=== PATIENT | female | born 1940 | race Caucasian/White ===

== ENCOUNTER 2016-12-15 11:20 | Emergency (ER) | payer OTHER, BC ==
[~2016-12-15] VITALS: Ht 167.6 cm; Wt 54.0 kg
[~2016-12-15 11:20] MED LIST: ASCO10003 PO; BACL10TA PO; BTLAI; CHOLTAB3 PO; MIRA1TAB3 PO; MULT-188 PO; MULT-513 PO; PLV75 PO
[2016-12-15 11:25] VITALS: TEMP 36.3; Ht 167.6 cm; Wt 54.0 kg
[2016-12-15 12:08] LABS: URINE APPEARANCE CLOUDY (CLEAR); URINE BILIRUBIN NEG (NEG); URINE NITRITE POS (NEG); URINE PH 6.5 (4.5-7.5); URINE SPECIFIC GRAVITY 1.012 (1.000-1.030); UROBILINOGEN NEG (NEG)
[2016-12-15] MEDS ORDERED: AMOX875T PO ×2 (12:25)
--- NOTE | 2016-12-15 12:25 | EMERGENCY ROOM VISIT NOTE ---
ED Visit Note First contact with patient: 11:29 CHIEF COMPLAINT: Frequent urination and dysuria since this morning HISTORY OF PRESENT ILLNESS: Patient is a wheelchair-bound 76-year-old white female with past medical history significant for MS with associated paraplegia, urinary incontinence and frequent urinary tract infections who presents the emergency department for evaluation of urinary frequency and burning with urination. Her symptoms started this morning. She is chronically incontinent of urine and wears Depends. She states that she last voided about 2 hours ago. She denies any abdominal, back or flank pain. No nausea or vomiting. She denies fever or chills. She does note a slight headache, and states that she took ibuprofen earlier this morning. She has a history of urinary tract infections, however has not been on antibiotics for UTI for some time. REVIEW OF SYSTEMS: Review of systems as per HPI. All other systems reviewed were negative. At least 6 systems reviewed. PMH: Electronic medical records are reviewed and summarized as above/below. See Problem List. SOCIAL HISTORY: Patient lives at home with her . PHYSICAL EXAM: Vital Signs: Reviewed Nurse's notes. CONSTITUTIONAL: Patient is a thin 76-year-old white female who is awake and alert and seated in her motorized wheelchair in no acute distress. CARDIOVASCULAR: Regular rate and rhythm, with murmur noted. Peripheral pulses easily palpable. RESPIRATORY: Breath sounds equal and clear to auscultation without wheezes, rales, or rhonchi heard. Full and equal chest expansion without accessory muscle use or retractions. ABDOMEN: Well-healed surgical scars. Bowel sounds are present. Abdomen is soft , scaphoid, nontender and nondistended. No CVA tenderness. INTEGUMENTARY: No lesions or rash, normal skin turgor. LYMPH: No lymphadenopathy. EMERGENCY DEPARTMENT COURSE: The patient was seen and examined as above. Her old records are reviewed. She presents with urinary burning and frequency, and a setting of chronic urinary incontinence. She was straight cathed for a urine sample. Urine microscopy was suspicious for infection, 3+ occult blood, positive nitrates, large amount of leukocyte esterase, greater than 30 WBCs and RBCs and 3+ bacteria. Urine culture is ordered and is pending. Her old records were reviewed and prior urine cultures did not grow any pathologic bacteria. She'll be empirically placed on Augmentin pending the culture results. Certainly should she and her are well versed on the worrisome signs or symptoms for which they should return to the emergency department including but not limited to abdominal or flank pain, fevers, vomiting, passing out or seizures, altered mental status, among others. The patient was given her first dose of Augmentin in the emergency department and discharged to home. Differential diagnoses entertained included UTI, cystitis, pyelonephritis, renal colic, among others. Her vital signs are stable and she does not have any evidence for sepsis at this time. Problem List Medical Problems: (1) Altered mental status Status: Resolved (2) Elevated lactic acid level Status: Resolved (3) MULTIPLE SCLEROSIS Status: Chronic (4) Paraplegia, Unspecified Status: Chronic (5) Personal History, Pneumonia (Recurrent) Status: Chronic (6) PNEUMONIA, ORGANISM NOS Status: Resolved (7) Sepsis Status: Resolved (8) SIRS (systemic inflammatory response syndrome) Status: Resolved (9) Unresponsive episode Status: Resolved (10) UTI (urinary tract infection) Status: Resolved (11) Wheelchair Dependence Status: Chronic Current/Historical Medications Scheduled Amoxicillin & Pot Clavulanate (Augmentin 875-125 mg), 1 TAB PO BID Ascorbic Acid (Vitamin C), 1,000 MG PO DAILY Baclofen (Lioresal), 10 MG PO 4x daily Clopidogrel Bisulfate (Clopidogrel), 75 MG PO DAILY Ergocalciferol (Vitamin D 35624 Unit), 400 INTER.UNIT PO DAILY Mirabegron (Myrbetriq Er), 50 MG PO DAILY Multiple Vitamins W/ Minerals (Ocuvite), 1 TABLET PO BID Multivitamins/Minerals (Mvi With Minerals), 1 TAB PO DAILY Miscellaneous Medications Botulinum Toxin Type A (Botox) Allergies Coded Allergies: No Known Allergies (Unverified , 12/15/16) Vital Signs Date Time Temp Pulse Resp B/P Pulse Ox O2 Delivery O2 Flow Rate FiO2 12/15/16 12:41 72 18 190/72 96 Room Air 12/15/16 11:25 36.3 96 18 169/80 93 Room Air Laboratory Results Test 12/15/16 11:55 Urine Color JESSICA Urine Appearance CLOUDY (CLEAR) Urine pH 6.5 (4.5-7.5) Urine Specific [place] 1.012 (1.000-1.030) Urine Protein NEG (NEG) Urine Glucose (UA) NEG (NEG) Urine Ketones NEG (NEG) Urine Occult Blood 3+ (NEG) Urine Nitrite POS (NEG) Urine Bilirubin NEG (NEG) Urine Urobilinogen NEG (NEG) Urine Leukocyte Esterase LARGE (NEG) Urine WBC (Auto) >30 /hpf (0-5) Urine RBC (Auto) >30 /hpf (0-4) Urine Hyaline Casts (Auto) 1-5 /lpf (0-5) Urine Epithelial Cells (Auto) 5-10 /lpf (0-5) Urine Bacteria (Auto) 3+ (NEG) Medications Administered Medications (Trade) Dose Ordered Sig/Rafael Route Start Time Stop Time Status Last Admin Dose Admin Amoxicillin/ Clavulanate Potassium (Augmentin Tab) 875 mg ONE ONCE PO 12/15/16 12:30 12/15/16 12:31 DC 12/15/16 12:30 875 MG Departure Information Impression Primary Impression: Urinary tract infection Prescriptions Amoxicillin & Pot Clavulanate (Augmentin 875-125 mg) 1 Tab Tab 1 TAB PO BID, #14 TAB Prov: Hazel Amaral PA 12/15/16 Referrals Mike Valdivia M.D. (PCP) Patient Instructions My [facility] Additional Instructions Amoxicillin Clavulanate (Augmentin) 875mg: Take one pill twice daily for 7 days for your urine infection. All antibiotics can cause diarrhea. If this occurs and you feel worse or it does not resolve in 1-2 days follow up with your doctor or return to the Emergency Department as this could be signs of serious underlying problems. Any medication can cause an allergic reaction, stop the pills immediately and return to the ER for rash, hives, breathing difficulties, or swelling. Ibuprofen(Motrin, Advil): may be used for fever or pain. Use 600mg every six hours as needed. Take with food. Avoid using more than 2400mg in a 24 hour period. Do not use 2400mg per day for more than three consecutive days without physician direction. Prolonged inappropriate use can lead to stomach upset or ulcers. This is available over the counter and typically comes in 200mg tablets. (AND/OR) Acetaminophen(Tylenol): may be used for fever or pain. Use 1000mg every eight hours as needed. Avoid using more than 3000mg in a 24 hour period. This is available over the counter. Read all the package inserts or medication information paperwork provided. If you have any questions or concerns call your primary provider, pharmacist or the ER for assistance. Rest and drink plenty of fluids. Continue current medications. Return to the ER immediately for worsening or persistent abdominal pain, vomiting, fevers, back or flank pain, worsening of your condition, or as needed. Follow up with your primary physician within 2-3 days for a recheck of the current condition
[2016-12-15 12:26] LABS: MANUAL MICROSCOPIC REQUIRED? NO; REVIEW REQ? NO; URINE COLOR AMBER
[2016-12-15] MEDS ORDERED: AMOXICILLIN/CLAVULANATE TAB 875 MG TAB PO ONE (12:30)
--- NOTE | 2016-12-15 12:36 | EMERGENCY ROOM VISIT NOTE ---
ED Visit Note First contact with patient: 11:29 Patient was seen by our PA/COST RECOVERY TECHNICIAN. I was involved in the patient's care and did evaluate the patient myself. I was involved in the care throughout the ER stay. The patient presents with urinary symptoms. She does have a history of MS and has had frequent UTIs. Urinalysis does show infection, urine culture is pending. The patient is not febrile or toxic. She is being discharged on oral antibiotics.
[2016-12-15] MEDS ORDERED: ERGO500037 PO (12:37)
[2016-12-15 12:41] VITALS: BP 190/72; PULSE 72; O2SAT 96
[2016-12-15] MEDS ORDERED: CHOL400C7 PO ×2 (21:29)
[2016-12-15] MEDS ORDERED: CHOL400C10 (21:29)
== END 2016-12-15 12:44 | disposition home or self-care (01) ==
LOC: C.EDB 11:21 → C.EDC 12:44
DX: N39.0 Urinary tract infection, site not specified (principal); G35 Multiple sclerosis; G82.20 Paraplegia, unspecified; Z99.3 Dependence on wheelchair; Z79.899 Other long term (current) drug therapy

== ENCOUNTER 2016-12-15 19:16 | Inpatient (IN) | payer OTHER, BC ==
[~2016-12-15] VITALS: Ht 167.6 cm; Wt 52.6 kg
[~2016-12-15 19:16] MED LIST changes: +AMOX875T PO; +ERGO500037 PO
[2016-12-15] MEDS ORDERED: SODIUM CHLORIDE 0.9% 1000ML 1,000 ML IV STA (19:36)
[2016-12-15] MEDS ORDERED: PIPERACILLIN/TAZOBACTAM 4.5 GM/100ML D5W IV STA (19:49)
[2016-12-15] MEDS ORDERED: SODIUM CHLORIDE 0.9% 500ML 500 ML IV STA (19:49)
[2016-12-15] MEDS ORDERED: VANCOMYCIN 1GM/270ML NSS IV STA (19:49)
--- NOTE | 2016-12-15 19:49 | DIAGNOSTIC IMAGING REPORT ---
CHEST ONE VIEW PORTABLE CLINICAL HISTORY: EVALUATE WEAKNESS mental status change COMPARISON STUDY: 08/19/2016 FINDINGS: Small fixed lateral hernia. Stable postoperative change of the low thoracic spine. Lungs appear clear. Considerable degenerative change left shoulder. IMPRESSION: Chronic and post procedural change. No acute process. Electronically signed by: Ronal Viera M.D. 12/15/2016 7:48 PM Dictated Date/Time: 12/15/2016 7:47 PM
[2016-12-15] MEDS ORDERED: IBUPROFEN 200 MG TAB PO STA (19:51)
[2016-12-15 20:33] LABS: BASO % 0.2 %; BASO ABS # 0.03 K/uL (0-0.2); COMPLETE YES; EOS % 1.8 %; HEMATOCRIT 40.6 % (37-47); IG% 0.2 %; LYMPH % 7.3 %; LYMPH ABS # 0.93 K/uL (1.2-3.4); MEAN CELL VOLUME 89.4 fL (80-100); MEAN CORPUSCULAR HGB CONC 33.5 g/dl (32-36); MEAN PLATELET VOLUME 9.4 fL (7.4-10.4); MONO % 3.1 %; NEUT % 87.4 %; PLATELET COUNT 324 K/uL (130-400); RED BLOOD COUNT 4.54 M/uL (4.2-5.4); WHITE BLOOD COUNT 12.68 K/uL (4.8-10.8)
[2016-12-15 20:42] LABS: PROTHROMBIN TIME (PATIENT) 10.8 SECONDS (9.0-12.0)
--- NOTE | 2016-12-15 20:45 | DIAGNOSTIC IMAGING REPORT ---
HEAD CT NONCONTRAST CT DOSE: 687.98 mGy.cm HISTORY: Mental status change headache TECHNIQUE: Multiaxial CT images of the head were performed without the use of intravenous contrast. Comparison: 08/19/2016 Findings: The paranasal sinuses and mastoid air cells are clear. Findings of rather significant frontal atrophy. Moderate rather significant chronic small vessel change of the periventricular deep white matter regions. Mild compensatory prominence of ventricular system. No evidence for acute intracranial hemorrhage. No midline shift. No change from the prior exam. Impression: Age-related change. No acute intracranial abnormality. No change from the prior study. Electronically signed by: Ronal Viera M.D. 12/15/2016 8:44 PM Dictated Date/Time: 12/15/2016 8:43 PM
[2016-12-15 20:53] LABS: ALT/SGPT 19 U/L (12-78); AST/SGOT 11 U/L (15-37); BLOOD UREA NITROGEN 20 mg/dl (7-18); BUN/CREATININE RATIO 33.2 (10-20); CARBON DIOXIDE 26 mmol/L (21-32); CHLORIDE 101 mmol/L (98-107); CREATININE 0.61 mg/dl (0.60-1.20); GLUCOSE 120 mg/dl (70-99); MAGNESIUM 2.1 mg/dl (1.8-2.4); POTASSIUM 3.9 mmol/L (3.5-5.1); SODIUM 136 mmol/L (136-145)
[2016-12-15 21:01] LABS: ALKALINE PHOSPHATASE 61 U/L (45-117); CKMB/CK RATIO 7.4 (0-3.0)
[2016-12-15] MEDS ORDERED: CHOL400C10 (21:29)
[2016-12-15] MEDS ORDERED: CHOL400C7 PO ×2 (21:29)
[2016-12-15] MEDS ORDERED: VANCOMYCIN 1GM/270ML NSS ONE (21:53)
[2016-12-16] VITALS (9 sets, daily range): BP systolic 148–194; BP diastolic 77–85; PULSE 75–89; TEMP 36.6–37; O2SAT 93–98; Ht 167.6 cm; Wt 52.6 kg
[2016-12-16] MEDS ORDERED: MAGNESIUM HYDROXIDE SUSP 30 ML UDC PO PRN (00:45)
[2016-12-16] MEDS ORDERED: ERTAPENEM IV 1 GM in SODIUM CHLOR 0.9% AD-VAN 50ML 50 ML IV SCH (00:45)
[2016-12-16] MEDS ORDERED: ALUMINUM/MAGNESIUM/SIMETH (MAALOX MAX) 30 ML UDC PO PRN (00:45)
[2016-12-16] MEDS ORDERED: ONDANSETRON INJ 2 MG/ML 2 ML VIAL IV PRN (00:45)
[2016-12-16] MEDS ORDERED: ACETAMINOPHEN 325 MG TAB PO PRN (00:45)
[2016-12-16] MEDS ORDERED: POLYETHYLENE (MIRALAX) 17 GM PACK PO PRN (00:45)
--- NOTE | 2016-12-16 01:12 | History and Physical ---
History & Physical Date & Time of Service: Dec 16, 2016 at 00:54 Chief Complaint: Hypotension Primary Care Physician: Mike Valdivia M.D. History of Present Illness Source: patient 76 y/o F with advanced MS. Pt was in the ER earlier on the day due to fatigue and dysuria. She was diagnosed with a UTI, provided with IVF and D/Cd with a course of Augmentin. The pt was then eating dinner when she slumped over and nearly lost consciousness. She was brought back to the ER where it was noted that she was hypotensive with a systolic pressure in the 60s. She responded well to an IVF bolus and is normotensive at the time of admission. The pt had a similar near-syncopal episode a few moths prior which was also associated with a low BP. She states that it is not unusual for her to have low blood pressure possibly owning to her MS and autonomic dysfunction. She has been afebrile and her lactic acid is not elevated so that her low BP is not likely related to sepsis. She denies a COKER, visual changes, acute worsening muscle weakness. Denies fevers or rigors at home, denies flank or back pain. She has had some burning with urination. Past Medical/Surgical History Medical Problems: (1) Altered mental status Status: Resolved (2) Elevated lactic acid level Status: Resolved (3) MULTIPLE SCLEROSIS Status: Chronic (4) Paraplegia, Unspecified Status: Chronic (5) Personal History, Pneumonia (Recurrent) Status: Chronic (6) PNEUMONIA, ORGANISM NOS Status: Resolved (7) Sepsis Status: Resolved (8) SIRS (systemic inflammatory response syndrome) Status: Resolved (9) Unresponsive episode Status: Resolved (10) UTI (urinary tract infection) Status: Resolved (11) Wheelchair Dependence Status: Chronic Family History FH: heart disease Social History Pt is care-dependent and wheelchair bound Smoking Status: Former Smoker Drug Use: none Marital Status: Housing status: lives with family Occupational Status: retired Immunizations History of Influenza Vaccine: Yes History of Tetanus Vaccine?: Unknown History of Pneumococcal: No History of Hepatitis B Vaccine: Unknown Multi-Drug Resistant Organisms History of MDRO: No Allergies Coded Allergies: No Known Allergies (Unverified , 12/15/16) Home Medications Scheduled Amoxicillin & Pot Clavulanate (Augmentin 875-125 mg), 1 TAB PO BID Ascorbic Acid (Vitamin C), 1,000 MG PO DAILY Baclofen (Lioresal), 10 MG PO 4x daily Cholecalciferol (Vitamin D 400 Iu), 400 INTER.UNIT PO DAILY Clopidogrel Bisulfate (Clopidogrel), 75 MG PO DAILY Mirabegron (Myrbetriq Er), 50 MG PO DAILY Multiple Vitamins W/ Minerals (Ocuvite), 1 TABLET PO BID Multivitamins/Minerals (Mvi With Minerals), 1 TAB PO DAILY Miscellaneous Medications Botulinum Toxin Type A (Botox) Review of Systems Constitutional: No chills, No fever, No sweats Eyes: No eye pain, No worsening of vision ENT: No hearing loss, No nasal symptoms, No unusual epistaxis Respiratory: No cough, No sputum, No wheezing Cardiovascular: No PND, No chest pain, No orthopnea Abdomen: No nausea, No pain, No vomiting Musculoskeletal: No joint pain, No muscle pain Genitourinary - Female: + dysuria, No urinary frequency, No urinary urgency Neurologic: + balance problems, + problem reported (Near syncope as above), + weakness, No memory loss, No paralysis Psychiatric: No depression symptoms Endocrine: No fatigue Physical Exam Vital Signs Date Time Temp Pulse Resp B/P Pulse Ox O2 Delivery O2 Flow Rate FiO2 12/15/16 23:42 92 20 162/87 95 Room Air 12/15/16 23:36 87 12/15/16 21:59 84 18 150/77 95 12/15/16 20:28 85 16 118/69 93 Room Air 12/15/16 19:30 88 12/15/16 19:29 36.4 87 15 135/65 96 Room Air 12/15/16 19:29 96 Room Air General Appearance: WD/WN, no apparent distress Head: normocephalic, atraumatic Eyes: normal inspection, PERRL, EOMI ENT: normal ENT inspection, pharynx normal Neck: supple, no JVD Respiratory/Chest: chest non-tender, lungs clear, normal breath sounds, no respiratory distress, no accessory muscle use Cardiovascular: regular rate, rhythm, no edema, no gallop, no JVD, no murmur, normal peripheral pulses Abdomen/GI: normal bowel sounds, non tender, soft Back: normal inspection, no CVA tenderness Extremities/Musculoskelatal: + pertinent finding (Muscle wasting is apparent - contractures forming in lowe extremities) Neurologic/Psych: leasing coordinator II-XII nml as tested, oriented x 3, + motor weakness Skin: normal color, warm/dry, no rash Diagnostics Laboratory Results Results Past 24 Hours Test 12/15/16 20:09 12/15/16 20:19 Range/Units White Blood Count 12.68 4.8-10.8 K/uL Red Blood Count 4.54 4.2-5.4 M/uL Hemoglobin 13.6 12.0-16.0 g/dL Hematocrit 40.6 37-47 % Mean Corpuscular Volume 89.4 80-100 fL Mean Corpuscular Hemoglobin 30.0 25-34 pg Mean Corpuscular Hemoglobin Concent 33.5 32-36 g/dl Platelet Count 324 130-400 K/uL Mean Platelet Volume 9.4 7.4-10.4 fL Neutrophils (%) (Auto) 87.4 % Lymphocytes (%) (Auto) 7.3 % Monocytes (%) (Auto) 3.1 % Eosinophils (%) (Auto) 1.8 % Basophils (%) (Auto) 0.2 % Neutrophils # (Auto) 11.07 1.4-6.5 K/uL Lymphocytes # (Auto) 0.93 1.2-3.4 K/uL Monocytes # (Auto) 0.39 0.11-0.59 K/uL Eosinophils # (Auto) 0.23 0-0.5 K/uL Basophils # (Auto) 0.03 0-0.2 K/uL RDW Standard Deviation 46.9 36.4-46.3 fL RDW Coefficient of Variation 14.3 11.5-14.5 % Immature Granulocyte % (Auto) 0.2 % Immature Granulocyte # (Auto) 0.03 0.00-0.02 K/uL Prothrombin Time 10.8 9.0-12.0 SECONDS Prothromb Time International Ratio 1.0 0.9-1.1 Activated Partial Thromboplast Time 25.5 21.0-31.0 SECONDS Partial Thromboplastin Ratio 1.0 Sodium Level 136 136-145 mmol/L Potassium Level 3.9 3.5-5.1 mmol/L Chloride Level 101 98-107 mmol/L Carbon Dioxide Level 26 21-32 mmol/L Anion Gap 9.0 3-11 mmol/L Blood Urea Nitrogen 20 7-18 mg/dl Creatinine 0.61 0.60-1.20 mg/dl Est Creatinine Clear Calc Drug Dose 66.2 ml/min Estimated GFR () 100.6 Estimated GFR (Non- 86.8 BUN/Creatinine Ratio 33.2 10-20 Random Glucose 120 70-99 mg/dl Calcium Level 9.0 8.5-10.1 mg/dl Magnesium Level 2.1 1.8-2.4 mg/dl Total Bilirubin 0.4 0.2-1 mg/dl Direct Bilirubin < 0.1 0-0.2 mg/dl Aspartate Amino Transf (AST/SGOT) 11 15-37 U/L Alanine Aminotransferase (ALT/SGPT) 19 12-78 U/L Alkaline Phosphatase 61 45-117 U/L Total Creatine Kinase 34 26-192 U/L Creatine Kinase MB 2.5 0.5-3.6 ng/ml Creatine Kinase MB Ratio 7.4 0-3.0 Troponin I < 0.015 0-0.045 ng/ml Total Protein 6.5 6.4-8.2 gm/dl Albumin 3.5 3.4-5.0 gm/dl Lipase 249 73-393 U/L Thyroid Stimulating Hormone (TSH) 3.210 0.300-4.500 uIu/ml Bedside Lactic Acid Venous 1.50 0.90-1.70 mmol/L Microbiology Results 12/15/16 Blood Culture, Received Pending 12/15/16 Blood Culture, Received Pending Impression Assessment and Plan 76 y/o F with advanced MS. Pt was in the ER earlier on the day due to fatigue and dysuria. She was diagnosed with a UTI, provided with IVF and D/Cd with a course of Augmentin. The pt was then eating dinner when she slumped over and nearly lost consciousness. She was brought back to the ER where it was noted that she was hypotensive with a systolic pressure in the 60s. She responded well to an IVF bolus and is normotensive at the time of admission. 1) Near syncope - this has occurred in the past and is not likely related to her UTI - MS-related autonomic dysfunction is a consideration. She was evaluated and worked up by neurology when admitted for similar complaints . There is no evidence of cardio etiology however ambulatory monitoring should be considered as her workup was previously negative. She has informed me that she is anxious to be discharged from the hospital so that if sepsis is ruled out an her BP remains stable an effort should be made to expedite discharge. 2) UTI - she had a single dose of Augmentin prior to returning to the hospital - she was provided with Vanc and Zosyn in the ER. We will continue Zosyn pending culture results. 3) Advanced MS - Pt does not currently follow-up with a neurologist - Symptoms are not consistent with an acute flare - she should be referred to neurology on D/C to evaluate her near syncope Full code - Heparin prophylaxis Total time for this admit including review of records, labs, imaging, EKG - discussion with pt and ER MD - 33 min Level of Care Telemetry Resuscitation Status FULL RESUSCITATION VTE Prophylaxis VTE Risk Assessment Done? Y/N: Yes Risk Level: Moderate Given or contraindicated: Unfractionated heparin SQ
--- NOTE | 2016-12-16 02:11 | EMERGENCY ROOM VISIT NOTE ---
History Report prepared by Ivette: Phyllis Kim Under the Supervision of: Dr. Sergo Ny M.D. First contact with patient: 19:36 Chief Complaint: HYPOTENSION Stated Complaint: HYPOTENSION History of Present Illness The patient is a 76 year old female who presents to the Emergency Room with complaints of an episode of hypotension beginning just prior to arrival. Per the patient's , the patient was eating dinner when she slumped over. He states the she did not LOC and was not very responsive. The patient did eat well. She has had this occur once before last year where she did experience LOC. The patient has been experiencing weakness and a headache since this episode. She was seen in the ED this morning and diagnosed with a bladder infection. The patient took one dosage of Augmentin today. Pt denies LOC, fevers , chills, diaphoresis, visual changes, neck pain, chest pain, breathing difficulties, nausea, vomiting, abdominal pain, back pain, melena, hematochezia , numbness, lymphadenopathy, rash, or other complaints. The patient does have MS. Source of History: spouse/significant other Onset: just [employer] Position: other (global) Quality: other (hypotension) Timing: other (episode) Associated Symptoms: + headache, + weakness, No LOC Review of Systems See HPI for pertinent positives and negatives. A total of ten systems were reviewed and were otherwise negative. 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 Family History FH: heart disease Social History Smoking Status: Former Smoker Alcohol Use: none Drug Use: none Marital Status: Housing Status: lives with family Occupation Status: retired Current/Historical Medications Scheduled Amoxicillin & Pot Clavulanate (Augmentin 875-125 mg), 1 TAB PO BID Ascorbic Acid (Vitamin C), 1,000 MG PO DAILY Baclofen (Lioresal), 10 MG PO 4x daily Cholecalciferol (Vitamin D 400 Iu), 400 INTER.UNIT PO DAILY Clopidogrel Bisulfate (Clopidogrel), 75 MG PO DAILY Mirabegron (Myrbetriq Er), 50 MG PO DAILY Multiple Vitamins W/ Minerals (Ocuvite), 1 TABLET PO BID Multivitamins/Minerals (Mvi With Minerals), 1 TAB PO DAILY Miscellaneous Medications Botulinum Toxin Type A (Botox) Allergies Coded Allergies: No Known Allergies (Unverified , 12/15/16) Physical Exam Vital Signs Date Time Temp Pulse Resp B/P Pulse Ox O2 Delivery O2 Flow Rate FiO2 12/15/16 23:42 92 20 162/87 95 Room Air 12/15/16 23:36 87 12/15/16 21:59 84 18 150/77 95 12/15/16 20:28 85 16 118/69 93 Room Air 12/15/16 19:30 88 12/15/16 19:29 36.4 87 15 135/65 96 Room Air 12/15/16 19:29 96 Room Air Physical Exam GENERAL: Awake, alert, well-appearing, in no distress HENT: Normocephalic, atraumatic. Oropharynx unremarkable. EYES: Normal conjunctiva. Sclera non-icteric. NECK: Supple. No nuchal rigidity. FROM. No JVD. RESPIRATORY: Clear to auscultation. CARDIAC: Borderline tachycardia with systolic ejection murmur. Extremities warm and well perfused. Pulses equal. ABDOMEN: Soft, non-distended. No tenderness to palpation. No rebound or guarding. No masses. RECTAL: Deferred. MUSCULOSKELETAL: Chest examination reveals no tenderness. The back is symmetrical on inspection without obvious abnormality. There is no CVA tenderness to palpation. No joint edema. LOWER EXTREMITIES: Paralysis. 1+ edema. Calves are equal size bilaterally and non-tender. No discoloration. NEURO: Normal sensorium. No sensory deficits noted. SKIN: No rash or jaundice noted. Medical Decision & Procedures ER Provider Diagnostic Interpretation: X ray results as stated below per my interpretation and radiologist interpretation. Other radiology results as stated below per my review and radiologist interpretation CHEST ONE VIEW PORTABLE CLINICAL HISTORY: EVALUATE WEAKNESS mental status change COMPARISON STUDY: 08/19/2016 FINDINGS: Small fixed lateral hernia. Stable postoperative change of the low thoracic spine. Lungs appear clear. Considerable degenerative change left shoulder. IMPRESSION: Chronic and post procedural change. No acute process. Electronically signed by: Ronal Viera M.D. 12/15/2016 7:48 PM Dictated Date/Time: 12/15/2016 7:[address] CT DOSE: 687.98 mGy.cm HISTORY: Mental status change headache TECHNIQUE: Multiaxial CT images of the head were performed without the use of intravenous contrast. Comparison: 08/19/2016 Findings: The paranasal sinuses and mastoid air cells are clear. Findings of rather significant frontal atrophy. Moderate rather significant chronic small vessel change of the periventricular deep white matter regions. Mild compensatory prominence of ventricular system. No evidence for acute intracranial hemorrhage. No midline shift. No change from the prior exam. Impression: Age-related change. No acute intracranial abnormality. No change from the prior study. Electronically signed by: Ronal Viera M.D. 12/15/2016 8:44 PM Dictated Date/Time: 12/15/2016 8:43 PM Laboratory Results 12/15/16 20:09 Red Blood Count 4.54, Mean Corpuscular Volume 89.4, Mean Corpuscular Hemoglobin 30.0, Mean Corpuscular Hemoglobin Concent 33.5, Mean Platelet Volume 9.4, Neutrophils (%) (Auto) 87.4, Lymphocytes (%) (Auto) 7.3, Monocytes (%) (Auto) 3.1, Eosinophils (%) (Auto) 1.8, Basophils (%) (Auto) 0.2, Neutrophils # (Auto) 11.07, Lymphocytes # (Auto) 0.93, Monocytes # (Auto) 0.39, Eosinophils # (Auto) 0.23, Basophils # (Auto) 0.03 12/15/16 20:09 Test 12/15/16 20:09 12/15/16 20:19 White Blood Count 12.68 K/uL (4.8-10.8) Red Blood Count 4.54 M/uL (4.2-5.4) Hemoglobin 13.6 g/dL (12.0-16.0) Hematocrit 40.6 % (37-47) Mean Corpuscular Volume 89.4 fL (80-100) Mean Corpuscular Hemoglobin 30.0 pg (25-34) Mean Corpuscular Hemoglobin Concent 33.5 g/dl (32-36) Platelet Count 324 K/uL (130-400) Mean Platelet Volume 9.4 fL (7.4-10.4) Neutrophils (%) (Auto) 87.4 % Lymphocytes (%) (Auto) 7.3 % Monocytes (%) (Auto) 3.1 % Eosinophils (%) (Auto) 1.8 % Basophils (%) (Auto) 0.2 % Neutrophils # (Auto) 11.07 K/uL (1.4-6.5) Lymphocytes # (Auto) 0.93 K/uL (1.2-3.4) Monocytes # (Auto) 0.39 K/uL (0.11-0.59) Eosinophils # (Auto) 0.23 K/uL (0-0.5) Basophils # (Auto) 0.03 K/uL (0-0.2) RDW Standard Deviation 46.9 fL (36.4-46.3) RDW Coefficient of Variation 14.3 % (11.5-14.5) Immature Granulocyte % (Auto) 0.2 % Immature Granulocyte # (Auto) 0.03 K/uL (0.00-0.02) Prothrombin Time 10.8 SECONDS (9.0-12.0) Prothromb Time International Ratio 1.0 (0.9-1.1) Activated Partial Thromboplast Time 25.5 SECONDS (21.0-31.0) Partial Thromboplastin Ratio 1.0 Anion Gap 9.0 mmol/L (3-11) Est Creatinine Clear Calc Drug Dose 66.2 ml/min Estimated GFR () 100.6 Estimated GFR (Non- 86.8 BUN/Creatinine Ratio 33.2 (10-20) Calcium Level 9.0 mg/dl (8.5-10.1) Magnesium Level 2.1 mg/dl (1.8-2.4) Total Bilirubin 0.4 mg/dl (0.2-1) Direct Bilirubin < 0.1 mg/dl (0-0.2) Aspartate Amino Transf (AST/SGOT) 11 U/L (15-37) Alanine Aminotransferase (ALT/SGPT) 19 U/L (12-78) Alkaline Phosphatase 61 U/L (45-117) Total Creatine Kinase 34 U/L (26-192) Creatine Kinase MB 2.5 ng/ml (0.5-3.6) Creatine Kinase MB Ratio 7.4 (0-3.0) Troponin I < 0.015 ng/ml (0-0.045) Total Protein 6.5 gm/dl (6.4-8.2) Albumin 3.5 gm/dl (3.4-5.0) Lipase 249 U/L (73-393) Thyroid Stimulating Hormone (TSH) 3.210 uIu/ml (0.300-4.500) Bedside Lactic Acid Venous 1.50 mmol/L (0.90-1.70) Laboratory results reviewed by me Medications Administered Medications (Trade) Dose Ordered Sig/Rafael Route Start Time Stop Time Status Last Admin Dose Admin Sodium Chloride 1,000 ml @ 125 mls/hr Q8H STAT IV 12/15/16 19:36 12/16/16 03:35 12/15/16 20:50 125 MLS/HR Sodium Chloride (Nss 500ml) 500 ml @ 999 mls/hr Q31M STAT IV 12/15/16 19:49 12/15/16 20:19 DC 12/15/16 19:49 999 MLS/HR Piperacillin Sod/ Tazobactam Sod (Zosyn Iv) 4.5 gm NOW STAT IV 12/15/16 19:49 12/15/16 19:51 DC 12/15/16 20:49 4.5 GM Vancomycin HCl (Vancomycin 1gm/ 270ml Nss) 1 gm NOW STAT IV 12/15/16 19:49 12/15/16 19:51 DC 12/15/16 21:57 1 GM Ibuprofen (Advil Tab) 400 mg NOW STAT PO 12/15/16 19:51 12/15/16 19:52 DC 12/15/16 20:50 400 MG ECG Indication: other (hypotension) Rate (beats per minute): 85 Findings: RBBB (incomplete), no acute ischemic change, no ectopy ED Course 1935: Sodium Chloride 1,000 ml @ 125 mls/hr IV. 1941: The patient was evaluated in room C7. A complete history and physical exam was performed. 1948: Vancomycin 1gm/ 270 ml Nss 1 gm IV, Zosyn IV 4.5 gm IV, Sodium Chloride 500 ml @ 999 mls/hr IV, Advil Tab 400 mg PO. 2203: Discussed the patient's case with Dr. Simona MEANS. The patient will be evaluated for further treatment and disposition. 2213: I discussed the plan for hospitalization with the patient and her . Medical Decision Triage Nursing notes reviewed. The patient's presentation and history were concerning for near syncope and recent UTI. Etiologies such as metabolic, infection, hypo/hyperglycemia, electrolyte abnormalities, cardiac sources, intracerebral event, toxicologic, neurologic, as well as others were entertained. The patient was evaluated. She was doing better after receiving fluids prehospital. Blood work was obtained. The patient was given saline hydration as well as IV Zosyn and vancomycin. She has a leukocytosis on CBC. Coags unremarkable. Chemistry panel reveals dehydration. Troponin and TSH are negative. The patient's urinalysis from earlier today was very concerning for infection. Her culture is pending. Since she had this episode with hypotension and known infection further evaluation and management in the hospital is felt the most appropriate. The patient and were in agreement. Consultation was made with internal medicine. The patient was evaluated in the Emergency Room for further management. The chart was completed utilizing [employer] Speech voice recognition software. Grammatical errors, random word insertions, pronoun errors, and incomplete sentences are an occasional consequence of this system due to software limitations, ambient noise, and hardware issues. Any formal questions or concerns about the content, text, or information contained within the body of this dictation should be directly addressed to the physician for clarification. Consults Time Called: 2201 Consulting Physician: Dr. Simona Mejia [facility] [place] Returned Call: 2203 Discussed the patient's case. The patient will be evaluated for further treatment and disposition. Impression Primary Impression: Near syncope Additional Impressions: Hypotension UTI (urinary tract infection) Scribe Attestation The scribe's documentation has been prepared under my direction and personally reviewed by me in its entirety. I confirm that the note above accurately reflects all work, treatment, procedures, and medical decision making performed by me. Departure Information Dispostion Being Evaluated By Hospitalist Referrals Mike Valdivia M.D. (PCP) Problem Qualifiers
[2016-12-16] MEDS ORDERED: PIPERACILL/TAZOBAC CONSULT ACTIVE PRN (02:30)
[2016-12-16] MEDS ORDERED: NSS + 20MEQ KCL 1000ML 1,000 ML IV SCH (02:30)
[2016-12-16] MEDS ORDERED: MIRABEGRON ER 25 MG TAB PO SCH (02:30)
[2016-12-16] MEDS: PIPERACILL/TAZOBAC IV 3.375 GM in DEXTROSE 5% 100ML 100 ML IV SCH ×2 (02:36→10:31)
[2016-12-16] MEDS ORDERED: HEPARIN SOD 5000 UNIT/0.5 ML CARP SQ SCH (07:00)
[2016-12-16] MEDS: BACLOFEN 10 MG TAB PO SCH ×2 (07:28→13:00)
[2016-12-16] MEDS ORDERED: ASCORBIC ACID 500 MG TAB PO SCH (09:00)
[2016-12-16] MEDS ORDERED: CEROVITE ADV FORMULA TAB PO SCH (09:00)
[2016-12-16] MEDS ORDERED: CLOPIDOGREL BISULFATE 75 MG TAB PO SCH (09:00)
[2016-12-16] MEDS ORDERED: CHOLECALCIFEROL 400 INTER.UNIT TAB PO SCH (09:00)
--- NOTE | 2016-12-16 14:16 | Discharge Instructions ---
Discharge Instructions Admission Reason for Admission: Hypotension, Near Syncope Discharge Discharge Diagnosis / Problem: Hypotension, near syncope Discharge Goals Goal(s): Improve disease control, Therapeutic intervention Activity Recommendations Activity Limitations: resume your previous activity . Instructions / Follow-Up Instructions / Follow-Up You were admitted for nearly passing out (near syncope) and low blood pressure. 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 No further evaluation was done during this admission as you had an extensive workup on a recent hospital admission for the same issue. After admission, you were given IV fluids and your blood pressure actually got too high. The IV fluids were stopped and your blood pressure came down to the 140s-150s systolic. You did not have any abnormal heart rhythms on your cardiac monitoring. Your ECHO (ultrasound of the heart) from your last admission in August did show a leaky aortic valve. Because of your recurrent syncope and near syncope issues, it is recommended that you be seen by a Tax Services Intern as an outpatient. You may need watermaster heart monitoring to see if you are having any other cardiac arrhythmias. Your near syncope episode may have been triggered by your urinary tract infection. You should finish out the prescribed course of antibiotics for your UTI. You should drink plenty of fluids and add on an extra can of Boost in the afternoon as you stated you had lost 5 lbs since a few months ago. Continue to wear your leg compression stockings daily. Please follow up with Dr. Valdivia within 1-2 days. Please follow up with Dr. Jeff Zhao, Cardiology, in 1-2 weeks. Current Hospital Diet Patient's current hospital diet: Regular Diet Discharge Diet Recommended Diet: Regular Diet (with Boost drinks twice daily) Procedures Procedures Performed: None Pending Studies Studies pending at discharge: no Medical Emergencies . Who to Call and When: Medical Emergencies: If at any time you feel your situation is an emergency, please call 911 immediately. . Non-Emergent Contact Non-Emergency issues call your: Primary Care Provider Call Non-Emergent contact if: temperature is above 101, you have any medication questions . . "Provider Documentation" section prepared by Kerry Arzola. VTE Core Measure Inpt VTE Proph given/why not?: Unfractionated heparin SQ
--- NOTE | 2016-12-16 18:56 | Discharge Summary ---
Discharge Summary Admission Date: Dec 16, 2016 at 00:42 Discharge Date: Dec 16, 2016 Discharge Disposition: Home Principal Diagnosis: Near syncope,hypotension Problems/Secondary Diagnoses: Progressive Multiple sclerosis Paraplegia, Unspecified Wheelchair Dependence UTI Elevated blood pressure without diagnosis of HTN Urinary incontinence Moderate aortic regurgitation Chronic diastolic dysfunction/CHF Immunizations: Have You Had Influenza Vaccine: Yes History of Tetanus Vaccine?: Unknown History of Pneumococcal: No History of Hepatitis B Vaccine: Unknown Procedures: HEAD CT NONCONTRAST CT DOSE: 687.98 mGy.cm HISTORY: Mental status change headache TECHNIQUE: Multiaxial CT images of the head were performed without the use of intravenous contrast. Comparison: 08/19/2016 Findings: The paranasal sinuses and mastoid air cells are clear. Findings of rather significant frontal atrophy. Moderate rather significant chronic small vessel change of the periventricular deep white matter regions. Mild compensatory prominence of ventricular system. No evidence for acute intracranial hemorrhage. No midline shift. No change from the prior exam. Impression: Age-related change. No acute intracranial abnormality. No change from the prior study. CHEST ONE VIEW PORTABLE CLINICAL HISTORY: EVALUATE WEAKNESS mental status change COMPARISON STUDY: 08/19/2016 FINDINGS: Small fixed lateral hernia. Stable postoperative change of the low thoracic spine. Lungs appear clear. Considerable degenerative change left shoulder. IMPRESSION: Chronic and post procedural change. No acute process. Consultations: None Medication Reconciliation Continued Medications: Amoxicillin & Pot Clavulanate (Augmentin 875-125 mg) 1 Tab Tab 1 TAB PO BID, #14 TAB Ascorbic Acid (Vitamin C) 1,000 Mg Tab 1000 MG PO DAILY Baclofen (Lioresal) 10 Mg Tab 10 MG PO 4x daily, TAB Botulinum Toxin Type A (Botox) 100 Units Inj TAKE EVERY 3 MONTHS Cholecalciferol (Vitamin D 400 Iu) 400 Unit Cap 400 INTER.UNIT PO DAILY, CAP Clopidogrel Bisulfate (Clopidogrel) 75 Mg Tab 75 MG PO DAILY, #30 Mirabegron (Myrbetriq Er) 50 Mg Tab 50 MG PO DAILY Multiple Vitamins W/ Minerals (Ocuvite) 1 Tab Tab 1 TABLET PO BID Multivitamins/Minerals (Mvi With Minerals) Tab 1 TAB PO DAILY, TAB Referrals At Discharge Follow up Referrals: Master Plumber Referral - Within 1-2 Weeks with Jeff Zaho M.D. Physician Referral - Within 1 Week with Koberna, Mkie,M.D. Discharge Exam Pt was doing very well on day of discharge. She was afebrile, no signs of systemic infection from her UTI. Her BPs were elevated after receiving IVFs and these were stopped. She was making good urine amount and was able to void spontaneously. Her blood pressure then decreased to the 140s-150s systolic. Orthostatic vitals with lying and sitting were obtained and were normal. Telemetry was unrevealing for any significant cardiac arrhythmias. ECG with new incomplete RBBB only. Pt anxious to go home. No more lightheadedness. Review of Systems: Constitutional: + weight loss (5 lbs since last hospitalization), No chills , No fever, No sweats Eyes: No problem reported ENT: No sore throat, No trouble swallowing Respiratory: No cough, No shortness of breath Cardiovascular: No chest pain, No palpitations Abdomen: No constipation, No diarrhea, No nausea, No pain, No vomiting Musculoskeletal: No problem reported Genitourinary - Female: No problem reported Neurologic: + paralysis Psychiatric: No problem reported Endocrine: No problem reported Hematologic / Lymphatic: No problem reported Integumentary: No problem reported Physical Exam: General Appearance: no apparent distress, + thin Eyes: normal inspection, EOMI, sclerae normal ENT: hearing grossly normal, pharynx normal Neck: trachea midline Respiratory/Chest: lungs clear, normal breath sounds, no respiratory distress, no accessory muscle use Cardiovascular: regular rate, rhythm, no edema, no gallop, normal peripheral pulses, + systolic murmur (1/6 STACY at RUSB) Abdomen / GI: normal bowel sounds, non tender, soft, no organomegaly Extremities: + pertinent finding (LEs with significant spasticity and atrophy of muscles, contractures in LEs and some milder contractures in hands and arms) Neurologic/Psychiatric: alert, normal mood/affect, oriented x 3, + motor weakness (in legs and less so in UEs) Skin: normal color, warm/dry, no rash Hospital Course 76 y/o F with advanced MS. Pt was in the ER earlier on the day in this ER due to fatigue and dysuria. She was diagnosed with a UTI, provided with IVF and D/ Cd with a course of Augmentin. The pt was then eating dinner when she slumped over and nearly lost consciousness. She was brought back to the ER where it was noted that she was hypotensive with a systolic pressure in the 60s. She responded well to an IVF bolus and is normotensive at the time of admission. 1) Near syncope - this has occurred in the past and is not likely related to her UTI - MS-related autonomic dysfunction is a consideration. She was evaluated and worked up by neurology when admitted for similar complaints . Also at that time she had a normal carotid doppler study, ECHO with moderate aortic regurgitation. There is no evidence of cardio etiology on this admission with normal telemetry monitoring. ECG with new incomplete RBBB but otherwise normal. Troponin was negative. I recommend ambulatory monitoring with event monitor as her events of syncope or near syncope are few and far between. Discussed [facility] pt and her . Gave referral to Dr. Zhao to be seen within 1-2 weeks. 2) UTI - she had a single dose of Augmentin prior to returning to the hospital - she was provided with Vanc and Zosyn in the ER. We continued Zosyn here and she will be discharged back to home on po Augmentin. Blood cultures obtained and no growth in first 24 hrs but again, lactate normal, no clinical signs of sepsis. WBC count mildly elevated but could be from stress response from near syncope. Urine culture from day prior ER visit is growing E. coli but sensitivities not back yet. This will need to be followed up by her PCP. 3) Advanced MS - -follow-up with neurologist for routine follow up Full code - Heparin prophylaxis Total Time Spent: Greater than 30 minutes This includes examination of the patient, discharge planning, medication reconciliation, and communication with other providers. Discharge Instructions Please refer to the electronic Patient Visit Report (Discharge Instructions) for additional information. Follow-Up With PCP within 1-2 days With Cardiology within 1-2 weeks Additional Copies To Mike Valdivia M.D.
== END 2016-12-16 14:40 | disposition home or self-care (01) | DRG 312 ==
LOC: ENRESERVTM → ENRESERVDT → EDBD 19:16 → C.EDC 19:17 → C.2T 12-16 00:42
PROVIDERS: ADMIT Internal Medicine; ATTEND Family Medicine
DX: R55 Syncope and collapse (principal); N39.0 Urinary tract infection, site not specified; G82.20 Paraplegia, unspecified; I50.32 Chronic diastolic (congestive) heart failure; G35 Multiple sclerosis; I95.9 Hypotension, unspecified; B96.20 Unspecified Escherichia coli [E. coli] as the cause of diseases classified elsewhere; I35.1 Nonrheumatic aortic (valve) insufficiency; I45.10 Unspecified right bundle-branch block; R03.0 Elevated blood-pressure reading, without diagnosis of hypertension; R32 Unspecified urinary incontinence; Z87.891 Personal history of nicotine dependence; Z87.01 Personal history of pneumonia (recurrent); Z99.3 Dependence on wheelchair; Z79.899 Other long term (current) drug therapy; Z79.02 Long term (current) use of antithrombotics/antiplatelets

== ENCOUNTER 2016-12-26 10:23 | Emergency (ER) | payer OTHER, BC ==
[~2016-12-26] VITALS: Ht 167.6 cm; Wt 52.5 kg
[~2016-12-26 10:23] MED LIST changes: +CHOL400C7 PO; -CHOLTAB3 PO; -ERGO500037 PO
[2016-12-26 10:37] VITALS: TEMP 37; Ht 167.6 cm; Wt 52.5 kg
--- NOTE | 2016-12-26 11:40 | EMERGENCY ROOM VISIT NOTE ---
History Report prepared by Ivette: Jama Flores Under the Supervision of: Dr. Theo Maza M.D. First contact with patient: 10:49 Chief Complaint: URINARY SYMPTOMS Stated Complaint: BLADDER INFECTION Nursing Triage Summary: Pt c/o urgency, concerned about UTI. UTI last week. Took medications. History of Present Illness The patient is a 76 year old female who presents to the Emergency Room with complaints of constant urinary symptoms for the past ten days. The patient states that she was here 10 days ago for similar symptoms, and she was diagnosed with a UTI, and she was given Augmentin. The patient was then admitted to the hospital due to weakness. The patient denies any current weakness and abdominal pain. Per the patient's , she was awake a lot last night. Source of History: patient, spouse/significant other Onset: 10 days ago Position: other (urinary tract) Quality: other (urinary symptoms) Timing: constant Associated Symptoms: No abdominal pain Review of Systems See HPI for pertinent positives & negatives. A total of 10 systems reviewed and were otherwise negative. 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 Family History FH: heart disease Social History Smoking Status: Former Smoker Alcohol Use: none Drug Use: none Marital Status: Housing Status: lives with family Occupation Status: retired Current/Historical Medications Scheduled Ascorbic Acid (Vitamin C), 1,000 MG PO DAILY Baclofen (Lioresal), 10 MG PO 4x daily Cholecalciferol (Vitamin D 400 Iu), 400 INTER.UNIT PO DAILY Clopidogrel Bisulfate (Clopidogrel), 75 MG PO DAILY Mirabegron (Myrbetriq Er), 50 MG PO DAILY Multiple Vitamins W/ Minerals (Ocuvite), 1 TABLET PO BID Multivitamins/Minerals (Mvi With Minerals), 1 TAB PO DAILY Sulfa/Trimethoprim (Bactrim Ds 800MG/160MG), 1 TAB PO BID Miscellaneous Medications Botulinum Toxin Type A (Botox) Allergies Coded Allergies: No Known Allergies (Unverified , 12/26/16) Physical Exam Vital Signs Date Time Temp Pulse Resp B/P Pulse Ox O2 Delivery O2 Flow Rate FiO2 12/26/16 12:32 87 18 175/89 96 Room Air 12/26/16 10:37 37.0 92 17 114/64 94 Room Air Physical Exam GENERAL: Patient is a healthy-appearing well-nourished HEAD: Normocephalic atraumatic EYES: Ocular movements intact pupils equal and react to light OROPHARYNX mucous membranes are moist no exudates present no erythema or edema present NECK: Supple no nuchal rigidity CHEST: Good equal expansion LUNGS: Clear and equal to auscultation CARDIAC: Normal S1 and S2 ABDOMEN: Soft nontender no guarding BACK: No CVA tenderness EXTREMITIES: No pain upon palpation normal muscle strength in all groups no clubbing cyanosis or edema NEURO: Patient is following commands is answering questions appropriately. Alert and oriented x3 Cranial Nerves 2-12 grossly intact Medical Decision & Procedures Laboratory Results Test 12/26/16 11:55 Urine Color DK YELLOW Urine Appearance TURBID (CLEAR) Urine pH 6.5 (4.5-7.5) Urine Specific [place] 1.012 (1.000-1.030) Urine Protein 1+ (NEG) Urine Glucose (UA) NEG (NEG) Urine Ketones TRACE (NEG) Urine Occult Blood 3+ (NEG) Urine Nitrite POS (NEG) Urine Bilirubin NEG (NEG) Urine Urobilinogen NEG (NEG) Urine Leukocyte Esterase LARGE (NEG) Urine WBC (Auto) >30 /hpf (0-5) Urine RBC (Auto) >30 /hpf (0-4) Urine Hyaline Casts (Auto) 5-10 /lpf (0-5) Urine Epithelial Cells (Auto) 10-20 /lpf (0-5) Urine Bacteria (Auto) 4+ (NEG) Urine Pathogenic Casts /lpf (0) Labs reviewed by ED physician. Medications Administered Medications (Trade) Dose Ordered Sig/Rafael Route Start Time Stop Time Status Last Admin Dose Admin Trimethoprim/ Sulfamethoxazole (Septra Ds 800/ 160MG Tab) 1 tab NOW STAT PO 12/26/16 12:14 12/26/16 12:16 DC 12/26/16 12:31 1 TAB ED Course 1206: Past medical records reviewed. The patient was evaluated in room A2. A complete history and physical examination was performed. 1214: Septra Ds 800/ 160mg Tab 1 tab PO 1221: Upon reexamination the patient is resting. I discussed results and treatment plan with the patient. She verbalizes agreement and understanding. The patient is ready for discharge. Medical Decision This is a 76-year-old female who presents emergency department complaining of urinary symptoms. The patient was given Bactrim in the emergency department and will follow-up with her primary care physician pending urine culture results. Patient and were in agreement with the treatment plan. Impression Primary Impression: Symptoms of urinary tract infection Scribe Attestation The scribe's documentation has been prepared under my direction and personally reviewed by me in its entirety. I confirm that the note above accurately reflects all work, treatment, procedures, and medical decision making performed by me. Departure Information Dispostion Home / Self-Care Prescriptions Sulfa/Trimethoprim (Bactrim Ds 800MG/160MG) Tab 1 TAB PO BID for 7 Days, #14 TAB Prov: Theo Maza MD 12/26/16 Referrals Mike Valdivia M.D. (PCP) Forms HOME CARE DOCUMENTATION FORM, IMPORTANT VISIT INFORMATION, School Instructions, Work Instructions Patient Instructions My [facility], Urinary Tract Infecs Women Additional Instructions Culture results are usually available in approx 48 hours You have been examined and treated today on an emergency basis only. This is not a substitute for, or an effort to provide, complete comprehensive medical care. It is impossible to recognize and treat all injuries or illnesses in a single emergency department visit. It is therefore important that you follow up closely with Dr Valdivia. Call as soon as possible for an appointment. Thank you for your time and consideration. I look forward to speaking with you again soon. Please don't hesitate to call us if you have any questions.
[2016-12-26 12:10] LABS: URINE APPEARANCE TURBID (CLEAR); URINE BILIRUBIN NEG (NEG); URINE COLOR DK YELLOW; URINE NITRITE POS (NEG); URINE PH 6.5 (4.5-7.5); URINE SPECIFIC GRAVITY 1.012 (1.000-1.030); UROBILINOGEN NEG (NEG); ZZUR CULT IF INDIC CLEAN CATCH YES
[2016-12-26] MEDS ORDERED: SULFAMETHOXAZOLE/TRIMETHOPRIM DS 800/160MG TAB PO STA (12:14)
[2016-12-26 12:15] LABS: MANUAL MICROSCOPIC REQUIRED? NO; REVIEW REQ? YES
[2016-12-26] MEDS ORDERED: SULF800T23 PO (12:16)
[2016-12-26 12:32] VITALS: BP 175/89; PULSE 87; O2SAT 96
--- NOTE | 2016-12-28 11:38 | Pharmacy Progress Note ---
ED Pharmacist Culture FollowUp Date of Service: Dec 28, 2016. Patient was sent home with a prescription for Bactrim DS 1 PO BID x 7 days, which should cover the Klebsiella pneumoniae and E coli growing from the patient 's URINE culture.
== END 2016-12-26 13:03 | disposition home or self-care (01) ==
LOC: C.EDB 10:25 → C.EDA 13:03
DX: R39.9 Unspecified symptoms and signs involving the genitourinary system (principal); G82.20 Paraplegia, unspecified; I35.1 Nonrheumatic aortic (valve) insufficiency; Z79.899 Other long term (current) drug therapy; Z86.19 Personal history of other infectious and parasitic diseases; Z87.01 Personal history of pneumonia (recurrent); Z87.891 Personal history of nicotine dependence; Z99.3 Dependence on wheelchair

== ENCOUNTER → 2017-01-05 | Outpatient (CLI) | payer OTHER, BC ==
[~2017-01-05] MED LIST changes: -AMOX875T PO; +IBUP1TAB55 PO; +SULF800T23 PO
[2017-01-05 09:08] LABS: URINE APPEARANCE CLOUDY (CLEAR); URINE BILIRUBIN NEG (NEG); URINE COLOR YELLOW; URINE EPITHELIAL CELL AUTO >30 /lpf (0-5); URINE NITRITE NEG (NEG); URINE SPECIFIC GRAVITY 1.023 (1.000-1.030); UROBILINOGEN NEG (NEG); ZZUR CULT IF INDIC CLEAN CATCH YES
[2017-01-05 09:10] LABS: MANUAL MICROSCOPIC REQUIRED? NO; REVIEW REQ? YES
[2017-01-05 09:42] LABS: URINE MUCUS PRESENT (NONE PRSENT)
== END | disposition home or self-care (01) ==
LOC: C.LABVPSUA 11:08
PROVIDERS: ATTEND Internal Medicine Critical Care Medicine
DX: R30.0 Dysuria (principal)

== ENCOUNTER 2017-05-18 10:39 | Emergency (ER) | payer OTHER, BC ==
[~2017-05-18] VITALS: Ht 170.2 cm; Wt 53.0 kg
[~2017-05-18 10:39] MED LIST changes: -IBUP1TAB55 PO; -SULF800T23 PO
[2017-05-18 10:49] VITALS: TEMP 36.7; Ht 170.2 cm; Wt 53.0 kg
[2017-05-18] MEDS ORDERED: SODIUM CHLORIDE 0.9% 1000ML 1,000 ML IV STA (10:59)
--- NOTE | 2017-05-18 11:02 | EMERGENCY ROOM VISIT NOTE ---
History Report prepared by Ivette: Dlela Mariscal Under the Supervision of: Adelia GarciaO. First contact with patient: 10:47 Chief Complaint: ILLNESS Stated Complaint: DIZZY/WEAKNESS History of Present Illness The patient is a 76 year old female who presents to the Emergency Room with complaints of constant weakness beginning this morning. The patient states that she woke up this morning and ate breakfast and felt very weak. She reports that the staff at [facility] were concerned that the patient did not look well. She notes that she has had episodes of syncope before after feeling weak and the staff was concerned that this may happen again. The patient's states that previously she had a UTI when she had similar symptoms. The patient complains of clamminess. She denies any pain, headaches, nausea, vomiting, urinary symptoms, back pain, recent falls, and fever. She notes that she has an appointment in June with her doctor. Source of History: patient Onset: this morning Position: other Quality: other (weakness) Timing: constant Associated Symptoms: No fevers, No headache, No nausea, No vomiting, No back pain, No urinary symptoms Note: The patient complains of clamminess. She denies any pain, recent falls. Review of Systems See HPI for pertinent positives & negatives. A total of 10 systems reviewed and were otherwise negative. 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 Family History FH: heart disease Social History Smoking Status: Former Smoker Alcohol Use: none Drug Use: none Marital Status: Housing Status: [employer] ([facility]) Occupation Status: retired Current/Historical Medications Scheduled Ascorbic Acid (Vitamin C), 1,000 MG PO DAILY Baclofen (Lioresal), 10 MG PO QID Cholecalciferol (Vitamin D 400 Iu), 400 INTER.UNIT PO DAILY Clopidogrel Bisulfate (Clopidogrel), 75 MG PO DAILY Ibuprofen-Diphenhydramine Citr (Ibuprofen Pm), 1 TAB PO HS Mirabegron (Myrbetriq Er), 50 MG PO DAILY Multiple Vitamins W/ Minerals (Ocuvite), 1 TABLET PO BID Multivitamins/Minerals (Mvi With Minerals), 1 TAB PO DAILY Sulfa/Trimethoprim (Bactrim Ds 800MG/160MG), 1 TAB PO BID Allergies Coded Allergies: No Known Allergies (Unverified , 12/26/16) Physical Exam Vital Signs Date Time Temp Pulse Resp B/P (MAP) Pulse Ox O2 Delivery O2 Flow Rate FiO2 05/18/17 12:20 72 18 144/82 97 Room Air 05/18/17 11:33 74 18 124/76 96 Room Air 05/18/17 10:49 74 05/18/17 10:49 36.7 77 20 129/61 95 Room Air Physical Exam GENERAL: Patient is awake, alert, and very frail appearing EYES: The conjunctivae are clear. The pupils are round and reactive. EARS, NOSE, MOUTH AND THROAT: The nose is without any evidence of any deformity. Mucous membranes are dry, tongue is midline NECK: The neck is nontender and supple. RESPIRATORY: Normal respiratory effort is noted there is no evidence of wheezing rhonchi or rales CARDIOVASCULAR: Regular rate and rhythm noted there no murmurs rubs or gallops normal S1 normal S2 GASTROINTESTINAL: The abdomen is soft. Bowel sounds are present in all quadrants. Abdomen is nontender MUSCULOSKELETAL/EXTREMITIES: There is no evidence of gross deformity full range of motion is noted in the hips and shoulders SKIN: There is no obvious evidence of any rash. There are no petechiae, pallor or cyanosis noted. Skin was cool and dry, no edema was appreciated NEUROLOGIC: Patient is awake alert and oriented x3 Medical Decision & Procedures ER Provider Diagnostic Interpretation: X-ray results as stated below per interpretation by me and the radiologist. CHEST ONE VIEW PORTABLE FINDINGS: The heart is borderline enlarged. There is aortic tortuosity. There is left lower lobe atelectasis/consolidation. There is a suspected small left pleural effusion. No free intraperitoneal air is visualized. There is evidence of prior vertebroplasties[ IMPRESSION: 1. Interval development of left lower lobe atelectasis/consolidation. Small left pleural effusion 2. No evidence of free intraperitoneal air Electronically signed by: Sean Reich M.D. 05/18/2017 11:17 AM Dictated Date/Time: 05/18/2017 11:15 AM Laboratory Results 05/18/17 11:25 Red Blood Count 4.37, Mean Corpuscular Volume 93.8, Mean Corpuscular Hemoglobin 31.6, Mean Corpuscular Hemoglobin Concent 33.7, Mean Platelet Volume 9.8, Neutrophils (%) (Auto) 76.3, Lymphocytes (%) (Auto) 9.1, Monocytes (%) (Auto) 9.6, Eosinophils (%) (Auto) 4.5, Basophils (%) (Auto) 0.4, Neutrophils # (Auto) 6.04, Lymphocytes # (Auto) 0.72, Monocytes # (Auto) 0.76, Eosinophils # (Auto) 0.36, Basophils # (Auto) 0.03 05/18/17 11:25 Test 05/18/17 11:25 05/18/17 13:10 White Blood Count 7.92 K/uL (4.8-10.8) Red Blood Count 4.37 M/uL (4.2-5.4) Hemoglobin 13.8 g/dL (12.0-16.0) Hematocrit 41.0 % (37-47) Mean Corpuscular Volume 93.8 fL (80-100) Mean Corpuscular Hemoglobin 31.6 pg (25-34) Mean Corpuscular Hemoglobin Concent 33.7 g/dl (32-36) Platelet Count 290 K/uL (130-400) Mean Platelet Volume 9.8 fL (7.4-10.4) Neutrophils (%) (Auto) 76.3 % Lymphocytes (%) (Auto) 9.1 % Monocytes (%) (Auto) 9.6 % Eosinophils (%) (Auto) 4.5 % Basophils (%) (Auto) 0.4 % Neutrophils # (Auto) 6.04 K/uL (1.4-6.5) Lymphocytes # (Auto) 0.72 K/uL (1.2-3.4) Monocytes # (Auto) 0.76 K/uL (0.11-0.59) Eosinophils # (Auto) 0.36 K/uL (0-0.5) Basophils # (Auto) 0.03 K/uL (0-0.2) RDW Standard Deviation 47.2 fL (36.4-46.3) RDW Coefficient of Variation 13.6 % (11.5-14.5) Immature Granulocyte % (Auto) 0.1 % Immature Granulocyte # (Auto) 0.01 K/uL (0.00-0.02) Prothrombin Time 10.7 SECONDS (9.0-12.0) Prothromb Time International Ratio 1.0 (0.9-1.1) Activated Partial Thromboplast Time 25.4 SECONDS (21.0-31.0) Partial Thromboplastin Ratio 1.0 Anion Gap 5.0 mmol/L (3-11) Est Creatinine Clear Calc Drug Dose 74.6 ml/min Estimated GFR () 106.1 Estimated GFR (Non- 91.5 BUN/Creatinine Ratio 52.1 (10-20) Calcium Level 9.3 mg/dl (8.5-10.1) Total Bilirubin 0.5 mg/dl (0.2-1) Direct Bilirubin 0.1 mg/dl (0-0.2) Aspartate Amino Transf (AST/SGOT) 14 U/L (15-37) Alanine Aminotransferase (ALT/SGPT) 20 U/L (12-78) Alkaline Phosphatase 52 U/L (45-117) Total Creatine Kinase 457 U/L (26-192) Creatine Kinase MB 2.7 ng/ml (0.5-3.6) Creatine Kinase MB Ratio 0.6 (0-3.0) Troponin I < 0.015 ng/ml (0-0.045) Total Protein 6.7 gm/dl (6.4-8.2) Albumin 3.5 gm/dl (3.4-5.0) Lipase 263 U/L (73-393) Urine Color YELLOW Urine Appearance CLEAR (CLEAR) Urine pH 7.0 (4.5-7.5) Urine Specific [place] 1.014 (1.000-1.030) Urine Protein NEG (NEG) Urine Glucose (UA) NEG (NEG) Urine Ketones NEG (NEG) Urine Occult Blood NEG (NEG) Urine Nitrite POS (NEG) Urine Bilirubin NEG (NEG) Urine Urobilinogen NEG (NEG) Urine Leukocyte Esterase MODERATE (NEG) Urine WBC (Auto) 10-30 /hpf (0-5) Urine RBC (Auto) 0-4 /hpf (0-4) Urine Hyaline Casts (Auto) 5-10 /lpf (0-5) Urine Epithelial Cells (Auto) 5-10 /lpf (0-5) Urine Bacteria (Auto) 4+ (NEG) Laboratory results per my review. Medications Administered Medications (Trade) Dose Ordered Sig/Rafael Route Start Time Stop Time Status Last Admin Dose Admin Sodium Chloride 1,000 ml @ 999 mls/hr Q1H1M STAT IV 05/18/17 10:59 05/18/17 11:59 DC 05/18/17 10:59 999 MLS/HR Fluconazole (Diflucan Tab) 150 mg NOW ONCE PO 05/18/17 13:45 05/18/17 13:46 DC 05/18/17 13:45 150 MG Trimethoprim/ Sulfamethoxazole (Septra Ds 800/ 160MG Tab) 1 tab NOW ONCE PO 05/18/17 13:45 05/18/17 13:46 DC 05/18/17 13:45 1 TAB ECG Indication: weakness Rate (beats per minute): 79 Rhythm: normal sinus Findings: no ectopy, other (No acute ST segment abnormalities) Comparison ECG Date: 11/14/16 Change: no significant change ED Course 1047: The patient was evaluated in room C10. A complete history and physical examination were performed. 1059: NSS 1,000 ml @ 999 mls/hr IV. 1255: I reevaluated and updated the patient. 1345: Trimethoprim/Sulfamethoxazole 1 tab PO, Diflucan Tab 150mg PO. 1412: Upon reevaluation, the patient is doing well. I discussed the results and treatment plan with the patient. She verbalized agreement of the treatment plan. The patient was discharged home. Medical Decision Differential diagnosis: Etiologies such as metabolic, infection, hypo/hyperglycemia, electrolyte abnormalities, cardiac sources, intracerebral event, toxicologic, neurologic, as well as others were entertained. Medication Reconciliation: I attest that I have personally reviewed the patient' s current medications list. Blood pressure screening: Patient was found to have normal blood pressure on screening and does not require follow-up. The patient is a 76-year-old female who presented to the emergency department for an evaluation of generalized weakness. The patient has a history of multiple sclerosis and is had episodes similar in the past with urinary tract infections. I discussed patient's laboratory and radiographic studies with her and her significant other. She was started on antibiotic in the emergency department. She also asked to be started on Diflucan for recurrent yeast infections when her she takes antibiotic. I did review the patient's most recent urinary culture from December of this year. She was started on Bactrim. She was encouraged to follow-up with her primary care physician this week for reevaluation but return to the emergency department immediately symptoms change worsen or the need arises. Impression Primary Impression: Weakness Additional Impression: UTI (urinary tract infection) Scribe Attestation The scribe's documentation has been prepared under my direction and personally reviewed by me in its entirety. I confirm that the note above accurately reflects all work, treatment, procedures, and medical decision making performed by me. Departure Information Dispostion Home / Self-Care Prescriptions Sulfa/Trimethoprim (Bactrim Ds 800MG/160MG) Tab 1 TAB PO BID, #14 TAB Prov: Alan Peña, DO 05/18/17 Referrals [facility] (PCP) Forms HOME CARE DOCUMENTATION FORM, IMPORTANT VISIT INFORMATION, WORK / SCHOOL INSTRUCTIONS Patient Instructions ED Weakness PRIYA, My [facility], Urinary Tract Infecs Women Additional Instructions Continue all medications as prescribed. Drink plenty clear liquids. Follow-up with your family doctor in a few days for reevaluation. Problem Qualifiers Additional Impression: UTI (urinary tract infection) Urinary tract infection type: acute cystitis Hematuria presence: without hematuria Qualified Codes: N30.00 - Acute cystitis without hematuria
[2017-05-18] MEDS ORDERED: IBUP1TAB55 PO (11:03)
--- NOTE | 2017-05-18 11:18 | DIAGNOSTIC IMAGING REPORT ---
CHEST ONE VIEW PORTABLE CLINICAL HISTORY: Pain, radiating to the abdomen. COMPARISON STUDY: 12/15/2016 FINDINGS: The heart is borderline enlarged. There is aortic tortuosity. There is left lower lobe atelectasis/consolidation. There is a suspected small left pleural effusion. No free intraperitoneal air is visualized. There is evidence of prior vertebroplasties[ IMPRESSION: 1. Interval development of left lower lobe atelectasis/consolidation. Small left pleural effusion 2. No evidence of free intraperitoneal air Electronically signed by: Sean Reich M.D. 05/18/2017 11:17 AM Dictated Date/Time: 05/18/2017 11:15 AM
[2017-05-18 11:46] LABS: BASO % 0.4 %; BASO ABS # 0.03 K/uL (0-0.2); COMPLETE YES; EOS % 4.5 %; IG% 0.1 %; LYMPH % 9.1 %; LYMPH ABS # 0.72 K/uL (1.2-3.4); MEAN CELL VOLUME 93.8 fL (80-100); MEAN CORPUSCULAR HEMOGLOBIN 31.6 pg (25-34); MEAN CORPUSCULAR HGB CONC 33.7 g/dl (32-36); MEAN PLATELET VOLUME 9.8 fL (7.4-10.4); MONO % 9.6 %; NEUT % 76.3 %; PLATELET COUNT 290 K/uL (130-400); RED BLOOD COUNT 4.37 M/uL (4.2-5.4); WHITE BLOOD COUNT 7.92 K/uL (4.8-10.8)
[2017-05-18 11:53] LABS: ALT/SGPT 20 U/L (12-78); BLOOD UREA NITROGEN 27 mg/dl (7-18); BUN/CREATININE RATIO 52.1 (10-20); CALCIUM 9.3 mg/dl (8.5-10.1); CARBON DIOXIDE 27 mmol/L (21-32); CHLORIDE 102 mmol/L (98-107); CREATININE 0.52 mg/dl (0.60-1.20); GLUCOSE 99 mg/dl (70-99); POTASSIUM 4.1 mmol/L (3.5-5.1); SODIUM 134 mmol/L (136-145)
[2017-05-18 11:54] LABS: PROTHROMBIN TIME (PATIENT) 10.7 SECONDS (9.0-12.0)
[2017-05-18 11:58] LABS: ALKALINE PHOSPHATASE 52 U/L (45-117); AST/SGOT 14 U/L (15-37); CKMB/CK RATIO 0.6 (0-3.0)
[2017-05-18 13:24] LABS: URINE APPEARANCE CLEAR (CLEAR); URINE BILIRUBIN NEG (NEG); URINE COLOR YELLOW; URINE NITRITE POS (NEG); URINE SPECIFIC GRAVITY 1.014 (1.000-1.030); UROBILINOGEN NEG (NEG); ZZURINE CULT IF INDIC CATH YES
[2017-05-18 13:25] LABS: MANUAL MICROSCOPIC REQUIRED? NO; REVIEW REQ? NO
[2017-05-18] MEDS ORDERED: SULFAMETHOXAZOLE/TRIMETHOPRIM DS 800/160MG TAB PO ONE (13:45)
[2017-05-18] MEDS ORDERED: FLUCONAZOLE 50 MG TAB PO ONE (13:45)
[2017-05-18] MEDS ORDERED: SULF800T23 PO (14:00)
[2017-05-18 14:38] VITALS: BP 140/107; PULSE 82; O2SAT 95
--- NOTE | 2017-05-20 11:34 | Pharmacy Progress Note ---
ED Pharmacist Culture FollowUp Date of Service: May 20, 2017. Patient was sent home with a prescription for Bactrim DS 1 PO BID x 7 days for UTI, which should cover the e coli growing from the patient's URINE culture. No action required.
== END 2017-05-18 14:39 | disposition home or self-care (01) ==
LOC: EDBD 10:39 → C.EDC 10:40
DX: R53.1 Weakness (principal); N30.00 Acute cystitis without hematuria; G35 Multiple sclerosis; Z79.899 Other long term (current) drug therapy; Z87.01 Personal history of pneumonia (recurrent); Z86.19 Personal history of other infectious and parasitic diseases; Z87.440 Personal history of urinary (tract) infections; Z87.898 Personal history of other specified conditions; Z82.49 Family history of ischemic heart disease and other diseases of the circulatory system

== ENCOUNTER → 2017-08-01 | Outpatient (CLI) | payer OTHER, BC ==
[~2017-08-01] MED LIST changes: -BTLAI; +IBUP1TAB55 PO; +SULF800T23 PO
== END | disposition home or self-care (01) ==
LOC: C.PATHSPEC 10:44
PROVIDERS: ATTEND Urology
DX: R31.0 Gross hematuria (principal); N39.0 Urinary tract infection, site not specified; N39.41 Urge incontinence

== ENCOUNTER → 2017-08-06 | Outpatient (CLI) | payer OTHER, BC ==
[2017-08-06 09:33] LABS: BLOOD UREA NITROGEN 23 mg/dl (7-18); BUN/CREATININE RATIO 55.9 (10-20); CREATININE 0.41 mg/dl (0.60-1.20)
== END | disposition home or self-care (01) ==
LOC: C.LABVPSUA 09:02
PROVIDERS: ATTEND Urology
DX: R31.0 Gross hematuria (principal)

== ENCOUNTER → 2017-08-12 | Outpatient (CLI) | payer OTHER, BC ==
[~2017-08-12] MED LIST changes: +OPTIRAY 320 IV PRN
--- NOTE | 2017-08-12 14:17 | DIAGNOSTIC IMAGING REPORT ---
ABD/PELVIS COMBO CLINICAL HISTORY: 76 years-old Female presenting with GROSS HEMATURIA,UTI. TECHNIQUE: Multidetector CT of the abdomen and pelvis was performed before and after the administration of intravenous contrast. IV contrast: 119 mL of Optiray 320. A dose lowering technique was used consistent with the principles of ALARA (as low as reasonably achievable). COMPARISON: None. CT DOSE (mGy.cm): The estimated cumulative dose is 842.07 mGycm. FINDINGS: Image quality is degraded by the presence of the patient's arms besides resulting in extensive Colleen artifact. Custom Tailor Apprentice topogram: Evidence of prior vertebroplasty in several of the mid to lower thoracic levels. Lung bases: Dependent changes at the lung bases likely atelectasis. Elevation of the left hemidiaphragm. Mild ectasia of the ascending aorta, which measures 4 cm in transverse dimension. Normal heart size. Aortic valve and coronary artery calcification. No pericardial or pleural effusion. Liver: Normal morphology. No liver lesion. Patent hepatic vasculature. Biliary: No intrahepatic or extrahepatic biliary ductal dilatation. Normal gallbladder. Pancreas: Moderate parenchymal atrophy. Spleen: Normal. Adrenal glands: Nodular thickening of the adrenal glands, nonspecific. Kidneys and ureters: Multiple nonobstructing renal calculi in the right kidney, the largest at the lower pole measuring 5 mm. No left renal calculi. Bilateral extrarenal pelvises. No hydronephrosis. Small hypodensity in the left kidney, indeterminate but possibly cyst. Measurement of density/enhancement is unreliable in the setting of extensive streak artifact. Poor visualization of the mid to distal ureters secondary to paucity of intra-abdominal fat. Bladder: Multiple bladder calculi. Mild circumference of bladder wall thickening. Pelvic organs: Uterus and ovaries normal. Bowel: Marked wall thickening of the rectum most prominently along the left lateral aspect, which is hypodense suggesting some mucosal edema. Fluid noted in the rectum consistent with a diarrheal state or recent enema. Diverticulosis. No bowel obstruction. Evaluation of the bowel is limited without oral contrast. Peritoneal cavity: No free fluid or intraperitoneal gas. Vasculature: Atherosclerosis of the normal caliber abdominal aorta. IVC patent. Extensive calcified plaque results in approximately 50% narrowing of the infrarenal abdominal aorta. Dense calcified atherosclerotic plaque extends into the bilateral iliac arteries. Lymph nodes: No gross lymphadenopathy allowing for possibly of intra-abdominal fat. Numerous subcentimeter retroperitoneal lymph nodes suggested. Abdominal wall: Normal. Musculoskeletal: Osteopenia. Degenerative change of the spine. Vertebroplasty changes in the thoracic spine. IMPRESSION: 1. Bilateral nephrolithiasis. No hydronephrosis. 2. Mild circumferential bladder wall thickening in the setting of bladder calculi, likely chronic inflammation or correlate with urinalysis to exclude acute cystitis. 3. No evidence of solid renal neoplasm or abnormality of the proximal urinary collecting system. Evaluation of the mid to distal ureters limited secondary to possibility of intra-abdominal fat. 4. Osteopenia with vertebroplasty changes. 5. Marked thickening of the rectum suggesting proctitis. Consideration for direct visualization to exclude underlying neoplasm. Electronically signed by: Mike Colmenares M.D. 08/12/2017 2:15 PM Dictated Date/Time: 08/12/2017 2:04 PM
== END | disposition home or self-care (01) ==
LOC: C.CTS 13:15
PROVIDERS: ATTEND Urology
DX: N39.0 Urinary tract infection, site not specified (principal); R31.0 Gross hematuria; N20.0 Calculus of kidney; N21.0 Calculus in bladder; M85.88 Other specified disorders of bone density and structure, other site; Z98.1 Arthrodesis status; K62.9 Disease of anus and rectum, unspecified

== ENCOUNTER → 2017-10-22 | Outpatient (CLI) | payer OTHER, BC ==
[~2017-10-22] MED LIST changes: -OPTIRAY 320 IV PRN
--- NOTE | 2017-10-22 14:42 | DIAGNOSTIC IMAGING REPORT ---
KUB CLINICAL HISTORY: 77 years-old Female presenting with N39.41 Urge incontinence of urine. TECHNIQUE: Single supine view of the abdomen was obtained. COMPARISON: 08/30/[address] from 08/12/2017. FINDINGS: Mild stool burden in the right colon. No gross pneumoperitoneum. Multiple right renal calculi noted better appreciated on most recent CT. Atherosclerosis. Bladder calculi again evident. Osteopenia. Degenerative change of the spine. Deformity of the left ilium may be posttraumatic. Evidence of prior thoracic kyphoplasty. Left basilar opacity and possible small left pleural effusion. IMPRESSION: 1. Right renal and bladder calculi better appreciated on prior CT. 2. Left basilar opacity likely extensive left lower lobe atelectasis. Electronically signed by: Mike Colmenares M.D. 10/22/2017 2:41 PM Dictated Date/Time: 10/22/2017 2:38 PM
== END | disposition home or self-care (01) ==
LOC: C.RAD 13:51
PROVIDERS: ATTEND Urology
DX: N39.41 Urge incontinence (principal); N20.0 Calculus of kidney; R91.8 Other nonspecific abnormal finding of lung field

== ENCOUNTER → 2017-10-23 | Outpatient (CLI) | payer OTHER, BC | END | disposition home or self-care (01) | LOC: C.LABSPEC 17:11 | PROVIDERS: ATTEND Urology | DX: N39.0 Urinary tract infection, site not specified (principal) ==

== ENCOUNTER → 2018-01-28 | Outpatient (CLI) | payer OTHER, BC ==
[~2018-01-28] MED LIST changes: -SULF800T23 PO
== END | disposition home or self-care (01) ==
LOC: C.LABSPEC 17:27
PROVIDERS: ATTEND Urology
DX: N39.0 Urinary tract infection, site not specified (principal)

== ENCOUNTER → 2018-03-28 | Outpatient (CLI) | payer OTHER, BC | END | disposition home or self-care (01) | LOC: C.LABSPEC 14:42 | PROVIDERS: ATTEND Nurse Practitioner Adult Health | DX: R39.15 Urgency of urination (principal); N39.0 Urinary tract infection, site not specified ==

== ENCOUNTER → 2018-06-09 | Outpatient (CLI) | payer OTHER, BC ==
[~2018-06-09] MED LIST changes: -IBUP1TAB55 PO
== END | disposition home or self-care (01) ==
LOC: C.LABSPEC 16:51
PROVIDERS: ATTEND Nurse Practitioner Family
DX: R31.0 Gross hematuria (principal)

== ENCOUNTER → 2018-06-11 | Outpatient (CLI) | payer OTHER, BC | END | disposition home or self-care (01) | LOC: C.LAB 11:11 | PROVIDERS: ATTEND Nurse Practitioner Adult Health | DX: R31.0 Gross hematuria (principal) ==

== ENCOUNTER → 2018-06-12 | Outpatient (CLI) | payer OTHER, BC ==
--- NOTE | 2018-06-12 11:18 | DIAGNOSTIC IMAGING REPORT ---
KUB HISTORY: Acute hematuria R31.0 Gross [id number] COMPARISON: [facility] 10/22/2017, CT abdomen and pelvis 08/12/2017 FINDINGS: The bowel gas pattern is non-obstructive. There is no organomegaly. Renal shadows are mostly obscured by bowel gas. 3 mm radiodensity of the right upper abdomen suggests calculus of the right kidney, unchanged. No definite left nephrolithiasis or ureteral calculi identified. No pneumoperitoneum or pneumatosis. Demineralized appearance of the bones with multilevel degenerative changes of the spine. Multiple remote compression deformities with vertebroplasty changes of the thoracic spine. Left lung base opacity with chronic costophrenic angle blunting, unchanged. No fracture. Moderate colonic stool volume suggests constipation. IMPRESSION: 1. Right nephrolithiasis without ureteral calculi. 2. Nonobstructive bowel gas pattern. Electronically signed by: Raudel Rodriguez M.D. 06/12/2018 11:17 AM Dictated Date/Time: 06/12/2018 11:15 AM
== END | disposition home or self-care (01) ==
LOC: C.RAD 10:51
PROVIDERS: ATTEND Urology
DX: R31.0 Gross hematuria (principal)

== ENCOUNTER → 2018-07-01 | Outpatient (CLI) | payer OTHER, BC | END | disposition home or self-care (01) | LOC: C.LABSPEC 17:03 | PROVIDERS: ATTEND Urology | DX: N39.0 Urinary tract infection, site not specified (principal); R39.15 Urgency of urination ==

== ENCOUNTER 2019-08-15 05:45 | Observation (INO) ==
[2019-08-15 06:27] LABS: Basophils # (auto) 0.02 K/uL (0-0.2); Basophils % (auto) 0.2 %; Eosinophils # (auto) 0.63 K/uL (0-0.5); Eosinophils % (auto) 5.7 %; Hematocrit (blood only) 44.4 % (37-47); Hemoglobin 14.3 g/dL (12.0-16.0); Immature Granulocytes # (auto) 0.03 K/uL (0.00-0.02); Immature Granulocytes % (auto) 0.3 %; Lymphocytes # (auto) 1.07 K/uL (1.2-3.4); Lymphocytes % (auto) 9.7 %; Mean Corpuscular Hemoglobin 30.8 pg (25-34); Mean Corpuscular Hgb Conc 32.2 g/dL (32-36); Mean Corpuscular Volume 95.5 fL (80-100); Mean Platelet Volume 10.9 fL (7.4-10.4); Monocytes # (auto) 0.94 K/uL (0.11-0.59); Monocytes % (auto) 8.5 %; Neutrophils # (auto) 8.37 K/uL (1.4-6.5); Neutrophils % (auto) 75.6 %; Platelet Count 256 K/uL (130-400); RDW Coefficient of Variation 15.1 % (11.5-14.5); RDW Standard Deviation 53.1 fL (36.4-46.3); Red Blood Count 4.65 M/uL (4.2-5.4); White Blood Count 11.06 K/uL (4.8-10.8)
[2019-08-15 06:43] LABS: Alanine Aminotransferase 20 U/L (12-78); Albumin Level 3.6 gm/dl (3.4-5.0); Aspartate Aminotransferase 14 U/L (15-37); BUN Creatinine Ratio 68.1 (10-20); Blood Urea Nitrogen 35 mg/dl (7-18); Carbon Dioxide 26 mmol/L (21-32); Chloride 110 mmol/L (98-107); Creatinine Clr Calc Pharmacy 74.6 ml/min; Est GFR (African American) 105.3; Est GFR (Non-African American) 90.8; Glucose 91 mg/dl (70-99); Lipase 256 U/L (73-393); Potassium 4.1 mmol/L (3.5-5.1); Sodium 144 mmol/L (136-145)
[2019-08-15 06:48] LABS: Albumin Globulin Ratio 1.1 (0.9-2); Alkaline Phosphatase 67 U/L (45-117); Bilirubin,Total 0.5 mg/dl (0.2-1); Globulin 3.4 gm/dl (2.5-4.0); Troponin I < 0.015 ng/ml (0-0.045)
--- NOTE | 2019-08-15 06:57 | XRay Report ---
XR chest 1V portable CLINICAL HISTORY: Atypical chest pain COMPARISON STUDY: 06/12/2019 FINDINGS: The heart is enlarged. There is ill-definition left hemidiaphragm. This could indicate left basilar atelectasis/consolidation or small left pleural effusion. The right lung is generally clear. Arthritic changes are present within the shoulders. There is evidence for multiple prior vertebropla sties.[There is no overt failure. There is a vague right upper lung zone density of questionable sign ificance. IMPRESSION: 1. Ill-definition left hemidiaphragm. This raises the possibility of left basilar atelectasis/consoli dation or small left pleural effusion. Electronically signed by: Sean Reich M.D. 08/15/2019 6:56 AM
[2019-08-15] MEDS ORDERED: NITROGLYCERIN SL 0.4 MG/TAB TAB SL STA (07:05)
[2019-08-15] MEDS: SODIUM CHLORIDE 0.9% 500 ML IV SCH ×2 (07:21→12:12)
[2019-08-15] MEDS ORDERED: NITROGLYCERIN SL 0.4 MG/TAB TAB SL PRN (09:21)
[2019-08-15] MEDS ORDERED: ACETAMINOPHEN 325 MG TAB PO PRN (09:21)
[2019-08-15] MEDS ORDERED: MoRPHine SULFATE 2 MG/ML CARP IV PRN (09:21)
[2019-08-15] MEDS ORDERED: ONDANSETRON INJ 2 MG/ML 2 ML VIAL IV PRN (09:21)
[2019-08-15] MEDS ORDERED: MIRABEGRON ER 25 MG TAB PO SCH (10:00)
[2019-08-15] MEDS: BACLOFEN 10 MG TAB PO SCH ×5 (10:39→21:03)
[2019-08-15] MEDS: ENOXAPARIN INJ 30 MG/0.3 ML SYR SQ SCH (10:41)
[2019-08-15] MEDS: ASCORBIC ACID 500 MG TAB PO SCH (10:41)
[2019-08-15] MEDS: CLOPIDOGREL BISULFATE 75 MG TAB PO SCH (10:43)
[2019-08-15] MEDS: CEROVITE ADV FORMULA TAB PO SCH (10:43)
[2019-08-15] MEDS: METHENAMINE HIPPURATE 1 GM TAB PO SCH ×3 (10:43→21:03)
[2019-08-15] MEDS: CHOLECALCIFEROL (VITAMIN D) 400 UNITS TABLET PO SCH (10:43)
--- NOTE | 2019-08-15 11:30 | History & Physical Report ---
Date of Service August 15, 2019 Assessment & Plan (1) Chest pain: at rest, did not resolve with Nitro, not reproducible atypical symptoms no current pain initial troponin negative, repeat at 1200 and 1800 if she has recurrent pain may consider CTA chest, will monitor as symptoms went away, no dyspnea repeat EKG in the AM and as needed for chest pain likely home tomorrow AM if troponin is negative and no further chest pain (2) Multiple sclerosis: continue supportive care Baclofen, Mirabegron multivitamins and supplements History of Present Illness Chief Complaint: I woke up with chest pain Primary Care Provider: Mike Valdivia MD 78 female with history of progressive MS, she is in bed or motorized chair during the day, presented to the ED this AM with c/o dull chest pain. She said that the pain woke her up from sleep, was dull, constant. She never had pain like this before. Not able to exert herself so no history of exertional chest pain. The pain did not respond to Nitro SL. The pain was not reproducible. It radiated up to her right neck and shoulder. Not associated with any diaphoresis, nausea, dyspnea, light headed sensation. The pain was a little worse with deep breath. In the ED vitals were stable. No hypoxia. EKG while she had the pain showed sinus rhythm in the 80's, LA enlargement, LAFB, no changes compared to prior EKG. CXR showed left raised diaphragm as before, no acute pathology. CBC showed a WBC of 11k, BUN/Cr of 35 / 0.5. Troponin negative. Asked for observation for chest pain. Allergies Allergy/AdvReac Type Severity Reaction Status Date / Time No Known Allergies Allergy Verified 08/15/19 06:09 Home Medications Home Medications Medication Instructions Recorded Confirmed Type ascorbic acid (vitamin C) [Vitamin 1 g PO DAILY 09/16/18 08/15/19 History C] baclofen 10 mg PO QID 09/16/18 08/15/19 History cholecalciferol (vitamin D3) 400 unit PO DAILY 09/16/18 08/15/19 History [Vitamin D3] clopidogrel 75 mg PO DAILY 09/16/18 08/15/19 History methenamine hippurate 1 g PO BID 09/16/18 08/15/19 History mirabegron 50 mg PO DAILY 09/16/18 08/15/19 History multivitamin 1 tab PO DAILY 09/16/18 08/15/19 History ibuprofen 200 mg PO HS 08/15/19 08/15/19 History vit A,C and S-amvrqn-fpumfsks 1 tab PO DAILY 08/15/19 08/15/19 History [Ocuvite with Lutein] Past Med/Surg History Medical History Atelectasis (Acute) Cough (Acute) Gross hematuria (Acute) History of pneumonia (Acute) Incomplete emptying of bladder (Acute) Nephrolithiasis (Acute) Nocturia (Acute) UTI (urinary tract infection) (Acute) Urge incontinence of urine (Acute) Urinary urgency (Acute) Chronic diastolic CHF (congestive heart failure) Neurogenic bladder Chronic constipation Multiple sclerosis Aspiration pneumonia (Acute) atelectasis LLL Aortic regurgitation Multiple sclerosis Family History Other Hypertension Social History Preferred Language: Romansh Communication Ability: Effective Business Continuity Specialist Required: No Beliefs That Will Affect Care: Congregational Congregational Beliefs: religion marital status: Current Living Situation: Spouse Current Living Situation Comment: [facility] Other Information That Helps Us Care for You: No Feels Safe at Home: Yes Safety Concerns: Feels Safe At This Time Smoking Status: Former smoker Second Hand Exposure: No ; Hx Alcohol Use: No Hx Substance Use: No Review of Systems Review of Systems: All systems reviewed & are unremarkable except as noted in HPI & below Constitutional: no fever, no chills, no sweats, no fatigue and no weakness Respiratory: + pain on inspiration; no cough, no dyspnea, no dyspnea on exertion, no sputum production and no wheezing Cardiovascular: + chest pain (dull, lasted a few hours, radiated right shoulder/neck) and + radiating jaw, neck or arm pain; no dyspnea, no palpitations, no syncope and no edema Gastrointestinal: no abdominal pain, no nausea, no vomiting, no constipation and no diarrhea/loose stools Genitourinary: no dysuria, no difficulty urinating and no urinary frequency Musculoskeletal: no back pain and no joint pain Neurologic: + generalized weakness (due to MS) and + problem reported (contractures of hands/arms) Physical Exam Constitutional: WD/WN, vitals as above + thin Eyes: PERRL, conjunctivae normal, anicteric sclerae ENMT: external ear and nose normal, oropharynx normal Neck: trachea midline, no thyromegaly Respiratory: normal respiratory effort, lungs clear to auscultation Cardiovascular: RRR, no murmur, no edema Gastrointestinal (Abdomen): normal bowel sounds, soft, nontender, no hepatosplenomegaly Musculoskeletal: Head/Neck/Chest: normocephalic and head atraumatic Extremities: + limited ROM of extremities, + abnormal strength (weakness in legs bilaterally) and + muscle atrophy; no cyanosis and no clubbing Skin: no rashes, warm and dry Neurologic: PERRL, EOMI, accommodation nl, no face palsy, no dysarthria normal touch/pain/proprioception Psychiatric: A+Ox3, euthymic affect Lymphatic: no cervical or axillary lymphadenopathy Results & Data Vital Signs (Past 12 Hours) Vital Signs Temp Pulse Pulse Resp BP BP BP 08/15/19 09:05 36.5 C 78 106/66 08/15/19 08:47 80 16 104/52 L 08/15/19 07:01 79 79 16 102/72 08/15/19 05:40 36.6 C 93 H 16 159/88 H Pulse Ox 08/15/19 09:05 97 08/15/19 08:47 97 08/15/19 07:01 97 08/15/19 05:40 94 Laboratory Results Laboratory Results - last 24 hr 08/15/19 08/15/19 06:06 06:06 WBC 11.06 H RBC 4.65 Hgb 14.3 Hct 44.4 MCV 95.5 MCH 30.8 MCHC 32.2 RDW Std Deviation 53.1 H RDW Coeff of Rosales 15.1 H Plt Count 256 MPV 10.9 H Immature Gran % (Auto) 0.3 Neut % (Auto) 75.6 Lymph % (Auto) 9.7 [place] % (Auto) 8.5 Eos % (Auto) 5.7 Baso % (Auto) 0.2 Immature Gran # (Auto) 0.03 H Neut # (Auto) 8.37 H Lymph # (Auto) 1.07 L [place] # (Auto) 0.94 H Eos # (Auto) 0.63 H Baso # (Auto) 0.02 Sodium 144 Potassium 4.1 Chloride 110 H Carbon Dioxide 26 Anion Gap 8.0 BUN 35 H Creatinine 0.51 L Est Cr Clr Drug Dosing 74.6 Est GFR ( Amer) 105.3 Est GFR (Non-Af Amer) 90.8 BUN/Creatinine Ratio 68.1 H Glucose 91 Calcium 9.0 Total Bilirubin 0.5 AST 14 L ALT 20 Alkaline Phosphatase 67 Troponin I < 0.015 Total Protein 7.0 Albumin 3.6 Globulin 3.4 Albumin/Globulin Ratio 1.1 Lipase 256 Diagnostic Findings XR chest 1V portable CLINICAL HISTORY: Atypical chest pain COMPARISON STUDY: 06/12/2019 FINDINGS: The heart is enlarged. There is ill-definition left hemidiaphragm. This could indicate left basilar atelectasis/consolidation or small left pleural effusion. The right lung is generally clear. Arthritic changes are present within the shoulders. There is evidence for multiple prior vertebroplasties.[There is no overt failure. There is a vague right upper lung zone density of questionable significance. IMPRESSION: 1. Ill-definition left hemidiaphragm. This raises the possibility of left basilar atelectasis/consolidation or small left pleural effusion. ECG Indication: chest pain Rhythm: normal sinus Findings: + LAFB and + nonspecific-ST abn Change: no significant change Code Status & VTE Plan Code Status DNR VTE Prophylaxis Plan VTE Prophylaxis will be ordered: Yes PG Care Time/CCT Total # of Minutes Spent Total Time Spent with Patient: Total time spent is greater than 50% in coordination of care (as documented) at patient's floor/unit and/or counseling patient:
[2019-08-15] MEDS ORDERED: OPTIRAY 320 125ml IV PRN (15:45)
--- NOTE | 2019-08-15 15:59 | CT Scan Report ---
CT ANGIOGRAM OF THE CHEST CLINICAL HISTORY: Right-sided chest pain. Possible pulmonary embolism. ABNORMAL CHEST X-RAY COMPARISON STUDY: Noncontrast CT scan dated 03/13/2019, chest x-ray dated 08/15/2019 TECHNIQUE: Following the IV administration of 113 mL of Optiray-320, CT angiogram of the thorax was p erformed from the thoracic inlet to the lung bases utilizing the pulmonary embolus protocol. Images a re reviewed in the axial, sagittal, and coronal planes. IV contrast was administered without complica tion. MIP imaging was performed. A dose lowering technique was utilized adhering to the principles o f ALARA. CT DOSE: 307.38 mGy.cm FINDINGS: There is a 9 mm left lobe thyroid nodule. No further follow-up is indicated. No pathologically enlarged axillary mediastinal or hilar lymph nodes were visualized. There is mild dilatation of the ascending thoracic aorta which measures 4 cm the level of aortic root . This remain similar to the prior study. There were no pulmonary artery filling defects to indicate acute pulmonary embolism. There are small bilateral pleural effusions left greater than right. There are bilateral dependent pulmonary airspace opacities likely atelectatic. There is mild emphysem a. IMPRESSION: 1. No evidence of acute pulmonary embolism 2. Stable mild dilatation of the ascending thoracic aorta. No evidence of dissection 3. Small bilateral pleural effusions left greater than right. Dependent airspace opacities likely ate lectatic. Electronically signed by: Sean Reich M.D. 08/15/2019 3:58 PM
[2019-08-15] MEDS ORDERED: KETOROLAC TROMETHAMINE 15 MG/ML VIAL IV ONE (16:00)
[2019-08-15] MEDS ORDERED: MoRPHine SULFATE 2 MG/ML CARP IV STA (16:00)
[2019-08-15] MEDS ORDERED: NURSING DECISION MEDICATION ONE (18:07)
--- NOTE | 2019-08-15 22:49 | Emergency Department Note ---
Entered by Beatriz Mittal acting as a scribe for History of Present Illness General Chief complaint: Chest Pain Stated complaint: CHEST PAIN Time Seen by Provider: 08/15/19 05:47 Source: patient and EMS Mode of arrival: EMS History of Present Illness Onset (ago): hour(s) 1 Location: chest Radiation: back Pain Consistency: + other (Sudden) Current Pain Intensity: 4 Quality: + other (Chest pain) Relieved By: not by medication (Aspirin, Nitro) Exacerbated By: + other (Deep breathing) Associated symptoms: + chest pain; no cough, no diaphoresis, no nausea/vomiting, no shortness of breath and no other (Diarrhea) Treatments prior to arrival: aspirin and other (Nitroglycerin) The patient is a 78 year old female presenting to the Emergency Department via EMS complaining of sudden chest pain starting less than 1 hour ago. EMS reports that the patient woke up from her sleep with chest pain. They states that the patients chest pain is concentrated to the center of her chest and radiates to her back. They explains that the patient was given 2 Aspirin and Nitroglycerin PROJECT CONSTRUCTION ASSISTANT MANAGER that did not help to relieve her chest pain. They add that the patient is a resident at the [facility] with her . The patient reports that she currently has chest pain. She currently rates this pain 4/10. She states that deep breathing worsens her pain. She notes that she has never experienced these symptoms before. She adds that she sees Dr. Valdivia PCP but doesnt have a brand sales manager as she has never had a cardiac event before. She denies shortness of breath, nausea, vomiting, diarrhea, diaphoresis and cough. Home Medications Home Medications Medication Instructions Recorded Confirmed Type ascorbic acid (vitamin C) [Vitamin 1 g PO DAILY 09/16/18 08/15/19 History C] baclofen 10 mg PO QID 09/16/18 08/15/19 History cholecalciferol (vitamin D3) 400 unit PO DAILY 09/16/18 08/15/19 History [Vitamin D3] clopidogrel 75 mg PO DAILY 09/16/18 08/15/19 History methenamine hippurate 1 g PO BID 09/16/18 08/15/19 History mirabegron 50 mg PO DAILY 09/16/18 08/15/19 History multivitamin 1 tab PO DAILY 09/16/18 08/15/19 History ibuprofen 200 mg PO HS 08/15/19 08/15/19 History vit A,C and J-eaqdls-bzqtvael 1 tab PO DAILY 08/15/19 08/15/19 History [Ocuvite with Lutein] Allergies Allergy/AdvReac Type Severity Reaction Status Date / Time No Known Allergies Allergy Verified 08/15/19 06:09 Past Med/Surg History Medical History Atelectasis (Acute) Cough (Acute) Gross hematuria (Acute) History of pneumonia (Acute) Incomplete emptying of bladder (Acute) Nephrolithiasis (Acute) Nocturia (Acute) UTI (urinary tract infection) (Acute) Urge incontinence of urine (Acute) Urinary urgency (Acute) Chronic diastolic CHF (congestive heart failure) Neurogenic bladder Chronic constipation Multiple sclerosis Aspiration pneumonia (Acute) atelectasis LLL Aortic regurgitation Multiple sclerosis Family History Other Hypertension Social History Preferred Language: Thai Communication Ability: Effective Customer Pricing Manager Required: No Beliefs That Will Affect Care: Yazidi Yazidi Beliefs: protestant marital status: Current Living Situation: Spouse Current Living Situation Comment: [facility] Other Information That Helps Us Care for You: No Feels Safe at Home: Yes Safety Concerns: Feels Safe At This Time Smoking Status: Former smoker Second Hand Exposure: No ; Hx Alcohol Use: No Hx Substance Use: No Review of Systems See HPI for pertinent positives & negatives. and A total of 10 systems reviewed and were otherwise negative Physical Exam Vital Signs Vital Signs - 24 hr 08/15/19 05:40 08/15/19 07:01 Temperature 36.6 C Temperature Source Oral Sepsis Recent Fever Within 48 Hours No Sepsis New/Unexplained Change in Mental Status No Sepsis Action Taken by Nursing No Action Required Pulse Rate 93 H 79 Pulse Rate [Right Finger] 79 Pulse Rhythm Regular Pulse Rhythm [Right Finger] Regular Pulse Strength Normal Pulse Strength [Right Finger] Normal Respiratory Rate 16 16 Respiratory Effort / Characteristics Non-Labored Non-Labored Respiratory Depth Normal Normal Respiratory Pattern Regular Regular Blood Pressure 159/88 H Blood Pressure [Right Arm] 102/72 Blood Pressure Mean 111 Blood Pressure Mean [Right Arm] 82 Blood Pressure Position Lying Blood Pressure Position [Right Arm] Lying Pulse Oximetry 94 97 Oxygen Delivery Method Room Air Room Air HEENT: Head - normocephalic and atraumatic Pupils are equal, round, and reactive to light. Extraocular eye muscles are intact, and sclera are anicteric. Nose - m oist nasal mucosa without discharge. Mouth - moist buccal mucosa. Oropharynx is nonerythematous and there is no tonsillar exudate or edema noted. Neck: Supple; no JVD, nuchal rigidity, cervical lymphadenopathy, or auscultated bruits. Heart: Regular rate and rhythm. There is a normal S1 and S2 with no murmurs, clicks, or gallops appreciated. Lungs: Clear to auscultation bilaterally with no wheezes, rales, or rhonchi. Abdomen: Soft, completely nontender, nondistended, with good bowel sounds. There are no palpable pulsatile masses or hepatosplenomegaly. There is no guarding, rigidity, or rebound noted. Extremities: The patient does have severe MS and limited movement of her lower extremities. There is edema to both feet. There are easily palpable peripheral pulses. Skin: warm and dry with good turgor and no rashes. Course 0549: Past medical records reviewed. The patient was evaluated in room B6. A complete history and physical exam was performed. Previous electronic medical records were reviewed. An IV lock was initiated and labs were drawn as above. The patient was observed on the prior authorization nurse and pulse oximeter. She remains in a normal sinus rhythm. A twelve-lead EKG was obtained. She will have a chest x-ray. 0658: I reevaluated the patient at this time who reports that her chest is radiating from her chest to the right side of her neck. She will be given a dose of sublingual nitro. She had been given a dose of nitro by prehospital personnel with no relief of the chest discomfort. 0708: I discussed the patients case with Dr. Freeman MEANS hospitalist. He will evaluate the patient for further management. 0721: Sodium Chloride 500 ml @ 125 mls/hr IV. Consultations Consultation #1: I discussed the patients case with Dr. Freeman MEANS hospitalist. He will evaluate the patient for further management. Time: 07:08 Administered Medications Ascorbic Acid (Vitamin C) 500 mg PO DAILY [facility] Stop: 09/14/19 09:59 Last Admin: 08/15/19 10:41 Dose: 500 mg Documented by: [id number] Baclofen (Lioresal) 10 mg PO QID [facility] Stop: 09/14/19 09:59 Last Admin: 08/15/19 21:03 Dose: Not Given Documented by: [id number] Admin: 08/15/19 17:19 Dose: 10 mg Documented by: [id number] Admin: 08/15/19 13:53 Dose: 10 mg Documented by: [id number] Admin: 08/15/19 10:39 Dose: 10 mg Documented by: [id number] Clopidogrel Bisulfate (Plavix) 75 mg PO DAILY [facility] Stop: 09/14/19 09:59 Last Admin: 08/15/19 10:43 Dose: 75 mg Documented by: [id number] Enoxaparin Sodium (Lovenox) 30 mg SQ Q24H [facility] Stop: 09/14/19 09:59 Last Admin: 08/15/19 10:41 Dose: 30 mg Documented by: [id number] Ioversol (Optiray 320 125ml) 113 ml IV ONCE PRN PRN Reason: Interaction Checking Stop: 08/19/19 15:44 Last Admin: 08/15/19 15:45 Dose: 113 ml Documented by: [id number] Methenamine Hippurate (Urex) 1 gm PO BID [facility] Stop: 08/25/19 09:59 Last Admin: 08/15/19 21:03 Dose: Not Given Documented by: [id number] Admin: 08/15/19 10:43 Dose: 1 gm Documented by: [id number] Morphine Sulfate (Morphine Sulfate) 2 mg IV Q30M PRN PRN Reason: Chest Pain Stop: 08/29/19 09:20 Last Admin: 08/15/19 15:08 Dose: 2 mg Documented by: [id number] Multivitamins/Minerals (Multivitamin W/ Minerals Tab) 1 tab PO DAILY [facility] Stop: 09/14/19 09:59 Last Admin: 08/15/19 10:43 Dose: 1 tab Documented by: [id number] Nitroglycerin (Nitrostat) 0.4 mg SL UD PRN PRN Reason: Chest Pain Stop: 09/14/19 09:20 Last Admin: 08/15/19 15:01 Dose: 0.4 mg Documented by: [id number] Vitamin D (Vitamin D3) 400 units PO DAILY [facility] Stop: 09/14/19 09:59 Last Admin: 08/15/19 10:43 Dose: 400 units Documented by: [id number] Discontinued Medications Sodium Chloride (Nss) 500 mls @ 125 mls/hr IV .Q4H [facility] Stop: 09/14/19 07:14 Last Admin: 08/15/19 12:12 Dose: Not Given Documented by: [id number] Infusion: 08/15/19 11:38 Dose: 0 mls/hr Documented by: [id number] Admin: 08/15/19 07:21 Dose: 125 mls/hr Documented by: [id number] Ketorolac Tromethamine (Toradol) 15 mg IV NOW ONE Stop: 08/15/19 16:01 Last Admin: 08/15/19 16:10 Dose: 15 mg Documented by: [id number] Mirabegron (Myrbetriq Er) 50 mg PO DAILY [facility] Stop: 09/14/19 09:59 Last Admin: 08/15/19 10:39 Dose: 50 mg Documented by: [id number] Morphine Sulfate (Morphine Sulfate) 2 mg IV NOW STA Stop: 08/15/19 16:01 Last Admin: 08/15/19 16:11 Dose: 2 mg Documented by: [id number] Nitroglycerin (Nitrostat) 0.4 mg SL NOW STA Stop: 08/15/19 07:06 Last Admin: 08/15/19 09:29 Dose: Not Given Documented by: [id number] Medical Decision Making Differential Diagnosis Differential diagnoses include pneumonia, pleurisy and cardiac ischemia amongst others. Medical Records Attestation: I reviewed the patient's medical records. Home Medications Current Medication List: was personally reviewed by me Laboratory Data Attestation: I reviewed the patient's lab results. Result diagrams: 08/15/19 06:06 08/15/19 06:06 Lab Results 08/15/19 08/15/19 Range/Units 06:06 06:06 WBC 11.06 H (4.8-10.8) K/uL RBC 4.65 (4.2-5.4) M/uL Hgb 14.3 (12.0-16.0) g/dL Hct 44.4 (37-47) % MCV 95.5 (80-100) fL MCH 30.8 (25-34) pg MCHC 32.2 (32-36) g/dL RDW Std Deviation 53.1 H (36.4-46.3) fL RDW Coeff of Rosales 15.1 H (11.5-14.5) % Plt Count 256 (130-400) K/uL MPV 10.9 H (7.4-10.4) fL Immature Gran % (Auto) 0.3 % Neut % (Auto) 75.6 % Lymph % (Auto) 9.7 % [place] % (Auto) 8.5 % Eos % (Auto) 5.7 % Baso % (Auto) 0.2 % Immature Gran # (Auto) 0.03 H (0.00-0.02) K/uL Neut # (Auto) 8.37 H (1.4-6.5) K/uL Lymph # (Auto) 1.07 L (1.2-3.4) K/uL [place] # (Auto) 0.94 H (0.11-0.59) K/uL Eos # (Auto) 0.63 H (0-0.5) K/uL Baso # (Auto) 0.02 (0-0.2) K/uL Sodium 144 (136-145) mmol/L Potassium 4.1 (3.5-5.1) mmol/L Chloride 110 H (98-107) mmol/L Carbon Dioxide 26 (21-32) mmol/L Anion Gap 8.0 (3-11) BUN 35 H (7-18) mg/dl Creatinine 0.51 L (0.6-1.2) mg/dl Est Cr Clr Drug Dosing 74.6 ml/min Est GFR ( Amer) 105.3 Est GFR (Non-Af Amer) 90.8 BUN/Creatinine Ratio 68.1 H (10-20) Glucose 91 (70-99) mg/dl Calcium 9.0 (8.5-10.1) mg/dl Total Bilirubin 0.5 (0.2-1) mg/dl AST 14 L (15-37) U/L ALT 20 (12-78) U/L Alkaline Phosphatase 67 (45-117) U/L Troponin I < 0.015 (0-0.045) ng/ml Total Protein 7.0 (6.4-8.2) gm/dl Albumin 3.6 (3.4-5.0) gm/dl Globulin 3.4 (2.5-4.0) gm/dl Albumin/Globulin Ratio 1.1 (0.9-2) Lipase 256 (73-393) U/L Imaging Data Radiologist's Impression: Radiology results as stated below per my review and the radiologist's interpretation: XR chest 1V portable CLINICAL HISTORY: Atypical chest pain COMPARISON STUDY: 06/12/2019 FINDINGS: The heart is enlarged. There is ill-definition left hemidiaphragm. Thi s could indicate left basilar atelectasis/consolidation or small left pleural effusion. The right lung is generally clear. Arthritic changes are present within the shoulders. There is evidence for multiple prior vertebroplasties.[There is no overt failure. There is a vague right upper lung zone density of questionable significance. IMPRESSION: 1. Ill-definition left hemidiaphragm. This raises the possibility of left basilar atelectasis/consolidation or small left pleural effusion. Electronically signed by: Sean Reich M.D. 08/15/2019 6:56 AM ECG Data Attestation: I personally reviewed and interpreted this ECG as follows: Indication: chest pain Rate (beats per minute): 89 Rhythm: normal sinus Findings: no acute ischemic change and no ectopy Blood Pressure Blood Pressure Findings: Elevated blood pressure Blood Pressure Disposition: further management by hospitalist [facility] Narrative The patient is a 78 year old female presenting to the Emergency Department via EMS complaining of sudden chest pain starting less than 1 hour ago. Differential diagnoses include pneumonia, pleurisy, PE, aortic dissection, and cardiac ischemia amongst others. The patient has never had an episode of chest pain like this before. She does suffer from MS and is debilitated by this. She was awoken from sleep with this substernal and left-sided chest discomfort. It is now radiating into her neck. She was offered IV analgesia for the pain but declined. She was given sublin gual nitroglycerin which did not seem to improve her pain. She has a normal- appearing EKG and negative troponin. However, I remain concerned about the patient's chest pain and believe she will require additional work-up. I discussed the case with the [facility] Hospitalist and they will evaluate for further management. Impression & Plan Left-sided chest pain Discharge Plan Visit Data *Final* Discharge Date/Time: 08/15/19 08:47 Chief Complaint: Chest Pain Stated Complaint: CHEST PAIN ED Provider: Ama Balderas Discharge Problem: Left-sided chest pain Patient Disposition: Admitted As Inpatient Discharge Instructions Interventions: ED Discharge Assessment Last Done: 08/15/19 08:47 The scribe's documentation has been prepared under my direction and personally reviewed by me in its entirety. I confirm that the note above accurately reflects all work, treatment, procedures, and medical decision making performed by me.
[2019-08-16 07:19] LABS: Hematocrit (blood only) 37.2 % (37-47); Hemoglobin 12.3 g/dL (12.0-16.0); Mean Corpuscular Hemoglobin 31.1 pg (25-34); Mean Corpuscular Hgb Conc 33.1 g/dL (32-36); Mean Corpuscular Volume 94.2 fL (80-100); Mean Platelet Volume 10.6 fL (7.4-10.4); Platelet Count 240 K/uL (130-400); RDW Standard Deviation 51.6 fL (36.4-46.3); Red Blood Count 3.95 M/uL (4.2-5.4); White Blood Count 10.84 K/uL (4.8-10.8)
[2019-08-16 07:57] LABS: BUN Creatinine Ratio 113.6 (10-20); Calcium 9.5 mg/dl (8.5-10.1); Creatinine Clr Calc Pharmacy 123.5 ml/min; Est GFR (African American) 125.3; Est GFR (Non-African American) 108.1; Potassium 3.7 mmol/L (3.5-5.1)
[2019-08-16] MEDS: BACLOFEN 10 MG TAB PO SCH (08:19)
[2019-08-16] MEDS ORDERED: IBUPROFEN 600 MG TAB PO STA (09:26)
[2019-08-16] MEDS ORDERED: LIDOCAINE 5% 1 PATCH TD SCH (09:30)
[2019-08-16] MEDS ORDERED: BACLOFEN 10 MG TAB PO ONE (09:30)
[2019-08-16] MEDS: CLOPIDOGREL BISULFATE 75 MG TAB PO SCH (10:14)
[2019-08-16] MEDS: CEROVITE ADV FORMULA TAB PO SCH (10:14)
[2019-08-16] MEDS: ASCORBIC ACID 500 MG TAB PO SCH (10:14)
[2019-08-16] MEDS: METHENAMINE HIPPURATE 1 GM TAB PO SCH (10:14)
[2019-08-16] MEDS: CHOLECALCIFEROL (VITAMIN D) 400 UNITS TABLET PO SCH (10:15)
[2019-08-16] MEDS: ENOXAPARIN INJ 30 MG/0.3 ML SYR SQ SCH (10:15)
[2019-08-16] MEDS ORDERED: BACLOFEN 10 MG TAB PO SCH (13:00)
--- NOTE | 2019-08-16 13:32 | Discharge Summary ---
Date of Service August 16, 2019 Admission HPI Per Admitting Provider 78 female with history of progressive MS, she is in bed or motorized chair during the day, presented to the ED this AM with c/o dull chest pain. She said that the pain woke her up from sleep, was dull, constant. She never had pain like this before. Not able to exert herself so no history of exertional chest pain. The pain did not respond to Nitro SL. The pain was not reproducible. It radiated up to her right neck and shoulder. Not associated with any diaphoresis, nausea, dyspnea, light headed sensation. The pain was a little worse with deep breath. In the ED vitals were stable. No hypoxia. EKG while she had the pain showed sinus rhythm in the 80's, LA enlargement, LAFB, no changes compared to prior EKG. CXR showed left raised diaphragm as before, no acute pathology. CBC showed a WBC of 11k, BUN/Cr of 35 / 0.5. Troponin negative. Asked for observation for chest pain. Principal Diagnosis Atypical chest pain Discharge Exam Constitutional WD/WN, vitals as above + thin Eyes PERRL, conjunctivae normal, anicteric sclerae ENMT external ear and nose normal, oropharynx normal Neck trachea midline, no thyromegaly Respiratory normal respiratory effort, lungs clear to auscultation Cardiovascular RRR, no murmur, no edema Gastrointestinal (Abdomen) normal bowel sounds, soft, nontender, no hepatosplenomegaly Musculoskeletal Head/Neck/Chest: normocephalic and head atraumatic Extremities: + limited ROM of extremities, + abnormal strength (weakness in legs bilaterally) and + muscle atrophy; no cyanosis and no clubbing Skin no rashes, warm and dry Neurologic PERRL, EOMI, accommodation nl, no face palsy, no dysarthria normal touch/pain/proprioception Psychiatric A+Ox3, euthymic affect Lymphatic no cervical or axillary lymphadenopathy Discharge Data Allergies Allergy/AdvReac Type Severity Reaction Status Date / Time No Known Allergies Allergy Verified 08/15/19 06:09 Consultations 08/15/19 07:09 ED Decision to Admit Stat Ordered Studies 08/15/19 15:10 CT angio chest PE protocol Stat Hospital Course (1) Chest pain: at rest, did not resolve with Nitro, not reproducible atypical symptoms initial troponin negative, repeat values also < 0.015 EKG while have chest pain was without any ischemic changes on 08/15 CTA chest due to repeated pleuritic type pain was NEGATIVE for pulmonary embolism, also did not show any other lung pathology thus pain is most likely muscular, treat with ibuprofen 600mg TID with food follow up with Dr. Valdivia discussed with patient's at the bedside, he agrees with plan (2) Multiple sclerosis: continue supportive care Baclofen, Mirabegron multivitamins and supplements Total Time Total Time Spent Total Time Spent (In Minutes): 20 minutes Total Time Includes: Examination of the Patient, Discharge Planning, Medication Reconciliation and Other (discussed with ) Discharge Plan Discharge Items Patient Disposition: Home - Self-Care Reason For Visit: CHEST PAIN Discharge Diagnosis: Atypical chest pain, likely musculoskeletal Multiple Sclerosis Condition on Discharge: Good Activity: Resume your previous activity Non-emergency contact: Primary Care Provider Call non-emergency contact if: you have any medication questions, your symptoms worsen and you have a fever Follow-up/Referrals: Mike Valdivia MD [Primary Care Provider] - Diet: Regular Addtl Attending Provider Instructions: Medications: no changes Chest pain, neck pain thorough work up shows that the pain is not due to your heart, EKG normal x 3 and troponin (heart enzyme) negative for three sets CT of the chest negative for blood clot, no rib fractures, no lung pathology likely musculoskeletal pain could increase your ibuprofen to 600mg three times a day as needed for the pain for the next few days recommend that you take this with food follow up with Dr. Valdivia this week Pending Studies at Discharge: No Stand-Alone Forms: Call Back Authorization, [facility] Medications and DC Order Prescriptions: Continued ibuprofen 200 mg Tablet 200 mg PO HS RF: 0 Ocuvite with Lutein 1,000 unit-200 mg-60 unit-2 mg Tablet 1 tab PO DAILY RF: 0 multivitamin Tablet 1 tab PO DAILY RF: 0 ascorbic acid (vitamin C) [Vitamin C] 1,000 mg Tablet 1 g PO DAILY RF: 0 clopidogrel 75 mg tablet 75 mg PO DAILY RF: 0 methenamine hippurate 1 gram tablet 1 g PO BID RF: 0 baclofen 10 mg tablet 10 mg PO QID RF: 0 cholecalciferol (vitamin D3) [Vitamin D3] 400 unit Tablet 400 unit PO DAILY RF: 0 mirabegron 50 mg tablet extended release 24 hr 50 mg PO DAILY RF: 0 Discharge Orders: Discharge Order (Routine); Ordered 08/16/19 Ordered By: Gage Millard Admission Data Admit Date/Time: 08/15/19 07:31 Attending Provider: Gage Millard Admit Provider: Gage Millard Primary Care Provider: Mike Valdivia Other Providers: Gage Millard Other Interventions: Discharge Summary Assessment (RN) Last Done: 08/16/19 10:57 DC Date/Time DO NOT enter until pt leaves facility: 08/16/19 11:35
[2019-08-16] MEDS ORDERED: MIRABEGRON ER 25 MG TAB PO SCH (21:00)
== END 2019-08-16 11:35 | disposition home or self-care (01) ==
LOC: ED 05:45 → 2W 05:45

== ENCOUNTER 2022-03-20 11:57 | Observation (INO) ==
--- NOTE | 2022-03-16 16:35 | Anesthesiology Consultation ---
Date of Service March 16, 2022 Assessment & Plan (1) Encounter for pre-operative examination: Chart Review Chart Review: Acceptable Risk for Surgery (pending anesthesia evaluation DOS ) and Patient NOT seen in Pre Admission Testing Needs manolo lift for transfer -Discussed aortic regurgitation and [address] Galarza- follows routinely with PCP "rate and volume status compensated" per last appt. Due to nature of procedure- pt can proceed as scheduled Per nursing assessment 03/16/22, pt resides in [facility]. Resides at [place] [facility]. Wears mask only when required. Traveled to [facility] 03/10/22 for dinner. No known Covid positive exposures or Covid related symptoms. No known Covid infection in the past 90 days. Pt is fully vaccinated for Covid. Preop Covid testing 03/16/22=negative Pt last seen by PCP 02/13/22= Patient seen for reevaluation. Mild bruising to flexion area of toesprobable trauma related injury. No new cardiopulmonary or GI/ complaints. No new neurological complaints. In regards to toe painsuspect this is result of injuryelevation/antibiotic ointment and dressing/protection with foam boots. Patient will follow-up if symptoms continue. Last seen by pulm 09/14/20= seen for follow up. Hx of MS and likely neuromuscular respiratory weakness. Offered CoughAssist device for weak cough but pt declined. Has incentive spirometer. Offered albuterol neublizer but pt defers at this time. Pulm felt spirometry would not significant alter management and did not recommend. 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 Would recommend aspiration precautions when eating and possibly a modified diet. Speech therapy consultation may be warranted. Will defer to her primary care. Pt can follow up with pulm PRN History Surgery Operation Date: 03/20/22 15:40 Proposed Procedures p Cystoscopy, Ureteronephroscopy, Retrograde Pyelogram with Possible Ureteral Dilation, Laser Destruction or Extraction of the Stone, Insertion of Exchange of Stent Catheter Right - Ramses Presley MD Height/Weight Height: 5 ft 4 in Weight: 56.245 kg Allergies Allergy/AdvReac Type Severity Reaction Status Date / Time No Known Allergies Allergy Verified 02/26/22 16:01 Medications Home Medications Medication Instructions Recorded Confirmed Last Taken ascorbic acid (vitamin C) 1,000 mg 1 g PO QAM 09/16/18 03/16/22 07/14/20 tablet (Vitamin C) baclofen 10 mg tablet 10 mg PO QID 09/16/18 03/16/22 07/14/20 cholecalciferol (vitamin D3) 10 400 unit PO QAM 09/16/18 03/16/22 07/14/20 mcg (400 unit) tablet (Vitamin D3) multivitamin 1 tab PO QAM 09/16/18 03/16/22 07/14/20 vit A 300 mcg-C 200 mg-E 27 1 tab PO QAM 08/15/19 03/16/22 07/14/20 mg-lutein 2 mg and minerals tablet (Ocuvite with Lutein) methenamine hippurate 1 gram tablet 1 g PO BID 90 Days #180 tab 12/04/21 03/16/22 Unknown amoxicillin 875 mg-potassium 1 tab PO BID 7 Days #14 tab 03/08/22 03/16/22 Unknown clavulanate 125 mg tablet aspirin 81 mg tablet,delayed 81 mg PO M 03/16/22 03/16/22 Unknown release ibuprofen 200 mg-diphenhydramine 1 cap PO HS 03/16/22 03/16/22 Unknown HCl 25 mg capsule (Ibuprofen PM) levofloxacin 250 mg tablet 250 mg PO QAM 03/16/22 03/16/22 Unknown mirabegron 50 mg tablet,extended 50 mg PO HS 03/16/22 03/16/22 Unknown release 24 hr tolterodine 2 mg capsule,extended 2 mg PO M 03/16/22 03/16/22 Unknown release 24 hr Past Medical History Medical History (Updated 03/19/22 @ 09:00 by Tricia Urrutia PAJackieC) Aortic regurgitation Per 2016 ECHO - Moderate to severe AR. Wide based eccentric jet of at least moderate AR. Aspiration, chronic pulmonary Cerebrovascular insufficiency Per PCP records- 2016- suspect left hemispheric event Chronic constipation Chronic diastolic CHF (congestive heart failure) Cough Since 2018 per PCP records- RLL atelectasis and mucous plugging History of pneumonia Incomplete emptying of bladder Multiple sclerosis Requires power wheelchair per records Has new patient appt with neuro 07/2022 Nephrolithiasis Neurogenic bladder Nocturia Quadriplegia Per records- uses power wheelchair Urge incontinence of urine Urinary urgency Past Family History Family History Sister Amyotrophic lateral sclerosis Father Cancer Mother Cancer Other Hypertension Past Surgical History Surgical History H/O knee surgery History of back surgery X 2 History of open reduction and internal fixation (ORIF) procedure RIGHT LEG/HARDWARE REMOVED LATER Hx of appendectomy Social History Smoking Status: Former smoker Do You Dip or Chew Tobacco: No Smoking End Date: QUIT 30 YRS AGO Hx Alcohol Use: Yes Alcohol type: wine and hard liquor alcohol intake frequency: 0-2 drinks per day Hx Substance Use: No substance use type: does not use Lab Results Anesthesia Preop Results Results Anesthesia Widget: WBC 9.05 K/uL (4.8-10.8) 03/05/22 Hgb 13.3 g/dL (12.0-16.0) 03/05/22 Hct 41.8 % (37-47) 03/05/22 Plt 339 K/uL (130-400) 03/05/22 Na 141 mmol/L (136-145) 03/05/22 K 4.2 mmol/L (3.5-5.1) 03/05/22 Cl 108 mmol/L (98-107) H 03/05/22 CO2 26 mmol/L (21-32) 03/05/22 BUN 39 mg/dl (6-23) H 03/05/22 Creat 0.35 mg/dl (0.6-1.2) L 03/05/22 Glucose Level 98 mg/dl (70-99(Fasting)) 03/05/22 Urine Color Dark Yellow 03/06/22 Urine Appearance Turbid (Clear) A 03/06/22 Urine pH 6.5 (4.5-7.5) 03/06/22 Urine Specific [place] 1.024 (1.000-1.030) 03/06/22 Urine Protein 2+ (Negative) H 03/06/22 Urine Glucose (UA) Negative (Negative) 03/06/22 Urine Ketones 1+ (Negative) H 03/06/22 Urine Blood 3+ (Negative) H 03/06/22 Urine Nitrite Negative (Negative) 03/06/22 Urine Bilirubin Negative (Negative) 03/06/22 Urine Urobilinogen Negative (Negative) 03/06/22 Urine Leukocyte Esterase 2+ (Negative) H 03/06/22 Urine WBC (Auto) >30 /hpf (0-5) H 03/06/22 Urine RBC (Auto) 5-10 /hpf (0-4) H 03/06/22 Urine Hyaline Casts (Auto) 0 /lpf (0-5) 03/06/22 Urine Epithelial Cells (Auto) >30 /lpf (0-5) H 03/06/22 Urine Bacteria (Auto) 1+ (Negative) H 03/06/22 Urine Yeast Not Reportable 03/06/22 Testing Laboratory Results 03/16/22= URINE CULTURE: Corynebacterium urealyticum, 60,000 CFU/ml Electrocardiogram Date: 09/25/21 Poor data quality NSR at 95bpm. Left atrial enlargement. Left axis deviation. LVH. When compared to EKG from Jul 14, 2020- no significant change was found Chest X-Ray Date: 09/25/21 FINDINGS: No pneumothorax. Chronic elevation of the left hemidiaphragm and left basilar density/effusion persists. The heart remains enlarged. No evidence for pulmonary edema. Old, healed left humeral neck fracture is again noted. There is mild chronic interstitial thickening. No new focal lung consolidations identified. Multiple vertebral plasties within the lower thoracic spine again noted. IMPRESSION: No significant change compared to the prior study. No acute process. Echocardiogram Date: 08/21/16 EF: 55-60% LV Function: normal RWMA: + none Other Findings: + LVH (mild/concentric ) and + diastolic dysfunction (Grade I ) Moderate mitral annular calcification. No MV stenosis or significant MR. Mild TR. Aortic stenosis is absent. Moderate to severe AR. Wide based eccentric jet of at least moderate AR. Other Testing Abdomen/Pelvis CT 01/22/22= Significantly streak and motion compromised examination. Bilateral nephrolithiasis. There is no ureteral stone or hydronephrosis. The bladder is decompressed and grossly unremarkable. Advanced colonic diverticulosis without CT evidence of acute diverticulitis. The rectal wall appears thickened and hyperemic. Clinical correlation will be required. This could be further assessed with colonoscopy if clinically warranted. There is an indeterminant 4.4 cm ovoid structure seen posterior to the rectosigmoid. This is pathologically indeterminant but has been present dating back to 2016 suggesting a nonaggressive lesion. This could also potentially be assessed by c olonoscopy. The endometrium appears thickened for age measuring up to 10 mm. This is not well assessed by CT and nonemergent follow-up with gynecology and pelvic ultrasound is recommended for further assessment. Trace left pleural effusion. 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 Right LE Venous Doppler 09/25/21= No DVT within the right lower extremity. 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 Arterial Right LE duplex 07/14/20= right superficial femoral artery occlusion
[~2022-03-20 11:57] MED LIST changes: -ASCO10003 PO; -BACL10TA PO; -CHOL400C7 PO; +LR 15ML/HR IV SCH; -MIRA1TAB3 PO; -MULT-188 PO; -MULT-513 PO; -PLV75 PO; +cefTRIAXone SODIUM 1,000 MG in DEXTROSE 5% 50 ML IV SCH
[2022-03-20] MEDS ORDERED: ATROPINE SULFATE 0.1 MG/ML 10ML SYR IV PRN (13:23)
[2022-03-20] MEDS ORDERED: ONDANSETRON INJ 2 MG/ML 2 ML VIAL IV PRN (13:23)
[2022-03-20] MEDS ORDERED: fentaNYL citrate 100 MCG/2 ML VIAL IV PRN (13:23)
--- NOTE | 2022-03-20 13:34 | History & Physical Bridge Note ---
Date of Service March 20, 2022 History & Physical Bridge Note I have examined the patient, reviewed the History & Physical and in the interval since the performance of the History & Physical I have noted the following changes of clinical significance: no changes noted
[2022-03-20] MEDS ORDERED: fentaNYL citrate 100 MCG/2 ML VIAL ONE (13:35)
[2022-03-20] MEDS ORDERED: DEXAMETHASONE SOD INJ 4 MG/ML VIAL ONE (14:12)
[2022-03-20] MEDS ORDERED: ONDANSETRON INJ 2 MG/ML 2 ML VIAL ONE (14:12)
[2022-03-20] MEDS ORDERED: LIDOCAINE 2% 2 ML VIAL/AMP(20MG/ML) INFIL ONE (14:12)
[2022-03-20] MEDS ORDERED: PROPOFOL IV EMULSION 10 MG/ML 20 ML VIAL IV ONE (14:12)
[2022-03-20] MEDS ORDERED: PHENYLEPHRINE 100MCG/ML 5ML SYR ONE (14:14)
[2022-03-20] MEDS ORDERED: ACETAMINOPHEN 325 MG TAB PO PRN (15:06)
[2022-03-20] MEDS ORDERED: traMADol HCL 50 MG TABLET PO PRN (15:06)
[2022-03-20] MEDS ORDERED: DIATRIZOATE MEGLUMINE 30% 100ML VIAL INSTIL ONE (15:07)
[2022-03-20] MEDS ORDERED: LACTATED RINGER'S 1,000 ML IV SCH (15:15)
--- NOTE | 2022-03-20 15:16 | Operative Report ---
PG Post Operative Report Pre & Post Diagnosis Operation Date: 03/20/22 13:30 Pre-Op Diagnosis: Right Renal Stone Post-Op Diagnosis: Right Renal Stone; right ureteral stone I identified the patient and participated in the time-out.: Yes Procedure Operation Date: 03/20/22 13:30 Actual Procedures p Cystoscopy, Ureteronephroscopy, Retrograde Pyelogram with Possible Ureteral Dilation, Laser Destruction or Extraction of the Stone, Insertion of Exchange of Stent Catheter Right(Right) - Ramses Presley MD Surgeon Ramses Presley MD Outboard Motor Mechanic none Estimated Blood Loss 0 Findings Consistent with Post-Op Diagnosis Specimens none Description of Procedure The patient was identified in the preoperative holding area, appropriate informed consents were reviewed and completed and the patient was transferred to the operative suite. Upon arrival, appropriate antibiotics and anesthesia were administered and the patient was placed in dorsal lithotomy position and prepped and draped in sterile fashion. Unfortunately was quite challenging to position her because of her contracted state. But we were able to get her into an adequate position record pass a scope per urethra. Inspection of the bladder revealed healthy-appearing mucosa. Her UO was in orthotopic position but was quite challenging to reach. With ma nipulation I was able to advance a sensor wire into the UO. I met resistance approximately 1 cm up the UO. I could not readily visualize a stone on fluoroscopy but I could not advance the wire. I tried numerous efforts and I also tried a Glidewire. I then advanced a flexible ureteroscope with the hope that I could visualize the source of obstruction if I could successfully advance this into the distal ureter. I did in fact visualize a stone impacted into the ureter with a minute opening into the true lumen adjacent to the stone. I was able to intubate this with a sensor wire and advanced that wire to the kidney. Utilizing this wire was able to advance a 10 [place] double-lumen catheter remove the stone somewhat retrograde which allowed dilation of the area of impaction. I was able to then visualize the pieces of stone. I still could not readily get to them to treat them I did attempt to basket them out but they were still not quite ready for this option. Instead I passed a second wire into the kidney and advanced a flexible ureteroscope into the kidney. I did position a flexible access sheath just before it and I was extremely cautious in the distal ureter I could feel the stone moving retrograde up the ureter as I advanced this access sheath. I then advanced a flexible ureteroscope through the access sheath and noted a large stone in the lower pole of the kidney as well as a smaller stone in the renal pelviswhich I suspect was the stone that had been in the distal ureter. I fragmented both of these into pieces I thought were safer spontaneous passage. A repeat renoscopy was conducted revealing no large fragments. I then performed a careful exit ureteroscopy which showed that the ureter had been cleared. There was one small piece I did laser again in this area and then flushed out of the ureter but otherwise the ureter was clear. There was no significant trauma to the ureter. A 6 x 24 stent was placed with a good curl in the kidney as well as the bladder. The case was concluded and she was reversed of anesthesia and taken to the recovery room in stable condition. There were no complications. I attest to the content of the Intraoperative Record and any orders documented therein. Any exceptions are noted below.
--- NOTE | 2022-03-20 15:45 | Anesthesiology Progress Note ---
Date of Service March 20, 2022 Anesthesia Post Procedure Vital Signs Vital Signs: Temp Pulse Pulse Resp BP Pulse Ox 03/20/22 15:35 68 15 150/92 H 100 03/20/22 15:30 64 14 170/69 H 100 03/20/22 15:20 66 12 162/68 H 100 03/20/22 15:12 36.3 C L 68 18 170/86 H 98 03/20/22 12:37 36.4 C L 80 18 151/83 H 97 Transfer of Care Handoff Completed per policy Notes Mental Status: alert / awake / arousable Patient Amnestic to Procedure: Yes Nausea / Vomiting: adequately controlled Pain: adequately controlled Airway Patency, RR, SpO2: stable & adequate BP & HR: stable & adequate Hydration State: stable & adequate Anesthetic Complications: no major complications apparent
--- NOTE | 2022-03-20 17:33 | Fluoroscopy Report ---
FL retrograde includes kub HISTORY: 81 years-old Female RT LASER right-sided cystourethrogram COMPARISON: CT abdomen and pelvis 01/22/2022 TECHNIQUE: 4 spot fluoroscopic images of the abdomen were obtained utilizing 40.1 seconds fluoroscopy time FINDINGS: A right-sided ureteroscope is noted with retrograde injection of contrast into the right ureter. A gu idewire is noted with subsequent images demonstrating deployment of a right ureteral stent which appe ars to be in satisfactory positioning. Thoracic kyphoplasty changes are noted. IMPRESSION: Fluoroscopic assistance as above. ACT 112: Negative or not required by law. The above report was generated using voice recognition software. It may contain grammatical, syntax o r spelling errors. Electronically signed by: Raffy Rodriguez M.D. 03/20/2022 5:32 PM
[2022-03-20] MEDS: BACLOFEN 10 MG TAB PO SCH ×2 (17:50→20:44)
[2022-03-20] MEDS: METHENAMINE HIPPURATE 1 GM TAB PO SCH (20:44)
[2022-03-20] MEDS ORDERED: diphenhydrAMINE Capsule 25 MG CAP PO SCH (21:00)
[2022-03-20] MEDS ORDERED: IBUPROFEN 200 MG TAB PO SCH (21:00)
--- NOTE | 2022-03-21 08:22 | Urology Progress Note ---
Date of Service March 21, 2022 Assessment & Plan (1) Calcium nephrolithiasis: Plan: s/p URS/LL for a right distal ureteral stone and large renal stones - recovery on pace - kept overnight as a precaution given significant comorbidities, but seems safe for d/c home now - has been on ceftriaxone during the hospitalization - will cover with 3 additional days of augment on dc home Admission and Anticipated Discharge Date Admission Date: March 20, 2022 Subjective no major issues overnight reports that she is very comfortable no pain no UTI like symptoms tolerating her stent very well thus far Physical Exam Constitutional: well developed and well nourished Respiratory: no respiratory distress Cardiovascular: Extremities: no pedal edema Gastrointestinal (Abdomen): Inspection/Auscultation: abdomen normal to inspection Results & Data ([facility]) Vital Signs (Past 12 Hours) Vital Signs Temp Pulse Pulse Resp BP BP Pulse Ox 03/21/22 08:13 36.8 C 74 18 136/54 L 94 03/21/22 02:47 36.5 C 85 18 124/76 97 03/20/22 22:08 36.5 C 96 H 19 105/61 94 PG Care Time/CCT Total # of Minutes Spent Total Time Spent with Patient: Total time spent is greater than 50% in coordination of care (as documented) at patient's floor/unit and/or counseling patient: Coding Level of Care Code 51494 Subseq Hosp Care Lvl 2 Diagnoses Calcium nephrolithiasis N20.0
[2022-03-21] MEDS: METHENAMINE HIPPURATE 1 GM TAB PO SCH (08:59)
[2022-03-21] MEDS: BACLOFEN 10 MG TAB PO SCH (08:59)
[2022-03-21] MEDS ORDERED: CEROVITE ADV FORMULA TAB PO SCH (09:00)
[2022-03-21] MEDS ORDERED: TOLTERODINE TARTRATE LA 2 MG CAPCR PO SCH (09:00)
[2022-03-21] MEDS ORDERED: ASPIRIN 81 MG ECTAB PO SCH (09:00)
[2022-03-21] MEDS ORDERED: cefTRIAXone SODIUM 1,000 MG in DEXTROSE 5% 50 ML IV SCH (14:00)
== END 2022-03-21 12:26 | disposition home or self-care (01) ==
LOC: 3W 11:57 → ASU 11:57

== ENCOUNTER 2022-06-12 17:51 | Inpatient (IN) ==
[2022-06-12] MEDS ORDERED: CEFEPIME 2,000 MG/20 ML VIAL IV STA (18:27)
[2022-06-12] MEDS ORDERED: SODIUM CHLORIDE 0.9% 500 ML IV SCH (18:30)
--- NOTE | 2022-06-12 18:50 | Emergency Department Note ---
Impression & Plan Weakness, Altered mental status, COVID-19 ED Provider Note NAME: CALLIE SEYMOUR AGE: 81 SEX: F : 1940 ARRIVES VIA: Ambulance INFORMANT: [Patient][, nursing] ED PROVIDER(S): [Marek Mckee MD] CHIEF COMPLAINT: Urinary symptoms HISTORY OF PRESENT ILLNESS: The patient is an 81-year-old female who had a kidney stone removed by urology about a month ago. She has a history of UTIs. In the last 3 days, she has been more confused. Her states she has been talking less, she is leaning to the left and she has a hard time holding a glass. She has a decreased urinary output. There has been no fever, no increased cough, no shortness of breath. She has not complained of any abdominal pain. The patient has severe MS. She is currently in a wheelchair. She has wasting of her lower extremity musculature and some contracture to the left upper ext remity. REVIEW OF SYSTEMS: See HPI for pertinent positives and negatives. A total of ten systems were reviewed and were otherwise negative. PMHx/PSHx: See Below SOCIAL HISTORY: See Below. PHYSICAL EXAM: GENERAL: Patient is in no acute distress. HEENT: No acute trauma, normocephalic atraumatic, mucous membranes moist, no nasal congestion, no scleral icterus. NECK: No stridor, no adenopathy, no meningismus, trachea is midline. LUNGS: Clear to auscultation bilaterally but diminished bilaterally. No wheezing, no respiratory distress. HEART: 2/6 systolic murmur, regular rate and rhythm. ABDOMEN: Soft, nontender, bowel sounds positive, no peritonitis. EXTREMITIES: No cyanosis or edema. There is wasting of the lower extremity musculature. She has a left upper extremity contracture. NEUROLOGIC: Awake and alert. Wasting of the lower extremities with minimal to no movement. She has contractures to the left upper extremity. SKIN: No rash, no jaundice, no diaphoresis. DIFFERENTIAL DIAGNOSIS: COVID-19, influenza, generalized viral illness, hydronephrosis, UTI, pyelonephritis, dehydration, electrolyte imbalance, anemia, sepsis, stroke, among others EMERGENCY DEPARTMENT COURSE/PROCEDURES: ECG: Indication was weakness. The ECG shows a normal sinus rhythm with a rate of 94. LVH is present. There is some nonspecific ST change diffusely. There is some baseline artifact. There is no ST elevation, no PVCs. The QTc is 490. Continuous Cardiac Monitoring: An order was placed for continuous cardiac monitoring. The monitor shows a rate of 94 with normal sinus rhythm. MEDICAL DECISION MAKING: There is no leukocytosis or worrisome anemia. There is a normal platelet count. No renal failure, no significant electrolyte abnormality. Lactic acid level is not elevated making sepsis less likely. No worrisome liver enzyme elevation. The patient appears to be in a euthyroid state. ECG shows a normal sinus rhythm, no ST elevation. Cardiac enzyme testing x1 is not consistent with acute cardiac injury. Urinalysis suggest some dehydration, no infection. COVID test returned positive. Influenza and RSV test were negative. Brain CT shows no acute bleed or mass-effect. Abdominal and pelvis CT showed some chronic findings, no hydronephrosis, no acute surgical process by CT imaging. A small area of colitis was suggested. Chest x-ray did not show pneumonia or CHF. The patient presents with weakness and confusion. She did receive IV saline, 1 L. She was given IV cefepime as empiric antibiotic coverage. Patient appears to have COVID-19 as the cause for her complaints and presentation. She is in no condition to be discharged. Hospitalization is warranted. I spoke with the patient and pillowcase turner. I spoke with her . The on-ca hospitalist was consulted. Past Med/Surg History Medical History Aortic regurgitation Per 2016 ECHO - Moderate to severe AR. Wide based eccentric jet of at least moderate AR. Aspiration, chronic pulmonary Cerebrovascular insufficiency Per PCP records- 2016- suspect left hemispheric event Chronic constipation Chronic diastolic CHF (congestive heart failure) Cough Since 2018 per PCP records- RLL atelectasis and mucous plugging History of pneumonia Incomplete emptying of bladder Multiple sclerosis Requires power wheelchair per records Has new patient appt with neuro 07/2022 Nephrolithiasis Neurogenic bladder Nocturia Quadriplegia Per records- uses power wheelchair Urge incontinence of urine Urinary urgency Surgical History H/O knee surgery History of back surgery X 2 History of open reduction and internal fixation (ORIF) procedure RIGHT LEG/HARDWARE REMOVED LATER Hx of appendectomy Family History Sister Amyotrophic lateral sclerosis Father Cancer Mother Cancer Other Hypertension Social History Smoking Status: Former smoker Tobacco Type: Cigarettes Second Hand Exposure: No; Hx Alcohol Use: Yes Alcohol type: wine and hard liquor Alcohol Intake Frequency: 4 or More x per/Week Hx Substance Use: No Preferred Language: Tristanian Communication Ability: Effective Director Radio News Required: No Beliefs That Will Affect Care: Roman Catholic Roman Catholic Beliefs: anglican marital status: Current Living Situation: Other Current Living Situation Comment: [facility] current occupational status: retired How many Children do You have: 2 Feels Safe at Home: Yes Assistive Devices: Mechanical Lift and Wheelchair Allergies Allergies Allergy/AdvReac Type Severity Reaction Status Date / Time No Known Allergies Allergy Verified 06/12/22 21:05 Home Meds Home Medications Medication Instructions Recorded Confirmed ascorbic acid (vitamin C) 1,000 mg 1 g PO QAM 09/16/18 06/12/22 tablet (Vitamin C) baclofen 10 mg tablet 10 mg PO QID 09/16/18 06/12/22 cholecalciferol (vitamin D3) 10 400 unit PO QAM 09/16/18 06/12/22 mcg (400 unit) tablet (Vitamin D3) multivitamin 1 tab PO QAM 09/16/18 06/12/22 aspirin 81 mg tablet,delayed 81 mg PO QAM 03/16/22 06/12/22 release ibuprofen 200 mg-diphenhydramine 1 cap PO HS 03/16/22 06/12/22 HCl 25 mg capsule (Ibuprofen PM) mirabegron 50 mg tablet,extended 50 mg PO HS 03/16/22 06/12/22 release 24 hr tolterodine 2 mg capsule,extended 2 mg PO QAM 03/16/22 06/12/22 release 24 hr Previous Rx's Medication Instructions Recorded methenamine hippurate 1 gram tablet 1 g PO BID 90 days #180 tabs 12/04/21 Results & Data (ED) Vital Signs Vital Signs - 24 hr 06/12/22 18:08 06/12/22 18:00 06/12/22 18:30 Temperature 37.0 C Temperature Source Oral Pulse Rate 94 H Pulse Rate from SpO2 Sensor 95 H 92 H Respiratory Rate 21 Respiratory Effort / Characteristics Non-Labored Spontaneous Respiratory Depth Normal Respiratory Pattern Regular Blood Pressure 123/56 L 118/62 107/66 Blood Pressure Mean 78 80 79 Blood Pressure Position Lying Pulse Oximetry 94 94 96 Oxygen Delivery Method Room Air Sepsis Recent Fever Within 48 Hours No Sepsis New/Unexplained Change in Mental Status No Sepsis Action Taken by Nursing No Action Required 06/12/22 19:11 06/12/22 18:28 06/12/22 20:00 Temperature Temperature Source Pulse Rate 94 H 94 H Pulse Rate from SpO2 Sensor Respiratory Rate 24 23 Respiratory Effort / Characteristics Respiratory Depth Respiratory Pattern Blood Pressure 147/68 H Blood Pressure Mean 94 Blood Pressure Position Pulse Oximetry 96 97 Oxygen Delivery Method Room Air Sepsis Recent Fever Within 48 Hours Sepsis New/Unexplained Change in Mental Status Sepsis Action Taken by Nursing 06/12/22 20:26 06/12/22 20:26 06/12/22 20:30 Temperature Temperature Source Pulse Rate 93 H Pulse Rate from SpO2 Sensor Respiratory Rate 21 Respiratory Effort / Characteristics Respiratory Depth Respiratory Pattern Blood Pressure 137/73 116/83 Blood Pressure Mean 94 94 Blood Pressure Position Pulse Oximetry Oxygen Delivery Method Sepsis Recent Fever Within 48 Hours Sepsis New/Unexplained Change in Mental Status Sepsis Action Taken by Nursing 06/12/22 20:30 06/12/22 21:00 06/12/22 21:00 Temperature Temperature Source Pulse Rate 94 H 90 Pulse Rate from SpO2 Sensor Respiratory Rate 24 27 H Respiratory Effort / Characteristics Respiratory Depth Respiratory Pattern Blood Pressure 146/74 H Blood Pressure Mean 98 Blood Pressure Position Pulse Oximetry Oxygen Delivery Method Sepsis Recent Fever Within 48 Hours Sepsis New/Unexplained Change in Mental Status Sepsis Action Taken by Nursing 06/12/22 21:30 06/12/22 21:30 06/12/22 22:00 Temperature Temperature Source Pulse Rate 93 H Pulse Rate from SpO2 Sensor Respiratory Rate 23 Respiratory Effort / Characteristics Respiratory Depth Respiratory Pattern Blood Pressure 114/87 141/59 H Blood Pressure Mean 96 86 Blood Pressure Position Pulse Oximetry Oxygen Delivery Method Sepsis Recent Fever Within 48 Hours Sepsis New/Unexplained Change in Mental Status Sepsis Action Taken by Nursing 06/12/22 22:00 Temperature Temperature Source Pulse Rate 93 H Pulse Rate from SpO2 Sensor Respiratory Rate 22 Respiratory Effort / Characteristics Respiratory Depth Respiratory Pattern Blood Pressure Blood Pressure Mean Blood Pressure Position Pulse Oximetry Oxygen Delivery Method Sepsis Recent Fever Within 48 Hours Sepsis New/Unexplained Change in Mental Status Sepsis Action Taken by Custodial Medications Current Medication List: was personally reviewed by me Laboratory Data Attestation: I reviewed the patient's lab results. Result diagrams: 06/12/22 18:05 06/12/22 18:05 Lab Results 06/12/22 06/12/22 06/12/22 Range/Units 18:05 18:05 18:05 WBC 8.34 (4.8-10.8) K/ul RBC 4.25 (3.93-5.22) M/uL Hgb 13.1 (12.0-16.0) g/dl Hct 40.8 (34.1-44.9) % MCV 96.0 (80.0-100.0) fL MCH 30.8 (25.0-34.0) pg MCHC 32.1 (32.0-36.0) g/dL RDW Std Deviation 51.3 H (36.4-46.3) fL RDW Coeff of [place] 14.6 H (11.5-14.5) % Plt Count 209 (130-400) K/uL MPV 11.3 (9.4-12.3) fL Immature Gran % (Auto) 0.2 % Neut % (Auto) 82.2 % Lymph % (Auto) 2.2 % [place] % (Auto) 12.4 % Eos % (Auto) 2.4 % Baso % (Auto) 0.6 % Neut # (Auto) 6.86 H (1.4-6.5) K/uL Lymph # (Auto) 0.18 L (1.2-3.4) K/uL [place] # (Auto) 1.03 H (0.24-0.82) K/uL Eos # (Auto) 0.20 (0-0.50) K/uL Baso # (Auto) 0.05 (0-0.2) K/uL Immature Gran # (Auto) 0.02 (0.00-0.02) K/uL RBC Morphology Unremarkable Sodium 138 (136-145) mmol/L Potassium 4.3 (3.5-5.1) mmol/L Chloride 106 (98-107) mmol/L Carbon Dioxide 23 (21-32) mmol/L Anion Gap 9 (3-11) BUN 27 H (6-23) mg/dl Creatinine 0.32 L (0.6-1.2) mg/dl Est Cr Clr Drug Dosing 104.7 ml/min Est GFR ( Amer) 120.1 ml/min Est GFR (Non-Af Amer) 103.7 ml/min BUN/Creatinine Ratio 84.4 H (10-20) Glucose 103 H (70-99(Fasting)) mg/dl Lactate (0.4-2.0) mmol/L Calcium 9.3 (8.5-10.1) mg/dl Magnesium 1.9 (1.7-2.4) mg/dl Total Bilirubin 0.7 (0.2-1.0) mg/dl AST 32 (13-39) U/L ALT 22 (7-52) U/L Alkaline Phosphatase 69 (34-104) U/L Troponin I High Sens 5.8 (0-14) pg/ml Total Protein 6.4 (6.0-8.3) gm/dl Albumin 3.9 (3.4-5.0) gm/dl Globulin 2.5 (2.5-4.0) gm/dl Albumin/Globulin Ratio 1.6 (0.9-2) TSH 1.146 (0.300-4.500) uIu/ml Urine Color Urine Appearance (Clear) Urine pH (4.5-7.5) Ur Specific [place] (1.000-1.030) Urine Protein (Negative) Urine Glucose (UA) (Negative) Urine Ketones (Negative) Urine Blood (Negative) Urine Nitrite (Negative) Urine Bilirubin (Negative) Urine Urobilinogen (Negative) Ur Leukocyte Esterase (Negative) Urine WBC (Auto) (0-5) /hpf Urine RBC (Auto) (0-4) /hpf U Hyaline Cast (Auto) (0-5) /lpf U Epithel Cells (Auto) (0-5) /lpf Urine Bacteria (Auto) (Negative) SARS-CoV-2 (PCR) (Negative) Influenza Type A (PCR) (Neg) Influenza Type B (PCR) (Neg) RSV (RT-PCR) (Neg) 06/12/22 06/12/22 06/12/22 Range/Units 19:10 19:22 19:54 WBC (4.8-10.8) K/ul RBC (3.93-5.22) M/uL Hgb (12.0-16.0) g/dl Hct (34.1-44.9) % MCV (80.0-100.0) fL MCH (25.0-34.0) pg MCHC (32.0-36.0) g/dL RDW Std Deviation (36.4-46.3) fL RDW Coeff of [place] (11.5-14.5) % Plt Count (130-400) K/uL MPV (9.4-12.3) fL Immature Gran % (Auto) % Neut % (Auto) % Lymph % (Auto) % [place] % (Auto) % Eos % (Auto) % Baso % (Auto) % Neut # (Auto) (1.4-6.5) K/uL Lymph # (Auto) (1.2-3.4) K/uL [place] # (Auto) (0.24-0.82) K/uL Eos # (Auto) (0-0.50) K/uL Baso # (Auto) (0-0.2) K/uL Immature Gran # (Auto) (0.00-0.02) K/uL RBC Morphology Sodium (136-145) mmol/L Potassium (3.5-5.1) mmol/L Chloride (98-107) mmol/L Carbon Dioxide (21-32) mmol/L Anion Gap (3-11) BUN (6-23) mg/dl Creatinine (0.6-1.2) mg/dl Est Cr Clr Drug Dosing ml/min Est GFR ( Amer) ml/min Est GFR (Non-Af Amer) ml/min BUN/Creatinine Ratio (10-20) Glucose (70-99(Fasting)) mg/dl Lactate 1.1 (0.4-2.0) mmol/L Calcium (8.5-10.1) mg/dl Magnesium (1.7-2.4) mg/dl Total Bilirubin (0.2-1.0) mg/dl AST (13-39) U/L ALT (7-52) U/L Alkaline Phosphatase (34-104) U/L Troponin I High Sens (0-14) pg/ml Total Protein (6.0-8.3) gm/dl Albumin (3.4-5.0) gm/dl Globulin (2.5-4.0) gm/dl Albumin/Globulin Ratio (0.9-2) TSH (0.300-4.500) uIu/ml Urine Color Dark Yellow Urine Appearance Clear (Clear) Urine pH 6.0 (4.5-7.5) Ur Specific [place] 1.020 (1.000-1.030) Urine Protein Negative (Negative) Urine Glucose (UA) Negative (Negative) Urine Ketones 2+ H (Negative) Urine Blood Trace H (Negative) Urine Nitrite Negative (Negative) Urine Bilirubin Negative (Negative) Urine Urobilinogen Negative (Negative) Ur Leukocyte Esterase Trace H (Negative) Urine WBC (Auto) 1-5 (0-5) /hpf Urine RBC (Auto) 10-30 H (0-4) /hpf U Hyaline Cast (Auto) 0 (0-5) /lpf U Epithel Cells (Auto) 5-10 H (0-5) /lpf Urine Bacteria (Auto) Negative (Negative) SARS-CoV-2 (PCR) POSITIVE A* (Negative) Influenza Type A (PCR) Negative (Neg) Influenza Type B (PCR) Negative (Neg) RSV (RT-PCR) Negative (Neg) Administered Medications Discontinued Medications Sodium Chloride (Nss) 500 mls @ 999 mls/hr IV .Q31M KAMRAN Stop: 06/12/22 19:00 Last Infusion: 06/12/22 22:54 Dose: 0 mls/hr Documented By: Admin: 06/12/22 20:27 Dose: 999 mls/hr Documented By: SURESH Cefepime HCl (Maxipime) 2,000 mg in 20 mls @ 5 mls/min IV NOW STA; Protocol Stop: 06/12/22 18:30 Last Admin: 06/12/22 20:27 Dose: 5 mls/min Documented By: SURESH Sodium Chloride (Nss 1000ml) 500 mls @ 999 mls/hr IV .Q31M ONE Stop: 06/12/22 20:33 Last Infusion: 06/12/22 22:54 Dose: 0 mls/hr Documented By: Admin: 06/12/22 22:06 Dose: 999 mls/hr Documented By: SURESH Imaging Data Radiologist's Impression: Abdomen/Pelvis CT 06/12/22 18:27 CT SCAN OF THE ABDOMEN AND PELVIS WITHOUT IV CONTRAST CLINICAL HISTORY: Generalized abdominal pain. COMPARISON STUDY: Abdominal CT dated 01/22/2022 and 08/12/2017. TECHNIQUE: CT scan of the abdomen and pelvis is performed from the lung bases to the proximal femora. Images are reviewed in the axial, sagittal, and coronal planes. IV contrast was not administered for this examination. A dose lowering technique was utilized adhering to the principles of ALARA. The examination is severely degraded by motion artifact, and by streak artifact from the arms which could not be elevated above the abdomen. CT DOSE: 875.04 mGy.cm FINDINGS: Lung bases: The heart is mildly enlarged and without pericardial effusion. The coronary arteries are densely calcified. There are trace pleural effusions with dependent consolidation. A fat-containing Bochdalek hernia is noted on the right. Liver: The unenhanced liver is normal in size, contour, and attenuation. There is no intrahepatic biliary ductal dilatation. Gallbladder: Unremarkable. Spleen: Normal in size and attenuation. Pancreas: The unenhanced pancreas is moderately atrophic and grossly unremar kable. Adrenal glands: Nodular thickening of the adrenal glands is similar to previous. Kidneys: The unenhanced kidneys demonstrate mild cortical atrophy and are without hydronephrosis. There are numerous nonobstructing right renal calculi which measure up to 5 mm. These are difficult to assess due to significant motion artifact. No left renal calculi are clearly seen. There is no evidence of ureteral stone. There is no evidence of contour deforming renal mass lesion. Abdominal vasculature: The abdominal aorta is normal in course and caliber noting advanced atherosclerotic calcification. Bowel: There is rectosigmoid fecal retention and moderate constipation. No bowel obstruction is seen. There is colonic diverticulosis without CT evidence of acute diverticulitis. There is wall thickening of the sigmoid colon with mild surrounding infiltration. The appendix is not visualized. Peritoneum: There is no intraperitoneal free air or abdominal ascites. Lymphadenopathy: None. Pelvic viscera: There are small bladder calculi. Foci of gas are noted in the bladder lumen. The bladder is otherwise normal as imaged. The uterus is normal as visualized. An indeterminant 4.6 cm ovoid soft tissue structures again seen in the posterior pelvis adjacent to the rectosigmoid. Skeletal structures: The skeletal structures are osteopenic. There is mild to moderate lumbosacral spondylosis. There is chronic compression deformities with evidence of previous vertebroplasty noted in the lower thoracic spine. No lytic or blastic lesions are seen. IMPRESSION: 1. Severely streak and motion compromised examination. 2. Right-sided nephrolithiasis. 3. There is no hydronephrosis or evidence of ureteral stone. 4. Colonic diverticulosis without CT evidence of acute diverticulitis. 5. Small bladder calculi are noted. 6. Foci of gas are present within the bladder lumen and may be related to instrumentation. Correlate with clinical findings and urinalysis. 7. There is wall thickening of the sigmoid colon with mild surrounding infiltration. Clinical correlation will be required. 8. Trace pleural effusions with dependent consolidation. This likely represents atelectasis and clinical correlation required. 9. A 4.6 cm ovoid soft tissue structure in the posterior pelvis is pathologically indeterminant and not significantly changed from prior studies. 10. Additional findings as above. ACT 112: Negative or not required by law. Electronically signed by: Marek Tran M.D. 06/12/2022 9:[address] 06/12/22 18:27 CT SCAN OF THE BRAIN WITHOUT IV CONTRAST CLINICAL HISTORY: Change in mental status. COMPARISON STUDY: CT of the brain dated 12/15/2016. TECHNIQUE: Unenhanced axial CT scan of the brain is performed from the vertex to the skull base. A dose lowering technique was utilized adhering to the principles of ALARA. FINDINGS: Brain parenchyma: There is age-related involutional change noting moderate subcortical and periventricular microangiopathic disease. There is no hemorrhage, mass effect, or evidence of acute territorial ischemia by CT criteria. Christianson-white matter differentiation is preserved. No extra-axial fluid collection is seen. Ventricles, sulci, cisterns: Prominent secondary to involutional change. Intracranial vasculature: There is atherosclerotic calcification of the cavernous carotid and vertebral arteries. Calvarium: Unremarkable. Sinuses and mastoids: The visualized paranasal sinuses are clear. The mastoid air cells are well pneumatized. Orbits: The bony orbits are grossly intact. There are bilateral ocular lens implants. IMPRESSION: There is no hemorrhage, mass effect, or evidence of acute territorial ischemia by CT criteria. ACT 112: Negative or not required by law. Electronically signed by: Marek Tran M.D. 06/12/2022 7:49 PM Chest X-Ray 06/12/22 18:28 SINGLE VIEW CHEST CLINICAL HISTORY: Generalized weakness. FINDINGS: An AP, portable, upright chest radiograph is compared to study dated 09/25/2021 and correlated with chest CT dated 08/15/2019. The patient's head partially obscures left apex. The examination is degraded by portable technique and patient rotation. The heart is enlarged noting atherosclerotic calcification of the thoracic and. Emphysema and chronic interstitial thickening is similar to previous. There is chronic elevation of the left hemidiaphragm with associated atelectasis. There is no evidence of superimposed airspace consolidation or large pleural effusion. No pneumothorax is seen. The skeletal structures are osteopenic. Compression deformities with evidence of previous vertebroplasty are noted in the lower thoracic region. IMPRESSION: Mild cardiomegaly and emphysema with no acute cardiopulmonary abnormality. ACT 112: Negative or not required by law. Electronically signed by: Marek Tran M.D. 06/12/2022 7:59 PM Discharge Plan Visit Data Chief Complaint: Urinary Symptoms Stated Complaint: confusion ED Provider: Marek Mckee Discharge Problem: Weakness, Altered mental status, COVID-19 Patient Disposition: Admitted As Inpatient Condition: Fair
[2022-06-12 19:09] LABS: Hematocrit (blood only) 40.8 % (34.1-44.9); Hemoglobin 13.1 g/dl (12.0-16.0); Mean Corpuscular Hemoglobin 30.8 pg (25.0-34.0); Mean Corpuscular Hgb Conc 32.1 g/dL (32.0-36.0); Mean Platelet Volume 11.3 fL (9.4-12.3); Platelet Count 209 K/uL (130-400); RDW Coefficient of Variation 14.6 % (11.5-14.5); RDW Standard Deviation 51.3 fL (36.4-46.3); Red Blood Count 4.25 M/uL (3.93-5.22); White Blood Count 8.34 K/ul (4.8-10.8)
[2022-06-12 19:10] LABS: Albumin Globulin Ratio 1.6 (0.9-2); Albumin Level 3.9 gm/dl (3.4-5.0); BUN Creatinine Ratio 84.4 (10-20); Bilirubin,Total 0.7 mg/dl (0.2-1.0); Calcium 9.3 mg/dl (8.5-10.1); Creatinine Clr Calc Pharmacy 104.7 ml/min; Est GFR (African American) 120.1 ml/min; Est GFR (Non-African American) 103.7 ml/min; Globulin 2.5 gm/dl (2.5-4.0); Magnesium 1.9 mg/dl (1.7-2.4); Potassium 4.3 mmol/L (3.5-5.1); Total Protein 6.4 gm/dl (6.0-8.3)
[2022-06-12 19:14] LABS: Basophils # (auto) 0.05 K/uL (0-0.2); Basophils % (auto) 0.6 %; Eosinophils % (auto) 2.4 %; Immature Granulocytes # (auto) 0.02 K/uL (0.00-0.02); Immature Granulocytes % (auto) 0.2 %; Lymphocytes # (auto) 0.18 K/uL (1.2-3.4); Lymphocytes % (auto) 2.2 %; Monocytes # (auto) 1.03 K/uL (0.24-0.82); Monocytes % (auto) 12.4 %; Neutrophils # (auto) 6.86 K/uL (1.4-6.5); Neutrophils % (auto) 82.2 %; RBC Morphology Unremarkable; Troponin I High Sensitivity 5.8 pg/ml (0-14)
[2022-06-12 19:33] LABS: Appearance Urine Clear (Clear); Bacteria Urine Automated Negative (Negative); Bilirubin Urine Negative (Negative); Blood Urine Trace (Negative); Cast Urine Automated 0 /lpf (0-5); Color Urine Dark Yellow; Glucose Urine UA Negative (Negative); Ketones Urine 2+ (Negative); Leukocyte Esterase Urine Trace (Negative); Nitrite Urine Negative (Negative); Protein Urine Negative (Negative); Urobilinogen Urine Negative (Negative)
--- NOTE | 2022-06-12 19:50 | CT Scan Report ---
CT SCAN OF THE BRAIN WITHOUT IV CONTRAST CLINICAL HISTORY: Change in mental status. COMPARISON STUDY: CT of the brain dated 12/15/2016. TECHNIQUE: Unenhanced axial CT scan of the brain is performed from the vertex to the skull base. A do se lowering technique was utilized adhering to the principles of ALARA. FINDINGS: Brain parenchyma: There is age-related involutional change noting moderate subcortical and periventri cular microangiopathic disease. There is no hemorrhage, mass effect, or evidence of acute territorial ischemia by CT criteria. Christianson-white matter differentiation is preserved. No extra-axial fluid collec tion is seen. Ventricles, sulci, cisterns: Prominent secondary to involutional change. Intracranial vasculature: There is atherosclerotic calcification of the cavernous carotid and vertebr al arteries. Calvarium: Unremarkable. Sinuses and mastoids: The visualized paranasal sinuses are clear. The mastoid air cells are well pneu matized. Orbits: The bony orbits are grossly intact. There are bilateral ocular lens implants. IMPRESSION: There is no hemorrhage, mass effect, or evidence of acute territorial ischemia by CT mary valladares. ACT 112: Negative or not required by law. Electronically signed by: Marek Tran M.D. 06/12/2022 7:49 PM
--- NOTE | 2022-06-12 20:00 | XRay Report ---
SINGLE VIEW CHEST CLINICAL HISTORY: Generalized weakness. FINDINGS: An AP, portable, upright chest radiograph is compared to study dated 09/25/2021 and correla hugh with chest CT dated 08/15/2019. The patient's head partially obscures left apex. The examination i s degraded by portable technique and patient rotation. The heart is enlarged noting atherosclerotic calcification of the thoracic and. Emphysema and chronic interstitial thickening is similar to previo us. There is chronic elevation of the left hemidiaphragm with associated atelectasis. There is no emmett dence of superimposed airspace consolidation or large pleural effusion. No pneumothorax is seen. The skeletal structures are osteopenic. Compression deformities with evidence of previous vertebroplasty are noted in the lower thoracic region. IMPRESSION: Mild cardiomegaly and emphysema with no acute cardiopulmonary abnormality. ACT 112: Negative or not required by law. Electronically signed by: Marek Tran M.D. 06/12/2022 7:59 PM
[2022-06-12] MEDS ORDERED: SODIUM CHLORIDE 0.9% 1000ML 500 ML IV ONE (20:03)
[2022-06-12 20:43] LABS: Influenza A virus by PCR Negative (Neg); Influenza B virus by PCR Negative (Neg); RSV by PCR Negative (Neg)
[2022-06-12 20:45] LABS: SARS CoV2 RNA(COVID-19) InHosp POSITIVE (Negative)
--- NOTE | 2022-06-12 21:09 | CT Scan Report ---
CT SCAN OF THE ABDOMEN AND PELVIS WITHOUT IV CONTRAST CLINICAL HISTORY: Generalized abdominal pain. COMPARISON STUDY: Abdominal CT dated 01/22/2022 and 08/12/2017. TECHNIQUE: CT scan of the abdomen and pelvis is performed from the lung bases to the proximal femora. Images are reviewed in the axial, sagittal, and coronal planes. IV contrast was not administered for this examination. A dose lowering technique was utilized adhering to the principles of ALARA. The ex amination is severely degraded by motion artifact, and by streak artifact from the arms which could n ot be elevated above the abdomen. CT DOSE: 875.04 mGy.cm FINDINGS: Lung bases: The heart is mildly enlarged and without pericardial effusion. The coronary arteries are densely calcified. There are trace pleural effusions with dependent consolidation. A fat-containing B ochdalek hernia is noted on the right. Liver: The unenhanced liver is normal in size, contour, and attenuation. There is no intrahepatic paty iary ductal dilatation. Gallbladder: Unremarkable. Spleen: Normal in size and attenuation. Pancreas: The unenhanced pancreas is moderately atrophic and grossly unremarkable. Adrenal glands: Nodular thickening of the adrenal glands is similar to previous. Kidneys: The unenhanced kidneys demonstrate mild cortical atrophy and are without hydronephrosis. The re are numerous nonobstructing right renal calculi which measure up to 5 mm. These are difficult to a ssess due to significant motion artifact. No left renal calculi are clearly seen. There is no evidenc e of ureteral stone. There is no evidence of contour deforming renal mass lesion. Abdominal vasculature: The abdominal aorta is normal in course and caliber noting advanced atheroscle rotic calcification. Bowel: There is rectosigmoid fecal retention and moderate constipation. No bowel obstruction is seen. There is colonic diverticulosis without CT evidence of acute diverticulitis. There is wall thickenin g of the sigmoid colon with mild surrounding infiltration. The appendix is not visualized. Peritoneum: There is no intraperitoneal free air or abdominal ascites. Lymphadenopathy: None. Pelvic viscera: There are small bladder calculi. Foci of gas are noted in the bladder lumen. The blad joy is otherwise normal as imaged. The uterus is normal as visualized. An indeterminant 4.6 cm ovoid soft tissue structures again seen in the posterior pelvis adjacent to the rectosigmoid. Skeletal structures: The skeletal structures are osteopenic. There is mild to moderate lumbosacral sp ondylosis. There is chronic compression deformities with evidence of previous vertebroplasty noted in the lower thoracic spine. No lytic or blastic lesions are seen. IMPRESSION: 1. Severely streak and motion compromised examination. 2. Right-sided nephrolithiasis. 3. There is no hydronephrosis or evidence of ureteral stone. 4. Colonic diverticulosis without CT evidence of acute diverticulitis. 5. Small bladder calculi are noted. 6. Foci of gas are present within the bladder lumen and may be related to instrumentation. Correlate with clinical findings and urinalysis. 7. There is wall thickening of the sigmoid colon with mild surrounding infiltration. Clinical correla tion will be required. 8. Trace pleural effusions with dependent consolidation. This likely represents atelectasis and clini mitchell correlation required. 9. A 4.6 cm ovoid soft tissue structure in the posterior pelvis is pathologically indeterminant and n ot significantly changed from prior studies. 10. Additional findings as above. ACT 112: Negative or not required by law. Electronically signed by: Marek Tran M.D. 06/12/2022 9:07 PM
--- NOTE | 2022-06-12 23:27 | History & Physical Report ---
Date of Service June 12, 2022 Assessment & Plan (1) Altered mental status: Plan: Altered mental status- multifactorial: Multiple sclerosis, COVID-19 infection, secondary bacterial pneumonia/aspiration, progressive decline Lactated Ringer's at 80 mils per hour (2) COVID-19: Plan: Decadron 6 mg IV every morning, with first dose now (3) Weakness: Plan: Secondary to above (4) Bilateral pneumonia: Plan: Secondary bacterial pneumonia versus aspiration pneumonia- Cefepime 2 g IV every 12 hours Duonebs every 4 hours while awake and every 2 hours when necessary. Nasal cannula oxygen, titrate to keep pulse ox around 94% (5) Multiple sclerosis: Plan: Unclear how much an exacerbation may be contributing to symptoms If contributing, add IV Decadron should be of help History of Present Illness Chief Complaint: The patient's reports that she has been more confused over the past 3 days, talking less, eating and drinking less, leaning to the left, has a hard time holding a glass, and has had decreased urinary output. Primary Care Provider: [facility] The patient is an 81-year-old female with a past medical history including multiple sclerosis, syncope, pressure ulcers, chronic aspiration, incomplete bladder emptying, recurrent urinary tract infections, chronic diastolic CHF, neurogenic bladder, aspiration pneumonia and aortic regurgitation. The patient herself is unable to contribute to her HPI or review of systems due to altered mental state. None Allergies Allergy/AdvReac Type Severity Reaction Status Date / Time No Known Allergies Allergy Verified 06/12/22 21:05 Home Medications Medication Instructions Recorded Confirmed Type ascorbic acid (vitamin C) 1,000 mg 1 g PO QAM 09/16/18 06/12/22 History tablet (Vitamin C) baclofen 10 mg tablet 10 mg PO QID 09/16/18 06/12/22 History cholecalciferol (vitamin D3) 10 400 unit PO QAM 09/16/18 06/12/22 History mcg (400 unit) tablet (Vitamin D3) multivitamin 1 tab PO QAM 09/16/18 06/12/22 History methenamine hippurate 1 gram tablet 1 g PO BID 90 days #180 tabs 12/04/21 06/12/22 Rx aspirin 81 mg tablet,delayed 81 mg PO QAM 03/16/22 06/12/22 History release ibuprofen 200 mg-diphenhydramine 1 cap PO HS 03/16/22 06/12/22 History HCl 25 mg capsule (Ibuprofen PM) mirabegron 50 mg tablet,extended 50 mg PO HS 03/16/22 06/12/22 History release 24 hr tolterodine 2 mg capsule,extended 2 mg PO QAM 03/16/22 06/12/22 History release 24 hr Past Med/Surg History Medical History Aortic regurgitation Per 2016 ECHO - Moderate to severe AR. Wide based eccentric jet of at least moderate AR. Aspiration, chronic pulmonary Cerebrovascular insufficiency Per PCP records- 2016- suspect left hemispheric event Chronic constipation Chronic diastolic CHF (congestive heart failure) Cough Since 2018 per PCP records- RLL atelectasis and mucous plugging History of pneumonia Incomplete emptying of bladder Multiple sclerosis Requires power wheelchair per records Has new patient appt with neuro 07/2022 Nephrolithiasis Neurogenic bladder Nocturia Quadriplegia Per records- uses power wheelchair Urge incontinence of urine Urinary urgency Surgical History H/O knee surgery History of back surgery X 2 History of open reduction and internal fixation (ORIF) procedure RIGHT LEG/HARDWARE REMOVED LATER Hx of appendectomy Family History Sister Amyotrophic lateral sclerosis Father Cancer Mother Cancer Other Hypertension Social History Smoking Status: Former smoker Tobacco Type: Cigarettes Second Hand Exposure: No; Hx Alcohol Use: Yes Alcohol type: wine and hard liquor Alcohol Intake Frequency: 4 or More x per/Week Hx Substance Use: No Preferred Language: Indonesian Communication Ability: Effective Liability Analyst Required: No Beliefs That Will Affect Care: Yazdanism Yazdanism Beliefs: evangelical marital status: Current Living Situation: Other Current Living Situation Comment: [facility] current occupational status: retired How many Children do You have: 2 Feels Safe at Home: Yes Assistive Devices: Mechanical Lift and Wheelchair Review of Systems Review of Systems: Unobtainable due to cognitive status Physical Exam Physical Exam: The patient is lethargic, well developed and well nourished, normocephalic and atraumatic, lying in bed and in no acute distress. HEENT--PERRL, EOMI, mucous membranes and oropharynx dry. Neck--supple. No JVD. No bruits. Thyroid normal, trachea midline, no adenopathy. Heart--normal S1 and S2. No murmurs, rubs or gallops. Lungs--clear bilaterally, no respiratory distress, no accessory muscle use. Abdomen--normal bowel sounds and soft. Nontender. Nondistended Extremities--no cyanosis or clubbing. No edema. Dermatologic--normal skin turgor, normal color, no abnormal lymph nodes, no rash. Neurologic--cranial nerves II through XII grossly intact. Rheumatologic--limited exam due to mental state Psychiatric--lethargic and nonresponsive Results & Data Results & Data ([facility]) Vital Signs (Past 12 Hours) Vital Signs Temp Pulse Resp BP Pulse Ox O2 Del Method 06/12/22 22:00 93 H 22 06/12/22 22:00 141/59 H 06/12/22 21:30 93 H 23 06/12/22 21:30 114/87 06/12/22 21:00 90 27 H 06/12/22 21:00 146/74 H 06/12/22 20:30 94 H 24 06/12/22 20:30 116/83 06/12/22 20:26 93 H 21 06/12/22 20:26 137/73 06/12/22 20:00 94 H 23 06/12/22 18:28 97 Room Air 06/12/22 19:11 94 H 24 147/68 H 96 06/12/22 18:30 107/66 96 06/12/22 18:00 118/62 94 06/12/22 18:08 37.0 C 94 H 21 123/56 L 94 Room Air Laboratory Results Laboratory Results WBC 8.34 K/ul (4.8-10.8) 06/12/22 18:05 RBC 4.25 M/uL (3.93-5.22) 06/12/22 18:05 Hgb 13.1 g/dl (12.0-16.0) 06/12/22 18:05 Hct 40.8 % (34.1-44.9) 06/12/22 18:05 MCV 96.0 fL (80.0-100.0) 06/12/22 18:05 MCH 30.8 pg (25.0-34.0) 06/12/22 18:05 MCHC 32.1 g/dL (32.0-36.0) 06/12/22 18:05 RDW Std Deviation 51.3 fL (36.4-46.3) H 06/12/22 18:05 RDW Coeff of Rosales 14.6 % (11.5-14.5) H 06/12/22 18:05 Plt Count 209 K/uL (130-400) 06/12/22 18:05 MPV 11.3 fL (9.4-12.3) 06/12/22 18:05 Immature Gran % (Auto) 0.2 % 06/12/22 18:05 Neut % (Auto) 82.2 % 06/12/22 18:05 Lymph % (Auto) 2.2 % 06/12/22 18:05 [place] % (Auto) 12.4 % 06/12/22 18:05 Eos % (Auto) 2.4 % 06/12/22 18:05 Baso % (Auto) 0.6 % 06/12/22 18:05 Neut # (Auto) 6.86 K/uL (1.4-6.5) H 06/12/22 18:05 Lymph # (Auto) 0.18 K/uL (1.2-3.4) L 06/12/22 18:05 [place] # (Auto) 1.03 K/uL (0.24-0.82) H 06/12/22 18:05 Eos # (Auto) 0.20 K/uL (0-0.50) 06/12/22 18:05 Baso # (Auto) 0.05 K/uL (0-0.2) 06/12/22 18:05 Immature Gran # (Auto) 0.02 K/uL (0.00-0.02) 06/12/22 18:05 RBC Morphology Unremarkable 06/12/22 18:05 Sodium 138 mmol/L (136-145) 06/12/22 18:05 Potassium 4.3 mmol/L (3.5-5.1) 06/12/22 18:05 Chloride 106 mmol/L (98-107) 06/12/22 18:05 Carbon Dioxide 23 mmol/L (21-32) 06/12/22 18:05 Anion Gap 9 (3-11) 06/12/22 18:05 BUN 27 mg/dl (6-23) H 06/12/22 18:05 Creatinine 0.32 mg/dl (0.6-1.2) L 06/12/22 18:05 Est Cr Clr Drug Dosing 104.7 ml/min 06/12/22 18:05 Est GFR ( Amer) 120.1 ml/min 06/12/22 18:05 Est GFR (Non-Af Amer) 103.7 ml/min 06/12/22 18:05 BUN/Creatinine Ratio 84.4 (10-20) H 06/12/22 18:05 Glucose 103 mg/dl (70-99(Fasting)) H 06/12/22 18:05 Lactate 1.1 mmol/L (0.4-2.0) 06/12/22 19:22 Calcium 9.3 mg/dl (8.5-10.1) 06/12/22 18:05 Magnesium 1.9 mg/dl (1.7-2.4) 06/12/22 18:05 Total Bilirubin 0.7 mg/dl (0.2-1.0) 06/12/22 18:05 AST 32 U/L (13-39) 06/12/22 18:05 ALT 22 U/L (7-52) 06/12/22 18:05 Alkaline Phosphatase 69 U/L (34-104) 06/12/22 18:05 Troponin I High Sens 5.8 pg/ml (0-14) 06/12/22 18:05 Total Protein 6.4 gm/dl (6.0-8.3) 06/12/22 18:05 Albumin 3.9 gm/dl (3.4-5.0) 06/12/22 18:05 Globulin 2.5 gm/dl (2.5-4.0) 06/12/22 18:05 Albumin/Globulin Ratio 1.6 (0.9-2) 06/12/22 18:05 TSH 1.146 uIu/ml (0.300-4.500) 06/12/22 18:05 Urine Color Dark Yellow 06/12/22 19:10 Urine Appearance Clear (Clear) 06/12/22 19:10 Urine pH 6.0 (4.5-7.5) 06/12/22 19:10 Ur Specific Rosenberg 1.020 (1.000-1.030) 06/12/22 19:10 Urine Protein Negative (Negative) 06/12/22 19:10 Urine Glucose (UA) Negative (Negative) 06/12/22 19:10 Urine Ketones 2+ (Negative) H 06/12/22 19:10 Urine Blood Trace (Negative) H 06/12/22 19:10 Urine Nitrite Negative (Negative) 06/12/22 19:10 Urine Bilirubin Negative (Negative) 06/12/22 19:10 Urine Urobilinogen Negative (Negative) 06/12/22 19:10 Ur Leukocyte Esterase Trace (Negative) H 06/12/22 19:10 Urine WBC (Auto) 1-5 /hpf (0-5) 06/12/22 19:10 Urine RBC (Auto) 10-30 /hpf (0-4) H 06/12/22 19:10 U Hyaline Cast (Auto) 0 /lpf (0-5) 06/12/22 19:10 U Epithel Cells (Auto) 5-10 /lpf (0-5) H 06/12/22 19:10 Urine Bacteria (Auto) Negative (Negative) 06/12/22 19:10 SARS-CoV-2 (PCR) POSITIVE (Negative) A* 06/12/22 19:54 Influenza Type A (PCR) Negative (Neg) 06/12/22 19:54 Influenza Type B (PCR) Negative (Neg) 06/12/22 19:54 RSV (RT-PCR) Negative (Neg) 06/12/22 19:54 Impressions Abdomen/Pelvis CT 06/12/22 18:27 CT SCAN OF THE ABDOMEN AND PELVIS WITHOUT IV CONTRAST CLINICAL HISTORY: Generalized abdominal pain. COMPARISON STUDY: Abdominal CT dated 01/22/2022 and 08/12/2017. TECHNIQUE: CT scan of the abdomen and pelvis is performed from the lung bases to the proximal femora. Images are reviewed in the axial, sagittal, and coronal planes. IV contrast was not administered for this examination. A dose lowering technique was utilized adhering to the principles of ALARA. The examination is severely degraded by motion artifact, and by streak artifact from the arms which could not be elevated above the abdomen. CT DOSE: 875.04 mGy.cm FINDINGS: Lung bases: The heart is mildly enlarged and without pericardial effusion. The coronary arteries are densely calcified. There are trace pleural effusions with dependent consolidation. A fat-containing Bochdalek hernia is noted on the right. Liver: The unenhanced liver is normal in size, contour, and attenuation. There is no intrahepatic biliary ductal dilatation. Gallbladder: Unremarkable. Spleen: Normal in size and attenuation. Pancreas: The unenhanced pancreas is moderately atrophic and grossly unremarkable. Adrenal glands: Nodular thickening of the adrenal glands is similar to previous. Kidneys: The unenhanced kidneys demonstrate mild cortical atrophy and are without hydronephrosis. There are numerous nonobstructing right renal calculi which measure up to 5 mm. These are difficult to assess due to significant motion artifact. No left renal calculi are clearly seen. There is no evidence of ureteral stone. There is no evidence of contour deforming renal mass lesion. Abdominal vasculature: The abdominal aorta is normal in course and caliber noting advanced atherosclerotic calcification. Bowel: There is rectosigmoid fecal retention and moderate constipation. No bowel obstruction is seen. There is colonic diverticulosis without CT evidence of acute diverticulitis. There is wall thickening of the sigmoid colon with mild surrounding infiltration. The appendix is not visualized. Peritoneum: There is no intraperitoneal free air or abdominal ascites. Lymphadenopathy: None. Pelvic viscera: There are small bladder calculi. Foci of gas are noted in the bladder lumen. The bladder is otherwise normal as imaged. The uterus is normal as visualized. An indeterminant 4.6 cm ovoid soft tissue structures again seen in the posterior pelvis adjacent to the rectosigmoid. Skeletal structures: The skeletal structures are osteopenic. There is mild to moderate lumbosacral spondylosis. There is chronic compression deformities with evidence of previous vertebroplasty noted in the lower thoracic spine. No lytic or blastic lesions are seen. IMPRESSION: 1. Severely streak and motion compromised examination. 2. Right-sided nephrolithiasis. 3. There is no hydronephrosis or evidence of ureteral stone. 4. Colonic diverticulosis without CT evidence of acute diverticulitis. 5. Small bladder calculi are noted. 6. Foci of gas are present within the bladder lumen and may be related to instrumentation. Correlate with clinical findings and urinalysis. 7. There is wall thickening of the sigmoid colon with mild surrounding infiltration. Clinical correlation will be required. 8. Trace pleural effusions with dependent consolidation. This likely represents atelectasis and clinical correlation required. 9. A 4.6 cm ovoid soft tissue structure in the posterior pelvis is pathologically indeterminant and not significantly changed from prior studies. 10. Additional findings as above. ACT 112: Negative or not required by law. Electronically signed by: Marek Tran M.D. 06/12/2022 9:[address] 06/12/22 18:27 CT SCAN OF THE BRAIN WITHOUT IV CONTRAST CLINICAL HISTORY: Change in mental status. COMPARISON STUDY: CT of the brain dated 12/15/2016. TECHNIQUE: Unenhanced axial CT scan of the brain is performed from the vertex to the skull base. A dose lowering technique was utilized adhering to the princip les of ALA. FINDINGS: Brain parenchyma: There is age-related involutional change noting moderate subcortical and periventricular microangiopathic disease. There is no hemorrhage, mass effect, or evidence of acute territorial ischemia by CT criteria. Christianson-white matter differentiation is preserved. No extra-axial fluid collection is seen. Ventricles, sulci, cisterns: Prominent secondary to involutional change. Intracranial vasculature: There is atherosclerotic calcification of the cavernous carotid and vertebral arteries. Calvarium: Unremarkable. Sinuses and mastoids: The visualized paranasal sinuses are clear. The mastoid air cells are well pneumatized. Orbits: The bony orbits are grossly intact. There are bilateral ocular lens implants. IMPRESSION: There is no hemorrhage, mass effect, or evidence of acute territorial ischemia by CT criteria. ACT 112: Negative or not required by law. Electronically signed by: Marek Tran M.D. 06/12/2022 7:49 PM Chest X-Ray 06/12/22 18:28 SINGLE VIEW CHEST CLINICAL HISTORY: Generalized weakness. FINDINGS: An AP, portable, upright chest radiograph is compared to study dated 09/25/2021 and correlated with chest CT dated 08/15/2019. The patient's head partially obscures left apex. The examination is degraded by portable technique and patient rotation. The heart is enlarged noting atherosclerotic calcification of the thoracic and. Emphysema and chronic interstitial thickening is similar to previous. There is chronic elevation of the left hemidiaphragm with associated atelectasis. There is no evidence of superimposed airspace consolidation or large pleural effusion. No pneumothorax is seen. The skeletal structures are osteopenic. Compression deformities with evidence of previous vertebroplasty are noted in the lower thoracic region. IMPRESSION: Mild cardiomegaly and emphysema with no acute cardiopulmonary abnormality. ACT 112: Negative or not required by law. Electronically signed by: Marek Tran M.D. 06/12/2022 7:59 PM Code Status & VTE Plan Code Status Full code. Should be discussed with her again in the morning VTE Prophylaxis Plan VTE Prophylaxis will be ordered: Yes PG Care Time/CCT Total # of Minutes Spent Total Time Spent with Patient: Total time spent is greater than 50% in coordination of care (as documented) at patient's floor/unit and/or counseling patient: Coding Level of Care Code 94188 Initial Inpt Care Lvl 3 Diagnoses Altered mental status R41.0 Altered mental status type: disorientation COVID-19 U07.1 Weakness R53.1 Bilateral pneumonia J18.9 Multiple sclerosis G35 (1) Altered mental status Altered mental status type: disorientation Qualified Code(s): R41.0 - Disorientation, unspecified
[2022-06-13] MEDS ORDERED: ALBUT/IPRATROP 3MG/0.5MG NEB 3 ML VIAL NEB PRN (00:41)
[2022-06-13] MEDS ORDERED: ONDANSETRON INJ 2 MG/ML 2 ML VIAL IV PRN (00:41)
[2022-06-13] MEDS ORDERED: dexAMETHasone 6 MG in SYRINGE 0 ML IV ONE (01:30)
[2022-06-13] MEDS: ACETAMINOPHEN 325 MG TAB PO PRN (01:42)
[2022-06-13] MEDS: CEFEPIME 2,000 MG in SYRINGE 0 ML IV SCH ×2 (07:10→20:43)
[2022-06-13] MEDS: ASPIRIN 81 MG ECTAB PO SCH (08:23)
[2022-06-13] MEDS: dexAMETHasone 6 MG in SYRINGE 0 ML IV SCH (08:23)
[2022-06-13] MEDS: CHOLECALCIFEROL 400 UNITS 10 MCG TAB PO SCH (08:23)
[2022-06-13] MEDS: TOLTERODINE TARTRATE LA 2 MG CAPCR PO SCH (08:23)
[2022-06-13] MEDS: ENOXAPARIN INJ 30 MG/0.3 ML SYR SQ SCH (08:23)
[2022-06-13] MEDS: BACLOFEN 10 MG TAB PO SCH ×4 (08:23→20:40)
--- NOTE | 2022-06-13 09:53 | Hospitalist Progress Note ---
Date of Service June 13, 2022 Assessment & Plan (1) COVID-19: Plan: Attending: Dr. Monahan Patient presents with altered mental status and generalized weakness. Probably multifactorial to multiple comorbidities. Patient was started dexamethasone daily. No hypoxia. No indication for further antiviral medications at this time patient also with COVID. Unclear as to timeline of onset of symptoms. Unclear as to policy for return to assisted living with positive COVID Continue supportive care Attempt to keep cumulative I's and O's negative Continue enoxaparin for DVT prophylaxis Check a CRP with a.m. labs for prognostication (2) Bilateral pneumonia: Plan: Chest x-ray with left-sided opacification Patient with chronic aspiration secondary to MS Empirically started on antibiotics for pneumonia Check procalcitonin with a.m. labs Oxygenating well on room air No significant sputum production (3) Altered mental status: Plan: Metabolic Encephalopathy Most likely multifactorial to MS with dementia, COVID-19, acute illness Significant improved as the day went on Reevaluate in the morning PT/OT consults (4) Multiple sclerosis: Plan: Chronic and progressive MS Patient uses electric wheelchair at home and has daily aides in the home continue with outpatient follow-up with neurology Continue usual outpatient meds PT/OT eval and treatment ordered (5) Chronic diastolic CHF (congestive heart failure): Plan: Patient with aortic regurgitation Is not chronically on furosemide Does not present with clinical findings at this time Follow supportively (6) Neurogenic bladder: Plan: Quadriplegia Secondary to MS Continue Samano catheter Strict ins and outs (7) Aspiration pneumonia: Plan: Chronic Cachexia with BMI=17 Treat empirically with IV antibiotics at this time Check procalcitonin with a.m. labs Most recent evaluation by speech-language pathology appears to be 10/07/2018. At that time a videofluoroscopic swallow study was completed. At that time there was no penetration or aspiration. There was residue in the vallecula that cleared with a second swallow. Patient had weak tongue base retraction. Pharyngeal swallow was safe. Reconsult speech-language pathology at this time for update as the patient has not been seen for 3-1/2 years\ In the meantime, continue with aspiration precautions. Encourage second swallow to clear pharynx fully (8) DVT prophylaxis: Plan: Continue enoxaparin for DVT prophylaxis Admission and Anticipated Discharge Date Admission Date: June 12, 2022 Subjective Attending: Dr. Monahan This is an 81-year-old female that was admitted for altered mental status. She has a past medical history including multiple sclerosis, chronic weakness, ambulatory dysfunction requiring electric wheelchair, chronic aspiration, neurogenic bladder, chronic constipation, aortic regurgitation, and history of aspiration pneumonia. Patient was admitted for altered mental status. It was thought that this may be secondary to COVID-19 infection versus pneumonia/aspiration. Patient does have chronic decline. At the time of my examination patient was alert and oriented x3. She was able to give me a full history and a full review of systems. She was also able to correctly on hercules points of her past medical history. She reports that she lives at home with her and has electric wheelchair that she ambulates in. She is right-hand dominant and has decent management of that hand. Patient is advised that she has COVID-19 infection. She states that she suspected that and her also has COVID-19. They live in assisted living and have aides that come in daily. She is unsure if any of the other staff have COVID infection. Patient denies any shortness of breath at this time. She is oxygenating well on room air. She has no significant wheezes, rales, rhonchi on examination. She denies cough or significant sputum production. She denies any hemoptysis. Patient was started on dexamethasone for her COVID-19. She states that she is tolerating this well. Patient has has no other acute complaints. Review of Systems Review of Systems: A total of 10 systems was reviewed and is negative other than as listed in the HPI Physical Exam Physical Exam: GENERAL : No acute distress EYES: No icterus, gaze conjugate NOSE: No evidence of epistaxis MOUTH: No lesions or candidiasis NECK: Supple LUNGS: Faint expiratory wheezes. No rales or rhonchi appreciated on examination. HEART: Regular, rate controlled ABDOMEN: Soft, NT, ND, BS Present EXTREMITIES: No LE edema, pedal pulses intact. There is chronic contracture of the left foot and ankle. Weakness to the left upper extremity more so than the right. Patient is able to wiggle her toes and move her feet on her right foot. She reports chronic contracture secondary to multiple sclerosis NEURO: A&OX3 Results & Data Results & Data ([facility]) Vital Signs (Past 12 Hours) Vital Signs Temp Pulse Resp BP BP Pulse Ox O2 Del Method 06/13/22 09:37 37.0 C 84 20 134/76 98 Room Air 06/13/22 09:00 87 17 98 06/13/22 09:00 155/64 H 06/13/22 08:30 146/75 H 06/13/22 08:30 89 19 96 06/13/22 08:00 83 18 97 06/13/22 08:00 150/57 H 06/13/22 07:30 88 17 96 06/13/22 07:30 131/68 06/13/22 07:00 82 14 95 06/13/22 07:00 119/65 06/13/22 06:31 82 15 96 06/13/22 06:31 133/62 06/13/22 06:00 81 18 124/62 95 06/13/22 05:30 77 18 138/55 L 97 06/13/22 05:00 79 18 134/64 97 06/13/22 04:30 80 18 149/60 H 97 06/13/22 04:00 37.7 C H 80 20 142/67 H 97 06/13/22 03:00 36.9 C 18 133/64 95 Room Air 06/12/22 22:00 93 H 22 06/12/22 22:00 141/59 H Critical Care Results & Data Vital Signs (Past 12 Hours) Vital Signs Temp Pulse Resp BP BP Pulse Ox O2 Del Method 06/13/22 09:37 37.0 C 84 20 134/76 98 Room Air 06/13/22 09:00 87 17 98 06/13/22 09:00 155/64 H 06/13/22 08:30 146/75 H 06/13/22 08:30 89 19 96 06/13/22 08:00 83 18 97 06/13/22 08:00 150/57 H 06/13/22 07:30 88 17 96 06/13/22 07:30 131/68 06/13/22 07:00 82 14 95 06/13/22 07:00 119/65 06/13/22 06:31 82 15 96 06/13/22 06:31 133/62 06/13/22 06:00 81 18 124/62 95 06/13/22 05:30 77 18 138/55 L 97 06/13/22 05:00 79 18 134/64 97 08/03/22 04:30 80 18 149/60 H 97 06/13/22 04:00 37.7 C H 80 20 142/67 H 97 06/13/22 03:00 36.9 C 18 133/64 95 Room Air 06/12/22 22:00 93 H 22 06/12/22 22:00 141/59 H Lab & Micro Results (Past 24 Hours) RBC 3.95 M/uL (3.93-5.22) 06/14/22 WBC 6.66 K/ul (4.8-10.8) 06/14/22 Hgb 12.3 g/dl (12.0-16.0) 06/14/22 Hct 37.8 % (34.1-44.9) 06/14/22 MCV 95.7 fL (80.0-100.0) 06/14/22 MCH 31.1 pg (25.0-34.0) 06/14/22 MCHC 32.5 g/dL (32.0-36.0) 06/14/22 RDW Standard Deviation 51.0 fL (36.4-46.3) H 06/14/22 RDW Coefficient of Variation 14.6 % (11.5-14.5) H 06/14/22 Plt Count 234 K/uL (130-400) 06/14/22 MPV 11.0 fL (9.4-12.3) 06/14/22 Neutrophils (%) (Auto) 73.0 % 06/14/22 Lymphocytes (%) (Auto) 10.2 % 06/14/22 Monocytes # (Auto) 1.07 K/uL (0.24-0.82) H 06/14/22 Eosinophils # (Auto) 0.01 K/uL (0-0.50) 06/14/22 Immature Granulocyte % (Auto) 0.2 % 06/14/22 Neutrophils # (Auto) 4.87 K/uL (1.4-6.5) 06/14/22 Lymphocytes # (Auto) 0.68 K/uL (1.2-3.4) L 06/14/22 Monocytes # (Auto) 1.07 K/uL (0.24-0.82) H 06/14/22 Eosinophils # (Auto) 0.01 K/uL (0-0.50) 06/14/22 Basophils # (Auto) 0.02 K/uL (0-0.2) 06/14/22 Immature Granulocyte # (Auto) 0.01 K/uL (0.00-0.02) 2 No Data to Display No Data to Display Diagnostic Findings (Past 24 Hours) Abdomen/Pelvis CT 06/12/22 18:27 CT SCAN OF THE ABDOMEN AND PELVIS WITHOUT IV CONTRAST CLINICAL HISTORY: Generalized abdominal pain. COMPARISON STUDY: Abdominal CT dated 01/22/2022 and 08/12/2017. TECHNIQUE: CT scan of the abdomen and pelvis is performed from the lung bases to the proximal femora. Images are reviewed in the axial, sagittal, and coronal planes. IV contrast was not administered for this examination. A dose lowering technique was utilized adhering to the principles of ALARA. The examination is severely degraded by motion artifact, and by streak artifact from the arms which could not be elevated above the abdomen. CT DOSE: 875.04 mGy.cm FINDINGS: Lung bases: The heart is mildly enlarged and without pericardial effusion. The coronary arteries are densely calcified. There are trace pleural effusions with dependent consolidation. A fat-containing Bochdalek hernia is noted on the right. Liver: The unenhanced liver is normal in size, contour, and attenuation. There is no intrahepatic biliary ductal dilatation. Gallbladder: Unremarkable. Spleen: Normal in size and attenuation. Pancreas: The unenhanced pancreas is moderately atrophic and grossly unremarkable. Adrenal glands: Nodular thickening of the adrenal glands is similar to previous. Kidneys: The unenhanced kidneys demonstrate mild cortical atrophy and are without hydronephrosis. There are numerous nonobstructing right renal calculi which measure up to 5 mm. These are difficult to assess due to significant motion artifact. No left renal calculi are clearly seen. There is no evidence of ureteral stone. There is no evidence of contour deforming renal mass lesion. Abdominal vasculature: The abdominal aorta is normal in course and caliber noting advanced atherosclerotic calcification. Bowel: There is rectosigmoid fecal retention and moderate constipation. No bowel obstruction is seen. There is colonic diverticulosis without CT evidence of acute diverticulitis. There is wall thickening of the sigmoid colon with mild surrounding infiltration. The appendix is not visualized. Peritoneum: There is no intraperitoneal free air or abdominal ascites. Lymphadenopathy: None. Pelvic viscera: There are small bladder calculi. Foci of gas are noted in the bladder lumen. The bladder is otherwise normal as imaged. The uterus is normal as visualized. An indeterminant 4.6 cm ovoid soft tissue structures again seen in the posterior pelvis adjacent to the rectosigmoid. Skeletal structures: The skeletal structures are osteopenic. There is mild to moderate lumbosacral spondylosis. There is chronic compression deformities with evidence of previous vertebroplasty noted in the lower thoracic spine. No lytic or blastic lesions are seen. IMPRESSION: 1. Severely streak and motion compromised examination. 2. Right-sided nephrolithiasis. 3. There is no hydronephrosis or evidence of ureteral stone. 4. Colonic diverticulosis without CT evidence of acute diverticulitis. 5. Small bladder calculi are noted. 6. Foci of gas are present within the bladder lumen and may be related to instrumentation. Correlate with clinical findings and urinalysis. 7. There is wall thickening of the sigmoid colon with mild surrounding infiltration. Clinical correlation will be required. 8. Trace pleural effusions with dependent consolidation. This likely represents atelectasis and clinical correlation required. 9. A 4.6 cm ovoid soft tissue structure in the posterior pelvis is pathologically indeterminant and not significantly changed from prior studies. 10. Additional findings as above. ACT 112: Negative or not required by law. Electronically signed by: Marek Tran M.D. 06/12/2022 9:[address] 06/12/22 18:27 CT SCAN OF THE BRAIN WITHOUT IV CONTRAST CLINICAL HISTORY: Change in mental status. COMPARISON STUDY: CT of the brain dated 12/15/2016. TECHNIQUE: Unenhanced axial CT scan of the brain is performed from the vertex to the skull base. A dose lowering technique was utilized adhering to the principles of ALARA. FINDINGS: Brain parenchyma: There is age-related involutional change noting moderate subcortical and periventricular microangiopathic disease. There is no hemorrhage, mass effect, or evidence of acute territorial ischemia by CT criteria. Christianson-white matter differentiation is preserved. No extra-axial fluid collection is seen. Ventricles, sulci, cisterns: Prominent secondary to involutional change. Intracranial vasculature: There is atherosclerotic calcification of the cavernous carotid and vertebral arteries. Calvarium: Unremarkable. Sinuses and mastoids: The visualized paranasal sinuses are clear. The mastoid air cells are well pneumatized. Orbits: The bony orbits are grossly intact. There are bilateral ocular lens implants. IMPRESSION: There is no hemorrhage, mass effect, or evidence of acute territorial ischemia by CT criteria. ACT 112: Negative or not required by law. Electronically signed by: Marek Tran M.D. 06/12/2022 7:49 PM Chest X-Ray 06/12/22 18:28 SINGLE VIEW CHEST CLINICAL HISTORY: Generalized weakness. FINDINGS: An AP, portable, upright chest radiograph is compared to study dated 09/25/2021 and correlated with chest CT dated 08/15/2019. The patient's head partially obscures left apex. The examination is degraded by portable technique and patient rotation. The heart is enlarged noting atherosclerotic calcification of the thoracic and. Emphysema and chronic interstitial thickening is similar to previous. There is chronic elevation of the left hemidiaphragm with associated atelectasis. There is no evidence of superimposed airspace consolidation or large pleural effusion. No pneumothorax is seen. The skeletal structures are osteopenic. Compression deformities with evidence of previous vertebroplasty are noted in the lower thoracic region. IMPRESSION: Mild cardiomegaly and emphysema with no acute cardiopulmonary abnormality. ACT 112: Negative or not required by law. Electronically signed by: Marek Tran M.D. 06/12/2022 7:59 PM I & O Totals 24 Hours 06/12/22 06/13/22 06/14/22 06:59 06:59 06:59 Intake Total 1000 / 1000 Balance 1000 / 1000 Cumulative 06/12/22 17:47 thru 06/12/22 22:54 Intake Total 1000 Balance 1000 RT Ventilator Mngmt (Last Documented) Ventilator Ordered Settings Respiratory Rate 20 06/13/22 09:37 Ventilator - PT Measurements Respiratory Rate 20 PG Care Time/CCT Total # of Minutes Spent Total Time Spent with Patient: Total time spent is greater than 50% in coordination of care (as documented) at patient's floor/unit and/or counseling patient: Coding Level of Care Code 93520 Subseq Hosp Care Lvl 2 Diagnoses COVID-19 U07.1 Bilateral pneumonia J18.9 Altered mental status R41.0 Altered mental status type: disorientation Multiple sclerosis G35 Chronic diastolic CHF (congestive heart failure) I50.32 Neurogenic bladder N31.9 Aspiration pneumonia J69.0 Aspiration pneumonia type: unspecified Laterality: left Lung location: unspecified part of lung DVT prophylaxis Z29.9 (1) Aspiration pneumonia Aspiration pneumonia type: unspecified Laterality: left Lung location: unspecified part of lung Qualified Code(s): J69.0 - Pneumonitis due to inhalation of food and vomit (2) Altered mental status Altered mental status type: disorientation Qualified Code(s): R41.0 - Disorientation, unspecified
--- NOTE | 2022-06-13 10:20 | Electrocardiogram Report ---
Test Reason : Blood Pressure : / mmHG Vent. Rate : 094 BPM Atrial Rate : 094 BPM P-R Int : 160 ms QRS Dur : 084 ms QT Int : 392 ms P-R-T Axes : 086 -38 021 degrees QTc Int : 490 ms Poor data quality, interpretation may be adversely affected Normal sinus rhythm Left axis deviation Poor R wave progression, consider anterior IA vs. lead placement vs. LVH Minimal voltage criteria for LVH, may be normal variant Nonspecific ST and T wave abnormality Abnormal ECG When compared with ECG of 25-SEP-2021 03:28, Nonspecific T wave abnormality has replaced inverted T waves in Inferior leads T wave inversion now evident in Anterior leads Confirmed by Ramses Farrell ([id number]) on 06/13/2022 10:19:28 AM Referred By: REFERRED SELF Confirmed By:Chidi Farrell
[2022-06-13] MEDS: MIRABEGRON ER 25 MG TAB PO SCH (20:28)
[2022-06-14] MEDS: TOLTERODINE TARTRATE LA 2 MG CAPCR PO SCH (07:36)
[2022-06-14] MEDS: ASPIRIN 81 MG ECTAB PO SCH (07:37)
[2022-06-14] MEDS: CHOLECALCIFEROL 400 UNITS 10 MCG TAB PO SCH (07:37)
[2022-06-14] MEDS: CEFEPIME 2,000 MG in SYRINGE 0 ML IV SCH ×2 (07:38→20:54)
[2022-06-14] MEDS: dexAMETHasone 6 MG in SYRINGE 0 ML IV SCH (07:38)
[2022-06-14] MEDS: ENOXAPARIN INJ 30 MG/0.3 ML SYR SQ SCH (07:38)
[2022-06-14 07:55] LABS: Basophils # (auto) 0.02 K/uL (0-0.2); Basophils % (auto) 0.3 %; Eosinophils # (auto) 0.01 K/uL (0-0.50); Eosinophils % (auto) 0.2 %; Hematocrit (blood only) 37.8 % (34.1-44.9); Hemoglobin 12.3 g/dl (12.0-16.0); Immature Granulocytes # (auto) 0.01 K/uL (0.00-0.02); Immature Granulocytes % (auto) 0.2 %; Lymphocytes # (auto) 0.68 K/uL (1.2-3.4); Lymphocytes % (auto) 10.2 %; Mean Corpuscular Hemoglobin 31.1 pg (25.0-34.0); Mean Corpuscular Hgb Conc 32.5 g/dL (32.0-36.0); Mean Corpuscular Volume 95.7 fL (80.0-100.0); Monocytes # (auto) 1.07 K/uL (0.24-0.82); Monocytes % (auto) 16.1 %; Neutrophils # (auto) 4.87 K/uL (1.4-6.5); Platelet Count 234 K/uL (130-400); RDW Coefficient of Variation 14.6 % (11.5-14.5); Red Blood Count 3.95 M/uL (3.93-5.22); White Blood Count 6.66 K/ul (4.8-10.8)
[2022-06-14] MEDS: BACLOFEN 10 MG TAB PO SCH ×4 (09:02→21:05)
[2022-06-14 09:14] LABS: Albumin Globulin Ratio 1.6 (0.9-2); Albumin Level 3.6 gm/dl (3.4-5.0); Bilirubin,Total 0.5 mg/dl (0.2-1.0); C Reactive Protein 4.19 mg/dl (0-0.5); Calcium 8.9 mg/dl (8.5-10.1); Creatinine Clr Calc Pharmacy 114.2 ml/min; Est GFR (African American) 122.7 ml/min; Est GFR (Non-African American) 105.9 ml/min; Globulin 2.3 gm/dl (2.5-4.0); Potassium 3.6 mmol/L (3.5-5.1); Total Protein 5.9 gm/dl (6.0-8.3)
[2022-06-14] MEDS: LIDOCAINE 5% 1 PATCH TD SCH (17:00)
--- NOTE | 2022-06-14 17:51 | Hospitalist Progress Note ---
Date of Service June 14, 2022 Assessment & Plan (1) COVID-19: Plan: Attending: Dr. De Souza Patient presented for admission with altered mental status and generalized weakness. Mental status is now completely resolved. Difficult to assess weakness as patient has MS. Probably multifactorial to multiple comorbidities. Patient was started dexamethasone daily. No hypoxia. No indication for further antiviral medications at this time. Would discontinue steroids at time of discharge patient also with COVID. Unclear as to timeline of onset of symptoms. [facility] to [facility] when medically stable Continue supportive care Attempt to keep cumulative I's and O's negative Continue enoxaparin for DVT prophylaxis CRP ordered but not resulted for prognostication (2) Bilateral pneumonia: Plan: Chest x-ray with left-sided opacification Patient with chronic aspiration secondary to MS Empirically started on antibiotics for pneumonia Procalcitonin is negative Oxygenating well on room air No significant sputum production (3) Altered mental status: Plan: Resolved Most likely multifactorial to MS with dementia, COVID-19, acute illness PT/OT consults (4) Multiple sclerosis: Plan: Chronic and progressive MS Patient uses electric wheelchair at home and has daily aides in the home continue with outpatient follow-up with neurology Continue usual outpatient meds PT/OT eval and treatment ordered Patient cleared for [facility] to the [facility] when medically stable (5) Chronic diastolic CHF (congestive heart failure): Plan: Patient with aortic regurgitation Is not chronically on furosemide Does not present with clinical findings at this time Follow supportively (6) Neurogenic bladder: Plan: Secondary to MS Continue Samano catheter Strict ins and outs (7) Aspiration pneumonia: Plan: Chronic Treat empirically with IV antibiotics at this time Procalcitonin is negative Most recent evaluation by speech-language pathology appears to be 10/07/2018. At that time a videofluoroscopic swallow study was completed. At that time there was no penetration or aspiration. There was residue in the vallecula that cleared with a second swallow. Patient had weak tongue base retraction. Pharyngeal swallow was safe. Reconsult speech-language pathology at this time for update as the patient has not been seen for 3-1/2 years\ In the meantime, continue with aspiration precautions. Encourage second swallow to clear pharynx fully (8) DVT prophylaxis: Plan: Continue enoxaparin for DVT prophylaxis Admission and Anticipated Discharge Date Admission Date: June 12, 2022 Supervising Physician Co-Signing Physician Notes Attending Attestation - Chart reviewed, care plan d/w HILARY Hernandez. I agree with the hercules components of his documentation. Bob De Souza MD Subjective Attending: Dr. De Souza Patient alert and oriented x3. Feeling better than admission. She is complaining of left shoulder pain. Examination reveals muscle spasm above the left scapula. No fever or chills. No cough. No shortness of breath. Patient questioning discharge plan home. She has no other acute complaints. Review of Systems Review of Systems: A total of 10 systems was reviewed and is negative other than as listed in the HPI Physical Exam Physical Exam: GENERAL : No acute distress EYES: No icterus, gaze conjugate NOSE: No evidence of epistaxis MOUTH: No lesions or candidiasis NECK: Supple LUNGS: CTA B/L, no wheezes, rales or rhonchi HEART: Regular, rate controlled ABDOMEN: Soft, NT, ND, BS Present EXTREMITIES: No LE edema, pedal pulses intact. Muscle spasm above the left scapula. NEURO: A&OX3 Results & Data Results & Data ([facility]) Vital Signs (Past 12 Hours) Vital Signs Temp Pulse Pulse Resp BP Pulse Ox O2 Del Method 06/14/22 16:23 36.5 C 77 20 130/77 94 Room Air 06/14/22 15:57 77 06/14/22 09:20 77 06/14/22 09:10 Room Air 06/14/22 08:10 36.9 C 76 18 137/55 L 92 Room Air Critical Care Results & Data Vital Signs (Past 12 Hours) Vital Signs Temp Pulse Pulse Resp BP Pulse Ox O2 Del Method 06/14/22 16:23 36.5 C 77 20 130/77 94 Room Air 06/14/22 15:57 77 06/14/22 09:20 77 06/14/22 09:10 Room Air 06/14/22 08:10 36.9 C 76 18 137/55 L 92 Room Air Lab & Micro Results (Past 24 Hours) RBC 4.13 M/uL (3.93-5.22) 06/15/22 WBC 6.45 K/ul (4.8-10.8) 06/15/22 Hgb 12.6 g/dl (12.0-16.0) 06/15/22 Hct 39.2 % (34.1-44.9) 06/15/22 MCV 94.9 fL (80.0-100.0) 06/15/22 MCH 30.5 pg (25.0-34.0) 06/15/22 MCHC 32.1 g/dL (32.0-36.0) 06/15/22 RDW Standard Deviation 50.2 fL (36.4-46.3) H 06/15/22 RDW Coefficient of Variation 14.5 % (11.5-14.5) 06/15/22 Plt Count 222 K/uL (130-400) 06/15/22 MPV 10.9 fL (9.4-12.3) 06/15/22 Neutrophils (%) (Auto) 67.4 % 06/15/22 Lymphocytes (%) (Auto) 12.6 % 06/15/22 Monocytes # (Auto) 1.25 K/uL (0.24-0.82) H 06/15/22 Eosinophils # (Auto) 0.01 K/uL (0-0.50) 06/15/22 Immature Granulocyte % (Auto) 0.2 % 06/15/22 Neutrophils # (Auto) 4.36 K/uL (1.4-6.5) 06/15/22 Lymphocytes # (Auto) 0.81 K/uL (1.2-3.4) L 06/15/22 Monocytes # (Auto) 1.25 K/uL (0.24-0.82) H 06/15/22 Eosinophils # (Auto) 0.01 K/uL (0-0.50) 06/15/22 Basophils # (Auto) 0.01 K/uL (0-0.2) 06/15/22 Immature Granulocyte # (Auto) 0.01 K/uL (0.00-0.02) 2 Na 138 mmol/L (136-145) 06/15/22 K 3.6 mmol/L (3.5-5.1) 06/15/22 Cl 107 mmol/L (98-107) 06/15/22 CO2 27 mmol/L (21-32) 06/15/22 Anion Gap 4 (3-11) 06/15/22 BUN 27 mg/dl (6-23) H 06/15/22 Creatinine 0.30 mg/dl (0.6-1.2) L 06/15/22 Estimated GFR ( Amer) 122.7 ml/min 06/15/22 Estimated GFR (Non-Af Amer) 105.9 ml/min 06/15/22 BUN/Creatinine Ratio 90.0 (10-20) H 06/15/22 Glu 90 mg/dl (70-99(Fasting)) 06/15/22 Ca 8.8 mg/dl (8.5-10.1) 06/15/22 Total Bilirubin 0.4 mg/dl (0.2-1.0) 06/15/22 AST 33 U/L (13-39) 06/15/22 ALT 30 U/L (7-52) 06/15/22 Alkaline Phosphatase 58 U/L (34-104) 06/15/22 TP 5.6 gm/dl (6.0-8.3) L 06/15/22 Albumin 3.3 gm/dl (3.4-5.0) L 06/15/22 Globulin 2.3 gm/dl (2.5-4.0) L 06/15/22 Albumin/Globulin Ratio 1.4 (0.9-2) 06/15/22 Calcium Level 8.8 mg/dl (8.5-10.1) 06/15/22 07:24 Microbiology 06/12/22 19:22 Aerobic Blood Culture - Preliminary Blood No growth in Aerobic bottle after 24 hours. Anaerobic Blood Culture - Final 06/12/22 19:15 Aerobic Blood Culture - Preliminary Blood No growth in Aerobic bottle after 24 hours. Anaerobic Blood Culture - Final I & O Totals 24 Hours 06/13/22 06/14/22 06/15/22 06:59 06:59 06:59 Intake Total 1000 / 1000 150 / 150 600 / 600 Output Total 950 / 950 225 / 225 Balance 1000 / 1000 -800 / -800 375 / 375 Cumulative 06/12/22 17:47 thru 06/14/22 14:00 Intake Total 1750 Output Total 1175 Balance 575 RT Ventilator Mngmt (Last Documented) Ventilator Ordered Settings Respiratory Rate 20 06/14/22 16:23 Ventilator - PT Measurements Respiratory Rate 20 PG Care Time/CCT Total # of Minutes Spent Total Time Spent with Patient: Total time spent is greater than 50% in coordination of care (as documented) at patient's floor/unit and/or counseling patient: Coding Level of Care Code 47578 Subseq Hosp Care Lvl 2 Diagnoses COVID-19 U07.1 Bilateral pneumonia J18.9 Altered mental status R41.0 Altered mental status type: disorientation Multiple sclerosis G35 Chronic diastolic CHF (congestive heart failure) I50.32 Neurogenic bladder N31.9 Aspiration pneumonia J69.0 Aspiration pneumonia type: unspecified Laterality: left Lung location: unspecified part of lung DVT prophylaxis Z29.9 (1) Aspiration pneumonia Aspiration pneumonia type: unspecified Laterality: left Lung location: unspecified part of lung Qualified Code(s): J69.0 - Pneumonitis due to inhalation of food and vomit (2) Altered mental status Altered mental status type: disorientation Qualified Code(s): R41.0 - Disorientation, unspecified
[2022-06-14] MEDS: MIRABEGRON ER 25 MG TAB PO SCH (20:54)
[2022-06-15] MEDS: ACETAMINOPHEN 325 MG TAB PO PRN (04:14)
[2022-06-15 07:47] LABS: Basophils # (auto) 0.01 K/uL (0-0.2); Basophils % (auto) 0.2 %; Eosinophils # (auto) 0.01 K/uL (0-0.50); Eosinophils % (auto) 0.2 %; Hematocrit (blood only) 39.2 % (34.1-44.9); Hemoglobin 12.6 g/dl (12.0-16.0); Immature Granulocytes # (auto) 0.01 K/uL (0.00-0.02); Immature Granulocytes % (auto) 0.2 %; Lymphocytes # (auto) 0.81 K/uL (1.2-3.4); Lymphocytes % (auto) 12.6 %; Mean Corpuscular Hemoglobin 30.5 pg (25.0-34.0); Mean Corpuscular Hgb Conc 32.1 g/dL (32.0-36.0); Mean Corpuscular Volume 94.9 fL (80.0-100.0); Mean Platelet Volume 10.9 fL (9.4-12.3); Monocytes # (auto) 1.25 K/uL (0.24-0.82); Monocytes % (auto) 19.4 %; Neutrophils # (auto) 4.36 K/uL (1.4-6.5); Neutrophils % (auto) 67.4 %; Platelet Count 222 K/uL (130-400); RDW Coefficient of Variation 14.5 % (11.5-14.5); RDW Standard Deviation 50.2 fL (36.4-46.3); Red Blood Count 4.13 M/uL (3.93-5.22); White Blood Count 6.45 K/ul (4.8-10.8)
[2022-06-15] MEDS: dexAMETHasone 6 MG in SYRINGE 0 ML IV SCH (08:20)
[2022-06-15] MEDS: CEFEPIME 2,000 MG in SYRINGE 0 ML IV SCH (08:20)
[2022-06-15] MEDS: ASPIRIN 81 MG ECTAB PO SCH (08:21)
[2022-06-15] MEDS: CHOLECALCIFEROL 400 UNITS 10 MCG TAB PO SCH (08:21)
[2022-06-15] MEDS: ENOXAPARIN INJ 30 MG/0.3 ML SYR SQ SCH (08:21)
[2022-06-15] MEDS: LIDOCAINE 5% 1 PATCH TD SCH (08:21)
[2022-06-15 08:22] LABS: Albumin Globulin Ratio 1.4 (0.9-2); Albumin Level 3.3 gm/dl (3.4-5.0); Bilirubin,Total 0.4 mg/dl (0.2-1.0); Calcium 8.8 mg/dl (8.5-10.1); Creatinine Clr Calc Pharmacy 114.4 ml/min; Est GFR (African American) 122.7 ml/min; Est GFR (Non-African American) 105.9 ml/min; Globulin 2.3 gm/dl (2.5-4.0); Potassium 3.6 mmol/L (3.5-5.1); Total Protein 5.6 gm/dl (6.0-8.3)
[2022-06-15] MEDS: BACLOFEN 10 MG TAB PO SCH ×4 (08:29→20:05)
[2022-06-15] MEDS: TOLTERODINE TARTRATE LA 2 MG CAPCR PO SCH (10:17)
--- NOTE | 2022-06-15 10:37 | XRay Report ---
SINGLE VIEW CHEST CLINICAL HISTORY: Covid. FINDINGS: An AP, portable, upright chest radiograph is compared to study dated 06/12/2022 and correlate d with chest CT dated 08/15/2019. The examination is degraded by portable technique and patient rotat ion. The heart is enlarged noting atherosclerotic calcification of the thoracic aorta. There are low lung volumes. Emphysema and chronic interstitial thickening is similar to previous. There is chronic elevation of the left hemidiaphragm with associated atelectasis. There is no evidence of superimpose d airspace consolidation or large pleural effusion. No pneumothorax is seen. The skeletal structures are osteopenic. Compression deformities with evidence of previous vertebroplasty are noted in the low er thoracic region. IMPRESSION: 1. Mild cardiomegaly and emphysema with no acute cardiopulmonary abnormality identified. 2. Question a nodular density in the right upper lobe. Although this may be artifactual, correlation with a chest CT is recommended for further assessment and to exclude underlying pulmonary lesion. ACT 112: Negative or not required by law. Electronically signed by: Marek Tran M.D. 06/15/2022 10:36 AM
--- NOTE | 2022-06-15 12:47 | CT Scan Report ---
CT SCAN OF THE CERVICAL SPINE CLINICAL HISTORY: Cervicalgia. COMPARISON STUDY: Cervical spine radiographs dated 09/20/2018. TECHNIQUE: CT scan of the cervical spine is performed from the skull base to the upper thoracic spine . Images are reviewed in the axial, sagittal, and coronal planes. IV contrast was not administered fo r this examination. A dose lowering technique was utilized adhering to the principles of ALARA. CT DOSE: 146.78 mGy.cm FINDINGS: Skeletal structures: The skeletal structures are osteopenic. There is no evidence of fracture or subl uxation involving the cervical spine. Vertebral body height and alignment are maintained. There is h yperlordosis. Small anterior osteophytes are seen throughout. The odontoid process and lateral masses are intact. The atlantoaxial articulation is preserved noting productive degenerative change. The sp inous processes appear intact. There is moderate multilevel cervical spondylosis. Uncovertebral and f acet arthropathy contribute to neural foraminal narrowing at several levels. This is severe on the le ft at C5-C6. Intervertebral discs: There is moderate disc space narrowing at C5-C6. Mild narrowing is seen at the remaining cervical levels. Central canal: Posterior disc osteophyte complexes at C5-C6 and C6-C7 likely contribute to acquired c ompromise of the central canal. Soft tissues: The prevertebral and paraspinous soft tissues are within normal limits. There is athero sclerotic calcification of the carotid bulbs. Calvarium: The visualized calvarium at the skull base appears intact. Brain parenchyma: Partially visualized brain parenchyma at the skull base is within normal limits not ing age-related involutional change. Sinuses and mastoids: The visualized paranasal sinuses are clear. The mastoid air cells are well pneu matized. Lung apices: Mild emphysematous change is noted at the apices. Apical lung parenchyma is otherwise cl ear as visualized. IMPRESSION: 1. There is no evidence of fracture or subluxation involving the cervical spine. 2. Osteopenia and spondylotic change as above. ACT 112: Negative or not required by law. Electronically signed by: Marek Tran M.D. 06/15/2022 12:45 PM
[2022-06-15] MEDS: guaiFENesin 600 MG TABCR PO SCH ×2 (13:08→20:06)
[2022-06-15] MEDS: DICLOFENAC SOD 1% GEL 100 GM TUBE EXT SCH ×3 (13:09→20:06)
[2022-06-15] MEDS: ACETAMINOPHEN 500 MG TAB PO SCH ×2 (13:09→20:05)
[2022-06-15] MEDS: MIRABEGRON ER 25 MG TAB PO SCH (20:05)
--- NOTE | 2022-06-15 20:18 | Hospitalist Progress Note ---
Date of Service June 15, 2022 Assessment & Plan (1) COVID-19: Plan: CXR without discrete infiltrates today. Will stop IV cefepime. Will continue dexamethasone, however, due to low-normal O2 sats at times. The dexamethasone will also help her neck pain. Otherwise stable from COVID standpoint. She is about 7 days into the illness; hopefully she starts to improve consistently soon. (2) Bilateral pneumonia: Plan: ruled out cxr without pneumonia today stop cefepime (3) Altered mental status: Plan: Resolved acute metabolic encephalopathy 2nd to COVID-19 infection - resolved, back to baseline (4) Multiple sclerosis: Plan: Chronic and progressive MS Patient uses electric wheelchair at home and has daily aides in the home continue with outpatient follow-up with neurology Continue usual outpatient meds PT/OT chikis [facility] Will need to clarify if mercedes is chronic and, if so, when it was last exchanged (5) Chronic diastolic CHF (congestive heart failure): Plan: compensated (6) Neurogenic bladder: Plan: Secondary to MS Continue Mercedes catheter Check date of insertion, etc (7) DVT prophylaxis: Plan: Continue enoxaparin for DVT prophylaxis At discharge, because of immobile status from MS, strongly consider Xarelto 10mg daily x 30 days due to heightened DVT risk while recovering from COVID (8) Cervicalgia: Plan: muscle spasm in setting of COVID baseline DJD of c-spine (I ordered c-spine CT and this showed considerable DJD; no fractures) all of the above likely to blame lidoderm not helpful thus d/c change to voltaren gel 4gm QID oxycodone 2.5mg prn tylenol 1gm TID cont normal baclofen qid (9) Quadriplegia: Plan: acquired 2nd MS power wheelchair dependent Plan updated pt's extensively by phone this evening hopefully d/c to [facility] tomorrow Admission and Anticipated Discharge Date Admission Date: June 12, 2022 Subjective main complaint is that of pain at the base of the neck on the left states the lidoderm patches "don't help" present since the time she got sick with COVID she confirms sick at home with COVID she is coughing, but it is nonproductive, and she denies dyspnea no frontal headache energy fair at best appetite fair at best tele overnight wnl Review of Systems 2 Review of Systems: gen - denies fever cv - no chest pain pulm - no dyspnea GI - no nausea or emesis Physical Exam Physical Exam: gen - looks chronically sick/ill, thin, but NAD neck - hyperextended, left posterior neck at the base and near left scapular blade tender to palpation; passive rotation of neck is poor/restricted mouth - MMM, no thrush heart - RRR, s1 s2, no murmur lungs - occasional crackle b/l, otherwise CTA b/l, no increased work of breathing; bronchial cough present abd - soft NT ND BS+ ext - trace edema, pulses 2+ b/l neuro - increased tone x 4 extremities; neuropathic deformities of feet b/l Results & Data Results & Data ([facility]) Vital Signs (Past 12 Hours) Vital Signs Temp Pulse Resp BP Pulse Ox O2 Del Method 06/15/22 20:01 37.0 C 75 18 156/76 H 94 Room Air 06/15/22 15:41 36.7 C 70 18 146/78 H 98 Room Air Laboratory Results Laboratory Results - last 24 hr 06/15/22 06/15/22 07:24 07:24 WBC 6.45 RBC 4.13 Hgb 12.6 Hct 39.2 MCV 94.9 MCH 30.5 MCHC 32.1 RDW Std Deviation 50.2 H RDW Coeff of Rosales 14.5 Plt Count 222 MPV 10.9 Immature Gran % (Auto) 0.2 Neut % (Auto) 67.4 Lymph % (Auto) 12.6 Emanuel % (Auto) 19.4 Eos % (Auto) 0.2 Baso % (Auto) 0.2 Neut # (Auto) 4.36 Lymph # (Auto) 0.81 L Emanuel # (Auto) 1.25 H Eos # (Auto) 0.01 Baso # (Auto) 0.01 Immature Gran # (Auto) 0.01 Sodium 138 Potassium 3.6 Chloride 107 Carbon Dioxide 27 Anion Gap 4 BUN 27 H Creatinine 0.30 L Est Cr Clr Drug Dosing 114.4 Est GFR ( Amer) 122.7 Est GFR (Non-Af Amer) 105.9 BUN/Creatinine Ratio 90.0 H Glucose 90 Calcium 8.8 Total Bilirubin 0.4 AST 33 ALT 30 Alkaline Phosphatase 58 Total Protein 5.6 L Albumin 3.3 L Globulin 2.3 L Albumin/Globulin Ratio 1.4 PG Care Time/CCT Total # of Minutes Spent Total Time Spent with Patient: Total time spent is greater than 50% in coordination of care (as documented) at patient's floor/unit and/or counseling patient: Coding Level of Care Code 60652 Subseq Hosp Care Lvl 3 Diagnoses COVID-19 U07.1 Bilateral pneumonia J18.9 Altered mental status R41.0 Altered mental status type: disorientation Multiple sclerosis G35 Chronic diastolic CHF (congestive heart failure) I50.32 Neurogenic bladder N31.9 DVT prophylaxis Z29.9 Cervicalgia M54.2 Quadriplegia G82.50 (1) Altered mental status Altered mental status type: disorientation Qualified Code(s): R41.0 - Disorientation, unspecified
[2022-06-16 08:06] LABS: Creatinine Clr Calc Pharmacy 141.9 ml/min; Est GFR (African American) 130.3 ml/min; Est GFR (Non-African American) 112.4 ml/min
[2022-06-16] MEDS: ACETAMINOPHEN 500 MG TAB PO SCH ×3 (08:38→21:24)
[2022-06-16] MEDS: guaiFENesin 600 MG TABCR PO SCH ×2 (08:38→21:26)
[2022-06-16] MEDS: TOLTERODINE TARTRATE LA 2 MG CAPCR PO SCH (08:38)
[2022-06-16] MEDS: CHOLECALCIFEROL 400 UNITS 10 MCG TAB PO SCH (08:38)
[2022-06-16] MEDS: ASPIRIN 81 MG ECTAB PO SCH (08:38)
[2022-06-16] MEDS: DICLOFENAC SOD 1% GEL 100 GM TUBE EXT SCH (08:38)
[2022-06-16] MEDS: ENOXAPARIN INJ 30 MG/0.3 ML SYR SQ SCH (08:39)
[2022-06-16] MEDS: dexAMETHasone 6 MG in SYRINGE 0 ML IV SCH (08:51)
[2022-06-16] MEDS: BACLOFEN 10 MG TAB PO SCH ×4 (08:51→21:23)
[2022-06-16] MEDS ORDERED: bisacodyL 5 MG TABEC PO ONE (11:45)
[2022-06-16] MEDS: oxyCODONE HCL IR 5 MG TAB (IMMEDIATE RELEASE) PO PRN (12:19)
[2022-06-16] MEDS: POLYETHYLENE (MIRALAX) 17 GM PACK PO SCH (12:20)
[2022-06-16] MEDS: CELECOXIB 100 MG CAP PO SCH (12:20)
[2022-06-16] MEDS ORDERED: IPRATROPIUM BROMIDE/ALBUTEROL respimat INH INH SCH (13:00)
[2022-06-16] MEDS: ALBUTEROL HFA 8 GM INHALER INH SCH ×2 (14:44→19:11)
[2022-06-16] MEDS: IPRATROPIUM BROMIDE HFA INHALER INH SCH ×2 (14:44→19:11)
--- NOTE | 2022-06-16 19:49 | Hospitalist Progress Note ---
Date of Service June 16, 2022 Assessment & Plan (1) COVID-19: Plan: Most recent CXR without discrete infiltrates. Abx d/c. Cont dexamethasone, however, due to low-normal O2 sats at times as well as bronchial cough. Steroids may help neck pain as well. Otherwise stable from COVID standpoint. She is about 8 days into the illness. Repeat labs am. (2) Bilateral pneumonia: Plan: ruled out cxr without pneumonia yesterday abx stopped (3) Altered mental status: Plan: Resolved acute metabolic encephalopathy 2nd to COVID-19 infection - resolved, back to baseline (4) Multiple sclerosis: Plan: Chronic and progressive MS Patient uses electric wheelchair at home and has daily aides in the home continue with outpatient follow-up with neurology Continue usual outpatient meds PT/OT chikis [facility] Patient does NOT use chronci merecdes at home (5) Chronic diastolic CHF (congestive heart failure): Plan: compensated (6) Neurogenic bladder: Plan: Secondary to MS Has purewick does not use chronic mercedes at home (7) DVT prophylaxis: Plan: Continue enoxaparin for DVT prophylaxis At discharge, because of immobile status from MS, strongly consider Xarelto 10mg daily x 30 days due to heightened DVT risk while recovering from COVID (8) Cervicalgia: Plan: muscle spasm in setting of COVID baseline DJD of c-spine (I ordered c-spine CT and this showed considerable DJD; no fractures) all of the above likely to blame lidoderm not helpful thus d/c voltaren gel 4gm QID not helpful - thus, d/c start celebrex 100mg daily cont oxycodone 2.5mg prn cont tylenol 1gm TID cont normal baclofen 10mg qid steroids for COVID may help as well try heating pad (9) Quadriplegia: Plan: incomplete has some motor function of arms acquired 2nd MS power wheelchair dependent (10) Chronic constipation: Plan: add senna daily cont miralax daily dulcolax suppos x 1 and then daily or every other day Plan updated pt's extensively by phone again this evening hopefully d/c to [facility] tomorrow if neck pain better, she moves her bowels, eating ok Admission and Anticipated Discharge Date Admission Date: June 12, 2022 Subjective patient feels the same as yesterday left posterior neck/left shoulder scapular pain unchanged voltaren gel also ineffective c/o left foot pain no BM eating fair at best cough continues tele overnight wnl Review of Systems Review of Systems: gen - no fevers or chills; weak, fatigued cv - no cp pulm - no dyspnea at rest GI - no pain; +constipation (pt's reports she uses a daily suppository) Physical Exam Physical Exam: gen - looks chronically sick/ill, thin, bronchial cough presen t; NAD; looks same as yesterday neck - hyperextended, left posterior neck at the base and near left scapular blade tender to palpation - same as yesterday; passive rotation of neck is poor/restricted mouth - MMM, no thrush heart - RRR, s1 s2, no murmur lungs - occasional crackle b/l, decreased BS bases; otherwise CTA b/l, no increased work of breathing abd - soft NT ND BS+ ext - trace edema, pulses 2+ b/l neuro - increased tone x 4 extremities; neuropathic deformities of feet b/l (contractures) Results & Data Results & Data ([facility]) Vital Signs (Past 12 Hours) Vital Signs Temp Pulse Pulse Resp BP Pulse Ox O2 Del Method 06/16/22 15:05 36.8 C 72 18 128/70 95 Room Air 06/16/22 12:00 36.8 C 68 18 112/68 95 Room Air 06/16/22 16:00 76 06/16/22 14:45 74 18 97 Room Air 06/16/22 13:09 Room Air 06/16/22 08:37 36.8 C 68 18 130/69 98 Room Air Laboratory Results Laboratory Results - last 24 hr 06/16/22 07:17 Creatinine 0.25 L Est Cr Clr Drug Dosing 141.9 Est GFR ( Amer) 130.3 Est GFR (Non-Af Amer) 112.4 PG Care Time/CCT Total # of Minutes Spent Total Time Spent with Patient: Total time spent is greater than 50% in coordination of care (as documented) at patient's floor/unit and/or counseling patient: Coding Level of Care Code 13737 Subseq Hosp Care Lvl 2 Diagnoses COVID-19 U07.1 Bilateral pneumonia J18.9 Altered mental status R41.0 Altered mental status type: disorientation Multiple sclerosis G35 Chronic diastolic CHF (congestive heart failure) I50.32 Neurogenic bladder N31.9 DVT prophylaxis Z29.9 Cervicalgia M54.2 Quadriplegia G82.50 Chronic constipation K59.09 (1) Altered mental status Altered mental status type: disorientation Qualified Code(s): R41.0 - Disorientation, unspecified
[2022-06-16] MEDS ORDERED: bisacodyL 10 MG SUPP PR STA (19:56)
[2022-06-16] MEDS: SENNA 8.6 MG TAB PO SCH (21:24)
[2022-06-16] MEDS: MIRABEGRON ER 25 MG TAB PO SCH (21:25)
[2022-06-17] MEDS: oxyCODONE HCL IR 5 MG TAB (IMMEDIATE RELEASE) PO PRN (06:11)
[2022-06-17 06:15] LABS: BUN Creatinine Ratio 133.3 (10-20); Calcium 9.1 mg/dl (8.5-10.1); Creatinine Clr Calc Pharmacy 147.8 ml/min; Est GFR (African American) 132.1 ml/min; Potassium 4.3 mmol/L (3.5-5.1)
[2022-06-17] MEDS: IPRATROPIUM BROMIDE HFA INHALER INH SCH ×2 (07:44→11:50)
[2022-06-17] MEDS: ALBUTEROL HFA 8 GM INHALER INH SCH ×2 (07:45→11:50)
[2022-06-17] MEDS ORDERED: SOD PHOSPHATE/SOD BIPHOSPHATE ENEMA 132 ML BTL PR STA (07:47)
[2022-06-17] MEDS: ACETAMINOPHEN 500 MG TAB PO SCH ×3 (09:05→21:25)
[2022-06-17] MEDS: ENOXAPARIN INJ 30 MG/0.3 ML SYR SQ SCH (09:05)
[2022-06-17] MEDS: CELECOXIB 100 MG CAP PO SCH (09:05)
[2022-06-17] MEDS: ASPIRIN 81 MG ECTAB PO SCH (09:05)
[2022-06-17] MEDS: TOLTERODINE TARTRATE LA 2 MG CAPCR PO SCH (09:05)
[2022-06-17] MEDS: CHOLECALCIFEROL 400 UNITS 10 MCG TAB PO SCH (09:05)
[2022-06-17] MEDS: POLYETHYLENE (MIRALAX) 17 GM PACK PO SCH (09:06)
[2022-06-17] MEDS: dexAMETHasone 6 MG in SYRINGE 0 ML IV SCH (09:08)
[2022-06-17] MEDS: guaiFENesin 600 MG TABCR PO SCH ×2 (09:08→21:27)
[2022-06-17] MEDS: BACLOFEN 10 MG TAB PO SCH ×4 (11:02→21:27)
[2022-06-17] MEDS ORDERED: IPRATROPIUM BROMIDE HFA INHALER INH PRN (11:32)
[2022-06-17] MEDS ORDERED: ALBUTEROL HFA 8 GM INHALER INH PRN (11:32)
--- NOTE | 2022-06-17 14:11 | XRay Report ---
XR chest 1V portable HISTORY: 81 years-old Female covid, coughing, eval for pneumonia acute cough COMPARISON: Chest radiograph 06/15/2022 TECHNIQUE: AP view of the chest FINDINGS: Cardiac silhouette is enlarged. Mild left hemidiaphragmatic elevation. The previously questioned nodu lar density of the right upper lung is not visualized. The chin partially obscured left lung apex. Bl unting of the costophrenic angles. Emphysema with chronic interstitial coarsening. Mild left basilar densities. Degenerative changes of the shoulders and spine with mid thoracic kyphoplasty changes. IMPRESSION: 1. Emphysema without acute process. 2. Left hemidiaphragm elevation with left basilar atelectasis redemonstrated. ACT 112: Negative or not required by law. The above report was generated using voice recognition software. It may contain grammatical, syntax o r spelling errors. Electronically signed by: Raffy Rodriguez M.D. 06/17/2022 2:09 PM
--- NOTE | 2022-06-17 20:14 | Hospitalist Progress Note ---
Date of Service June 17, 2022 Assessment & Plan (1) COVID-19: Plan: Most recent CXR without discrete infiltrates. Abx d/c. Cont dexamethasone, however, due to low-normal O2 sats at times as well as bronchial cough. I am concerned about the right-sided crackles and her very poor cough. Has little respiratory effort likely due to severity of her MS. Concerned about bacterial superinfection developing if she can't have airway mucous clearance.. Needs better pulmonary toilet. Try cough assist device. Try flutter valve. Avoid anti-tussives. Cont mucinex. Cont combivent prn. She is about 9 days into the illness at this point. Repeat labs am. Repeat a cxr today. (2) Altered mental status: Plan: Resolved acute metabolic encephalopathy 2nd to COVID-19 infection - resolved, back to baseline (3) Multiple sclerosis: Plan: Chronic and progressive MS Patient uses electric wheelchair at home and has daily aides in the home continue with outpatient follow-up with neurology Continue usual outpatient meds PT/OT [facility]is [facility] Patient does NOT use chronci mercedes at home (4) Chronic diastolic CHF (congestive heart failure): Plan: compensated (5) Neurogenic bladder: Plan: Secondary to MS Has purewick does not use chronic mercedes at home (6) DVT prophylaxis: Plan: Continue enoxaparin for DVT prophylaxis At discharge, because of immobile status from MS, strongly consider Xarelto 10mg daily x 30 days due to heightened DVT risk while recovering from COVID (7) Cervicalgia: Plan: muscle spasm in setting of COVID baseline DJD of c-spine (I ordered c-spine CT and this showed considerable DJD; no fractures) all of the above likely to blame cont celebrex 100mg daily cont oxycodone 2.5mg prn cont tylenol 1gm TID cont normal baclofen 10mg qid steroids for COVID may help as well heating pad (8) Quadriplegia: Plan: incomplete has some motor function of arms acquired 2nd MS power wheelchair dependent (9) Chronic constipation: Plan: cont senna daily cont miralax daily finally had large BM today Plan updated pt's extensively by phone again this evening d/c to [facility] tomorrow if pulmonary toilet is more effective and respiratory status is stable Admission and Anticipated Discharge Date Admission Date: June 12, 2022 Subjective tele overnight wnl patient continues to cough the cough is very weak can't expectorate anything denies dyspnea her neck pain/shoulder pain is improved she ate a little more today finally had large bowel movement this am Review of Systems Review of Systems: gen - tired cv - no cp, no pleurisy pulm - unable to expectorate sputum GI - no abd pain, no nausea musculo - various pains in legs, feet (chronic) Physical Exam Physical Exam: gen - looks chronically sick/ill, thin, bronchial cough present; maybe looks a bit better today neck - hyperextended but improved today;, left posterior neck pain improved, not as tender mouth - MMM, no thrush heart - RRR, s1 s2, no murmur lungs - crackles throughout right lung, don't really clear with coughing, poor respiratory airflow/effort; decreased BS b/l abd - soft NT ND BS+ ext - trace edema, pulses 2+ b/l neuro - increased tone x 4 extremities; neuropathic deformities of feet b/l (contractures); paraplegia Results & Data Results & Data ([facility]) Vital Signs (Past 12 Hours) Vital Signs Temp Pulse Pulse Pulse Resp BP Pulse Ox 06/17/22 19:30 91 H 18 89 L 06/17/22 18:54 36.6 C 77 73 16 125/66 95 06/17/22 17:19 36.6 C 73 16 125/66 95 06/17/22 15:10 76 06/17/22 11:55 36.4 C L 77 67 16 123/67 99 06/17/22 12:17 36.6 C 73 18 110/74 95 06/17/22 08:36 36.4 C L 67 16 123/67 99 O2 Del Method 06/17/22 19:30 Room Air 06/17/22 18:54 06/17/22 17:19 Room Air 06/17/22 15:10 06/17/22 11:55 06/17/22 12:17 Room Air 06/17/22 08:36 Room Air Laboratory Results Laboratory Results - last 24 hr 06/17/22 05:35 Sodium 135 L Potassium 4.3 Chloride 104 Carbon Dioxide 24 Anion Gap 7 BUN 32 H Creatinine 0.24 L Est Cr Clr Drug Dosing 147.8 Est GFR ( Amer) 132.1 Est GFR (Non-Af Amer) 114.0 BUN/Creatinine Ratio 133.3 H Glucose 90 Calcium 9.1 Total Creatine Kinase 163 PG Care Time/CCT Total # of Minutes Spent Total Time Spent with Patient: Total time spent is greater than 50% in coordination of care (as documented) at patient's floor/unit and/or counseling patient: Coding Level of Care Code 68889 Subseq Hosp Care Lvl 2 Diagnoses COVID-19 U07.1 Altered mental status R41.0 Altered mental status type: disorientation Multiple sclerosis G35 Chronic diastolic CHF (congestive heart failure) I50.32 Neurogenic bladder N31.9 DVT prophylaxis Z29.9 Cervicalgia M54.2 Quadriplegia G82.50 Chronic constipation K59.09 (1) Altered mental status Altered mental status type: disorientation Qualified Code(s): R41.0 - Disorientation, unspecified
[2022-06-17] MEDS: MIRABEGRON ER 25 MG TAB PO SCH (21:25)
[2022-06-17] MEDS: SENNA 8.6 MG TAB PO SCH (21:25)
[2022-06-18] MEDS: oxyCODONE HCL IR 5 MG TAB (IMMEDIATE RELEASE) PO PRN (03:22)
[2022-06-18 06:12] LABS: Hemoglobin 13.5 g/dl (12.0-16.0); Mean Corpuscular Hemoglobin 30.3 pg (25.0-34.0); Mean Corpuscular Hgb Conc 32.1 g/dL (32.0-36.0); Mean Corpuscular Volume 94.2 fL (80.0-100.0); Mean Platelet Volume 10.8 fL (9.4-12.3); Platelet Count 253 K/uL (130-400); RDW Coefficient of Variation 14.1 % (11.5-14.5); Red Blood Count 4.46 M/uL (3.93-5.22); White Blood Count 12.38 K/ul (4.8-10.8)
[2022-06-18 06:30] LABS: BUN Creatinine Ratio 73.7 (10-20); C Reactive Protein 5.6 mg/dl (0-0.5); Calcium 9.7 mg/dl (8.5-10.1); Creatinine Clr Calc Pharmacy 95.8 ml/min; Est GFR (African American) 113.5 ml/min; Potassium 4.5 mmol/L (3.5-5.1)
[2022-06-18 06:32] LABS: Basophils # (auto) 0.01 K/uL (0-0.2); Basophils % (auto) 0.1 %; Immature Granulocytes # (auto) 0.03 K/uL (0.00-0.02); Immature Granulocytes % (auto) 0.2 %; Lymphocytes % (auto) 7.3 %; Monocytes # (auto) 0.52 K/uL (0.24-0.82); Monocytes % (auto) 4.2 %; Neutrophils # (auto) 10.92 K/uL (1.4-6.5); Neutrophils % (auto) 88.2 %
[2022-06-18] MEDS: dexAMETHasone 6 MG in SYRINGE 0 ML IV SCH (08:03)
[2022-06-18] MEDS: CHOLECALCIFEROL 400 UNITS 10 MCG TAB PO SCH (08:04)
[2022-06-18] MEDS: POLYETHYLENE (MIRALAX) 17 GM PACK PO SCH (08:04)
[2022-06-18] MEDS: TOLTERODINE TARTRATE LA 2 MG CAPCR PO SCH (08:04)
[2022-06-18] MEDS: guaiFENesin 600 MG TABCR PO SCH ×2 (08:04→20:38)
[2022-06-18] MEDS: ASPIRIN 81 MG ECTAB PO SCH (08:04)
[2022-06-18] MEDS: CELECOXIB 100 MG CAP PO SCH (08:04)
[2022-06-18] MEDS: ACETAMINOPHEN 500 MG TAB PO SCH ×3 (08:04→20:37)
[2022-06-18] MEDS: ENOXAPARIN INJ 30 MG/0.3 ML SYR SQ SCH (08:05)
[2022-06-18] MEDS: BACLOFEN 10 MG TAB PO SCH ×4 (08:12→20:38)
--- NOTE | 2022-06-18 08:36 | XRay Report ---
XR chest 1V portable HISTORY: 81 years-old Female COVID19, hypoxia acute cough. COVID Positive. COMPARISON: Chest radiograph 06/17/2022 TECHNIQUE: AP view of the chest FINDINGS: Cardiac silhouette is enlarged. No pneumothorax. Blunting of the costophrenic angles may represent tr josiah effusions. Reticular interstitial opacities with persistent left greater than right bibasilar den sities. Interval development of ill-defined nodular opacities throughout the right lung prominently m easuring up to approximately 1.3 cm. Degenerative changes of the shoulders and spine. Thoracic kyphop lasty changes. IMPRESSION: 1. Reticular interstitial densities are noted with interval development of new subtle nodular right l paula opacities. Findings are suggestive of an infectious or inflammatory pneumonitis. 2. Persistent left basilar predominant airspace opacities. ACT 112: Negative or not required by law. The above report was generated using voice recognition software. It may contain grammatical, syntax o r spelling errors. Electronically signed by: Raffy Rodriguez M.D. 06/18/2022 8:35 AM
[2022-06-18] MEDS: AMPICILLIN/SULBACTAM SOD 3,000 MG in 0.9 % SODIUM CHLORIDE 100 ML IV SCH ×3 (11:50→22:14)
[2022-06-18] MEDS: MIRABEGRON ER 25 MG TAB PO SCH (20:39)
[2022-06-18] MEDS: SENNA 8.6 MG TAB PO SCH (20:40)
--- NOTE | 2022-06-18 21:38 | Hospitalist Progress Note ---
Date of Service June 18, 2022 Assessment & Plan (1) COVID-19: Plan: Day #6 of IV dexamethasone. Overnight started to require NC O2. CXR this am with discrete right basilar infiltrates. Pneumonia either 2nd to COVID-19. Can't exclude bacterial superinfection. Can't exclude aspiration given her severely impaired inspiratory effort due to MS. Cont cough assist device. Cont flutter valve. Avoid anti-tussives. Cont mucinex. Cont combivent prn. Had been on cefepime early in the stay but d/c as earlier CXRs were not showing pneumonia. Given O2 requirement and cxr findings today will start back abx in the form of Unasyn 3gm IV Q6h. At this time she is about 10 days into the illness; Remdesivir likely to be of little benefit at this point in her COVID illness. (2) Altered mental status: Plan: acute metabolic encephalopathy 2nd to COVID-19 infection - resolved, back to baseline (3) Multiple sclerosis: Plan: Chronic and progressive MS Patient uses electric wheelchair at home and has daily aides in the home continue with outpatient follow-up with neurology Continue usual outpatient meds PT/OT chikis varghese [facility] Patient does NOT use chronic mercedes at home despite h/o neurogenic bladder I spoke with pt's - he is going to try and bring her power chair Once here we can use a lift to get her into the power chair from the bed for mobilization (4) Chronic diastolic CHF (congestive heart failure): Plan: compensated (5) Neurogenic bladder: Plan: Secondary to MS Has purewick does not use chronic mercedes at home (6) DVT prophylaxis: Plan: Continue enoxaparin for DVT prophylaxis At discharge, because of immobile status from MS, strongly consider Xarelto 10mg daily x 30 days due to heightened DVT risk while recovering from COVID (7) Cervicalgia: Plan: muscle spasm in setting of COVID baseline DJD of c-spine (I ordered c-spine CT and this showed considerable DJD; no fractures) all of the above likely to blame cont celebrex 100mg daily cont oxycodone 2.5mg prn cont tylenol 1gm TID cont normal baclofen 10mg qid steroids for COVID may help as well heating pad (use of lidoderm & voltaren gel were NOT helpful) (8) Quadriplegia: Plan: 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 (9) Chronic constipation: Plan: cont senna daily cont miralax daily finally had large BM yesterday by report uses dulcolax suppositories fairly regularly per Plan updated pt's extensively by phone again this evening he himself is recovering from COVID but is improving dispo - [facility] at discharge no discharge until pulmonary status improves Admission and Anticipated Discharge Date Admission Date: June 12, 2022 Subjective patient began to require NC O2 yesterday afternoon this am during rounds the oxygen was off (slipped below her chin) o2 sats in RA were 88% required 3 L to rise >90% she states the cough assist device is helping - she has coughed up mucous twice since starting it she denies dyspnea left shoulder / left posterior neck pain improved no new issues tele wnl overnight Review of Systems Review of Systems: gen - no fevers; fatigue cv - no chest pain pulm - coughing; no dyspnea GI - no abd pain Physical Exam Physical Exam: gen - looks chronically sick/ill, thin, continues to look better than previous visits neck - hyperextended mildly (baseline); nontender to palpation over left lower posterior neck/left scapular region mouth - MMM, no thrush heart - RRR, s1 s2, no murmur lungs - crackles right base; poor respiratory airflow/inspiratory effort; decreased BS b/l; no increased work of breathing abd - soft NT ND BS+ ext - trace edema, pulses 2+ b/l neuro - increased tone x 4 extremities; neuropathic deformities of feet b/l (contractures); paraplegia; moves arms mildly Results & Data Results & Data ([facility]) Vital Signs (Past 12 Hours) Vital Signs Temp Pulse Pulse Resp BP Pulse Ox O2 Del Method 06/18/22 19:48 36.7 C 93 H 20 104/62 90 Room Air 06/18/22 17:00 36.6 C 88 18 114/64 92 Nasal Cannula 06/18/22 15:54 76 06/18/22 11:04 Nasal Cannula O2 Flow Rate 06/18/22 19:48 06/18/22 17:00 3 06/18/22 15:54 06/18/22 11:04 2 Laboratory Results Laboratory Results - last 24 hr 06/18/22 06/18/22 05:47 05:47 WBC 12.38 H RBC 4.46 Hgb 13.5 Hct 42.0 MCV 94.2 MCH 30.3 MCHC 32.1 RDW Std Deviation 49.0 H RDW Coeff of Rosales 14.1 Plt Count 253 MPV 10.8 Immature Gran % (Auto) 0.2 Neut % (Auto) 88.2 Lymph % (Auto) 7.3 [place] % (Auto) 4.2 Eos % (Auto) 0.0 Baso % (Auto) 0.1 Neut # (Auto) 10.92 H Lymph # (Auto) 0.90 L [place] # (Auto) 0.52 Eos # (Auto) 0.00 Baso # (Auto) 0.01 Immature Gran # (Auto) 0.03 H Sodium 135 L Potassium 4.5 Chloride 102 Carbon Dioxide 29 Anion Gap 4 BUN 28 H Creatinine 0.38 L Est Cr Clr Drug Dosing 95.8 Est GFR ( Amer) 113.5 Est GFR (Non-Af Amer) 98.0 BUN/Creatinine Ratio 73.7 H Glucose 88 Calcium 9.7 C-Reactive Protein 5.60 H Diagnostic Findings Chest X-Ray 06/18/22 07:00 XR chest 1V portable HISTORY: 81 years-old Female COVID19, hypoxia acute cough. COVID Positive. COMPARISON: Chest radiograph 06/17/2022 TECHNIQUE: AP view of the chest FINDINGS: Cardiac silhouette is enlarged. No pneumothorax. Blunting of the costophrenic a ngles may represent trace effusions. Reticular interstitial opacities with persistent left greater than right bibasilar densities. Interval development of ill-defined nodular opacities throughout the right lung prominently measuring up to approximately 1.3 cm. Degenerative changes of the shoulders and spine. Thoracic kyphoplasty changes. IMPRESSION: 1. Reticular interstitial densities are noted with interval development of new subtle nodular right lung opacities. Findings are suggestive of an infectious or inflammatory pneumonitis. 2. Persistent left basilar predominant airspace opacities. ACT 112: Negative or not required by law. The above report was generated using voice recognition software. It may contain grammatical, syntax or spelling errors. Electronically signed by: Raffy Rodriguez M.D. 06/18/2022 8:35 AM PG Care Time/CCT Total # of Minutes Spent Total Time Spent with Patient: Total time spent is greater than 50% in coordination of care (as documented) at patient's floor/unit and/or counseling patient: Coding Level of Care Code 69561 Subseq Hosp Care Lvl 3 Diagnoses COVID-19 U07.1 Altered mental status R41.0 Altered mental status type: disorientation Multiple sclerosis G35 Chronic diastolic CHF (congestive heart failure) I50.32 Neurogenic bladder N31.9 DVT prophylaxis Z29.9 Cervicalgia M54.2 Quadriplegia G82.50 Chronic constipation K59.09 (1) Altered mental status Altered mental status type: disorientation Qualified Code(s): R41.0 - Disorientation, unspecified
[2022-06-19] MEDS: AMPICILLIN/SULBACTAM SOD 3,000 MG in 0.9 % SODIUM CHLORIDE 100 ML IV SCH ×4 (04:14→22:14)
[2022-06-19 08:07] LABS: Creatinine Clr Calc Pharmacy 98.1 ml/min; Est GFR (African American) 116.6 ml/min; Est GFR (Non-African American) 100.6 ml/min
[2022-06-19] MEDS: CHOLECALCIFEROL 400 UNITS 10 MCG TAB PO SCH (08:38)
[2022-06-19] MEDS: dexAMETHasone 6 MG in SYRINGE 0 ML IV SCH (08:38)
[2022-06-19] MEDS: ASPIRIN 81 MG ECTAB PO SCH (08:38)
[2022-06-19] MEDS: CELECOXIB 100 MG CAP PO SCH (08:38)
[2022-06-19] MEDS: guaiFENesin 600 MG TABCR PO SCH ×2 (08:39→20:22)
[2022-06-19] MEDS: ACETAMINOPHEN 500 MG TAB PO SCH ×3 (08:39→20:20)
[2022-06-19] MEDS: ENOXAPARIN INJ 30 MG/0.3 ML SYR SQ SCH (08:39)
[2022-06-19] MEDS: TOLTERODINE TARTRATE LA 2 MG CAPCR PO SCH (08:39)
[2022-06-19] MEDS: BACLOFEN 10 MG TAB PO SCH ×4 (08:39→20:21)
[2022-06-19] MEDS: POLYETHYLENE (MIRALAX) 17 GM PACK PO SCH (08:40)
[2022-06-19] MEDS: MIRABEGRON ER 25 MG TAB PO SCH (20:22)
[2022-06-19] MEDS: SENNA 8.6 MG TAB PO SCH (20:23)
--- NOTE | 2022-06-19 20:35 | Hospitalist Progress Note ---
Date of Service June 19, 2022 Assessment & Plan (1) COVID-19: Plan: Overnight / started to require NC O2. Now on 3LNC CXR with discrete right basilar infiltrates. Pneumonia either 2nd to COVID-19. Can't exclude bacterial superinfection. Can't exclude aspiration given her severely impaired inspiratory effort due to MS. Cont cough assist device. Cont flutter valve. Avoid anti-tussives. Cont mucinex. Cont combivent prn. Had been on cefepime early in the stay but d/cd as earlier CXRs were not showing pneumonia. Given O2 requirement and worsneing cxr findings, was started back on abx in the form of Unasyn 3gm IV Q6h. At this time she is about 10 days into the illness; Remdesivir likely to be of little benefit at this point in her COVID illness. -continue decadron x 10 day course-last day will be 06/22 (2) Altered mental status: Plan: acute metabolic encephalopathy 2nd to COVID-19 infection - resolved, back to baseline (3) Multiple sclerosis: Plan: Chronic and progressive MS Patient uses electric wheelchair at home and has daily aides in the home continue with outpatient follow-up with neurology Continue usual outpatient meds PT/OT chikis [facility] Patient does NOT use chronic mercedes at home despite h/o neurogenic bladder I spoke with pt's - he is going to try and bring her power chair Once here we can use a lift to get her into the power chair from the bed for mobilization Now with spasms in left leg fromMS--> giving tylenol and routine baclofen, re positioning, but does have oxycodone if needed (4) Chronic diastolic CHF (congestive heart failure): Plan: compensated (5) Neurogenic bladder: Plan: Secondary to MS Has purewick does not use chronic mercedes at home (6) Cervicalgia: Plan: muscle spasm in setting of COVID baseline DJD of c-spine, ordered c-spine CT and this showed considerable DJD; no fractures all of the above likely to blame cont celebrex 100mg daily cont oxycodone 2.5mg prn cont tylenol 1gm TID cont normal baclofen 10mg qid steroids for COVID may help as well heating pad (use of lidoderm & voltaren gel were NOT helpful) (7) Quadriplegia: Plan: 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 (8) Chronic constipation: Plan: cont senna daily cont miralax daily finally had large BM on 06/17 by report uses dulcolax suppositories fairly regularly per (9) DVT prophylaxis: Plan: Continue enoxaparin for DVT prophylaxis At discharge, because of immobile status from MS, strongly consider Xarelto 10mg daily x 30 days due to heightened DVT risk while recovering from COVID Plan dispo - [facility] at discharge no discharge until pulmonary status improves Admission and Anticipated Discharge Date Admission Date: June 12, 2022 Subjective Pt calling out for help when I walked into the room; her O2 was off and she had her gown half off. She was c/o severe muscle spasm in her left leg. I asked the RN to help me reposition her which did help with some of the pain. SHe also is due fo rher baclofen and tylenol. Denies SOB or cough. Tele with NSR, rates 70-80s Review of Systems Review of Systems: All systems reviewed & are unremarkable except as noted in HPI & below Physical Exam Constitutional: + underweight Eyes: + anicteric sclerae Neck: trachea midline, no thyromegaly Respiratory: normal respiratory effort, lungs clear to auscultation Cardiovascular: RRR, no murmur, no edema Chest (Breasts): Chest: normal inspection of chest Gastrointestinal (Abdomen): normal bowel sounds, soft, nontender, no hepatosplenomegaly Musculoskeletal: Extremities: + extremities abnormal to inspection (diffuse sarcopenia,contractures of right arm and feet), no cyanosis and no clubbing Skin: no rashes, warm and dry Neurologic: + focal motor deficit (weakness in all four extremities except RUE 4/5) and awake Psychiatric: Orientation: alert, oriented to person, oriented to place and cooperative Lymphatic: no lymphedema Results & Data Results & Data ([facility]) Vital Signs (Past 12 Hours) Vital Signs Pulse O2 Del Method O2 Flow Rate 06/19/22 19:37 Nasal Cannula 3 06/19/22 15:02 83 06/19/22 10:35 Nasal Cannula 3 Laboratory Results 06/19/22 Range/Units 06:54 Creatinine 0.35 L (0.6-1.2) mg/dl Est Cr Clr Drug Dosing 98.1 ml/min Est GFR ( Amer) 116.6 ml/min Est GFR (Non-Af Amer) 100.6 ml/min PG Care Time/CCT Total # of Minutes Spent Total Time Spent with Patient: Total time spent is greater than 50% in coordination of care (as documented) at patient's floor/unit and/or counseling patient: Coding Level of Care Code 66879 Subseq Hosp Care Lvl 2 Diagnoses COVID-19 U07.1 Altered mental status R41.0 Altered mental status type: disorientation Multiple sclerosis G35 Chronic diastolic CHF (congestive heart failure) I50.32 Neurogenic bladder N31.9 Cervicalgia M54.2 Quadriplegia G82.50 Chronic constipation K59.09 DVT prophylaxis Z29.9 (1) Altered mental status Altered mental status type: disorientation Qualified Code(s): R41.0 - Disorientation, unspecified
[2022-06-20] MEDS: AMPICILLIN/SULBACTAM SOD 3,000 MG in 0.9 % SODIUM CHLORIDE 100 ML IV SCH ×4 (04:18→22:36)
[2022-06-20 06:45] LABS: Hematocrit (blood only) 35.2 % (34.1-44.9); Hemoglobin 11.7 g/dl (12.0-16.0); Mean Corpuscular Hemoglobin 30.5 pg (25.0-34.0); Mean Corpuscular Hgb Conc 33.2 g/dL (32.0-36.0); Mean Corpuscular Volume 91.9 fL (80.0-100.0); Mean Platelet Volume 10.8 fL (9.4-12.3); Platelet Count 252 K/uL (130-400); RDW Coefficient of Variation 14.1 % (11.5-14.5); RDW Standard Deviation 47.9 fL (36.4-46.3); Red Blood Count 3.83 M/uL (3.93-5.22); White Blood Count 12.07 K/ul (4.8-10.8)
[2022-06-20 07:06] LABS: Albumin Globulin Ratio 1.2 (0.9-2); BUN Creatinine Ratio 76.9 (10-20); Bilirubin,Total 0.4 mg/dl (0.2-1.0); Creatinine Clr Calc Pharmacy 136.4 ml/min; Est GFR (African American) 128.6 ml/min; Globulin 2.6 gm/dl (2.5-4.0); Magnesium 1.7 mg/dl (1.7-2.4); Potassium 3.8 mmol/L (3.5-5.1); Total Protein 5.6 gm/dl (6.0-8.3)
[2022-06-20 07:07] LABS: Basophils # (auto) 0.03 K/uL (0-0.2); Basophils % (auto) 0.2 %; Immature Granulocytes # (auto) 0.16 K/uL (0.00-0.02); Immature Granulocytes % (auto) 1.3 %; Lymphocytes # (auto) 0.48 K/uL (1.2-3.4); Monocytes # (auto) 0.49 K/uL (0.24-0.82); Monocytes % (auto) 4.1 %; Neutrophils # (auto) 10.91 K/uL (1.4-6.5); Neutrophils % (auto) 90.4 %
[2022-06-20] MEDS: ACETAMINOPHEN 500 MG TAB PO SCH ×3 (09:32→20:45)
[2022-06-20] MEDS: CHOLECALCIFEROL 400 UNITS 10 MCG TAB PO SCH (09:33)
[2022-06-20] MEDS: TOLTERODINE TARTRATE LA 2 MG CAPCR PO SCH (09:33)
[2022-06-20] MEDS: CELECOXIB 100 MG CAP PO SCH (09:33)
[2022-06-20] MEDS: ENOXAPARIN INJ 30 MG/0.3 ML SYR SQ SCH (09:33)
[2022-06-20] MEDS: dexAMETHasone 6 MG in SYRINGE 0 ML IV SCH (09:33)
[2022-06-20] MEDS: ASPIRIN 81 MG ECTAB PO SCH (09:33)
[2022-06-20] MEDS: POLYETHYLENE (MIRALAX) 17 GM PACK PO SCH (09:33)
[2022-06-20] MEDS: BACLOFEN 10 MG TAB PO SCH ×4 (09:33→20:47)
[2022-06-20] MEDS: guaiFENesin 600 MG TABCR PO SCH ×2 (09:35→20:46)
--- NOTE | 2022-06-20 18:42 | Hospitalist Progress Note ---
Date of Service June 20, 2022 Assessment & Plan (1) COVID-19: Plan: Overnight / started to require NC O2. Was up to 4LNC but nw weaned back down to 2LNC CXR with discrete right basilar infiltrates. Pneumonia likely 2nd to COVID-19. Can't exclude bacterial superinfection. Can't exclude aspiration given her severely impaired inspiratory effort due to MS. Cont cough assist device. Cont flutter valve. Avoid anti-tussives. Cont mucinex. Cont combivent prn. Had been on cefepime early in the stay but d/cd as earlier CXRs were not showing pneumonia. Given O2 requirement and worsening cxr findings, was started back on abx in the form of Unasyn 3gm IV Q6h. At this time she is about 10 days into the illness; Remdesivir likely to be of little benefit at this point in her COVID illness. -continue decadron x 10 day course-last day will be 06/22 -continue Unasyn and convert to Augmentin on discharge to complete 7 day course (2) Altered mental status: Plan: acute metabolic encephalopathy 2nd to COVID-19 infection - resolved, back to baseline (3) Multiple sclerosis: Plan: Chronic and progressive MS Patient uses electric wheelchair at home and has daily aides in the home continue with outpatient follow-up with neurology Continue [facility] does NOT use chronic mercedes at home despite h/o neurogenic bladder I spoke with pt's - he is going to try and bring her power chair getting into the power chair from the bed for mobilization spasms improved today in leg (4) Chronic diastolic CHF (congestive heart failure): Plan: compensated (5) Neurogenic bladder: Plan: Secondary to MS Has purewick does not use chronic mercedes at home (6) Cervicalgia: Plan: muscle spasm in setting of COVID baseline DJD of c-spine, ordered c-spine CT and this showed considerable DJD; no fractures all of the above likely to blame cont celebrex 100mg daily cont oxycodone 2.5mg prn cont tylenol 1gm TID cont normal baclofen 10mg qid steroids for COVID may help as well heating pad (use of lidoderm & voltaren gel were NOT helpful) (7) Quadriplegia: Plan: 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 (8) Chronic constipation: Plan: cont senna daily cont miralax daily finally had large BM on 06/17 by report uses dulcolax suppositories fairly regularly per (9) DVT prophylaxis: Plan: Continue enoxaparin for DVT prophylaxis At discharge, because of immobile status from MS, strongly consider Xarelto 10mg daily x 30 days due to heightened DVT risk while recovering from COVID Plan dispo - [facility] at discharge -likely tomorrow Discussed care with her on phone Admission and Anticipated Discharge Date Admission Date: June 12, 2022 Anticipated date of discharge: 06/21/22 Subjective Pt much improved today. Was OOB to her motorized wheelchair all day. Feels better. Has a mild cough. No severe pains today, just her "usual pain." Has not moved bowels yet but is eating Now weaned down to 2LNC when I saw her Tele with NR, PACs, PVCs, rate 60-80s Review of Systems Review of Systems: All systems reviewed & are unremarkable except as noted in HPI & below Physical Exam Constitutional: + underweight Eyes: + anicteric sclerae Neck: trachea midline, no thyromegaly Respiratory: normal respiratory effort, lungs clear to auscultation Cardiovascular: RRR, no murmur, no edema Chest (Breasts): Chest: normal inspection of chest Gastrointestinal (Abdomen): normal bowel sounds, soft, nontender, no hepatosplenomegaly Musculoskeletal: Extremities: + extremities abnormal to inspection (diffuse sarcopenia,contractures of right arm and feet), no cyanosis and no clubbing Skin: no rashes, warm and dry Neurologic: + focal motor deficit (weakness in all four extremities except RUE 4/5) and awake Psychiatric: Orientation: alert, oriented to person, oriented to place and cooperative Lymphatic: no lymphedema Results & Data Results & Data ([facility]) Vital Signs (Past 12 Hours) Vital Signs Temp Pulse Pulse Resp BP Pulse Ox O2 Del Method 06/20/22 18:17 73 06/20/22 11:53 78 16 102/57 L 97 Nasal Cannula 06/20/22 09:00 Nasal Cannula 06/20/22 09:40 36.6 C 72 18 132/61 96 Nasal Cannula 06/20/22 07:44 71 O2 Flow Rate 06/20/22 18:17 06/20/22 11:53 4 06/20/22 09:00 2 06/20/22 09:40 2 06/20/22 07:44 Laboratory Results 06/20/22 06/20/22 Range/Units 06:25 06:25 WBC 12.07 H (4.8-10.8) K/ul RBC 3.83 L (3.93-5.22) M/uL Hgb 11.7 L (12.0-16.0) g/dl Hct 35.2 (34.1-44.9) % MCV 91.9 (80.0-100.0) fL MCH 30.5 (25.0-34.0) pg MCHC 33.2 (32.0-36.0) g/dL RDW Std Deviation 47.9 H (36.4-46.3) fL RDW Coeff of Rosales 14.1 (11.5-14.5) % Plt Count 252 (130-400) K/uL MPV 10.8 (9.4-12.3) fL Immature Gran % (Auto) 1.3 % Neut % (Auto) 90.4 % Lymph % (Auto) 4.0 % [place] % (Auto) 4.1 % Eos % (Auto) 0.0 % Baso % (Auto) 0.2 % Neut # (Auto) 10.91 H (1.4-6.5) K/uL Lymph # (Auto) 0.48 L (1.2-3.4) K/uL [place] # (Auto) 0.49 (0.24-0.82) K/uL Eos # (Auto) 0.00 (0-0.50) K/uL Baso # (Auto) 0.03 (0-0.2) K/uL Immature Gran # (Auto) 0.16 H (0.00-0.02) K/uL Sodium 137 (136-145) mmol/L Potassium 3.8 (3.5-5.1) mmol/L Chloride 106 (98-107) mmol/L Carbon Dioxide 26 (21-32) mmol/L Anion Gap 5 (3-11) BUN 20 (6-23) mg/dl Creatinine 0.26 L (0.6-1.2) mg/dl Est Cr Clr Drug Dosing 136.4 ml/min Est GFR ( Amer) 128.6 ml/min Est GFR (Non-Af Amer) 111.0 ml/min BUN/Creatinine Ratio 76.9 H (10-20) Glucose 100 H (70-99(Fasting)) mg/dl Calcium 9.0 (8.5-10.1) mg/dl Magnesium 1.7 (1.7-2.4) mg/dl Total Bilirubin 0.4 (0.2-1.0) mg/dl AST 36 (13-39) U/L ALT 50 (7-52) U/L Alkaline Phosphatase 71 (34-104) U/L Total Protein 5.6 L (6.0-8.3) gm/dl Albumin 3.0 L (3.4-5.0) gm/dl Globulin 2.6 (2.5-4.0) gm/dl Albumin/Globulin Ratio 1.2 (0.9-2) PG Care Time/CCT Total # of Minutes Spent Total Time Spent with Patient: Total time spent is greater than 50% in coordination of care (as documented) at patient's floor/unit and/or counseling patient: Coding Level of Care Code 27758 Subseq Hosp Care Lvl 2 Diagnoses COVID-19 U07.1 Altered mental status R41.0 Altered mental status type: disorientation Multiple sclerosis G35 Chronic diastolic CHF (congestive heart failure) I50.32 Neurogenic bladder N31.9 Cervicalgia M54.2 Quadriplegia G82.50 Chronic constipation K59.09 DVT prophylaxis Z29.9 (1) Altered mental status Altered mental status type: disorientation Qualified Code(s): R41.0 - Disorientation, unspecified
[2022-06-20] MEDS: SENNA 8.6 MG TAB PO SCH (20:46)
[2022-06-20] MEDS: MIRABEGRON ER 25 MG TAB PO SCH (20:46)
[2022-06-21] MEDS: AMPICILLIN/SULBACTAM SOD 3,000 MG in 0.9 % SODIUM CHLORIDE 100 ML IV SCH ×2 (05:01→11:22)
[2022-06-21] MEDS: ACETAMINOPHEN 500 MG TAB PO SCH ×2 (09:35→13:55)
[2022-06-21] MEDS: BACLOFEN 10 MG TAB PO SCH ×2 (09:35→13:55)
[2022-06-21] MEDS: TOLTERODINE TARTRATE LA 2 MG CAPCR PO SCH (09:35)
[2022-06-21] MEDS: ASPIRIN 81 MG ECTAB PO SCH (09:35)
[2022-06-21] MEDS: CELECOXIB 100 MG CAP PO SCH (09:36)
[2022-06-21] MEDS: guaiFENesin 600 MG TABCR PO SCH (09:36)
[2022-06-21] MEDS: CHOLECALCIFEROL 400 UNITS 10 MCG TAB PO SCH (09:36)
[2022-06-21] MEDS: ENOXAPARIN INJ 30 MG/0.3 ML SYR SQ SCH (09:36)
[2022-06-21] MEDS: dexAMETHasone 6 MG in SYRINGE 0 ML IV SCH (09:36)
[2022-06-21] MEDS: POLYETHYLENE (MIRALAX) 17 GM PACK PO SCH (09:37)
--- NOTE | 2022-06-21 12:27 | Discharge Summary ---
Date of Service June 21, 2022 Admission HPI Per Admitting Provider The patient is an 81-year-old female with a past medical history including multiple sclerosis, syncope, pressure ulcers, chronic aspiration, incomplete bladder emptying, recurrent urinary tract infections, chronic diastolic CHF, neurogenic bladder, aspiration pneumonia and aortic regurgitation. The patient herself is unable to contribute to her HPI or review of systems due to altered mental state. None Principal Diagnosis COVID-19 Pneumonia, possible aspiration PNA, acute respiratory failure with hypoxia-resolved Discharge Exam Constitutional + underweight Eyes + anicteric sclerae Neck trachea midline, no thyromegaly Respiratory normal respiratory effort, lungs clear to auscultation Cardiovascular RRR, no murmur, no edema Chest (Breasts) Chest: normal inspection of chest Gastrointestinal (Abdomen) normal bowel sounds, soft, nontender, no hepatosplenomegaly Musculoskeletal Extremities: + extremities abnormal to inspection (diffuse sarcopenia,contractures of right arm and feet), no cyanosis and no clubbing Skin no rashes, warm and dry Neurologic + focal motor deficit (weakness in all four extremities except RUE 4/5) and awake Psychiatric Orientation: alert, oriented to person, oriented to place and cooperative Lymphatic no lymphedema Discharge Data Allergies Allergy/AdvReac Type Severity Reaction Status Date / Time No Known Allergies Allergy Verified 06/12/22 21:05 Consultations 06/12/22 21:24 ED Decision to Admit Stat 06/15/22 10:48 Consult Lung Nodule Program Routine Ordered Studies 06/12/22 18:27 CT abd pelvis wo con Stat CT head/brain wo con Stat 06/15/22 11:20 CT cervical spine wo con Routine Hospital Course (1) COVID-19: With acute respiratory failure with hypoxia-now resolved Overnight 06/17 started to require NC O2. Was up to 4LNC but nw weaned back down to room air by day of discharge CXR with discrete right basilar infiltrates. Pneumonia likely 2nd to COVID-19. Can't exclude bacterial superinfection. Can't exclude aspiration given her severely impaired inspiratory effort due to MS. Cont cough assist device. Cont flutter valve. Avoid anti-tussives. Cont mucinex. Cont duonebs prn. Had been on cefepime early in the stay but d/cd as earlier CXRs were not showing pneumonia. Given O2 requirement and worsening cxr findings, was started back on abx in the form of Unasyn 3gm IV Q6h. At this time she is about 10 days into the illness; Remdesivir likely to be of little benefit at this point in her COVID illness. -continue decadron x 10 day course-last day will be 06/22 -continue Unasyn and convert to Augmentin on discharge to complete 7 day course- needs 3 more days -follow CXR to resolution as outpt in 4-6 weeks (2) Altered mental status: acute metabolic encephalopathy 2nd to COVID-19 infection - resolved, back to baseline (3) Multiple sclerosis: Chronic and progressive MS Patient uses electric wheelchair at home and has daily aides in the home continue with outpatient follow-up with neurology Continue usual outpatient meds PT/OT chikis appreciated [facility] Patient does NOT use chronic mercedes at home despite h/o neurogenic bladder I spoke with pt's - he is going to try and bring her power chair getting into the power chair from the bed for mobilization spasms improved today in leg (4) Chronic diastolic CHF (congestive heart failure): compensated (5) Neurogenic bladder: Secondary to MS Has purewick does not use chronic mercedes at home (6) Cervicalgia: muscle spasm in setting of COVID baseline DJD of c-spine, ordered c-spine CT and this showed considerable DJD; no fractures all of the above likely to blame cont celebrex 100mg daily cont tylenol 1gm TID prn cont normal baclofen 10mg qid steroids for COVID may help as well heating pad (use of lidoderm & voltaren gel were NOT helpful) (7) Quadriplegia: 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 (8) Chronic constipation: cont senna daily cont miralax daily finally had large BM on 06/17 by report uses dulcolax suppositories fairly regularly per (9) DVT prophylaxis: received enoxaparin for DVT prophylaxis while here At discharge, because of immobile status from MS, strongly consider Xarelto 10mg daily x 30 days due to heightened DVT risk while recovering from COVID Plan [facility] at discharge -today Total Time Total Time Spent Total Time Spent (In Minutes): 35 min Discharge Plan Discharge Items Patient Disposition: Transfer Care Home Fac Reason For Visit: BIBASILAR PNEUMONIA, COVID-19 INFECTION, CONFUSION Discharge Diagnosis: COVID-19 Pneumonia Condition on Discharge: Fair Activity: As commented below Bathing: No limitations Exercise/Sports: Gradually increase as tolerated Non-emergency contact: Primary Care Provider Call non-emergency contact if: you have any medication questions, your symptoms worsen and you have a fever Follow-up/Referrals: [facility] [Primary Care Provider] - Diet: Regular Addtl Attending Provider Instructions: Finish out 1 more day of dexamethasone and 3 more days of Augmentin for your pneumonia. Please take Xarelto 10mg daily x 30 days as a low dose blood thinner to prevent DVT/PE. Continue flutter valve, incentive spirometer, and cough assist device if available at the [facility]. Pending Studies at Discharge: Yes Stand-Alone Forms: [facility] Skilled Items Patient informed of condition?: Yes DNR: No Discharge Level of Care: Skilled Communicable Disease: Yes (COVID-19) Discharge Prognosis: Improving Lines: None Urinary Catheter: No Medications and DC Order Prescriptions: New ipratropium-albuterol 0.5 mg-3 mg(2.5 mg base)/3 mL Solution For Nebulization 3 ml NEB Q2H PRN (Reason: shortness of breath or wheezing) Qty: 90 0RF acetaminophen [Tylenol Extra Strength] 500 mg Tablet 1,000 mg PO TID PRN (Reason: fever or pain) Qty: 30 0RF sennosides [Senokot] 8.6 mg Tablet 17.2 mg PO HS Qty: 60 0RF polyethylene glycol 3350 [Miralax] 17 gram Powder In Packet 17 g PO DAILY Qty: 30 0RF celecoxib [Celebrex] 100 mg Capsule 100 mg PO DAILY Qty: 30 0RF guaifenesin [Mucinex] 600 mg Tablet Extended Release 12hr 1,200 mg PO Q12 Qty: 60 0RF amoxicillin-pot clavulanate 875-125 mg tablet 1 tab PO BID Qty: 6 0RF dexamethasone 6 mg tablet 6 mg PO DAILY Qty: 1 0RF Xarelto 10 mg tablet 10 mg PO DAILY 35 Days Qty: 35 0RF Continued methenamine hippurate 1 gram tablet 1 g PO BID 90 Days Qty: 180 3RF multivitamin Tablet 1 tab PO QAM ascorbic acid (vitamin C) [Vitamin C] 1,000 mg Tablet 1 g PO QAM baclofen 10 mg tablet 10 mg PO QID cholecalciferol (vitamin D3) [Vitamin D3] 400 unit Tablet 400 unit PO QAM tolterodine 2 mg capsule,extended release 24hr 2 mg PO QAM aspirin 81 mg Tablet,Delayed Release (Dr/Ec) 81 mg PO QAM mirabegron 50 mg tablet extended release 24 hr 50 mg PO HS Discontinued Ibuprofen PM 200-25 mg Capsule 1 cap PO HS Discharge Orders: Discharge Order (Routine); Ordered 06/21/22 Ordered By: Kerry Arzola Admission Data Admit Date/Time: 06/12/22 23:26 Attending Provider: Kerry Arzola Admit Provider: Walter Avalos Primary Care Provider: [facility] Other Providers: Walter Avalos ; Marek Hernandez ; [facility] Other Interventions: Discharge Summary Assessment (RN) Last Done: 06/17/22 18:54 Coding Level of Care Code D/C DAY MANAGEMENT >30 MINS Diagnoses COVID-19 U07.1 Altered mental status R41.0 Altered mental status type: disorientation Multiple sclerosis G35 Chronic diastolic CHF (congestive heart failure) I50.32 Neurogenic bladder N31.9 Cervicalgia M54.2 Quadriplegia G82.50 Chronic constipation K59.09 DVT prophylaxis Z29.9
== END 2022-06-21 14:15 | DRG 177 ==
LOC: ED 17:51 → EDINP 23:26 → SUATTDRO 23:26 → EDINP 06-13 09:37 → 2N 06-13 10:00

== ENCOUNTER 2022-06-28 14:51 | Inpatient (IN) ==
[2022-06-28] MEDS ORDERED: FAMOTIDINE 20MG IV PUSH 20 MG/5 ML SYR IV STA (15:12)
[2022-06-28] MEDS ORDERED: PANTOprazole 40 MG in SYRINGE 0 ML IV ONE (15:12)
[2022-06-28] MEDS ORDERED: SODIUM CHLORIDE 0.9% 250 ML IV PRN ×2 (15:13→23:18)
--- NOTE | 2022-06-28 15:18 | Emergency Department Note ---
Impression & Plan Acute GI bleeding, Acute upper gastrointestinal bleeding, Anemia ED Provider Note NAME: CALLIE SEYMOUR AGE: 81 SEX: F : 1940 ARRIVES VIA: Ambulance INFORMANT: Patient, EMS ED PROVIDER(S): Alan Peña DO CHIEF COMPLAINT: Weakness HPI: The patient is an 81-year-old female who presented to the emergency department for an evaluation of generalized weakness. The patient was recently admitted to our facility. The patient was diagnosed with COVID-pneumonia. She has been noted to have generalized weakness and bedsores. She had some outpatient laboratory studies which revealed a low hemoglobin. The patient was sent to the emergency department for further evaluation. She was noted to have low blood pressure. The patient herself offers no complaints. She denies having any abdominal pain or chest pain. She denies having any fever. She states that she has had a cough but this has improved significantly. She has had no black or bloody bowels. She denies having any hematemesis. The patient does take oral anticoagulation. ROS: See above HPI for pertinent positives & negatives. A total of 10 systems reviewed and were otherwise negative. PAST MEDICAL HISTORY: See Below PAST SURGICAL HISTORY: See Below FAMILY HISTORY: See Below SOCIAL HISTORY: See Below HOME MEDICATIONS: See Below ALLERGIES: See Below VITALS: See Below PHYSICAL EXAMINATION: GENERAL: Patient is awake and alert. The patient is comfortable appearing. EYES: The conjunctivae are pale. The pupils are round and reactive. EARS, NOSE, MOUTH AND THROAT: The nose is without any evidence of any deformity. Mucous membranes are moist. Tongue is midline. NECK: The neck is nontender and supple. RESPIRATORY: Normal respiratory effort is noted there is no evidence of wheezing rhonchi or rales CARDIOVASCULAR: Regular rate and rhythm was noted auscultation. Systolic murmur was suggested. GASTROINTESTINAL: The abdomen was soft and nondistended. There is no specific tenderness guarding rigidity. Rectal exam revealed dark stool which was strongly heme positive. MUSCULOSKELETAL/EXTREMITIES: There is no evidence of gross deformity full range of motion is noted in the hips and shoulders. SKIN: Skin was cool and dry. There is pedal edema bilaterally. NEUROLOGIC: Patient is awake alert and oriented x3. MEDICAL DECISION MAKING: The patient is an 81-year-old female who presented to the emergency department for an evaluation of anemia. The patient had patient laboratory studies which reveal significant anemia. She was recently in our facility. She was treated with steroids. She also takes oral anticoagulation. The patient did not have an acute surgical abdomen. On physical exam she does appear to have signs of GI bleeding. She was treated with Protonix as well as Pepcid. She was treated with a small fluid bolus as well as antibiotics and blood was sent for type and cross for 2 units. I ordered the blood transfusion. I consented the patient for blood transfusion. I discussed patient's condition with the on-call [facility] they have agreed to evaluate the patient in the emergency department for further management and disposition. Triage Nursing notes reviewed. Prior medical records reviewed Vital Signs: reviewed and remarkable for no significant abnormalities Differential diagnosis: Infection, dehydration, metabolic abnormality, hypo/hyperglycemia, electrolyte disturbance, anemia, hypoxia, cardiac sources, intracerebral event, toxicologic, neurologic, as well as other pathologies. ER treatment provided: See below Diagnostics interpreted by me: ECG: EKG was obtained in the emergency department. My interpretation is normal sinus rhythm 85 bpm. There is no ectopy. Nonspecific ST depressions were noted. This was compared to a tracing from June 12, 2022. No changes were noted. LVH was noted by voltage criteria. Cardiac Monitoring: An order was placed for continuous cardiac monitoring. The monitor shows a rate of 79 bpm with sinus rhythm Laboratory studies: As stated above and show below. Imaging studies: See below Consultation(s): I discussed this case with Dr. Lin who is on-call for the [facility] group. ED COURSE: Procedures: none Critical Care: I have personally spent greater than 45 minutes of critical care time in the direct management of this patient. This includes bedside care, interpretation of diagnostic studies, and testing, discussion with consultants, patient, and family members, and other required patient management activities. This 45 minutes is in excess of all separately billable procedures. Past Med/Surg History Medical History Aortic regurgitation Per 2016 ECHO - Moderate to severe AR. Wide based eccentric jet of at least moderate AR. Aspiration, chronic pulmonary Cerebrovascular insufficiency Per PCP records- 2016- suspect left hemispheric event Chronic constipation Chronic diastolic CHF (congestive heart failure) Cough Since 2018 per PCP records- RLL atelectasis and mucous plugging History of pneumonia Incomplete emptying of bladder Multiple sclerosis Requires power wheelchair per records Has new patient appt with neuro 07/2022 Nephrolithiasis Neurogenic bladder Nocturia Quadriplegia Per records- uses power wheelchair Urge incontinence of urine Urinary urgency Surgical History H/O knee surgery History of back surgery X 2 History of open reduction and internal fixation (ORIF) procedure RIGHT LEG/HARDWARE REMOVED LATER Hx of appendectomy Family History Sister Amyotrophic lateral sclerosis Father Cancer Mother Cancer Other Hypertension Social History Smoking Status: Never smoker Tobacco Type: Cigarettes Second Hand Exposure: No; Hx Alcohol Use: Yes Alcohol type: wine and hard liquor Alcohol Intake Frequency: 4 or More x per/Week Hx Substance Use: No Preferred Language: Marshallese Communication Ability: Effective Riprap Worker Required: No Beliefs That Will Affect Care: None marital status: Current Living Situation: Residential Current Living Situation Comment: [facility] current occupational status: retired How many Children do You have: 2 Feels Safe at Home: Yes Assistive Devices: Wheelchair Allergies Allergies Allergy/AdvReac Type Severity Reaction Status Date / Time No Known Allergies Allergy Verified 06/12/22 21:05 Home Meds Home Medications Medication Instructions Recorded Confirmed ascorbic acid (vitamin C) 1,000 mg 1 g PO QAM 09/16/18 06/28/22 tablet (Vitamin C) baclofen 10 mg tablet 10 mg PO QID 09/16/18 06/28/22 cholecalciferol (vitamin D3) 10 400 unit PO QAM 09/16/18 06/28/22 mcg (400 unit) tablet (Vitamin D3) multivitamin 1 tab PO QAM 09/16/18 06/28/22 aspirin 81 mg tablet,delayed 81 mg PO QAM 03/16/22 06/28/22 release mirabegron 50 mg tablet,extended 50 mg PO HS 03/16/22 06/28/22 release 24 hr tolterodine 2 mg capsule,extended 2 mg PO QAM 03/16/22 06/28/22 release 24 hr Previous Rx's Medication Instructions Recorded methenamine hippurate 1 gram tablet 1 g PO BID 90 days #180 tabs 12/04/21 acetaminophen 500 mg tablet 1,000 mg PO TID PRN fever or pain 06/21/22 (Tylenol Extra Strength) #30 tabs amoxicillin 875 mg-potassium 1 tab PO BID #6 tabs 06/21/22 clavulanate 125 mg tablet celecoxib 100 mg capsule (Celebrex) 100 mg PO DAILY #30 caps 06/21/22 dexamethasone 6 mg tablet 6 mg PO DAILY #1 tab 06/21/22 guaifenesin 600 mg tablet, 1,200 mg PO Q12 #60 tabs 06/21/22 extended release 12 hr (Mucinex) ipratropium 0.5 mg-albuterol 3 mg 3 ml NEB Q2H PRN shortness of 06/21/22 (2.5 mg base)/3 mL nebulization breath or wheezing #90 mL soln polyethylene glycol 3350 17 gram 17 g PO DAILY #30 ea 06/21/22 oral powder packet (Miralax) rivaroxaban 10 mg tablet (Xarelto) 10 mg PO DAILY 35 days #35 tabs 06/21/22 sennosides 8.6 mg tablet (Senokot) 17.2 mg PO HS #60 tabs 06/21/22 Results & Data (ED) Vital Signs Vital Signs - 24 hr 06/28/22 15:25 06/28/22 15:25 Pulse Rate 82 83 Pulse Rhythm Regular Respiratory Rate 16 16 Respiratory Effort / Characteristics Non-Labored Respiratory Depth Normal Oxygen Delivery Method Room Air Room Air Sepsis Recent Fever Within 48 Hours No Sepsis New/Unexplained Change in Mental Status No Sepsis Action Taken by Nursing No Action Required Home Medications Current Medication List: was personally reviewed by me Laboratory Data Attestation: I reviewed the patient's lab results. Result diagrams: 06/28/22 15:29 06/28/22 15:29 Lab Results 06/28/22 06/28/22 06/28/22 Range/Units 15:29 15:29 15:29 WBC 16.57 H (4.8-10.8) K/ul RBC 2.24 L (3.93-5.22) M/uL Hgb 6.9 L* (12.0-16.0) g/dl Hct 22.3 L (34.1-44.9) % MCV 99.6 (80.0-100.0) fL MCH 30.8 (25.0-34.0) pg MCHC 30.9 L (32.0-36.0) g/dL RDW Std Deviation 52.7 H (36.4-46.3) fL RDW Coeff of Rosales 15.2 H (11.5-14.5) % Plt Count 697 H (130-400) K/uL MPV 9.7 (9.4-12.3) fL Immature Gran % (Auto) 1.4 % Neut % (Auto) 87.6 % Lymph % (Auto) 4.5 % Rolette % (Auto) 4.6 % Eos % (Auto) 1.7 % Baso % (Auto) 0.2 % Neut # (Auto) 14.50 H (1.4-6.5) K/uL Lymph # (Auto) 0.75 L (1.2-3.4) K/uL Rolette # (Auto) 0.77 (0.24-0.82) K/uL Eos # (Auto) 0.28 (0-0.50) K/uL Baso # (Auto) 0.04 (0-0.2) K/uL Immature Gran # (Auto) 0.23 H (0.00-0.02) K/uL Absolute Nucleated RBC 0.05 H (0-0) K/uL Nucleated RBC % (auto) 0.3 % Polychromasia 1+ Anisocytosis Present PT 10.9 (9.0-12.0) Seconds INR 1.0 (0.9-1.1) APTT 21.2 (21.0-31.0) Seconds PTT Ratio 0.8 Sodium (136-145) mmol/L Potassium (3.5-5.1) mmol/L Chloride (98-107) mmol/L Carbon Dioxide (21-32) mmol/L Anion Gap (3-11) BUN (6-23) mg/dl Creatinine (0.6-1.2) mg/dl Est Cr Clr Drug Dosing ml/min Est GFR ( Amer) ml/min Est GFR (Non-Af Amer) ml/min BUN/Creatinine Ratio (10-20) Glucose (70-99(Fasting)) mg/dl Lactate (0.4-2.0) mmol/L Calcium (8.5-10.1) mg/dl Total Bilirubin (0.2-1.0) mg/dl AST (13-39) U/L ALT (7-52) U/L Alkaline Phosphatase (34-104) U/L Troponin I High Sens (0-14) pg/ml Total Protein (6.0-8.3) gm/dl Albumin (3.4-5.0) gm/dl Globulin (2.5-4.0) gm/dl Albumin/Globulin Ratio (0.9-2) Lipase (11-82) U/L Blood Type B Positive Antibody Screen NEGATIVE Crossmatch See Detail 06/28/22 06/28/22 Range/Units 15:29 15:29 WBC (4.8-10.8) K/ul RBC (3.93-5.22) M/uL Hgb (12.0-16.0) g/dl Hct (34.1-44.9) % MCV (80.0-100.0) fL MCH (25.0-34.0) pg MCHC (32.0-36.0) g/dL RDW Std Deviation (36.4-46.3) fL RDW Coeff of Rosales (11.5-14.5) % Plt Count (130-400) K/uL MPV (9.4-12.3) fL Immature Gran % (Auto) % Neut % (Auto) % Lymph % (Auto) % Rolette % (Auto) % Eos % (Auto) % Baso % (Auto) % Neut # (Auto) (1.4-6.5) K/uL Lymph # (Auto) (1.2-3.4) K/uL Rolette # (Auto) (0.24-0.82) K/uL Eos # (Auto) (0-0.50) K/uL Baso # (Auto) (0-0.2) K/uL Immature Gran # (Auto) (0.00-0.02) K/uL Absolute Nucleated RBC (0-0) K/uL Nucleated RBC % (auto) % Polychromasia Anisocytosis PT (9.0-12.0) Seconds INR (0.9-1.1) APTT (21.0-31.0) Seconds PTT Ratio Sodium 140 (136-145) mmol/L Potassium 3.9 (3.5-5.1) mmol/L Chloride 107 (98-107) mmol/L Carbon Dioxide 27 (21-32) mmol/L Anion Gap 6 (3-11) BUN 31 H (6-23) mg/dl Creatinine 0.31 L (0.6-1.2) mg/dl Est Cr Clr Drug Dosing 113.7 ml/min Est GFR ( Amer) 121.4 ml/min Est GFR (Non-Af Amer) 104.8 ml/min BUN/Creatinine Ratio 100.0 H (10-20) Glucose 101 H (70-99(Fasting)) mg/dl Lactate 1.1 (0.4-2.0) mmol/L Calcium 9.1 (8.5-10.1) mg/dl Total Bilirubin 0.4 (0.2-1.0) mg/dl AST 18 (13-39) U/L ALT 41 (7-52) U/L Alkaline Phosphatase 75 (34-104) U/L Troponin I High Sens 12.9 D (0-14) pg/ml Total Protein 5.8 L (6.0-8.3) gm/dl Albumin 3.1 L (3.4-5.0) gm/dl Globulin 2.7 (2.5-4.0) gm/dl Albumin/Globulin Ratio 1.1 (0.9-2) Lipase 47 (11-82) U/L Blood Type Antibody Screen Crossmatch Administered Medications Sodium Chloride (Nss) 250 mls @ 15 mls/hr IV .[id number] PRN PRN Reason: For Transfusion Stop: 06/29/22 01:13 Last Admin: 06/28/22 16:48 Dose: 15 mls/hr Documented By: NATASHA Discontinued Medications Pantoprazole Sodium 40 mg/ (Syringe) 10 mls @ 5 mls/min IV NOW ONE Stop: 06/28/22 15:13 Last Admin: 06/28/22 16:49 Dose: 5 mls/min Documented By: NATASHA Famotidine (Pepcid 20mg Iv Push) 20 mg in 5 mls @ 2.5 mls/min IV NOW STA Stop: 06/28/22 15:13 Last Admin: 06/28/22 16:33 Dose: 2.5 mls/min Documented By: NATASHA Pantoprazole Sodium 40 mg/ (Syringe) 10 mls @ 5 mls/min IV NOW STA Stop: 06/28/22 15:59 Last Admin: 06/28/22 16:33 Dose: 5 mls/min Documented By: VAP Sodium Chloride (Nss 1000ml) 500 mls @ 999 mls/hr IV .Q31M ONE Stop: 06/28/22 16:38 Last Admin: 06/28/22 16:48 Dose: 999 mls/hr Documented By: VAP Cefepime HCl (Maxipime) 2,000 mg in 20 mls @ 5 mls/min IV NOW STA; Protocol Stop: 06/28/22 16:11 Last Admin: 06/28/22 16:33 Dose: 5 mls/min Documented By: VAP Imaging Data Radiologist's Impression: Chest X-Ray 06/28/22 15:02 XR chest 1V portable CLINICAL HISTORY: weak TECHNIQUE: Single frontal radiograph of the chest was obtained. Comparison: Comparison is made to chest radiograph 06/18/2022 FINDINGS: No lines and tubes are seen. The cardiomediastinal silhouette is normal. Interval development of multifocal airspace opacities in the right lung. Left retrocardiac opacity is also seen. No evidence of pleural effusion or pneumot horax. IMPRESSION: Multifocal airspace opacities likely represent worsening infectious/inflammatory pneumonitis. ACT 112: Negative or not required by law. Electronically signed by: Gage Colin M.D. 06/28/2022 3:57 PM Discharge Plan Visit Data Chief Complaint: Abnormal Labs/Diagnostic Testing Stated Complaint: ABNORMAL LABS ED Provider: Alan Peña Discharge Problem: Acute GI bleeding, Acute upper gastrointestinal bleeding, Anemia Patient Disposition: Being Evaluated by Hospitalist Forms Stand Alone Forms: My [facility] [place] [employer] Prescriptions Prescriptions: No Action methenamine hippurate 1 gram tablet 1 g PO BID 90 Days Qty: 180 3RF multivitamin Tablet 1 tab PO QAM ascorbic acid (vitamin C) [Vitamin C] 1,000 mg Tablet 1 g PO QAM baclofen 10 mg tablet 10 mg PO QID cholecalciferol (vitamin D3) [Vitamin D3] 400 unit Tablet 400 unit PO QAM ipratropium-albuterol 0.5 mg-3 mg(2.5 mg base)/3 mL Solution For Nebulization 3 ml NEB Q2H PRN (Reason: shortness of breath or wheezing) Qty: 90 0RF acetaminophen [Tylenol Extra Strength] 500 mg Tablet 1,000 mg PO TID PRN (Reason: fever or pain) Qty: 30 0RF sennosides [Senokot] 8.6 mg Tablet 17.2 mg PO HS Qty: 60 0RF polyethylene glycol 3350 [Miralax] 17 gram Powder In Packet 17 g PO DAILY Qty: 30 0RF celecoxib [Celebrex] 100 mg Capsule 100 mg PO DAILY Qty: 30 0RF guaifenesin [Mucinex] 600 mg Tablet Extended Release 12hr 1,200 mg PO Q12 Qty: 60 0RF amoxicillin-pot clavulanate 875-125 mg tablet 1 tab PO BID Qty: 6 0RF dexamethasone 6 mg tablet 6 mg PO DAILY Qty: 1 0RF Xarelto 10 mg tablet 10 mg PO DAILY 35 Days Qty: 35 0RF tolterodine 2 mg capsule,extended release 24hr 2 mg PO QAM aspirin 81 mg Tablet,Delayed Release (Dr/Ec) 81 mg PO QAM mirabegron 50 mg tablet extended release 24 hr 50 mg PO HS Referrals Referrals: [facility] [Primary Care Provider] - : Anemia Qualifiers: Anemia type: unspecified type Qualified Code(s): D64.9 - Anemia, unspecified
--- NOTE | 2022-06-28 15:46 | History & Physical Report ---
Date of Service June 28, 2022 Assessment & Plan (1) Acute GI bleeding: Plan: In setting of Xarelto, Celebrex and dexamethasone use Celebrex is longstanding however dexamethasone used during COVID-19 infection and Xarelto given on discharge for 30 days due to immobile status with increased risk of PE with COVID-19 Start Pantoprazole 40mg IV BID Transfuse 2 units packed RBCs and repeat Hgb 2 hours following this. Aim Hgb > 8 CT A/P due to grimicing with RLQ pain on exam and prior CT with Given poor baseline, recent COVID-19 infection, reversible cause and x2 Hgb stable will defer GI consult unless Hgb dropping. Clear liquid diet (2) Anemia: Plan: Suspected GI bleed as above (3) Quadriplegia: Plan: Incomplete has some movement of upper extremities right > left. No movement of lower extremities. Secondary to MS, will consult PT/OT to determine place of discharge but suspect she will need to return to the [facility] (4) Multiple sclerosis: Plan: As above (5) History of pneumonia: Plan: Recent history of COVID-19 on June 12. Unclear if worsening pneumonitis on CXR just radiographic worsening as clinically she is on room air. Cefepime given in ER given leukocytosis and concern for pneumonia however she has already had a course of augmentin. Procalcitonin added to labs - will defer further typical antibiotic coverage unless this is elevated. CT chest to also help distinguish etiology of CXR changes. Poor cough reflex - aspiration precautions per last SLT note earlier this month. (6) Aortic regurgitation: Plan: Murmur noted on exam (7) Neurogenic bladder: Plan: CT as above should assess for urinary retention although not the primary reason for performing this. Continue tolterodine, Mirabegron and methenamine (chronic prophylaxis) Plan VTE prophylaxis - chemical prophylaxis contraindicated due to GI bleed Diet - clear liquid Disposition - admit to med/tele Admission and Anticipated Discharge Date Admission Date: June 28, 2022 History of Present Illness Chief Complaint: Low hemoglobin on outpatient labs Primary Care Provider: Irlanda [facility] Naina Sher is an 81 year old female who presents to the ER due to low hemoglobin on outpatient labs. The patient is unable to give me any history other than she feels well but someone sent for an ambulance due to abnormal outpatient labs. No chest pain, shortness of breath or dizziness. She denies any diarrhea, constipation, nausea, vomiting, abdominal pain, melena or bright red blood in stool. Per hand over note to emergency room she has had a rapid decline. She reports she is close to her baseline and spends most of her time in bed bound but is able to use a powered wheelchair. Due to her multiple sclerosis she is unable to move her bilateral lower extremities. She was recently admitted to hospital from June 12 - 2021 due to COVID-19 pneumonia causing mostly altered mental state. She was treated with dexamethasone and discharged on Xarelto for VTE prophylaxis. She was discharged to the [facility] for rehabilitation. In the ER hemoglobin was repeated and stable from 6.4 to 6.9. Fecal occult blood was grossly positive. She was consented for blood and ordered 2 units. She was referred to medicine for admission and ongoing management of anemia. Allergies Allergy/AdvReac Type Severity Reaction Status Date / Time No Known Allergies Allergy Verified 06/12/22 21:05 Home Medications Medication Instructions Recorded Confirmed Type ascorbic acid (vitamin C) 1,000 mg 1 g PO QAM 09/16/18 06/28/22 History tablet (Vitamin C) baclofen 10 mg tablet 10 mg PO QID 09/16/18 06/28/22 History cholecalciferol (vitamin D3) 10 400 unit PO QAM 09/16/18 06/28/22 History mcg (400 unit) tablet (Vitamin D3) multivitamin 1 tab PO QAM 09/16/18 06/28/22 History methenamine hippurate 1 gram tablet 1 g PO BID 90 days #180 tabs 12/04/21 06/28/22 Rx aspirin 81 mg tablet,delayed 81 mg PO QAM 03/16/22 06/28/22 History release mirabegron 50 mg tablet,extended 50 mg PO HS 03/16/22 06/28/22 History release 24 hr tolterodine 2 mg capsule,extended 2 mg PO QAM 03/16/22 06/28/22 History release 24 hr acetaminophen 500 mg tablet 1,000 mg PO TID PRN fever or pain 06/21/22 06/28/22 Rx (Tylenol Extra Strength) #30 tabs celecoxib 100 mg capsule (Celebrex) 100 mg PO DAILY #30 caps 06/21/22 06/28/22 Rx guaifenesin 600 mg tablet, 1,200 mg PO Q12 #60 tabs 06/21/22 06/28/22 Rx extended release 12 hr (Mucinex) ipratropium 0.5 mg-albuterol 3 mg 3 ml NEB Q2H PRN shortness of 06/21/22 06/28/22 Rx (2.5 mg base)/3 mL nebulization breath or wheezing #90 mL soln polyethylene glycol 3350 17 gram 17 g PO DAILY #30 ea 06/21/22 06/28/22 Rx oral powder packet (Miralax) rivaroxaban 10 mg tablet (Xarelto) 10 mg PO DAILY 35 days #35 tabs 06/21/22 06/28/22 Rx sennosides 8.6 mg tablet (Senokot) 17.2 mg PO HS #60 tabs 06/21/22 06/28/22 Rx Past Med/Surg History Medical History Aortic regurgitation Per 2016 ECHO - Moderate to severe AR. Wide based eccentric jet of at least moderate AR. Aspiration, chronic pulmonary Cerebrovascular insufficiency Per PCP records- 2016- suspect left hemispheric event Chronic constipation Chronic diastolic CHF (congestive heart failure) Cough Since 2018 per PCP records- RLL atelectasis and mucous plugging History of pneumonia Incomplete emptying of bladder Multiple sclerosis Requires power wheelchair per records Has new patient appt with neuro 07/2022 Nephrolithiasis Neurogenic bladder Nocturia Quadriplegia Per records- uses power wheelchair Urge incontinence of urine Urinary urgency Surgical History H/O knee surgery History of back surgery X 2 History of open reduction and internal fixation (ORIF) procedure RIGHT LEG/HARDWARE REMOVED LATER Hx of appendectomy Family History Sister Amyotrophic lateral sclerosis Father Cancer Mother Cancer Other Hypertension Social History Smoking Status: Never smoker Tobacco Type: Cigarettes Second Hand Exposure: No; Hx Alcohol Use: Yes Alcohol type: wine and hard liquor Alcohol Intake Frequency: 4 or More x per/Week Hx Substance Use: No Preferred Language: Bahraini Communication Ability: Effective Toe Former Stitchdowns Required: No Beliefs That Will Affect Care: None marital status: Current Living Situation: [facility]uation Comment[facility] current occupational status: retired How many Children do You have: 2 Feels Safe at Home: Yes Assistive Devices: Wheelchair Review of Systems Review of Systems: All systems reviewed & are unremarkable except as noted in HPI & below Physical Exam Constitutional: + frail appearing Eyes: + anicteric sclerae; normal pupil size Neck: trachea midline, no thyromegaly Respiratory: + abnormal respiratory effort (reduced), no respiratory distress, no labored breathing and does not use accessory muscles Auscultation: + diminished lung sounds (throughout); no crackles and no wheezes Cardiovascular: Rate/Rhythm: regular rate and regular rhythm Heart Sounds: + murmur (diastolic loudest in apex) Extremities: normal capillary refill; no calf tenderness and no pedal edema Gastrointestinal (Abdomen): Inspection/Auscultation: abdomen normal to inspection and normal bowel sounds; abdomen not distended Percussion/Palpation: abdomen soft; abdomen nontender (denies however grimacing in RLQ), no guarding and abdomen not rigid Skin: + eschar (left dorsal foot, healing ulcer noted during prior hospitalization) Neurologic: awake; + does not move all extremities and not confused Unable to move lower extremities which are chronically contracted, able to mildly extend index finger on left hand and flex/extend left elbow. Stronger movement of right upper extremity but also with some finger contractures. Psychiatric: A+Ox3, euthymic affect Results & Data Results & Data ([facility]) Vital Signs (Past 12 Hours) Vital Signs Pulse Resp O2 Del Method 06/28/22 15:25 83 16 Room Air 06/28/22 15:25 82 16 Room Air Laboratory Results Abnormal lab results 06/28/22 06/28/22 06/28/22 Range/Units 15:29 15:29 15:29 WBC 16.57 H (4.8-10.8) K/ul RBC 2.24 L (3.93-5.22) M/uL Hgb 6.9 L* (12.0-16.0) g/dl Hct 22.3 L (34.1-44.9) % MCHC 30.9 L (32.0-36.0) g/dL RDW Std Deviation 52.7 H (36.4-46.3) fL RDW Coeff of Rosales 15.2 H (11.5-14.5) % Plt Count 697 H (130-400) K/uL Neut # (Auto) 14.50 H (1.4-6.5) K/uL Lymph # (Auto) 0.75 L (1.2-3.4) K/uL Immature Gran # (Auto) 0.23 H (0.00-0.02) K/uL Absolute Nucleated RBC 0.05 H (0-0) K/uL BUN 31 H (6-23) mg/dl Creatinine 0.31 L (0.6-1.2) mg/dl BUN/Creatinine Ratio 100.0 H (10-20) Glucose 101 H (70-99(Fasting)) mg/dl Total Protein 5.8 L (6.0-8.3) gm/dl Albumin 3.1 L (3.4-5.0) gm/dl Urine Appearance (Clear) U Epithel Cells (Auto) (0-5) /lpf SARS-CoV-2, RNA, NAAT (NEGATIVE) Crossmatch See Detail 06/28/22 06/28/22 Range/Units 17:00 17:25 WBC (4.8-10.8) K/ul RBC (3.93-5.22) M/uL Hgb (12.0-16.0) g/dl Hct (34.1-44.9) % MCHC (32.0-36.0) g/dL RDW Std Deviation (36.4-46.3) fL RDW Coeff of Rosales (11.5-14.5) % Plt Count (130-400) K/uL Neut # (Auto) (1.4-6.5) K/uL Lymph # (Auto) (1.2-3.4) K/uL Immature Gran # (Auto) (0.00-0.02) K/uL Absolute Nucleated RBC (0-0) K/uL BUN (6-23) mg/dl Creatinine (0.6-1.2) mg/dl BUN/Creatinine Ratio (10-20) Glucose (70-99(Fasting)) mg/dl Total Protein (6.0-8.3) gm/dl Albumin (3.4-5.0) gm/dl Urine Appearance Cloudy A (Clear) U Epithel Cells (Auto) 20-30 H (0-5) /lpf SARS-CoV-2, RNA, NAAT POSITIVE A* (NEGATIVE) Crossmatch Diagnostic Findings XR chest 1V portable CLINICAL HISTORY: weak TECHNIQUE: Single frontal radiograph of the chest was obtained. Comparison: Comparison is made to chest radiograph 06/18/2022 FINDINGS: No lines and tubes are seen. The cardiomediastinal silhouette is normal. Interval development of multifocal airspace opacities in the right lung. Left retrocardiac opacity is also seen. No evidence of pleural effusion or pneumothorax. IMPRESSION: Multifocal airspace opacities likely represent worsening infectious/inflammatory pneumonitis. Medications Administered ER Medications Given: Pantoprazole 40mg IV Famotidine 20mg IV NSS 500 ml bolus Cefepime 2000mg IV ECG Rate (beats per minute): 85 Rhythm: normal sinus Findings: + other (Left ventricular hypertrophy) and + left axis deviation; no acute ischemic change Comparison ECG Date: from (Jun 12, 2022) Change: no significant change Code Status & VTE Plan Code Status DNR/DNI per POLST VTE Prophylaxis Plan VTE Prophylaxis will be ordered: No Reason for no VTE drug order: Contraindicated Reason for no VTE mechanical prophylaxis: Contraindicated PG Care Time/CCT Total # of Minutes Spent Total Time Spent with Patient: Total time spent is greater than 50% in coordination of care (as documented) at patient's floor/unit and/or counseling patient: Coding Level of Care Code 77514 Initial Inpt Care Lvl 3 Diagnoses Acute GI bleeding K92.2 Anemia D64.9 Anemia type: unspecified type Quadriplegia G82.50 Multiple sclerosis G35 History of pneumonia Z87.01 Aortic regurgitation I35.1 Neurogenic bladder N31.9 (1) Anemia Anemia type: unspecified type Qualified Code(s): D64.9 - Anemia, unspecified
[2022-06-28 15:52] LABS: Hematocrit (blood only) 22.3 % (34.1-44.9); Hemoglobin 6.9 g/dl (12.0-16.0); Mean Corpuscular Hemoglobin 30.8 pg (25.0-34.0); Mean Corpuscular Hgb Conc 30.9 g/dL (32.0-36.0); Mean Corpuscular Volume 99.6 fL (80.0-100.0); Mean Platelet Volume 9.7 fL (9.4-12.3); Nucleated RBC # (auto) 0.05 K/uL (0-0); Nucleated RBC % (auto) 0.3 %; Platelet Count 697 K/uL (130-400); RDW Coefficient of Variation 15.2 % (11.5-14.5); RDW Standard Deviation 52.7 fL (36.4-46.3); Red Blood Count 2.24 M/uL (3.93-5.22); White Blood Count 16.57 K/ul (4.8-10.8)
[2022-06-28] MEDS ORDERED: PANTOprazole 40 MG in SYRINGE 0 ML IV STA (15:58)
--- NOTE | 2022-06-28 15:58 | XRay Report ---
XR chest 1V portable CLINICAL HISTORY: weak TECHNIQUE: Single frontal radiograph of the chest was obtained. Comparison: Comparison is made to chest radiograph 06/18/2022 FINDINGS: No lines and tubes are seen. The cardiomediastinal silhouette is normal. Interval development of mult ifocal airspace opacities in the right lung. Left retrocardiac opacity is also seen. No evidence of p leural effusion or pneumothorax. IMPRESSION: Multifocal airspace opacities likely represent worsening infectious/inflammatory pneumonitis. ACT 112: Negative or not required by law. Electronically signed by: Gage Colin M.D. 06/28/2022 3:57 PM
[2022-06-28 15:59] LABS: Partial Thromboplastin Ratio 0.8; Partial Thromboplastin Time 21.2 Seconds (21.0-31.0); Prothrombin Time 10.9 Seconds (9.0-12.0)
[2022-06-28 16:08] LABS: Albumin Globulin Ratio 1.1 (0.9-2); Albumin Level 3.1 gm/dl (3.4-5.0); Bilirubin,Total 0.4 mg/dl (0.2-1.0); Calcium 9.1 mg/dl (8.5-10.1); Creatinine Clr Calc Pharmacy 113.7 ml/min; Est GFR (African American) 121.4 ml/min; Est GFR (Non-African American) 104.8 ml/min; Globulin 2.7 gm/dl (2.5-4.0); Potassium 3.9 mmol/L (3.5-5.1); Total Protein 5.8 gm/dl (6.0-8.3)
[2022-06-28] MEDS ORDERED: CEFEPIME 2,000 MG/20 ML VIAL IV STA (16:08)
[2022-06-28] MEDS ORDERED: SODIUM CHLORIDE 0.9% 1000ML 500 ML IV ONE (16:08)
[2022-06-28 16:12] LABS: Troponin I High Sensitivity 12.9 pg/ml (0-14)
[2022-06-28 16:47] LABS: Anisocytosis Present; Basophils # (auto) 0.04 K/uL (0-0.2); Basophils % (auto) 0.2 %; Eosinophils # (auto) 0.28 K/uL (0-0.50); Eosinophils % (auto) 1.7 %; Immature Granulocytes # (auto) 0.23 K/uL (0.00-0.02); Immature Granulocytes % (auto) 1.4 %; Lymphocytes # (auto) 0.75 K/uL (1.2-3.4); Lymphocytes % (auto) 4.5 %; Monocytes # (auto) 0.77 K/uL (0.24-0.82); Monocytes % (auto) 4.6 %; Neutrophils % (auto) 87.6 %; Polychromasia 1+
[2022-06-28 17:29] LABS: Appearance Urine Cloudy (Clear); Bacteria Urine Automated Negative (Negative); Bilirubin Urine Negative (Negative); Blood Urine Negative (Negative); Color Urine Dark Yellow; Epithelial Cell Urine Auto 20-30 /lpf (0-5); Glucose Urine UA Negative (Negative); Ketones Urine Negative (Negative); Leukocyte Esterase Urine Negative (Negative); Nitrite Urine Negative (Negative); Protein Urine Negative (Negative); RBC Urine Automated 0-4 /hpf (0-4); Specific Gravity Urine 1.024 (1.000-1.030); Urobilinogen Urine Negative (Negative); pH Urine 6.5 (4.5-7.5)
[2022-06-28] MEDS ORDERED: OPTIRAY 300 100mL IV ONE (17:50)
--- NOTE | 2022-06-28 18:26 | CT Scan Report ---
CT SCAN OF THE ABDOMEN AND PELVIS WITH IV CONTRAST CLINICAL HISTORY: Right lower quadrant abdominal pain. GI bleeding. COMPARISON STUDY: Abdominal CT dated 06/12/2022 and 08/12/2017. TECHNIQUE: Following the IV administration of 81 cc of Optiray 300, CT scan of the abdomen and pelvis is performed from the lung bases to the proximal femora. Images are reviewed in the axial, sagittal, and coronal planes. IV contrast was administered without complication. A dose lowering technique was utilized adhering to the principles of ALARA. The examination is severely degraded by motion artifac t, and by streak artifact from the arms which could not be elevated above the abdomen. FINDINGS: Lung bases: The heart is mildly enlarged and without pericardial effusion. The coronary arteries are densely calcified. There is mild aneurysmal dilatation of the ascending thoracic aorta which measures up to 4.1 cm in diameter. There are trace pleural effusions. Patchy bibasilar consolidation is new f rom 06/12/2022. A fat-containing Bochdalek hernia is noted on the right. Liver: The contrast-enhanced liver is normal in size, contour, and attenuation. There is no intrahepa tic biliary ductal dilatation. Gallbladder: Unremarkable. Spleen: Normal in size and attenuation. Pancreas: The pancreas is moderately atrophic and grossly unremarkable. Adrenal glands: Nodular thickening of the adrenal glands is similar to previous. Kidneys: The contrast-enhanced kidneys demonstrate mild cortical atrophy and are without hydronephros is. There are numerous nonobstructing right renal calculi which measure up to 5 mm. The kidneys enhan ce symmetrically. Scattered subcentimeter cortical hypodensities likely represent cysts but are too s mall for definitive characterization. Abdominal vasculature: The abdominal aorta is normal in course and caliber noting advanced atheroscle rotic calcification. Bilateral thrombosis of the superficial femoral arteries is noted. Bowel: There is rectosigmoid fecal impaction and moderate constipation. There is rectal wall thickeni ng with perirectal inflammation and fluid indicating stercoral proctitis. No bowel obstruction is see n. There is colonic diverticulosis without CT evidence of acute diverticulitis. There is persistent w all thickening of the sigmoid. The appendix is not visualized. Peritoneum: There is no intraperitoneal free air. There is trace free fluid in the pelvis. Lymphadenopathy: None. Pelvic viscera: The bladder is decompressed around a Samano catheter. Foci of intraluminal gas are lik milo related to instrumentation. The uterus is normal as visualized. An indeterminant 4.6 cm ovoid sof t tissue structures again seen in the posterior pelvis adjacent to the rectosigmoid. A right inguinal hernia contains tiny segments of bowel and bladder. Skeletal structures: The skeletal structures are osteopenic. There is mild to moderate lumbosacral sp ondylosis. There is chronic compression deformities with evidence of previous vertebroplasty noted in the lower thoracic spine. No lytic or blastic lesions are seen. IMPRESSION: 1. There is rectosigmoid fecal impaction with evidence of stercoral proctitis. 2. Patchy airspace consolidation at both lung bases is new from previous and typical for pneumonia/as piration pneumonitis. Clinical correlation will be required and radiographic follow-up to resolution is recommended. 3. There is moderate constipation. No bowel obstruction is seen. 4. Right-sided nephrolithiasis. 5. Colonic diverticulosis without CT evidence of acute diverticulitis. 6. Cardiomegaly and small pleural effusions. 7. A 4.6 cm ovoid soft tissue structure in the posterior pelvis is pathologically indeterminant and n ot significantly changed from prior studies. 8. Bilateral superficial femoral artery thrombosis. 9. Additional findings as above. ACT 112: Negative or not required by law. Electronically signed by: Marek Tran M.D. 06/28/2022 6:24 PM
--- NOTE | 2022-06-28 19:55 | CT Scan Report ---
CT SCAN OF THE CHEST WITH IV CONTRAST CLINICAL HISTORY: Pneumonia seen by chest x-ray. COMPARISON STUDY: Chest x-ray dated 06/28/2022. Chest CT dated 08/15/2019. TECHNIQUE: Following the IV administration of 81 cc of Optiray 300, CT scan of the thorax was perform ed from the thoracic inlet to the upper abdomen. Images are reviewed in the axial, sagittal, and nilam nal planes. IV contrast was administered without complication. A dose lowering technique was utilize d adhering to the principles of ALARA. The examination is degraded by motion artifact, as well as by streak artifact from the arms which could not be elevated above the chest. CT DOSE: 462.28 mGy.cm FINDINGS: Thyroid: Imaged portions of the thyroid gland are normal in size and attenuation. Thoracic aorta: There is atherosclerotic calcification of the thoracic aorta. There is aneurysmal dil atation of the ascending thoracic aorta which measures up to 4.1 cm in diameter. The remainder of the thoracic aorta is normal in caliber, and the arch demonstrates bovine variant anatomy. No dissection is seen. Pulmonary vasculature: The pulmonary trunk is normal in caliber. There are no filling defects identif ied in the central pulmonary vessels to indicate pulmonary embolus. Note that this examination was no t protocoled for evaluation of the pulmonary arteries. Heart: The heart is enlarged and without pericardial effusion. The coronary arteries are densely calc ified. Lungs and pleural spaces: Evaluation of the lung parenchyma is degraded by motion artifact. Emphysema tous change is observed. A fat-containing Bochdalek hernia is noted at the right lung base. There are trace pleural effusions, left larger than right with dependent atelectasis. Patchy airspace consolid ation is seen throughout both lungs. The trachea and central airways are clear. A 1.2 cm irregular no dule is seen in the left lower lobe on image #152. Mediastinum: There is no mediastinal lymphadenopathy. Edith: Enlarged right hilar nodes measure up to 14 mm in short axis. No left hilar adenopathy is seen. Axillae: There is no axillary lymphadenopathy. Upper abdomen: A nonobstructing calculus is noted in the upper pole of the right kidney. There are di verticula of the partially imaged left colon. See report of abdominal CT performed concurrently for d etailed intra-abdominal findings. Skeletal structures: The skeletal structures are osteopenic. Degenerative change and hyperkyphosis is noted in the spine. There are chronic compression deformities with evidence of previous vertebroplas ty in the lower thoracic region. No lytic or blastic bony lesions are seen. Arthritic change is noted in the shoulders. IMPRESSION: 1. Cardiomegaly and emphysema. 2. Patchy airspace consolidation is throughout both lungs and typical for an infectious/inflammatory pneumonitis. Clinical correlation will be required and radiographic follow-up to resolution is recomm ended. 3. Trace pleural effusions, left larger than right. 4. A 1.2 cm irregular nodule is seen in the left lower lobe. Although this may be inflammatory, given the morphology 3 month follow-up chest CT is recommended for reassessment. 5. Mildly enlarged right hilar lymph nodes are likely reactive. 6. There is mild aneurysmal dilatation of the ascending thoracic aorta which measures up to 4.1 cm. 7. Additional findings as above. ACT 112: Positive. There are findings on this exam that require communication between the performing entity and the patient following Patient Test Result Information Act ([place] Act 112) guidelines. Electronically signed by: Marek Tran M.D. 06/28/2022 7:52 PM
[2022-06-28] MEDS ORDERED: bisacodyL 10 MG SUPP PR ONE (22:34)
[2022-06-28] MEDS ORDERED: AZITHROMYCIN 500 MG in DEXTROSE 5% 250 ML IV ONE (23:00)
[2022-06-29] MEDS: SENNA 8.6 MG TAB PO SCH ×2 (00:42→21:13)
[2022-06-29] MEDS: POLYETHYLENE (MIRALAX) 17 GM PACK PO SCH ×4 (00:43→21:14)
[2022-06-29] MEDS: METHENAMINE HIPPURATE 1 GM TAB PO SCH ×3 (00:43→21:14)
[2022-06-29] MEDS: BACLOFEN 10 MG TAB PO SCH ×5 (00:43→21:13)
[2022-06-29] MEDS: MIRABEGRON ER 25 MG TAB PO SCH ×2 (00:43→21:14)
[2022-06-29 08:24] LABS: Hematocrit (blood only) 33.3 % (34.1-44.9); Hemoglobin 11.2 g/dl (12.0-16.0); Mean Corpuscular Hemoglobin 30.4 pg (25.0-34.0); Mean Corpuscular Hgb Conc 33.6 g/dL (32.0-36.0); Mean Corpuscular Volume 90.5 fL (80.0-100.0); Mean Platelet Volume 9.5 fL (9.4-12.3); Nucleated RBC # (auto) 0.02 K/uL (0-0); Nucleated RBC % (auto) 0.1 %; Platelet Count 568 K/uL (130-400); RDW Coefficient of Variation 16.4 % (11.5-14.5); RDW Standard Deviation 52.4 fL (36.4-46.3); Red Blood Count 3.68 M/uL (3.93-5.22); White Blood Count 20.85 K/ul (4.8-10.8)
[2022-06-29 08:35] LABS: BUN Creatinine Ratio 78.3 (10-20); Calcium 8.1 mg/dl (8.5-10.1); Creatinine Clr Calc Pharmacy 148.6 ml/min; Est GFR (African American) 133.9 ml/min; Est GFR (Non-African American) 115.6 ml/min; Potassium 3.4 mmol/L (3.5-5.1)
[2022-06-29 08:38] LABS: Hematocrit (blood only) 33.5 % (34.1-44.9); Hemoglobin 11.1 g/dl (12.0-16.0)
[2022-06-29 08:48] LABS: Basophils # (auto) 0.06 K/uL (0-0.2); Basophils % (auto) 0.3 %; Eosinophils % (auto) 1.9 %; Immature Granulocytes # (auto) 0.15 K/uL (0.00-0.02); Immature Granulocytes % (auto) 0.7 %; Lymphocytes # (auto) 0.55 K/uL (1.2-3.4); Lymphocytes % (auto) 2.6 %; Monocytes # (auto) 0.87 K/uL (0.24-0.82); Monocytes % (auto) 4.2 %; Neutrophils # (auto) 18.82 K/uL (1.4-6.5); Neutrophils % (auto) 90.3 %
[2022-06-29] MEDS: TOLTERODINE TARTRATE LA 2 MG CAPCR PO SCH (09:12)
[2022-06-29] MEDS: PANTOprazole 40 MG in SYRINGE 0 ML IV SCH ×2 (09:12→21:14)
[2022-06-29] MEDS: MULTIVITAMIN TAB PO SCH (09:12)
--- NOTE | 2022-06-29 10:17 | Electrocardiogram Report ---
Test Reason : Blood Pressure : / mmHG Vent. Rate : 085 BPM Atrial Rate : 085 BPM P-R Int : 134 ms QRS Dur : 092 ms QT Int : 392 ms P-R-T Axes : 069 -32 022 degrees QTc Int : 466 ms Poor data quality, interpretation may be adversely affected Normal sinus rhythm Left axis deviation Left ventricular hypertrophy with repolarization abnormality RSR' or QR pattern in V1 suggests right ventricular conduction delay Abnormal ECG When compared with ECG of 12-JUN-2022 19:01, Nonspecific T wave abnormality now evident in Lateral leads Confirmed by Alan Burrell ([id number]) on 06/29/2022 10:16:55 AM Referred By: [facility] Confirmed By:Alan Burrell
--- NOTE | 2022-06-29 11:53 | Hospitalist Progress Note ---
Date of Service June 29, 2022 Assessment & Plan (1) Acute GI bleeding: Plan: In setting of aspirin, Xarelto, Celebrex and dexamethasone use Celebrex is longstanding (although she reports no pain and does not feel she needs this) however dexamethasone used during COVID-19 infection and Xarelto given on discharge for 30 days due to immobile status with increased risk of PE with COVID-19 Continue Pantoprazole 40mg IV BID, can switch to PO tomorrow on discharge Aim Hgb > 8, s/p 2 units packed RBCs, Hgb 11.2 Advance diet as tolerated (2) Anemia: Plan: Acute blood loss Suspected GI bleed as above (3) Pneumonia: Plan: Given worsening CT findings - suspect related to COVID during previous hospitalization but only covered for typical infections at that time with Augmentin on discharge. Started on azithromycin and will continue on 5 day course of this. (4) Quadriplegia: Plan: Incomplete has some movement of upper extremities right > left. No movement of lower extremities. Secondary to MS, will consult PT/OT to determine place of discharge but suspect she will need to return to [facility] (5) Multiple sclerosis: Plan: As above (6) History of pneumonia: Plan: Recent history of COVID-19 on June 12. Unclear if worsening pneumonitis on CXR just radiographic worsening as clinically she is on room air. Procalcitonin negative - no need for typical coverage but started on atypical coverage with azithromycin course for 5 days. Poor cough reflex - aspiration precautions per last SLT note earlier this month. (7) Aortic regurgitation: Plan: Murmur noted on exam (8) Neurogenic bladder: Plan: CT as above should assess for urinary retention although not the primary reason for performing this. Continue tolterodine, Mirabegron and methenamine (chronic prophylaxis) Plan VTE prophylaxis - chemical prophylaxis contraindicated due to GI bleed Diet - advanced diet to regular Disposition - stable for downgrade to med/surg. Suspect medically stable for discharge. Admission and Anticipated Discharge Date Admission Date: June 28, 2022 Subjective Patient appears much improved. No nausea, vomiting, shortness of breath, cough, melena, bright red blood in stool. Review of Systems Review of Systems: All systems reviewed & are unremarkable except as noted in Subjective Physical Exam Constitutional: + frail appearing Eyes: + anicteric sclerae; normal pupil size Neck: trachea midline, no thyromegaly Respiratory: + abnormal respiratory effort (reduced), no respiratory distress, no labored breathing and does not use accessory muscles Auscultation: + diminished lung sounds (throughout); no crackles and no wheezes Cardiovascular: Rate/Rhythm: regular rate and regular rhythm Heart Sounds: + murmur (diastolic loudest in apex) Extremities: normal capillary refill; no calf tenderness and no pedal edema Gastrointestinal (Abdomen): Inspection/Auscultation: abdomen normal to inspection and normal bowel sounds; abdomen not distended Percussion/Palpation: abdomen soft; abdomen nontender (denies however grimacing in RLQ), no guarding and abdomen not rigid Skin: + eschar (left dorsal foot, healing ulcer noted during prior hospitalization) Neurologic: awake; + does not move all extremities and not confused Psychiatric: A+Ox3, euthymic affect Results & Data Results & Data ([facility]) Vital Signs (Past 12 Hours) Vital Signs Temp Pulse Pulse Resp BP BP Pulse Ox 06/29/22 08:00 80 06/29/22 08:15 37.2 C 93 H 18 132/71 92 06/29/22 05:22 36.5 C 91 H 16 174/72 H 92 06/29/22 04:45 36.4 C L 92 H 16 167/74 H 90 06/29/22 03:45 36.4 C L 82 16 174/87 H 92 06/29/22 02:45 36.4 C L 86 16 163/69 H 93 06/29/22 02:15 36.2 C L 86 16 159/81 H 95 06/29/22 02:00 36.7 C 83 20 144/79 H 90 06/29/22 01:41 36.4 C L 88 20 165/73 H 93 O2 Del Method 06/29/22 08:00 06/29/22 08:15 Room Air 06/29/22 05:22 06/29/22 04:45 06/29/22 03:45 06/29/22 02:45 06/29/22 02:15 06/29/22 02:00 06/29/22 01:41 PG Care Time/CCT Total # of Minutes Spent Total Time Spent with Patient: Total time spent is greater than 50% in coordination of care (as documented) at patient's floor/unit and/or counseling patient: Coding Level of Care Code 85696 Subseq Hosp Care Lvl 2 Diagnoses Acute GI bleeding K92.2 Anemia D64.9 Anemia type: unspecified type Pneumonia J18.9 Quadriplegia G82.50 Multiple sclerosis G35 History of pneumonia Z87.01 Aortic regurgitation I35.1 Neurogenic bladder N31.9 (1) Anemia Anemia type: unspecified type Qualified Code(s): D64.9 - Anemia, unspecified
[2022-06-29] MEDS ORDERED: AZITHROMYCIN 250 MG in DEXTROSE 5% 250 ML IV SCH (21:00)
[2022-06-29] MEDS: AZITHROMYCIN 250 MG TAB PO SCH (21:13)
[2022-06-29] MEDS: bisacodyL 10 MG SUPP PR SCH (21:13)
[2022-06-29] MEDS: ACETAMINOPHEN 325 MG TAB PO PRN (23:35)
[2022-06-30 08:11] LABS: Hematocrit (blood only) 31.4 % (34.1-44.9); Hemoglobin 10.6 g/dl (12.0-16.0); Mean Corpuscular Hgb Conc 33.8 g/dL (32.0-36.0); Mean Platelet Volume 9.8 fL (9.4-12.3); Platelet Count 564 K/uL (130-400); RDW Coefficient of Variation 16.2 % (11.5-14.5); RDW Standard Deviation 51.7 fL (36.4-46.3); Red Blood Count 3.53 M/uL (3.93-5.22)
[2022-06-30 08:49] LABS: BUN Creatinine Ratio 90.9 (10-20); Calcium 8.2 mg/dl (8.5-10.1); Est GFR (African American) 135.9 ml/min; Est GFR (Non-African American) 117.3 ml/min; Potassium 3.4 mmol/L (3.5-5.1)
[2022-06-30] MEDS: ACETAMINOPHEN 1,000 MG/100 ML VIAL IV PRN ×2 (10:18→19:20)
[2022-06-30] MEDS: PANTOprazole 40 MG in SYRINGE 0 ML IV SCH (10:18)
--- NOTE | 2022-06-30 10:52 | Hospitalist Progress Note ---
Date of Service June 30, 2022 Assessment & Plan (1) Acute GI bleeding: Plan: In setting of aspirin, Xarelto, Celebrex and dexamethasone use Celebrex is longstanding (although she reports no pain and does not feel she needs this) however dexamethasone used during COVID-19 infection and Xarelto given on discharge for 30 days due to immobile status with increased risk of PE with COVID-19 Hemoccult positive in ER Continue Pantoprazole 40mg IV BID, can switch to PO today Aim Hgb > 8, s/p 2 units packed RBCs, Hgb 11.2 -> 10.6 Diet advanced (2) Acute blood loss anemia: (3) Anemia: Plan: Acute blood loss anemia Suspected GI bleed as above (4) Tension headache: Plan: Severe left sided headache pain this morning with associated left trapezius muscle spasm. Not yet had baclofen today. Use heating pad, acetaminophen and baclofen. If not successful can use low dose of benzodiazepines to help relax her muscles. (5) Pneumonia: Plan: Given worsening CT findings - suspect related to COVID during previous hospitalization but only covered for typical infections at that time with Augmentin on discharge. Started on azithromycin and will continue on 5 day course of this. (6) Quadriplegia: Plan: Incomplete has some movement of upper extremities right > left. No movement of lower extremities. Secondary to MS, will consult PT/OT to determine place of discharge but suspect she will need to return to the [facility] (7) Multiple sclerosis: Plan: As above (8) History of pneumonia: Plan: Recent history of COVID-19 on June 12. Unclear if worsening pneumonitis on CXR just radiographic worsening as clinically she is on room air. Procalcitonin negative - no need for typical coverage but started on atypical coverage with azithromycin course for 5 days. Poor cough reflex - aspiration precautions per last SLT note earlier this month. (9) Aortic regurgitation: Plan: Murmur noted on exam (10) Neurogenic bladder: Plan: CT as above should assess for urinary retention although not the primary reason for performing this. Continue tolterodine, Mirabegron and methenamine (chronic prophylaxis) (11) Leucocytosis: Plan VTE prophylaxis - chemical prophylaxis contraindicated due to GI bleed Diet - advanced diet to regular Disposition - continue on med/surg, unable to discharge today given severity of headache Admission and Anticipated Discharge Date Admission Date: June 28, 2022 Subjective In distress this morning when seen. Reportedly had pain all last night but refused Tyelenol. Did not sleep well. No chest or abdominal pain. Had BM on . No nausea or vomiting. Main concern is a headache on the left side, appears to be radiating from her left neck. She refused her usual antispasmodic Baclofen this morning. Physical Exam Constitutional: + frail appearing Eyes: + anicteric sclerae; normal pupil size Neck: trachea midline, no thyromegaly Respiratory: + abnormal respiratory effort (reduced), no respiratory distress, no labored breathing and does not use accessory muscles Auscultation: + diminished lung sounds (throughout); no crackles and no wheezes Cardiovascular: Rate/Rhythm: regular rate and regular rhythm Heart Sounds: + murmur (diastolic loudest in apex) Extremities: normal capillary refill; no calf tenderness and no pedal edema Gastrointestinal (Abdomen): Inspection/Auscultation: abdomen normal to inspection and normal bowel sounds; abdomen not distended Percussion/Palpation: abdomen soft; abdomen nontender, no guarding and abdomen not rigid Musculoskeletal: Left trapezius mucle spasm with associated pain on palpation Skin: + eschar (left dorsal foot, healing ulcer noted during prior hospitalization) Neurologic: awake; + does not move all extremities and not confused Psychiatric: A+Ox3, euthymic affect Results & Data Results & Data ([facility]) Vital Signs (Past 12 Hours) Vital Signs Temp Pulse Resp BP Pulse Ox O2 Del Method 06/30/22 09:43 36.5 C 79 18 144/76 H 92 Room Air PG Care Time/CCT Total # of Minutes Spent Total Time Spent with Patient: Total time spent is greater than 50% in coordination of care (as documented) at patient's floor/unit and/or counseling patient: Coding Level of Care Code 15180 Subseq Hosp Care Lvl 2 Diagnoses Acute GI bleeding K92.2 Acute blood loss anemia D62 Anemia D64.9 Anemia type: unspecified type Tension headache G44.209 Pneumonia J18.9 Quadriplegia G82.50 Multiple sclerosis G35 History of pneumonia Z87.01 Aortic regurgitation I35.1 Neurogenic bladder N31.9 Leucocytosis D72.829 (1) Anemia Anemia type: unspecified type Qualified Code(s): D64.9 - Anemia, unspecified
[2022-06-30] MEDS: BACLOFEN 10 MG TAB PO SCH ×4 (10:54→20:15)
[2022-06-30] MEDS: POLYETHYLENE (MIRALAX) 17 GM PACK PO SCH ×3 (11:06→20:16)
[2022-06-30] MEDS: MULTIVITAMIN TAB PO SCH (11:06)
[2022-06-30] MEDS: TOLTERODINE TARTRATE LA 2 MG CAPCR PO SCH (11:06)
[2022-06-30] MEDS: METHENAMINE HIPPURATE 1 GM TAB PO SCH ×2 (11:06→20:15)
[2022-06-30] MEDS: POTASSIUM CHLORIDE / WTR 10 MEQ/100 ML PLCT IV SCH ×2 (17:51→19:17)
[2022-06-30] MEDS: AZITHROMYCIN 250 MG TAB PO SCH (20:15)
[2022-06-30] MEDS: bisacodyL 10 MG SUPP PR SCH (20:15)
[2022-06-30] MEDS: PANTOprazole 40 MG TAB PO SCH (20:15)
[2022-06-30] MEDS: MIRABEGRON ER 25 MG TAB PO SCH (20:15)
[2022-06-30] MEDS: SENNA 8.6 MG TAB PO SCH (20:16)
[2022-07-01] MEDS: ACETAMINOPHEN 325 MG TAB PO PRN ×2 (01:31→09:51)
[2022-07-01] MEDS: PANTOprazole 40 MG TAB PO SCH ×2 (08:24→20:59)
[2022-07-01] MEDS: BACLOFEN 10 MG TAB PO SCH ×4 (08:24→20:58)
[2022-07-01] MEDS: TOLTERODINE TARTRATE LA 2 MG CAPCR PO SCH (08:24)
[2022-07-01] MEDS: MULTIVITAMIN TAB PO SCH (08:24)
[2022-07-01] MEDS: METHENAMINE HIPPURATE 1 GM TAB PO SCH ×2 (08:24→20:58)
[2022-07-01] MEDS: POLYETHYLENE (MIRALAX) 17 GM PACK PO SCH ×3 (08:25→21:00)
[2022-07-01 09:11] LABS: Basophils # (auto) 0.02 K/uL (0-0.2); Basophils % (auto) 0.1 %; Eosinophils # (auto) 0.44 K/uL (0-0.50); Eosinophils % (auto) 3.3 %; Hematocrit (blood only) 31.4 % (34.1-44.9); Hemoglobin 10.3 g/dl (12.0-16.0); Immature Granulocytes # (auto) 0.07 K/uL (0.00-0.02); Immature Granulocytes % (auto) 0.5 %; Lymphocytes # (auto) 0.45 K/uL (1.2-3.4); Lymphocytes % (auto) 3.4 %; Mean Corpuscular Hemoglobin 29.9 pg (25.0-34.0); Mean Corpuscular Hgb Conc 32.8 g/dL (32.0-36.0); Mean Corpuscular Volume 91.3 fL (80.0-100.0); Mean Platelet Volume 9.2 fL (9.4-12.3); Monocytes % (auto) 6.7 %; Neutrophils # (auto) 11.47 K/uL (1.4-6.5); Platelet Count 586 K/uL (130-400); RDW Coefficient of Variation 15.9 % (11.5-14.5); RDW Standard Deviation 51.7 fL (36.4-46.3); Red Blood Count 3.44 M/uL (3.93-5.22); White Blood Count 13.35 K/ul (4.8-10.8)
[2022-07-01 09:31] LABS: BUN Creatinine Ratio 55.6 (10-20); Calcium 8.3 mg/dl (8.5-10.1); Creatinine Clr Calc Pharmacy 127.1 ml/min; Est GFR (Non-African American) 109.6 ml/min; Potassium 3.8 mmol/L (3.5-5.1)
--- NOTE | 2022-07-01 19:32 | Hospitalist Progress Note ---
Date of Service July 01, 2022 Assessment & Plan (1) Acute GI bleeding: Plan: In setting of aspirin, Xarelto, Celebrex and dexamethasone use Celebrex is longstanding (although she reports no pain and does not feel she needs this) however dexamethasone used during COVID-19 infection and Xarelto given on discharge for 30 days due to immobile status with increased risk of PE with COVID-19 Hemoccult positive in ER Continue Pantoprazole 40mg p.o. twice daily Aim Hgb > 8, s/p 2 units packed RBCs, Hgb 11.2 -> 10.6 ->10.3 Diet advanced Patient is medically stable for discharge at this time. (2) Acute blood loss anemia: (3) Anemia: Plan: Acute blood loss anemia Suspected GI bleed as above (4) Tension headache: Plan: Now resolved Severe left sided headache pain yesterday with associated left trapezius muscle spasm. Not yet had baclofen today. Use heating pad, acetaminophen and baclofen. If not successful can use low dose of benzodiazepines to help relax her muscles. (5) Pneumonia: Plan: Given worsening CT findings - suspect related to COVID during previous hospitalization but only covered for typical infections at that time with Augmentin on discharge. Continue on azithromycin and will continue on 5 day course of this. Oxygen saturations remained stable on room air. (6) Quadriplegia: Plan: Incomplete has some movement of upper extremities right > left. No movement of lower extremities. Secondary to MS, will consult PT/OT to determine place of discharge but suspect she will need to return to the [facility] (7) Multiple sclerosis: Plan: As above (8) History of pneumonia: Plan: Recent history of COVID-19 on June 12. Unclear if worsening pneumonitis on CXR just radiographic worsening as clinically she is on room air. Procalcitonin negative - no need for typical coverage but started on atypical coverage with azithromycin course for 5 days. Poor cough reflex - aspiration precautions per last SLT note earlier this month. (9) Aortic regurgitation: Plan: Murmur noted on exam (10) Neurogenic bladder: Plan: CT as above should assess for urinary retention although not the primary reason for performing this. Continue tolterodine, Mirabegron and methenamine (chronic prophylaxis) (11) Leucocytosis: Plan: Improving. ? Secondary to GI bleed or atypical pneumonia. Plan VTE prophylaxis - chemical prophylaxis contraindicated due to GI bleed Diet - advanced diet to regular Disposition -medically stable for discharge, [facility] unable to [facility] her [facility] today. Admission and Anticipated Discharge Date Admission Date: June 28, 2022 Subjective Headache resolved. No current acute concerns or complaints. She reports she is back to her baseline status. Hemoglobin is stable at 10.3. Review of Systems Review of Systems: All systems reviewed & are unremarkable except as noted in Subjective Physical Exam Constitutional: + frail appearing Eyes: + anicteric sclerae; normal pupil size Neck: trachea midline, no thyromegaly Respiratory: + abnormal respiratory effort (reduced), no respiratory distress, no labored breathing and does not use accessory muscles Auscultation: + diminished lung sounds (throughout); no crackles and no wheezes Cardiovascular: Rate/Rhythm: regular rate and regular rhythm Heart Sounds: + murmur (diastolic loudest in apex) Extremities: normal capillary refill; no calf tenderness and no pedal edema Gastrointestinal (Abdomen): Inspection/Auscultation: abdomen normal to inspection and normal bowel sounds; abdomen not distended Percussion/Palpation: abdomen soft; abdomen nontender, no guarding and abdomen not rigid Skin: + eschar (left dorsal foot, healing ulcer noted during prior hospitalization) Neurologic: awake; + does not move all extremities and not confused Psychiatric: Orientation: alert, oriented to person and oriented to place; + not oriented to time Results & Data Results & Data ([facility]) Vital Signs (Past 12 Hours) Vital Signs Temp Pulse Resp BP Pulse Ox O2 Del Method 07/01/22 18:30 36.7 C 88 16 143/78 H 97 Room Air 07/01/22 14:54 36.3 C L 85 18 102/57 L 92 Room Air 07/01/22 11:04 36.5 C 80 18 126/74 91 Room Air 07/01/22 09:00 Room Air 07/01/22 07:49 37.2 C 16 152/73 H 90 Room Air PG Care Time/CCT Total # of Minutes Spent Total Time Spent with Patient: Total time spent is greater than 50% in coordination of care (as documented) at patient's floor/unit and/or counseling patient: Coding Level of Care Code 68753 Subseq Hosp Care Lvl 1 Diagnoses Acute GI bleeding K92.2 Acute blood loss anemia D62 Anemia D64.9 Anemia type: unspecified type Tension headache G44.209 Pneumonia J18.9 Quadriplegia G82.50 Multiple sclerosis G35 History of pneumonia Z87.01 Aortic regurgitation I35.1 Neurogenic bladder N31.9 Leucocytosis D72.829 (1) Anemia Anemia type: unspecified type Qualified Code(s): D64.9 - Anemia, unspecified
[2022-07-01] MEDS: bisacodyL 10 MG SUPP PR SCH (20:58)
[2022-07-01] MEDS: AZITHROMYCIN 250 MG TAB PO SCH (20:58)
[2022-07-01] MEDS: MIRABEGRON ER 25 MG TAB PO SCH (20:59)
[2022-07-01] MEDS: SENNA 8.6 MG TAB PO SCH (21:00)
[2022-07-01] MEDS: ACETAMINOPHEN 1,000 MG/100 ML VIAL IV PRN (22:22)
[2022-07-02] MEDS: METHENAMINE HIPPURATE 1 GM TAB PO SCH (08:07)
[2022-07-02] MEDS: TOLTERODINE TARTRATE LA 2 MG CAPCR PO SCH (08:08)
[2022-07-02] MEDS: POLYETHYLENE (MIRALAX) 17 GM PACK PO SCH ×2 (08:08→14:18)
[2022-07-02] MEDS: PANTOprazole 40 MG TAB PO SCH (08:08)
[2022-07-02] MEDS: MULTIVITAMIN TAB PO SCH (08:08)
[2022-07-02] MEDS: BACLOFEN 10 MG TAB PO SCH ×2 (08:12→14:17)
--- NOTE | 2022-07-02 15:37 | Discharge Summary ---
Date of Service July 02, 2022 Admission HPI Per Admitting Provider Naina Sher is an 81 year old female who presents to the ER due to low hemoglobin on outpatient labs. The patient is unable to give me any history other than she feels well but someone sent for an ambulance due to abnormal outpatient labs. No chest pain, shortness of breath or dizziness. She denies any diarrhea, constipation, nausea, vomiting, abdominal pain, melena or bright red blood in stool. Per hand over note to emergency room she has had a rapid decline. She reports she is close to her baseline and spends most of her time in bed bound but is able to use a powered wheelchair. Due to her multiple sclerosis she is unable to move her bilateral lower extremities. She was recently admitted to hospital from June 12 - 2021 due to COVID-19 pneumonia causing mostly altered mental state. She was treated with dexamethasone and discharged on Xarelto for VTE prophylaxis. She was discharged to the [facility] for [facility]. In the ER hemoglobin was repeated and stable from 6.4 to 6.9. Fecal occult blood was grossly positive. She was consented for blood and ordered 2 units. She was referred to medicine for admission and ongoing management of anemia. Principal Diagnosis Acute GI bleed Incidental bilateral superficial femoral artery thrombosis Discharge Exam Constitutional + frail appearing Eyes + anicteric sclerae; normal pupil size Neck trachea midline, no thyromegaly Respiratory + abnormal respiratory effort (reduced), no respiratory distress, no labored breathing and does not use accessory muscles Auscultation: + diminished lung sounds (throughout); no crackles and no wheezes Cardiovascular Rate/Rhythm: regular rate and regular rhythm Heart Sounds: + murmur (diastolic loudest in apex) Vessels: posterior tibial pulses present and dorsalis pedis pulses present Extremities: normal capillary refill; no calf tenderness and no pedal edema Gastrointestinal (Abdomen) Inspection/Auscultation: abdomen normal to inspection and normal bowel sounds; abdomen not distended Percussion/Palpation: abdomen soft; abdomen nontender, no guarding and abdomen not rigid Neurologic awake; + does not move all extremities and not confused Psychiatric Orientation: alert, oriented to person and oriented to place; + not oriented to time Discharge Data Allergies Allergy/AdvReac Type Severity Reaction Status Date / Time No Known Allergies Allergy Verified 06/12/22 21:05 Consultations 06/28/22 15:12 ED Decision to Admit Stat Ordered Studies 06/28/22 15:51 CT Abd and Pelvis [CT abd pelvis IV con only] Urgent IMPRESSION: 1. There is rectosigmoid fecal impaction with evidence of stercoral proctitis. 2. Patchy airspace consolidation at both lung bases is new from previous and typical for pneumonia/aspiration pneumonitis. Clinical correlation will be required and radiographic follow-up to resolution is recommended. 3. There is moderate constipation. No bowel obstruction is seen. 4. Right-sided nephrolithiasis. 5. Colonic diverticulosis without CT evidence of acute diverticulitis. 6. Cardiomegaly and small pleural effusions. 7. A 4.6 cm ovoid soft tissue structure in the posterior pelvis is pathol ogically indeterminant and not significantly changed from prior studies. 8. Bilateral superficial femoral artery thrombosis. 9. Additional findings as above. 06/28/22 16:13 CT chest with contrast [CT chest diagnostic w con] Urgent IMPRESSION: 1. Cardiomegaly and emphysema. 2. Patchy airspace consolidation is throughout both lungs and typical for an infectious/inflammatory pneumonitis. Clinical correlation will be required and radiographic follow-up to resolution is recommended. 3. Trace pleural effusions, left larger than right. 4. A 1.2 cm irregular nodule is seen in the left lower lobe. Although this may be inflammatory, given the morphology 3 month follow-up chest CT is recommended for reassessment. 5. Mildly enlarged right hilar lymph nodes are likely reactive. 6. There is mild aneurysmal dilatation of the ascending thoracic aorta which measures up to 4.1 cm. 7. Additional findings as above. Hospital Course (1) Acute GI bleeding: Naina Sher is an 81 year old female admitted to [facility] from June 28 - 2021 due to anemia noted on outpatient labs. She was diagnosed with an acute GI bleed and treated with intravenous pantoprazole. This is likely secondary to recent dexamethasone use in addition to Celebrex, aspirin and Xarelto. These medications have all been discontinued but she may restart on Celebrex if needed for pain given her extensive rheumatoid arthritis, however she have not required this in hospital. Recommend continuing pantoprazo le 40 mg p.o. twice daily for 1 month and then daily. You received 2 units packed red blood cells and her hemoglobin has been stable around 10 to 11 g/dL since. Recommend repeating hemoglobin in approximately 1 week and restarting aspirin at that time due to bilateral superficial femoral artery thrombosis as above. Given advanced age, multiple sclerosis and recent COVID infection endoscopy evaluation was not pursued. She also did not want to pursue invasive imaging regarding the incidental superficial femoral artery thrombosis and given current GI bleeding this was not pursued but recommend following up with vascular surgery on discharge. Peripheral pulses were intact in her feet. She was also treated for an atypical pneumonia given chest x-ray changes however suspect these are most likely post-COVID scarring. Recommend finishing course of azithromycin with 1 further day as prescribed. (2) Acute blood loss anemia: (3) Anemia: (4) Tension headache: (5) Pneumonia: (6) Quadriplegia: (7) Multiple sclerosis: (8) History of pneumonia: (9) Aortic regurgitation: (10) Neurogenic bladder: (11) Leucocytosis: Total Time Total Time Spent Total Time Spent (In Minutes): 40 Discharge Plan Discharge Items Patient Disposition: Transfer [facility] Fac Reason For Visit: ACUTE GI BLEED Discharge Diagnosis: Acute GI bleed Activity: Resume your previous activity Non-emergency contact: Primary Care Provider Call non-emergency contact if: you have any medication questions and your symptoms worsen [facility] - Diet: Regular Diet Texture: Easy to Chew Addtl Attending Provider Instructions: You were admitted to [facility] from June 28 - 2021 due to anemia noted on outpatient labs. He was diagnosed with an acute GI bleed and treated with intravenous pantoprazole. This is likely secondary to recent dexamethasone use in addition to Celebrex, aspirin and Xarelto. These medications have all been discontinued but you may restart on Celebrex if needed for pain, however you have not required this in hospital. Recommend continuing pantoprazole 40 mg p.o. twice daily for 1 month and then daily. You received 2 units packed red blood cells and her hemoglobin has been stable around 10 to 11 g/dL since. Recommend repeating hemoglobin in approximately 1 week. Given advanced age, multiple sclerosis and recent COVID infection endoscopy evaluation was not pursued. You also treated for an atypical pneumonia given chest x-ray changes however suspect these are most likely post-COVID scarring. Recommend finishing course of azithromycin with 1 further day as prescribed. Pending Studies at Discharge: No Stand-Alone Forms: My [facility] Skilled Items Patient informed of condition?: Yes DNR: Yes Discharge Level of Care: Skilled Communicable Disease: No Discharge Prognosis: Stable Lines: None Urinary Catheter: No Medications and DC Order Prescriptions: New pantoprazole 40 mg Tablet,Delayed Release (Dr/Ec) 40 mg PO BID 30 Days Qty: 60 0RF Continued methenamine hippurate 1 gram tablet 1 g PO BID 90 Days Qty: 180 3RF multivitamin Tablet 1 tab PO QAM ascorbic acid (vitamin C) [Vitamin C] 1,000 mg Tablet 1 g PO QAM baclofen 10 mg tablet 10 mg PO QID cholecalciferol (vitamin D3) [Vitamin D3] 400 unit Tablet 400 unit PO QAM ipratropium-albuterol 0.5 mg-3 mg(2.5 mg base)/3 mL Solution For Nebulization 3 ml NEB Q2H PRN (Reason: shortness of breath or wheezing) Qty: 90 0RF acetaminophen [Tylenol Extra Strength] 500 mg Tablet 1,000 mg PO TID PRN (Reason: fever or pain) Qty: 30 0RF sennosides [Senokot] 8.6 mg Tablet 17.2 mg PO HS Qty: 60 0RF polyethylene glycol 3350 [Miralax] 17 gram Powder In Packet 17 g PO DAILY Qty: 30 0RF guaifenesin [Mucinex] 600 mg Tablet Extended Release 12hr 1,200 mg PO Q12 Qty: 60 0RF tolterodine 2 mg capsule,extended release 24hr 2 mg PO QAM mirabegron 50 mg tablet extended release 24 hr 50 mg PO HS Discontinued celecoxib [Celebrex] 100 mg Capsule 100 mg PO DAILY Qty: 30 0RF Xarelto 10 mg tablet 10 mg PO DAILY 35 Days Qty: 35 0RF aspirin 81 mg Tablet,Delayed Release (Dr/Ec) 81 mg PO QAM Discharge Orders: Discharge Order (Routine); Ordered 07/02/22 Ordered By: Bob Lin Admission Data Admit Date/Time: 06/28/22 16:12 Attending Provider: Bob Lin Admit Provider: Bob Lin Primary Care Provider: [facility] Other Providers: Bob Lin Other Interventions: Discharge Summary Assessment (RN) Last Done: 07/02/22 17:18 Coding Level of Care Code D/C DAY MANAGEMENT >30 MINS Diagnoses Acute GI bleeding K92.2 Acute blood loss anemia D62 Anemia D64.9 Anemia type: unspecified type Tension headache G44.209 Pneumonia J18.9 Quadriplegia G82.50 Multiple sclerosis G35 History of pneumonia Z87.01 Aortic regurgitation I35.1 Neurogenic bladder N31.9 Leucocytosis D72.829
== END 2022-07-02 17:21 | DRG 377 ==
LOC: ED 14:51 → 2W 16:12
DX: Z99.3 Dependence on wheelchair; K92.2 Gastrointestinal hemorrhage, unspecified; D62 Acute posthemorrhagic anemia; Z79.82 Long term (current) use of aspirin; J18.9 Pneumonia, unspecified organism; G35 Multiple sclerosis; Z79.01 Long term (current) use of anticoagulants; I35.1 Nonrheumatic aortic (valve) insufficiency; G82.50 Quadriplegia, unspecified; G44.209 Tension-type headache, unspecified, not intractable; Z86.16 Personal history of COVID-19; I50.32 Chronic diastolic (congestive) heart failure; Z68.1 Body mass index [BMI] 19.9 or less, adult; N31.9 Neuromuscular dysfunction of bladder, unspecified

== ENCOUNTER 2024-09-15 16:33 | Observation (INO) ==
--- NOTE | 2024-09-15 16:47 | Emergency Department Note ---
Impression & Plan Brain TIA ED Provider Note HISTORY OF PRESENT ILLNESS: Patient is an 84-year-old female presenting with a transient episode of speech finding difficulties. Patient reportedly was with family when about 45 minutes ago she had difficulties finding words and communicating for about 8 minutes. Patient is amnestic to the event. She reports she is on a blood thinner but is unsure the name. On review of her medication list, there does not seem to be any blood thinner noted. She denies any chest pain or shortness of breath. She does report a previous history of stroke and has left-sided deficits and weakness. She denies any recent falls or head injury. Denies any fevers. Denies any complaints on arrival to the emergency department. ROS: as above PHYSICAL EXAM: Constitutional: Patient appears in no acute distress. HENT: Head: Normocephalic and atraumatic. Eyes: EOMI, PERRL Mouth/Throat: Mucous membranes moist. Neck: Trachea midline. Neck supple. Cardiovascular: RRR, No murmurs, rubs or gallops. Intact distal pulses. Pulmonary/Chest: No respiratory distress. Breath sounds clear and equal bilaterally. No wheezes or rales. Abdominal: Abdomen soft, no tenderness, rebound or guarding. Musculoskeletal: No edema, tenderness or deformity noted. Skin: Warm and dry. No rash, erythema, pallor or cyanosis Psychiatric: Appropriate mood and affect for situation. Neurological: Alert and keenly responsive. Facies symmetric. Able to raise eyebrows, close eyes, smile, puff mouth, stick out tongue, move tongue left and right and raise palate symmetrically. Able to shrug shoulders. PERRLA. SILT to forehead below eye and at jawline. 3/5 strength in LUE. Able to wiggle toes in bilateral lower extremities. Contracture of LLE. MDM: - Vitals signs stable - History obtained via patient and EMS. History as above. - Chronic conditions affecting care: multiple sclerosis; CHF; quadriplegia - Differential diagnoses include, but are not limited to: TIA; CVA; intracranial hemorrhage; ACS; dysrhythmia; electrolyte abnormality - Order placed for continuous cardiac monitoring. At this time, monitor showed rate of 79 bpm with normal sinus rhythm, per my interpretation. - External medical records reviewed. Neurology visit note dated 04/30/2023 reviewed. Patient follows in their clinic for her multiple sclerosis. - EKG interpreted by myself showed normal sinus rhythm. Rate 77 bpm. QT 406. No acute ischemic changes. - Laboratory workup interpreted by myself showed normal WBC; normal PT/INR; stable electrolytes - CT head wo contrast negative for acute pathology - CXR negative for pneumonia, per my interpretation. Radiology notes mild pulmonary vascular congestion - MRI brain ordered. - Discussion was had with assistant case manager about patient's case and need for admission - Hospitalist, Dr. Lin, consulted for admission - [facility]. ASSESSMENT AND PLAN: Diagnosis: TIA Plan: admit Past Med/Surg History Problem List (Updated 09/15/24 @ 19:33 by Katie Ho MD) Brain TIA (Acute) Diaphragmatic hernia Weakness of voice Chronic cough Tongue lesion Facial skin lesion (Acute) Pressure ulcer of thigh, stage 3 (Acute) Tremor Leucocytosis Tension headache Acute blood loss anemia Pneumonia Acute GI bleeding (Acute) Acute upper gastrointestinal bleeding (Acute) Anemia (Acute) Quadriplegia Per records- uses power wheelchair Cervicalgia DVT prophylaxis Altered mental status (Acute) COVID-19 (Acute) Bilateral pneumonia Hypotension Near syncope (Acute) Syncope Atelectasis of left lung Cervicalgia Pressure ulcer of back (Acute) Microscopic hematuria Hematuria Asymptomatic microscopic hematuria Calcium nephrolithiasis Aspiration, chronic pulmonary Multiple sclerosis Atelectasis (Acute) To left lower lobe Cough (Acute) Since 2018 per PCP records- RLL atelectasis and mucous plugging Gross hematuria (Acute) History of pneumonia (Acute) Incomplete emptying of bladder (Acute) Nephrolithiasis (Acute) Nocturia (Acute) UTI (urinary tract infection) (Acute) Urge incontinence of urine (Acute) Urinary urgency (Acute) Chronic diastolic CHF (congestive heart failure) Neurogenic bladder Chronic constipation Multiple sclerosis Requires power wheelchair per records Has new patient appt with neuro 07/2022 Aspiration pneumonia (Acute) atelectasis LLL Aortic regurgitation Per 2016 ECHO - Moderate to severe AR. Wide based eccentric jet of at least moderate AR. Medical History (Updated 09/15/24 @ 19:33 by Katie Ho MD) Cerebrovascular insufficiency Per PCP records- 2016- suspect left hemispheric event Encounter for pre-operative examination Surgical History History of open reduction and internal fixation (ORIF) procedure RIGHT LEG/HARDWARE REMOVED LATER H/O knee surgery History of back surgery X 2 Hx of appendectomy Family History Sister Amyotrophic lateral sclerosis Father Cancer Mother Cancer Other Hypertension Social History Smoking Status: Former smoker Tobacco Type: Cigarettes Second Hand Exposure: No; Do You Dip or Chew Tobacco: No; Hx Alcohol Use: Yes Alcohol type: wine and hard liquor Alcohol Intake Frequency: 4 or More x per/Week Hx Substance Use: No Preferred Language: Greek Communication Ability: Effective Visual Impairment: Limited Hearing Ability: Normal Mechanical Specialist Required: No Beliefs That Will Affect Care: None marital status: Current Living Situation: Spouse and Long Term Current Living Situation Comment: [facility] current occupational status: retired How many Children do You have: 2 Feels Safe at Home: Yes Diet: regular caffeine: No during the past year weight has: remained stable Assistive Devices: Mechanical Lift and Wheelchair Allergies Allergies Allergy/AdvReac Type Severity Reaction Status Date / Time codeine Allergy Unknown Verified 07/24/24 10:53 Home Meds Home Medications Medication Instructions Recorded Confirmed baclofen 10 mg tablet 10 mg PO QID 09/16/18 09/15/24 cholecalciferol (vitamin D3) 10 400 unit PO QAM 09/16/18 09/15/24 mcg (400 unit) tablet (Vitamin D3) bisacodyl 10 mg rectal suppository 10 mg RI HS 02/26/23 09/15/24 methenamine hippurate 1 gram tablet 1 g PO BIDM 02/26/23 09/15/24 mirabegron 50 mg tablet,extended 50 mg PO HS 02/26/23 09/15/24 release 24 hr acetaminophen 500 mg tablet 1,000 mg PO Q8 PRN Pain 09/15/24 09/15/24 dextromethorphan-guaifenesin 5 20 ml PO Q4H PRN cough and 09/15/24 09/15/24 mg-100 mg/5 mL oral liquid congestion (Mucinex Fast-Max DM Max) docusate sodium 100 mg capsule 100 mg PO HS 09/15/24 09/15/24 oxycodone 5 mg tablet 2.5 mg PO Q4 PRN Moderate Pain 09/15/24 09/15/24 (Scale Score 5-6) oxycodone 5 mg tablet 5 mg PO Q4 PRN Severe Pain (Scale 09/15/24 09/15/24 Score 7-10) vit C 250 mg-vit E 90 mg-zinc 40 2 tab PO QAM 09/15/24 09/15/24 mg-copper 1 [id number] capsule (PreserVision AREDS-2) Previous Rx's Medication Instructions Recorded polyethylene glycol 3350 17 gram 17 g PO DAILY #30 ea 06/21/22 oral powder packet (Miralax) tolterodine 2 mg capsule,extended 2 mg PO DAILY #90 caps 10/08/23 release 24 hr Results & Data (ED) Vital Signs Vital Signs - 24 hr 09/15/24 16:48 09/15/24 17:54 09/15/24 18:19 Temperature 36.4 C L Temperature Source Oral Pulse Rate 104 H 74 Pulse Rate [Apical] 79 Pulse Rhythm Regular Pulse Strength Normal Pulse Strength [Apical] Normal Respiratory Rate 20 18 Respiratory Effort / Characteristics Non-Labored Non-Labored Spontaneous Respiratory Depth Normal Normal Respiratory Pattern Regular Regular Blood Pressure 106/71 Blood Pressure [Right Arm] 152/73 H Blood Pressure Mean 82 Blood Pressure Mean [Right Arm] 99 Blood Pressure Position Lying Pulse Oximetry 98 92 Oxygen Delivery Method Room Air Room Air Sepsis Recent Fever Within 48 Hours No Sepsis New/Unexplained Change in Mental Status N/A Sepsis Action Taken by Nursing No Action Required 09/15/24 18:20 09/15/24 19:15 Temperature Temperature Source Pulse Rate Pulse Rate [Apical] Pulse Rhythm Pulse Strength Pulse Strength [Apical] Respiratory Rate Respiratory Effort / Characteristics Respiratory Depth Respiratory Pattern Blood Pressure Blood Pressure [Right Arm] Blood Pressure Mean Blood Pressure Mean [Right Arm] Blood Pressure Position Pulse Oximetry 94 95 Oxygen Delivery Method Room Air Room Air Sepsis Recent Fever Within 48 Hours Sepsis New/Unexplained Change in Mental Status Sepsis Action Taken by Nursing Laboratory Data 09/15/24 16:53 09/15/24 18:35 Lab Results 09/15/24 09/15/24 09/15/24 Range/Units 16:37 16:53 18:35 WBC 9.69 (4.8-10.8) K/ul RBC 4.18 L (4.20-5.40) M/uL Hgb 12.2 (12.0-16.0) g/dl Hct 37.9 (37.0-47.0) % MCV 90.7 (80.0-100.0) fL MCH 29.2 (25.0-34.0) pg MCHC 32.2 (32.0-36.0) g/dL RDW Std Deviation 50.7 H (36.4-46.3) fL RDW Coeff of Rosales 15.5 H (11.5-14.5) % Plt Count 314 (130-400) K/uL MPV 11.0 (9.4-12.4) fL PT Cancelled 10.5 INR Cancelled 1.0 APTT Cancelled 29 PTT Ratio Cancelled 1.1 Sodium TNP 137 Potassium TNP 4.2 Chloride 102 (98-107) mmol/L Carbon Dioxide 27 (21-32) mmol/L Anion Gap TNP BUN 21 (6-23) mg/dl Creatinine 0.37 L (0.6-1.2) mg/dl Est Cr Clr Drug Dosing 102.2 ml/min eGFR 98.16 BUN/Creatinine Ratio 56.8 H (10-20) Glucose 101 H (70-99(Fasting)) mg/dl POC Glucose 99 (70-99) mg/dl Calcium 9.2 (8.6-10.3) mg/dl Magnesium TNP 1.8 Total Bilirubin 0.3 (0.2-1.0) mg/dl AST TNP 13 ALT 13 (7-52) U/L Alkaline Phosphatase TNP 85 Total Protein 6.4 (6.0-8.3) gm/dl Albumin TNP 3.4 Globulin TNP Albumin/Globulin Ratio TNP Imaging Data Radiologist's Impression: Chest X-Ray 09/15/24 16:48 INDICATION: Cough. TECHNIQUE: Frontal radiograph of the chest. COMPARISON: Radiograph from 11/21/2023. FINDINGS: Elevation of left hemidiaphragm similar to prior. Cardiomegaly. Bilateral lower lobe atelectasis/airspace disease. Mild pulmonary vascular congestion. No pleural effusion or pneumothorax. No acute fracture. IMPRESSION: Bilateral lower lobe atelectasis/airspace disease. Mild pulmonary vascular congestion. Electronically signed by Laz Tellez 09-15-2024 5:[address] 09/15/24 16:48 Clinical History: Difficulty finding words Technique: Axial computed tomography images were obtained of the brain without intravenous contrast. Comparison is made to the prior CT dated 02/26/2023 Findings: There is unchanged cerebral atrophy, within expected limits for the patient's age. Areas of decreased attenuation are seen within the periventricular white matter, likely representing chronic small vessel ischemic disease. There is no definite sign of acute or old infarction. No intracranial hemorrhage is evident. No definite mass lesion is seen on this noncontrast examination. There is no midline shift or other form of herniation. No hydrocephalus is seen. No fracture is identified. The orbits and the visualized paranasal sinuses appear unremarkable. The mastoid air cells appear clear. Impression: 1. Cerebral atrophy and chronic small vessel ischemic disease 2. Otherwise unremarkable noncontrast CT of the brain Electronically signed by Geoff Garces 09-15-2024 5:19 PM Discharge Plan Visit Data Chief Complaint: Altered Mental Status Stated Complaint: AMS ED Provider: Katie Ho Discharge Problem: Brain TIA Forms Stand Alone Forms: [facility] Prescriptions Prescriptions: No Action tolterodine 2 mg capsule,extended release 24hr 2 mg PO DAILY Qty: 90 3RF baclofen 10 mg tablet 10 mg PO QID cholecalciferol (vitamin D3) [Vitamin D3] 400 unit Tablet 400 unit PO QAM polyethylene glycol 3350 [Miralax] 17 gram Powder In Packet 17 g PO DAILY Qty: 30 0RF bisacodyl [Biscolax] 10 mg Suppository 10 mg RI HS methenamine hippurate 1 gram tablet 1 g PO BIDM mirabegron 50 mg tablet extended release 24 hr 50 mg PO HS docusate sodium 100 mg Capsule 100 mg PO HS oxycodone 5 mg tablet 2.5 mg PO Q4 PRN (Reason: Moderate Pain (Scale Score 5-6)) oxycodone 5 mg tablet 5 mg PO Q4 PRN (Reason: Severe Pain (Scale Score 7-10)) acetaminophen 500 mg Tablet 1,000 mg PO Q8 PRN (Reason: Pain) PreserVision AREDS-2 250-90-40-1 mg Capsule 2 tab PO QAM dextromethorphan-guaifenesin [Mucinex Fast-Max DM Max] 5-100 mg/5 mL Liquid 20 ml PO Q4H PRN (Reason: cough and congestion) Referrals Referrals: Mike Valdivia MD [Primary Care Provider] -
--- NOTE | 2024-09-15 17:11 | XRay Report ---
INDICATION: Cough. TECHNIQUE: Frontal radiograph of the chest. COMPARISON: Radiograph from 11/21/2023. FINDINGS: Elevation of left hemidiaphragm similar to prior. Cardiomegaly. Bilateral lower lobe atelectasis/airspace disease. Mild pulmonary vascular congestion. No pleural effusion or pneumothorax. No acute fracture. IMPRESSION: Bilateral lower lobe atelectasis/airspace disease. Mild pulmonary vascular congestion. Electronically signed by Laz Tellez 09-15-2024 5:10 PM
--- NOTE | 2024-09-15 17:19 | CT Scan Report ---
Clinical History: Difficulty finding words Technique: Axial computed tomography images were obtained of the brain without intravenous contrast. Comparison is made to the prior CT dated 02/26/2023 Findings: There is unchanged cerebral atrophy, within expected limits for the patient's age. Areas of decreased attenuation are seen within the periventricular white matter, likely representing chronic small vessel ischemic disease. There is no definite sign of acute or old infarction. No intracranial hemorrhage is evident. No definite mass lesion is seen on this noncontrast examination. There is no midline shift or other form of herniation. No hydrocephalus is seen. No fracture is identified. The orbits and the visualized paranasal sinuses appear unremarkable. The mastoid air cells appear clear. Impression: 1. Cerebral atrophy and chronic small vessel ischemic disease 2. Otherwise unremarkable noncontrast CT of the brain Electronically signed by Geoff Garces 09-15-2024 5:19 PM
[2024-09-15 17:20] LABS: Hematocrit (blood only) 37.9 % (37.0-47.0); Hemoglobin 12.2 g/dl (12.0-16.0); Mean Corpuscular Hemoglobin 29.2 pg (25.0-34.0); Mean Corpuscular Hgb Conc 32.2 g/dL (32.0-36.0); Mean Corpuscular Volume 90.7 fL (80.0-100.0); Platelet Count 314 K/uL (130-400); RDW Coefficient of Variation 15.5 % (11.5-14.5); RDW Standard Deviation 50.7 fL (36.4-46.3); Red Blood Count 4.18 M/uL (4.20-5.40); White Blood Count 9.69 K/ul (4.8-10.8)
[2024-09-15 17:57] LABS: Alanine Aminotransferase 13 U/L (7-52); BUN Creatinine Ratio 56.8 (10-20); Bilirubin,Total 0.3 mg/dl (0.2-1.0); Blood Urea Nitrogen 21 mg/dl (6-23); Calcium 9.2 mg/dl (8.6-10.3); Carbon Dioxide 27 mmol/L (21-32); Chloride 102 mmol/L (98-107); Creatinine Clr Calc Pharmacy 102.2 ml/min; Glucose 101 mg/dl (70-99(Fasting)); Total Protein 6.4 gm/dl (6.0-8.3)
[2024-09-15 19:04] LABS: Albumin Level 3.4 gm/dl (3.4-5.0); Magnesium 1.8 mg/dl (1.7-2.4); Potassium 4.2 mmol/L (3.5-5.1)
--- NOTE | 2024-09-15 19:11 | History & Physical Report ---
Date of Service September 15, 2024 Assessment & Plan (1) Stroke-like symptoms: Plan: Brain MRI - if no stroke plan plan on consulting neurology to determine if needs ongoing investigation (CT angios not ordered on admission as etiology not clear) and treatment for TIA UA and Cepheid to assess for alternative cause of transient confusion episode NIH scores PT/OT SLT consult Lipid panel and HbA1C with AM labs (2) Chronic cough: Plan: Cepheid PCR ordered Continue guaifenesin/dextromethorphan (3) Quadriplegia: Plan: Secondary to multiple sclerosis although also notes possible history of stroke but not confirmed Continue baclofen, mirabegron Plan VTE Prophylaxis - Lovenox 40mg SQ daily Diet - heart healthy Disposition - observation on med/tele Admission and Anticipated Discharge Date Admission Date: September 15, 2024 History of Present Illness Chief Complaint: Word salad Primary Care Provider: Mike Valdivia MD Naina Sher is an 84 year old female who presents to the ER with an 8 minute episode of word finding difficulty / word salad. She is currently back to her baseline although her reports her speech is quiet. Transient episode lasted for around 8 minutes and patient unable to remember event. She otherwise feels at her baseline state with no vision hearing changes. She has chronic limb flexion deformities from multiple sclerosis and is wheelchair bound. She is able to move her right arm but has no/minimal left arm or bilateral lower extremity movements at baseline. She has some short term memory loss at baseline and does not remember the event today. She has a cough but reports this is chronic and not new. No fever or chills. She has a "sensation of urination" but no new urinary symptoms. Allergies Allergy/AdvReac Type Severity Reaction Status Date / Time codeine Allergy Unknown Verified 07/24/24 10:53 Home Medications Medication Instructions Recorded Confirmed Type baclofen 10 mg tablet 10 mg PO QID 09/16/18 09/15/24 History cholecalciferol (vitamin D3) 10 400 unit PO QAM 09/16/18 09/15/24 History mcg (400 unit) tablet (Vitamin D3) polyethylene glycol 3350 17 gram 17 g PO DAILY #30 ea 06/21/22 09/15/24 Rx oral powder packet (Miralax) bisacodyl 10 mg rectal suppository 10 mg DE HS 02/26/23 09/15/24 History methenamine hippurate 1 gram tablet 1 g PO BIDM 02/26/23 09/15/24 History mirabegron 50 mg tablet,extended 50 mg PO HS 02/26/23 09/15/24 History release 24 hr tolterodine 2 mg capsule,extended 2 mg PO DAILY #90 caps 10/08/23 09/15/24 Rx release 24 hr acetaminophen 500 mg tablet 1,000 mg PO Q8 PRN Pain 09/15/24 09/15/24 History dextromethorphan-guaifenesin 5 20 ml PO Q4H PRN cough and 09/15/24 09/15/24 History mg-100 mg/5 mL oral liquid congestion (Mucinex Fast-Max DM Max) docusate sodium 100 mg capsule 100 mg PO HS 09/15/24 09/15/24 History oxycodone 5 mg tablet 2.5 mg PO Q4 PRN Moderate Pain 09/15/24 09/15/24 History (Scale Score 5-6) oxycodone 5 mg tablet 5 mg PO Q4 PRN Severe Pain (Scale 09/15/24 09/15/24 History Score 7-10) vit C 250 mg-vit E 90 mg-zinc 40 2 tab PO QAM 09/15/24 09/15/24 History mg-copper 1 oc-zfvkfw-[id number] capsule (PreserVision AREDS-2) Past Med/Surg History Problem List (Updated 09/15/24 @ 21:02 by Bob Lin MD) Stroke-like symptoms Brain TIA (Acute) Diaphragmatic hernia Weakness of voice Chronic cough Tongue lesion Facial skin lesion (Acute) Pressure ulcer of thigh, stage 3 (Acute) Tremor Leucocytosis Tension headache Acute blood loss anemia Pneumonia Acute GI bleeding (Acute) Acute upper gastrointestinal bleeding (Acute) Anemia (Acute) Quadriplegia Per records- uses power wheelchair Cervicalgia Altered mental status (Acute) Near syncope (Acute) Syncope Atelectasis of left lung Cervicalgia Pressure ulcer of back (Acute) Microscopic hematuria Hematuria Asymptomatic microscopic hematuria Calcium nephrolithiasis Aspiration, chronic pulmonary Multiple sclerosis Atelectasis (Acute) To left lower lobe Cough (Acute) Since 2018 per PCP records- RLL atelectasis and mucous plugging Gross hematuria (Acute) History of pneumonia (Acute) Incomplete emptying of bladder (Acute) Nephrolithiasis (Acute) Nocturia (Acute) UTI (urinary tract infection) (Acute) Urge incontinence of urine (Acute) Urinary urgency (Acute) Chronic diastolic CHF (congestive heart failure) Neurogenic bladder Chronic constipation Multiple sclerosis Requires power wheelchair per records Has new patient appt with neuro 07/2022 Aspiration pneumonia (Acute) atelectasis LLL Aortic regurgitation Per 2016 ECHO - Moderate to severe AR. Wide based eccentric jet of at least moderate AR. Medical History (Updated 09/15/24 @ 21:02 by Bob Lin MD) Cerebrovascular insufficiency Per PCP records- 2016- suspect left hemispheric event Encounter for pre-operative examination Surgical History History of open reduction and internal fixation (ORIF) procedure RIGHT LEG/HARDWARE REMOVED LATER H/O knee surgery History of back surgery X 2 Hx of appendectomy Family History Sister Amyotrophic lateral sclerosis Father Cancer Mother Cancer Other Hypertension Social History Smoking Status: Former smoker Tobacco Type: Cigarettes Smoking End Date: "15-20 years ago"; Second Hand Exposure: No; Do You Dip or Chew Tobacco: No; Hx Alcohol Use: Yes Alcohol type: wine Alcohol Intake Frequency: 4 or More x per/Week Hx Substance Use: No Preferred Language: Honduran Communication Ability: Effective Visual Impairment: Limited Hearing Ability: Normal Band Sawmill Operator Required: No Beliefs That Will Affect Care: None marital status: Current Living Situation: Senior Living [place] [facility] current occupational status: retired How many Children do You have: 2 Other Information That Helps Us Care for You: No Feels Safe at Home: Yes Safety Concerns: Feels Safe At This Time Diet: regular caffeine: No during the past year weight has: remained stable Assistive Devices: Wheelchair Review of Systems Review of Systems: All systems reviewed & are unremarkable except as noted in HPI & below Physical Exam Constitutional: well developed; + not well nourished and no acute distress ENMT: Mouth: + dry oral mucous membranes Respiratory: normal respiratory effort, lungs clear to auscultation Cardiovascular: RRR, no murmur, no edema Gastrointestinal (Abdomen): normal bowel sounds, soft, nontender, no hepatosp lenomegaly Neurologic: + focal motor deficit (chronic limb flex ion deformities, no new extremity deficit per patient/husb) and awake; + does not move all extremities and not confused Cranial Nerves: PERRL, EOM intact bilaterally, normal facial strength, tongue midline, able to rotate head bilaterally, able to elevate shoulders bilaterally, no nystagmus and symmetric palate elevation Coordination: + abnormal [id number] test (unable to test due to chronic deformities) Chronic flexion deformity of bilateral legs, left arm and right 3-5 fingers Psychiatric: Orientation: alert, oriented to person and oriented to place; + not oriented to time Results & Data Results & Data Vital Signs (Past 12 Hours) Vital Signs Temp Pulse Pulse Resp BP BP Pulse Ox 09/15/24 18:20 94 09/15/24 18:19 79 18 152/73 H 92 09/15/24 17:54 74 09/15/24 16:48 36.4 C L 104 H 20 106/71 98 O2 Del Method 09/15/24 18:20 Room Air 09/15/24 18:19 Room Air 09/15/24 17:54 09/15/24 16:48 Room Air Laboratory Results Abnormal lab results 09/15/24 Range/Units 16:53 RBC 4.18 L (4.20-5.40) M/uL RDW Std Deviation 50.7 H (36.4-46.3) fL RDW Coeff of Rosales 15.5 H (11.5-14.5) % Creatinine 0.37 L (0.6-1.2) mg/dl BUN/Creatinine Ratio 56.8 H (10-20) Glucose 101 H (70-99(Fasting)) mg/dl Diagnostic Findings CT Head Clinical History: Difficulty finding words Technique: Axial computed tomography images were obtained of the brain without intravenous contrast. Comparison is made to the prior CT dated 02/26/2023 Findings: There is unchanged cerebral atrophy, within expected limits for the patient's age. Areas of decreased attenuation are seen within the periventricular white matter, likely representing chronic small vessel ischemic disease. There is no definite sign of acute or old infarction. No intracranial hemorrhage is evident. No definite mass lesion is seen on this noncontrast examination. There is no midline shift or other form of herniation. No hydrocephalus is seen. No fracture is identified. The orbits and the visualized paranasal sinuses appear unremarkable. The mastoid air cells appear clear. Impression: 1. Cerebral atrophy and chronic small vessel ischemic disease 2. Otherwise unremarkable noncontrast CT of the brain Chest XR INDICATION: Cough. TECHNIQUE: Frontal radiograph of the chest. COMPARISON: Radiograph from 11/21/2023. FINDINGS: Elevation of left hemidiaphragm similar to prior. Cardiomegaly. Bilateral lower lobe atelectasis/airspace disease. Mild pulmonary vascular congestion. No pleural effusion or pneumothorax. No acute fracture. IMPRESSION: Bilateral lower lobe atelectasis/airspace disease. Mild pulmonary vascular congestion. Medications Administered ER Medications Given: None ECG Rate (beats per minute): 77 Rhythm: normal sinus Findings: + left axis deviation Comparison ECG Date: from (February 26, 2023) Change: no significant change Code Status & VTE Plan Code Status Full VTE Prophylaxis Plan VTE Prophylaxis will be ordered: Yes PG Care Time/CCT Total # of Minutes Spent Total Time Spent with Patient: Total time spent is greater than 50% in coordination of care (as documented) at patient's floor/unit and/or counseling patient: Coding Level of Care Code 13637 INT INP/OBS CARE 2/55MIN Diagnoses Stroke-like symptoms R29.90 Chronic cough R05.3 Quadriplegia G82.50
[2024-09-15 19:15] LABS: Partial Thromboplastin Ratio 1.1; Partial Thromboplastin Time 29 Seconds (21-31); Prothrombin Time 10.5 Seconds (9.0-12.0)
[2024-09-15 19:39] LABS: Troponin I High Sensitivity 7.7 pg/ml (0-14)
[2024-09-15 19:41] LABS: Influenza A virus by PCR Negative (Neg); Influenza B virus by PCR Negative (Neg); RSV by PCR Negative (Neg); SARS CoV2 RNA(COVID-19) Ceph NEGATIVE (Negative)
[2024-09-15] MEDS ORDERED: PHARMACIST DISCHARGE MED REC CONSULT PRN (21:01)
[2024-09-15] MEDS ORDERED: guaiFENesin/DEXTROM SYRUP 200MG/20MG 10ML UDC PO PRN (21:55)
[2024-09-15] MEDS ORDERED: ACETAMINOPHEN 500 MG TAB PO PRN (21:55)
[2024-09-15] MEDS ORDERED: oxyCODONE HCL IR 5 MG TAB (IMMEDIATE RELEASE) PO PRN ×2 (21:55)
[2024-09-15] MEDS: ACETAMINOPHEN 325 MG TAB PO PRN (22:05)
--- NOTE | 2024-09-15 22:47 | Magnetic Resonance Report ---
Exam(s): MRI HEAD Without Contrast EXAM: MR Head Without Intravenous Contrast CLINICAL HISTORY: speech finding difficulties. TECHNIQUE: Magnetic resonance images of the head/brain without intravenous contrast in multiple planes. COMPARISON: CT Brain 09-15-2024. FINDINGS: Brain: Age-appropriate central and peripheral atrophy. No acute stroke on diffusion-weighted images. Numerous old supratentorial periventricular and subcortical white matter infarcts. Severe diffuse degree of supratentorial periventricular and subcortical white matter hyperintensities on FLAIR and T2-weighted images. No acute hemorrhage or abnormal extra-axial fluid collection. Ventricles: No midline shift. No ventriculomegaly. Bones/joints: Unremarkable. No acute fracture. Sinuses: Unremarkable as visualized. No acute sinusitis. Mastoid air cells: Unremarkable as visualized. No mastoid effusion. Orbits: Unremarkable as visualized. IMPRESSION: 1. No acute stroke or hemorrhage. 2. 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 3. Extensive nonspecific white matter changes most commonly seen with small vessel disease. Electronically signed by: Javon Rosa M.D. 09/15/24 22:46 PM
[2024-09-15] MEDS: bisacodyL 10 MG SUPP PR SCH (22:55)
[2024-09-15] MEDS: DOCUSATE SODIUM 100 MG CAP PO SCH (22:55)
[2024-09-15] MEDS: VIBEGRON 75 MG TAB PO SCH (22:57)
[2024-09-15] MEDS: BACLOFEN 10 MG TAB PO SCH (22:57)
[2024-09-16 06:12] LABS: Appearance Urine Clear (Clear); Bacteria Urine Automated 4+ (None Seen); Bilirubin Urine Negative (Negative); Blood Urine Trace (Negative); Cast Urine Automated 0-2 /lpf (0-2); Color Urine Yellow; Glucose Urine UA Negative (Negative); Ketones Urine Negative (Negative); Leukocyte Esterase Urine 2+ (Negative); Nitrite Urine Positive (Negative); Protein Urine Negative (Negative); Specific Gravity Urine 1.011 (1.000-1.030); Urobilinogen Urine Negative (Negative)
[2024-09-16 07:40] VITALS: RESP 18
[2024-09-16 07:40] LABS: Basophils # (auto) 0.04 K/uL (0.00-0.20); Basophils % (auto) 0.6 %; Eosinophils # (auto) 0.27 K/uL (0.00-0.50); Eosinophils % (auto) 3.7 %; Estimated Average Glucose 114 mg/dl; Hematocrit (blood only) 32.8 % (37.0-47.0); Hemoglobin 10.8 g/dl (12.0-16.0); Hemoglobin A1C 5.6 % (4.5-5.6); Immature Granulocytes # (auto) 0.02 K/uL (0.01-0.20); Immature Granulocytes % (auto) 0.3 %; Lymphocytes # (auto) 0.85 K/uL (1.20-3.40); Lymphocytes % (auto) 11.7 %; Mean Corpuscular Hemoglobin 28.9 pg (25.0-34.0); Mean Corpuscular Hgb Conc 32.9 g/dL (32.0-36.0); Mean Corpuscular Volume 87.7 fL (80.0-100.0); Mean Platelet Volume 10.8 fL (9.4-12.4); Monocytes # (auto) 0.73 K/uL (0.11-0.59); Neutrophils # (auto) 5.36 K/uL (1.40-6.50); Neutrophils % (auto) 73.7 %; Platelet Count 282 K/uL (130-400); RDW Coefficient of Variation 15.4 % (11.5-14.5); RDW Standard Deviation 49.8 fL (36.4-46.3); Red Blood Count 3.74 M/uL (4.20-5.40); White Blood Count 7.27 K/ul (4.8-10.8)
--- NOTE | 2024-09-16 07:47 | Hospitalist Progress Note ---
Date of Service September 16, 2024 Assessment & Plan Admission and Anticipated Discharge Date Admission Date: September 15, 2024 Results & Data Results & Data Vital Signs (Past 12 Hours) Vital Signs Temp Pulse Pulse Pulse Resp BP BP 09/16/24 07:37 36.5 C 76 18 131/73 09/16/24 07:05 78 09/16/24 03:27 36 C L 74 16 102/54 L 09/15/24 23:30 36.5 C 91 H 16 119/54 L 09/15/24 22:13 88 09/15/24 21:30 09/15/24 21:23 36.7 C 87 18 156/81 H 09/15/24 21:07 87 09/15/24 20:14 86 20 135/93 Pulse Ox O2 Del Method 09/16/24 07:37 91 Room Air 09/16/24 07:05 09/16/24 03:27 93 Room Air 09/15/24 23:30 91 Room Air 09/15/24 22:13 09/15/24 21:30 Room Air 09/15/24 21:23 92 Room Air 09/15/24 21:07 09/15/24 20:14 95 Room Air
[2024-09-16 07:49] LABS: Calcium 9.1 mg/dl (8.6-10.3); Chol HDL Ratio 2.8 (0-5); Creatinine Clr Calc Pharmacy 181.7 ml/min; Potassium 3.7 mmol/L (3.5-5.1)
[2024-09-16] MEDS: CEROVITE ADV FORMULA TAB PO SCH (08:32)
[2024-09-16] MEDS: POLYETHYLENE (MIRALAX) 17 GM PACK PO SCH (08:32)
[2024-09-16] MEDS: OXYBUTYNIN CHLORIDE XL 5 MG TABCR PO SCH (08:33)
[2024-09-16] MEDS: CHOLECALCIFEROL 10 MCG (400 UNITS) TAB PO SCH (08:33)
[2024-09-16] MEDS: METHENAMINE HIPPURATE 1 GM TAB PO SCH (08:33)
--- OUTSIDE RECORDS SUMMARY | 2024-09-16 09:08 | External Medical Summary | Continuity of Care Document ---
Author Name Unknown Organization [id number] Address [address] [place] [id number] Care Team Providers Care Social Group Worker Name Role Phone Mike Valdivia Primary Care Physician [phone] Encounter [facility] [id number] Date(s): 09/11/24 - 09/11/24 [facility] [address] [place] [id number] [facility] [address] [place] [id number] Encounter Diagnosis Fracture of distal end of tibia with routine healing(Discharge Diagnosis) - 09/11/24 Fracture of toe with routine healing(Discharge Diagnosis) - 09/11/24 Discharge Disposition: Home or Self Care Attending Physician: MD Botello Paul K Allergies, Adverse Reactions, Alerts No Known Allergies Assessment and Plan Extracted from: Title:Mike Botello Author:Bonny Caraballo ate:09/11/24 IMPRESSION: 84 year old fema le, nonambulatory and with foot/ankledeformitydue to MS,with 1)right distal tibia fracture, routine healing 2) right 3rd toe fracture and right 1st toe fracture, routine healing PLAN: No indication for additional casting or immobilization at this time. Discussed exercising caution with transfers. Follow-up as needed Medications baclofen 10 mg oral tablet Start: 05/28/13 2:40:00 PM EDT, 1 tab, PO, qid Start Date: 05/28/13 Status: Ordered methenamine hippurate 1 g oral tablet Start: 07/27/20 10:27:00 AM EDT, 1 tab, PO, bid Start Date: 07/27/20 Status: Ordered mometasone 0.1% topical lotion Start: 04/24/18 11:21:00 AM EDT, See Instructions, Disp# 60 mL, Refills: 1, apply to leanna derm behindthe ear bid as needed, Pharmacy: [facility] [id number] Start Date: 04/24/18 Status: Ordered Myrbetriq 50 mg oral tablet, extended release Start: 12/01/15 9:17:00 AM EST, 1 tab, PO, qhs Start Date: 12/01/15 Status: Ordered Ocuvite PreserVision oral tablet Start: 07/28/24 4:20:00 PM EDT, 1 tab, PO, Daily Start Date: 07/28/24 Status: Ordered tolterodine 2 mg oral capsule, extended release Start: 07/27/20 10:26:00 AM EDT, 1 cap, PO, Daily Start Date: 07/27/20 Status: Ordered Vitamin D3 Start: 05/28/13 2:39:00 PM EDT, 800 Int_Unit =, PO, Daily Start Date: 05/28/13 Status: Ordered Mental Status 09/11/24 Barriers to Learning one year None evide nt Mandatory Health Literacy Documentation Yes Health Literacy Communication Barriers N ever Primary Language Indian Problem List Condition Confirmation Course Effective Dates Status Health St atus Informant Basal cell carcinoma (BCC) Confirmed 05/2019 Active Foot pain, right Confirmed Active Multiple Sclerosis Confirmed Active Osteoporosis Confirmed Active Rosacea Confirmed Active Spasticity Confirmed Active 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 Diagnosis Diagnosis Type Effective Dates Health Status Cl inical Service Informant Fracture of toe with routine healing Discharge Diagnosis 09/11/24 Fracture of distal end of tibia with routine healing Discharge Diagnosis 09/11/24 Procedures Procedure Date Related Diagnosis Body Site Status Shave biopsy and cauterizati on of skin 1 01/01/23 Completed Shave biopsy of skin 05/07/19 Comp leted Appendix Completed Knee Completed Kyphoplasty of fracture of t horacic spine using fluoroscopic guidance Completed Tonsillectomy Completed Vertebroplasty of thoracic s pine using computed tomography guidance Com pleted 1With curettage Social History Social History Type Response Tobacco Former smoker, Stopp ed age 49 Years. Smoking Status Never smoked cigaret pippa Sex Female Sex Representation Female (finding) Ortho Outpt Note * MD Ayan, Mike Olivares: MODIFY MD Botello Paul K: MODIFY, PERFORM Bonny Caraballo: PERFORM Event Display: Ortho Outpt Note Authored Date: Chief Complaint Follow-up right distal tibia fractures History of Present Illness Chew (Bobbie) [id number] yearoldFemabel presents todaywith her husbandforf/u right distal tibia fracture.She has been treated in a cast since her appointment on 07/28/2024.Sheis not taking any medication for discomfort at this point.She is nonweightbearing at baseline and does not use any weight for transfers. Review of Systems Refer to HPI Physical Exam Focus on the right lower extremity: Skin is overall intact except an area of hypertrophic skin over the anterior aspect of mid-paris No tenderness over the distal tibia Mild tenderness over lateral malleolus No pain with passive ROM of the ankle. Diagnostic Results I obtained and personally interpreted3 views of the right ankle and 4 views of the right foottaken today and stored in [facility]. There is evidence of increased consolidation and no interval displacement of the right distal tibia fracture. Interval healing of proximal phalanx fracture of great toe and proximal phalanx of the third toe. Incidental note of ankle plantarflexion and cavus foot deformity. Assessment/Plan IMPRESSION: 84 year old female, nonambulatory and with foot/ankledeformitydue to MS,with 1)right distal tibia fracture, routine healing 2) right 3rd toe fracture and right 1st toe fracture, routine healing PLAN: No indication for additional casting or immobilization at this time. Discussed exercising caution with transfers. Follow-up as needed Attestation Bonny Reyes, scribing for and in the presence of, Mike Botello, on this date,09/11/2024 11:27:06. 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 Procedure/Surgical History Shave biopsy and cauterization of skin| Service Date: 01/01/2023Shave biopsy of skin| ServiceDate: 05/07/2019AppendixKneeKyphoplasty of fracture of thoracic spine using fluoroscopic guidanceVertebroplasty of thoracic spine using computed tomography guidanceTonsillectomy Medications baclofen(baclofen 10 mg oral tablet), 10 mg= 1 tab, PO, qid cholecalciferol(Vitamin D3), 800 Int_Unit, PO, Daily methenamine(methenamine hippurate 1 g oral tablet), 1 g= 1 tab, PO, bid mirabegron(Myrbetriq 50 mg oral tablet, extended release), 50 mg= 1 tab, PO, qhs mometasone topical(mometasone 0.1% topical lotion), See Instructions, 1 refills multivitamin with minerals(Ocuvite PreserVision oral tablet), 1 tab, PO, Daily tolterodine(tolterodine 2 mg oral capsule, extended release), 2 mg= 1 cap, PO, Daily Allergies NKA Social History Smoking Status Never smoked cigarettes Tobacco Use:Former smoker Stopped at age:49Years Family History Cancer: Mother and Father. Stroke: Mother. Tuberculosis: Mother. Health Status Family Member(s) Recommendations Health Maintenance Pending(in the next year) OverDue Adult Influenza Vaccine due05/10/24and every 1year Due Adult COVID-19 Vaccination due09/11/24Unknown Frequency Adult Social Determinants of Health Screening due09/11/24Unknown Frequency Adult Tdap/Td Vaccine due09/11/24Unknown Frequency Body Mass Index due09/11/24Unknown Frequency Lipid Screening due09/11/24Unknown Frequency Medicare Annual Wellness Visit due09/11/24and every 1year Pneumococcal Vaccine Older Adults due09/11/24One-time only Shingles Vaccine due09/11/24One-time only Satisfied(in the past 1 year) There are no satisfied recommendations within the defined date range Electronic Signature on File Electronically Reviewed/Signed by: Bonny Caraballo Author Signature Dt/Tm:09/11/2024 11:59 AM Electronically Reviewed/Signed by: Mike Botello MD Cosigner Signature Dt/Tm: 09/11/2024 12:16PM Division of Sports Medicine [place] Patient Care team information Care Team Personnel Name: MD Valdivia Paul A Position: Referring Member Role: Primary Care Provider Address: [address] [place] [id number] [place] Name: LETICIA Baez Lynn Position: Physician [employer] Representative Exempt - Vasc Surg Member Role: Lifetime Relationship Address: [address] [place] [address] [place] Care Team Related Persons Name: KIET SEYMOUR"
[2024-09-16] MEDS: ENOXAPARIN INJ 40 MG/0.4 ML SYR SQ SCH (10:26)
--- NOTE | 2024-09-16 10:28 | Neurology Consultation ---
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 She has spastic dystonic tremor, muscle spasms, neurogenic cramps, soft dysphonic speech at baseline. She had presented to the emergency department yesterday with an 8-minute episode of word finding difficulty potentially consistent with a TIA. She appears to have a urinary tract infection. Her brain MRI completed overnight reveals extensive chronic demyelinating disease and associated generalized atrophy. There is a subtle area of restricted diffusion along the right lateral ventricle, not definitively seen on corresponding ADC map. The finding could be consistent with a small acute to subacute infarct. I did review these findings with [facility] radiology. Report addendum pending. Given the finding of a possible small acute to subacute ischemic infarct on brain MRI, would recommend aspirin 81 mg/day as well as a carotid ultrasound. Patient's lipid panel is within normal limits, without a statin. Given her advanced age, I do not think adding a statin is absolutely necessary at this time. However, if her ultrasound suggests atherosclerotic plaque, could consider a low-dose of rosuvastatin. Consider treatment of UTI as potentially suggested on urinalysis. Would also consider obtaining a transthoracic echocardiogram with bubble study. Patient's blood pressure appropriate, may allow for permissive hypertension acutely. May continue with baclofen to address her chronic MS associated spasticity. Would not recommend disease modifying therapy for her multiple sclerosis given her advanced age and advanced neurologic disability at baseline. Patient is not interested in reestablishing with neurology for her MS and does not require additional outpatient follow-up appointments. Please call with any questions. History of Present Illness Reason for Consultation: stroke? h/o MS Requesting Physician: Delia Attending Physician: Christiano Kennedy, History of Present Illness The patient is an 84-year-old female with a history of longstanding chronic progressive multiple sclerosis, I had last seen her in neurology clinic in January 2023. She has considerable baseline disability, spastic quadriparesis with modest residual function for the right upper limb which has enabled her to operate an electric wheelchair. She has associated dystonic spastic tremor and had been prescribed gabapentin for this symptom previously. She is also prescribed baclofen. Her multiple sclerosis is further characterized by soft dysphonic speech, dysphagia, neurogenic bladder, diffuse muscle spasms, spastic quadriparesis. She is not prescribed disease modifying therapy for her MS given her advanced age and advanced state of her demyelinating disease. She was last seen in outpatient clinic in April 2023. At that point in time, no further neurologic treatment or follow-up was recommended at the request of the patient and her spouse. She had presented to the emergency department yesterday with a transient episode of speech difficulty, word finding difficulty lasting for about 8 minutes with perhaps some associated amnesia although the patient does seem to recall this event this morning. Upon entering the room, the patient indicated that she was not interested in having any other doctors. I did explain to the patient that my role was simply as a procurement consultant at the request of her admitting physician given the possibility of stroke or other acute neurologic process. I did review her CT of the head completed last night that was negative for hemorrhage or o ther acute process. The study does reveal considerable generalized atrophy with associated ventricular enlargement and fairly extensive white matter lucency consistent with her history of longstanding MS. She did have a follow-up brain MRI completed as well which was revealed a very small area of restricted diffusion within the right cerebral hemisphere that could be consistent with a small acute ischemic infarct or T2 shine through. The study reveals extensive chronic periventricular and subcortical white matter hyperintensity consistent with patient's history of longstanding MS. I did independently review these images. The overnight interpreting radiologist was not aware of patient's history of chronic MS and indicated that the observed findings were consistent with remote infarcts and chronic small vessel ischemic disease. I did review the case with Dr. Rodriguez, [facility] radiology who will provide an addendum. I do note that her urinalysis is suggestive of urinary tract infection. Allergies Allergy/AdvReac Type Severity Reaction Status Date / Time codeine Allergy Unknown Verified 07/24/24 10:53 Home Medications Medication Instructions Recorded Confirmed Type baclofen 10 mg tablet 10 mg PO QID 09/16/18 09/15/24 History cholecalciferol (vitamin D3) 10 400 unit PO QAM 09/16/18 09/15/24 History mcg (400 unit) tablet (Vitamin D3) polyethylene glycol 3350 17 gram 17 g PO DAILY #30 ea 06/21/22 09/15/24 Rx oral powder packet (Miralax) bisacodyl 10 mg rectal suppository 10 mg MN HS 02/26/23 09/15/24 History methenamine hippurate 1 gram tablet 1 g PO BIDM 02/26/23 09/15/24 History mirabegron 50 mg tablet,extended 50 mg PO HS 02/26/23 09/15/24 History release 24 hr tolterodine 2 mg capsule,extended 2 mg PO DAILY #90 caps 10/08/23 09/15/24 Rx release 24 hr acetaminophen 500 mg tablet 1,000 mg PO Q8 PRN Pain 09/15/24 09/15/24 History dextromethorphan-guaifenesin 5 20 ml PO Q4H PRN cough and 09/15/24 09/15/24 History mg-100 mg/5 mL oral liquid congestion (Mucinex Fast-Max DM Max) docusate sodium 100 mg capsule 100 mg PO HS 09/15/24 09/15/24 History oxycodone 5 mg tablet 2.5 mg PO Q4 PRN Moderate Pain 09/15/24 09/15/24 History (Scale Score 5-6) oxycodone 5 mg tablet 5 mg PO Q4 PRN Severe Pain (Scale 09/15/24 09/15/24 History Score 7-10) vit C 250 mg-vit E 90 mg-zinc 40 2 tab PO QAM 09/15/24 09/15/24 History mg-copper 1 [id number] capsule (PreserVision AREDS-2) Patient History Medical History (Updated 09/15/24 @ 21:02 by Bob Lin MD) Cerebrovascular insufficiency Per PCP records- 2016- suspect left hemispheric event Encounter for pre-operative examination Surgical History History of open reduction and internal fixation (ORIF) procedure RIGHT LEG/HARDWARE REMOVED LATER H/O knee surgery History of back surgery X 2 Hx of appendectomy Family History Sister Amyotrophic lateral sclerosis Father Cancer Mother Cancer Other Hypertension Social History Smoking Status: Former smoker Tobacco Type: Cigarettes Second Hand Exposure: No; Do You Dip or Chew Tobacco: No; Hx Alcohol Use: Yes Alcohol type: wine Alcohol Intake Frequency: 4 or More x per/Week Hx Substance Use: No Preferred Language: Polish Communication Ability: Effective Visual Impairment: Limited Hearing Ability: Normal Apprentice Carpenter Required: No Beliefs That Will Affect Care: None marital status: Current Living Situation: Assisted Current Living Situation Comment[place] current occupational status: retired How many Children do You have: 2 Feels Safe at Home: Yes Diet: regular caffeine: No during the past year weight has: remained stable Assistive Devices: Hospital Bed, Mechanical Lift and Wheelchair Review of Systems Constitutional: + fatigue; no fever and no chills Eyes: no blind spots, no diplopia and no eye pain Ear, Nose, Mouth, Throat: no hearing loss Respiratory: no cough and no dyspnea Cardiovascular: no chest pain and no palpitations Gastrointestinal: no nausea and no vomiting Genitourinary: + urinary incontinence Musculoskeletal: + stiffness and + muscle weakness; no my algia Integumentary: + lesions and + wounds Neurologic: + gait abnormality, + generalized weakne ss, + loss of sensation, + lack of coordination, + tremor(s) and + abnormal speech; no headache(s) Psychiatric: no depression and no anxiety Hematologic / Lymphatic: no easy bleeding and no easy bruising Exam (Neuro) Constitutional: + frail appearing; no acute distress Eyes: normal visual gregory by confrontation, PERRL and EOM intact bilaterally; no nystagmus Neurologic: Oriented to:: Person, Place and Time Memory: Short Term Intact and Remote Intact Attention: Span Intact and Concentration Intact Speech Fluency: Dysarthria and Other (Soft) Speech Aphasia: negative Aphasia Fund of Knowledge: Current Events, Past History and Vocabulary Cranial Nerves: Normal II, III, IV, , V, VII, VIII, IX, X, XI and XII Motor Strength: Quadripelgia Spasticity: Arms and Legs Muscle Bulk/Involuntary Movements: Muscle Atrophy and Action Tremor Laterality: Right Sensation: negative Light Touch Intact, Pain/Temperature Intact or Vibration Intact Coordination: Finger-Nose Abnormal Deep Tendon Reflexes: Rt Triceps: 3+, Lt Triceps: 3+, Rt Biceps: 3+, Lt Biceps: 3+, Rt Brachioradialis: 3+, Lt Brachioradialis: 3+, Rt Patellar: 3+ and Lt Patellar: 3+ Details: Patient has a spastic quadriparesis with modest preservation of gross movement for the right upper limb. She has considerable bilateral lower extremity spastic weakness, no volitional movement of either lower limb. The left upper extremity is held in a spastic contracted posture. Patient's speech is soft and dysphonic. Results & Data Vital Signs (Past 12 Hours) Vital Signs Temp Pulse Pulse Resp BP Pulse Ox O2 Del Method 09/16/24 08:30 Room Air 09/16/24 07:37 36.5 C 76 18 131/73 91 Room Air 09/16/24 07:05 78 09/16/24 03:27 36 C L 74 16 102/54 L 93 Room Air 09/15/24 23:30 36.5 C 91 H 16 119/54 L 91 Room Air Laboratory Results WBC 7.27, hemoglobin 10.8, hematocrit 32.8, platelet count 282, sodium 138, potassium 3.7, BUN 21, creatinine 0.20, glucose 89, hemoglobin A1c 5.6, calcium 9.1, AST 13, ALT 13, triglycerides 97, cholesterol 170, LDL 91, VLDL 19, HDL 60, urinalysis consistent with UTI Diagnostic Findings Electrocardiogram was a normal sinus rhythm, 77 bpm Coding Level of Care Code 90364 INT INP/OBS CARE MIN Diagnoses Multiple sclerosis G35 Quadriplegia G82.50 Stroke-like symptoms R29.90 Time Spent (min) 90 Comment Total time includes patient contact, chart review, counseling, note preparation
[2024-09-16 10:58] VITALS: TEMP 97.9; O2SAT 92
--- NOTE | 2024-09-16 13:36 | Ultrasound Report ---
US carotid doppler BI CLINICAL HISTORY: 84 years-old Female with Stroke workup. Acute strokelike symptoms COMPARISON: 08/20/2016 TECHNIQUE: Multiple real time sonographic images of the carotid bifurcations were obtained assessing post scale, color Doppler and spectral wave form appearance FINDINGS: RIGHT CAROTID: The peak systolic velocity within the right ICA is 64 cm/sec. The end diastolic [place] measured 13 cm/sec. The ICA to CCA ratio measured 1.1 which correlates with a stenosis of 0-50% . Yjye-bb-crsfzcqm atherosclerosis. LEFT CAROTID: The peak systolic velocity within the right ICA is 69 cm/sec. The end diastolic veloc ity measured 12 cm/sec. The ICA to CCA ratio measured 0.9 which correlates with a stenosis of 0-50%. Moderate atherosclerosis. There is normal antegrade vertebral flow bilaterally. IMPRESSION: 1. No hemodynamically significant stenosis. 2. Normal antegrade vertebral flow bilaterally. ACT 112: Negative or not required by law. The above report was generated using voice recognition software. It may contain grammatical, syntax o r spelling errors. Electronically signed by: Raffy Rodriguez M.D. 09/16/2024 1:34 PM
--- NOTE | 2024-09-16 13:37 | XCELERA ---
[id number]
--- NOTE | 2024-09-16 15:27 | Electrocardiogram Report ---
Test Reason : Blood Pressure : */* mmHG Vent. Rate : 77 BPM Atrial Rate : 77 BPM P-R Int : 168 ms QRS Dur : 96 ms QT Int : 406 ms P-R-T Axes : 14 -30 5 degrees QTcB Int : 459 ms Normal sinus rhythm Left axis deviation Minimal voltage criteria for LVH, may be normal variant ( R in aVL ) Abnormal ECG When compared with ECG of 26-Feb-2023 19:46, No significant change was found Confirmed by Alan Burrell ([id number]) on 09/16/2024 3:27:26 PM Referred By: REFERRED SELF Confirmed By: Alan Burrell
[2024-09-16] MEDS ORDERED: STROKE PATIENT DISCHARGE STA (16:08)
[2024-09-16 16:15] VITALS: BP 156/81; PULSE 86
--- NOTE | 2024-09-16 16:16 | Pharmacy Report ---
- Date of Service September 16, 2024 - Pharmacy CVA/TIA Medication Review Medications to Prevent Stroke handout has been added to the patients discharge packet. Antiplatelet(s) * aspirin 81 mg PO daily Cholesterol * High intensity statin deferred due to age >75 DVT Prophylaxis * Enoxaparin SQ Therapeutic Anticoagulation * No history of Afib/Aflutter noted Type 2 Diabetes * Patient does not have T2DM
--- NOTE | 2024-09-16 17:16 | Discharge Summary ---
Date of Service September 16, 2024 Admission HPI Per Admitting Provider Naina Sher is an 84 year old female who presents to the ER with an 8 minute episode of word finding difficulty / word salad. She is currently back to her baseline although her reports her speech is quiet. Transient episode lasted for around 8 minutes and patient unable to remember event. She otherwise feels at her baseline state with no vision hearing changes. She has chronic limb flexion deformities from multiple sclerosis and is wheelchair bound. She is able to move her right arm but has no/minimal left arm or bilateral lower extremity movements at baseline. She has some short term memory loss at baseline and does not remember the event today. She has a cough but reports this is chronic and not new. No fever or chills. She has a "sensation of urination" but no new urinary symptoms. Principal Diagnosis TIA Discharge Exam General: patient resting comfortably, NAD, non-toxic in appearance, answers questions appropriately. Skin: warm, dry, intact HEENT: NC/AT, anicteric sclera, conjunctiva without injection, moist mucus membr anes. Heart: +S1/S2, regular, no m/r/g Lungs: equal air entry bilaterally, no rales/rhonchi/wheezes Abd: +BS, soft, NT/ND Ext: warm, no clubbing/cyanosis or edema, Ross's neg. Neuro: nonfocal, speech intact, no facial droop, moving all extremities. Discharge Data Allergies Allergy/AdvReac Type Severity Reaction Status Date / Time codeine Allergy Unknown Verified 07/24/24 10:53 Consultations 09/15/24 18:59 ED Decision to Admit Stat 09/16/24 06:54 Consult Neurology Routine Ordered Studies 09/15/24 16:48 CT head/brain wo con Stat 09/15/24 18:49 MRI Brain [MR brain wo con] Stat 09/16/24 11:35 Carotid duplex [US carotid doppler BI] Urgent Laboratory Results WBC 7.27 K/ul (4.8-10.8) 09/16/24 07:03 RBC 3.74 M/uL (4.20-5.40) L 09/16/24 07:03 Hgb 10.8 g/dl (12.0-16.0) L 09/16/24 07:03 Hct 32.8 % (37.0-47.0) L 09/16/24 07:03 MCV 87.7 fL (80.0-100.0) 09/16/24 07:03 MCH 28.9 pg (25.0-34.0) 09/16/24 07:03 MCHC 32.9 g/dL (32.0-36.0) 09/16/24 07:03 RDW Std Deviation 49.8 fL (36.4-46.3) H 09/16/24 07:03 RDW Coeff of Rosales 15.4 % (11.5-14.5) H 09/16/24 07:03 Plt Count 282 K/uL (130-400) 09/16/24 07:03 MPV 10.8 fL (9.4-12.4) 09/16/24 07:03 Immature Gran % (Auto) 0.3 % 09/16/24 07:03 Neut % (Auto) 73.7 % 09/16/24 07:03 Lymph % (Auto) 11.7 % 09/16/24 07:03 Carbon % (Auto) 10.0 % 09/16/24 07:03 Eos % (Auto) 3.7 % 09/16/24 07:03 Baso % (Auto) 0.6 % 09/16/24 07:03 Neut # (Auto) 5.36 K/uL (1.40-6.50) 09/16/24 07:03 Lymph # (Auto) 0.85 K/uL (1.20-3.40) L 09/16/24 07:03 Carbon # (Auto) 0.73 K/uL (0.11-0.59) H 09/16/24 07:03 Eos # (Auto) 0.27 K/uL (0.00-0.50) 09/16/24 07:03 Baso # (Auto) 0.04 K/uL (0.00-0.20) 09/16/24 07:03 Immature Gran # (Auto) 0.02 K/uL (0.01-0.20) 09/16/24 07:03 PT 10.5 Seconds (9.0-12.0) 09/15/24 18:35 INR 1.0 (0.9-1.1) 09/15/24 18:35 APTT 29 Seconds (21-31) 09/15/24 18:35 PTT Ratio 1.1 09/15/24 18:35 Sodium 138 mmol/L (136-145) 09/16/24 07:03 Potassium 3.7 mmol/L (3.5-5.1) 09/16/24 07:03 Chloride 106 mmol/L (98-107) 09/16/24 07:03 Carbon Dioxide 25 mmol/L (21-32) 09/16/24 07:03 Anion Gap 7 (3-11) 09/16/24 07:03 BUN 21 mg/dl (6-23) 09/16/24 07:03 Creatinine 0.20 mg/dl (0.6-1.2) L 09/16/24 07:03 Est Cr Clr Drug Dosing 181.7 ml/min 09/16/24 07:03 eGFR 113.84 09/16/24 07:03 BUN/Creatinine Ratio 105.0 (10-20) H 09/16/24 07:03 Glucose 89 mg/dl (70-99(Fasting)) 09/16/24 07:03 POC Glucose 99 mg/dl (70-99) 09/15/24 16:37 Estimat Average Glucose 114 mg/dl 09/16/24 07:03 Hemoglobin A1c 5.6 % (4.5-5.6) 09/16/24 07:03 Calcium 9.1 mg/dl (8.6-10.3) 09/16/24 07:03 Magnesium 1.8 mg/dl (1.7-2.4) 09/15/24 18:35 Total Bilirubin 0.3 mg/dl (0.2-1.0) 09/15/24 16:53 AST 13 U/L (13-39) 09/15/24 18:35 ALT 13 U/L (7-52) 09/15/24 16:53 Alkaline Phosphatase 85 U/L (34-104) 09/15/24 18:35 Troponin I High Sens 7.7 pg/ml (0-14) 09/15/24 18:35 Total Protein 6.4 gm/dl (6.0-8.3) 09/15/24 16:53 Albumin 3.4 gm/dl (3.4-5.0) 09/15/24 18:35 Globulin TNP 09/15/24 16:53 Albumin/Globulin Ratio TNP 09/15/24 16:53 Triglycerides 97 mg/dl (0-150) 09/16/24 07:03 Cholesterol 170 mg/dl (0-200) 09/16/24 07:03 LDL Cholesterol, Calc 91 mg/dl 09/16/24 07:03 VLDL Cholesterol, Calc 19 mg/dl (0-30) 09/16/24 07:03 HDL Cholesterol 60 mg/dl 09/16/24 07:03 Cholesterol/HDL Ratio 2.8 (0-5) 09/16/24 07:03 Urine Color Yellow 09/16/24 05:38 Urine Appearance Clear (Clear) 09/16/24 05:38 Urine pH 7.0 (4.5-7.5) 09/16/24 05:38 Ur Specific [place] 1.011 (1.000-1.030) 09/16/24 05:38 Urine Protein Negative (Negative) 09/16/24 05:38 Urine Glucose (UA) Negative (Negative) 09/16/24 05:38 Urine Ketones Negative (Negative) 09/16/24 05:38 Urine Blood Trace (Negative) H 09/16/24 05:38 Urine Nitrite Positive (Negative) A 09/16/24 05:38 Urine Bilirubin Negative (Negative) 09/16/24 05:38 Urine Urobilinogen Negative (Negative) 09/16/24 05:38 Ur Leukocyte Esterase 2+ (Negative) H 09/16/24 05:38 Urine WBC (Auto) 11-20 /hpf (0-5) H 09/16/24 05:38 Urine RBC (Auto) 11-20 /hpf (0-2) H 09/16/24 05:38 U Hyaline Cast (Auto) 0-2 /lpf (0-2) 09/16/24 05:38 U Epithel Cells (Auto) 3-5 /hpf (0-2) H 09/16/24 05:38 Urine Bacteria (Auto) 4+ (None Seen) H 09/16/24 05:38 Nasal Screen MRSA (PCR) Negative (Negative) 09/15/24 23:03 SARS-CoV-2 (PCR) NEGATIVE (Negative) 09/15/24 Unknown Influenza Type A (PCR) Negative (Neg) 09/15/24 Unknown Influenza Type B (PCR) Negative (Neg) 09/15/24 Unknown RSV (RT-PCR) Negative (Neg) 09/15/24 Unknown Impressions Chest X-Ray 09/15/24 16:48 INDICATION: Cough. TECHNIQUE: Frontal radiograph of the chest. COMPARISON: Radiograph from 11/21/2023. FINDINGS: Elevation of left hemidiaphragm similar to prior. Cardiomegaly. Bilateral lower lobe atelectasis/airspace disease. Mild pulmonary vascular congestion. No pleural effusion or pneumothorax. No acute fracture. IMPRESSION: Bilateral lower lobe atelectasis/airspace disease. Mild pulmonary vascular congestion. Electronically signed by Laz Tellez 09-15-2024 5:[address] 09/15/24 16:48 Clinical History: Difficulty finding words Technique: Axial computed tomography images were obtained of the brain without intravenous contrast. Comparison is made to the prior CT dated 02/26/2023 Findings: There is unchanged cerebral atrophy, within expected limits for the patient's age. Areas of decreased attenuation are seen within the periventricular white matter, likely representing chronic small vessel ischemic disease. There is no definite sign of acute or old infarction. No intracranial hemorrhage is evident. No definite mass lesion is seen on this noncontrast examination. There is no midline shift or other form of herniation. No hydrocephalus is seen. No fracture is identified. The orbits and the visualized paranasal sinuses appear unremarkable. The mastoid air cells appear clear. Impression: 1. Cerebral atrophy and chronic small vessel ischemic disease 2. Otherwise unremarkable noncontrast CT of the brain Electronically signed by Geoff Garces 09-15-2024 5:19 PM Brain MRI 09/15/24 18:49 Exam(s): MRI HEAD Without Contrast EXAM: MR Head Without Intravenous Contrast CLINICAL HISTORY: speech finding difficulties. TECHNIQUE: Magnetic resonance images of the head/brain without intravenous contrast in multiple planes. COMPARISON: CT Brain 09-15-2024. FINDINGS: Brain: Age-appropriate central and peripheral atrophy. No acute stroke on diffusion-weighted images. Numerous old supratentorial periventricular and subcortical white matter infarcts. Severe diffuse degree of supratentorial periventricular and subcortical white matter hyperintensities on FLAIR and T2-weighted images. No acute hemorrhage or abnormal extra-axial fluid collection. Ventricles: No midline shift. No ventriculomegaly. Bones/joints: Unremarkable. No acute fracture. Sinuses: Unremarkable as visualized. No acute sinusitis. Mastoid air cells: Unremarkable as visualized. No mastoid effusion. Orbits: Unremarkable as visualized. IMPRESSION: 1. No acute stroke or hemorrhage. 2. 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 3. Extensive nonspecific white matter changes most commonly seen with small vessel disease. Electronically signed by: Javon Rosa M.D. 09/15/24 22:46 PM Carotid Doppler Study 09/16/24 11:35 US carotid doppler BI CLINICAL HISTORY: 84 years-old Female with Stroke workup. Acute strokelike symptoms COMPARISON: 08/20/2016 TECHNIQUE: Multiple real time sonographic images of the carotid bifurcations were obtained assessing post scale, color Doppler and spectral wave form appearance FINDINGS: RIGHT CAROTID: The peak systolic velocity within the right ICA is 64 cm/sec. The end diastolic velocity measured 13 cm/sec. The ICA to CCA ratio measured 1.1 which correlates with a stenosis of 0-50%. Kgcy-rw-sbeljmiz atherosclerosis. LEFT CAROTID: The peak systolic velocity within the right ICA is 69 cm/sec. The end diastolic velocity measured 12 cm/sec. The ICA to CCA ratio measured 0.9 which correlates with a stenosis of 0-50%. Moderate atherosclerosis. There is normal antegrade vertebral flow bilaterally. IMPRESSION: 1. No hemodynamically significant stenosis. 2. Normal antegrade vertebral flow bilaterally. ACT 112: Negative or not required by law. The above report was generated using voice recognition software. It may contain grammatical, syntax or spelling errors. Electronically signed by: Raffy Rodriguez M.D. 09/16/2024 1:34 PM Hospital Course (1) Stroke-like symptoms: (2) Brain TIA: (3) Weakness of voice: Plan Stroke-like symptoms, Brain TIA, Weakness of voice - Transient dysarthria for approximately 8 min before going back to baseline - TTE: showed notmal function - Carotid Doppler: wnl - Neurology consult: reviewed MRI, likely very small acute to subacute infarct with white matter lucency correlating with MS - Neurology recommends d/c on aspirin - Patient safe for d/c Total Time Total Time Spent Total Time Spent (In Minutes): <30 Discharge Plan Discharge Items Patient Disposition: Transfer [facility] Reason For Visit: STROKE-LIKE SYMPTOMS Discharge Diagnosis: TIA (blockage of blood flow that leads to downstream brain tissue not working well - which resolves prior to any actual stroke/damaged brain) Activity: Resume your previous activity Non-emergency contact: Primary Care Provider and Neurologist Call non-emergency contact if: you have any medication questions and your symptoms worsen Follow-up/Referrals: Mike Valdivia MD [Primary Care Provider] - Diet: Regular Addtl Attending Provider Instructions: as we discussed, your symptoms fit the most with a TIA (transient ischemic attack) - where there's a blockage of blood flow that interrupts supply to the brain tissue downstream - but then our body can often "recognize" that the clotting is "inappropriate" and dissolve the clot before there's any actual damage this particular symptom complex (as well as what we're not seeing as far as any blockages of big arteries in your neck) fits well with atherosclerosis (hardening of the arteries) of the small blood vessels in your brain - typically the best prevention of future TIA or stroke in this situation will be an 81mg aspirin daily the echocardiogram has not been read yet, but as we discussed, it's quite unlikely it will show anything of significance given the symptom pattern with this TIA Pending Studies at Discharge: Yes (echocardiogram (ultrasound of heart) ) Stand-Alone Forms: [employer], Smoking Cessation, Medications to Prevent Stroke Skilled Items Patient informed of condition?: Yes DNR: No Discharge Level of Care: Skilled Communicable Disease: No Discharge Prognosis: Stable Lines: None Urinary Catheter: No Medications and DC Order Prescriptions: New aspirin 81 mg tablet,delayed release (DR/EC) 81 mg PO DAILY Qty: 30 0RF Continued tolterodine 2 mg capsule,extended release 24hr 2 mg PO DAILY Qty: 90 3RF baclofen 10 mg tablet 10 mg PO QID cholecalciferol (vitamin D3) [Vitamin D3] 400 unit Tablet 400 unit PO QAM polyethylene glycol 3350 [Miralax] 17 gram Powder In Packet 17 g PO DAILY Qty: 30 0RF bisacodyl 10 mg Suppository 10 mg [place] HS methenamine hippurate 1 gram tablet 1 g PO BIDM mirabegron 50 mg tablet extended release 24 hr 50 mg PO HS docusate sodium 100 mg Capsule 100 mg PO HS oxycodone 5 mg tablet 2.5 mg PO Q4 PRN (Reason: Moderate Pain (Scale Score 5-6)) oxycodone 5 mg tablet 5 mg PO Q4 PRN (Reason: Severe Pain (Scale Score 7-10)) acetaminophen 500 mg Tablet 1,000 mg PO Q8 PRN (Reason: Pain) PreserVision AREDS-2 250-90-40-1 mg Capsule 2 tab PO QAM dextromethorphan-guaifenesin [Mucinex Fast-Max DM Max] 5-100 mg/5 mL Liquid 20 ml PO Q4H PRN (Reason: cough and congestion) Discharge Orders: Discharge Order (Routine); Ordered 09/16/24 Ordered By: Christiano Kennedy Admission Data Admit Date/Time: 09/15/24 19:05 Attending Provider: Christiano Kennedy Admit Provider: Bob Lin Primary Care Provider: Mike Valdivia Other Providers: Bob Lin; Casey Obrien Other Interventions: Discharge Summary Assessment (RN) Last Done: 09/16/24 16:14 Supervising Physician Co-Signing Physician Notes I personally examined the patient and verified all hercules points of history and exam, discussed case, and agree with decision making with Dr Hurtado would like to go home. feels ok. extensive d/w pt and answered all questions to the best of my ability and their satisfaction vitals noted nad heent nc at mmm chronic appearing neuro deficits skin without rashes pallor or icterus probable TIA - vs less likely small stroke/quick recovery -- almost certainly small vessel disease; carotids clear, echo reassuring. asa. home. hold on statin given age + LDL (risk of suppression increasing ICH risk - therefore holding off) Resident Activity Tracking Resident Involvement: Resident Care Provided Care Provided: Adult Hospital Medicine
--- NOTE | 2024-09-16 17:54 | Billing Data ---
Date of Service September 16, 2024 Coding Level of Care Code 76219 IN/OBS DISCH 30 MIN/LESS
== END 2024-09-16 16:56 ==
LOC: 2W 16:33 → ED 16:33 → SUATTDRO 19:05 → 2W 20:21